=== PATIENT | female | born 1940 | race Caucasian/White ===

== ENCOUNTER → 2018-06-12 10:24 | Outpatient (CLI) | payer MEDICARE, SELFPAY | PROVIDERS: Family Provider Physician Assistant; PCP Physician Assistant; Visit Provider Obstetrics & Gynecology | DX: Z12.31 Encounter for screening mammogram for malignant neoplasm of breast (principal); Z80.3 Family history of malignant neoplasm of breast; E28.39 Other primary ovarian failure | CPT/HCPCS: 77063; 77067; 77080 ==

== ENCOUNTER → 2018-08-27 12:01 | Outpatient (CLI) | payer MEDICARE, SELFPAY ==
[2018-08-27 13:04] LABS: Vitamin B12 272 pg/mL (211-911)
[2018-08-27 13:10] LABS: BUN 13 mg/dL (7-18); Creatinine, Serum 0.76 mg/dL (0.55-1.02); EST Glomerular Filtration Rate 78 mL/min (>60); Est Glom Filt Rate - Afr Amer 95 mL/min (>60); Thyroid Stim Hormone (TSH) 1.09 uIU/mL (0.358-3.74)
== END ==
PROVIDERS: Family Provider Physician Assistant; PCP Physician Assistant; Referring Provider Psychiatry & Neurology Neurology; Visit Provider Psychiatry & Neurology Neurology
DX: R41.3 Other amnesia (principal)
CPT/HCPCS: 36415; 82565; 82607; 82746; 84443; 84520

== ENCOUNTER → 2018-08-28 16:35 | Outpatient (CLI) | payer MEDICARE, SELFPAY ==
--- NOTE | 2018-08-28 16:59 | MRI_ITS ---
STUDY: MRI BRAIN WITHOUT CONTRAST REASON FOR EXAM: Female, 77 years old. Memory loss, dementia. TECHNIQUE: Standardized multiplanar fat and water weighted pulse sequences were obtained. COMPARISON: None. FINDINGS: There is no intracranial mass, hemorrhage, or acute ischemia. A small chronic left occipital infarct is noted. There is mild cerebral atrophy with widening of the extra-axial spaces and ventricular dilatation. There are a limited number of small white matter hyperintensities, distributed throughout the deep white matter tracts of the cerebral hemispheres, consistent with mild chronic white matter ischemic changes. Normal bilateral basal ganglia. Normal thalami. There is no extra-axial fluid accumulation. Normal flow voids within the major intracranial circulation suggesting patency by spin echo criteria. Normal sella turcica, pituitary gland, infundibular stalk, optic chiasm and hypothalamus. Normal tectal plate and pineal gland. Normal midbrain, jennifer and medulla. Normal cerebellum. Normal basal cisterns. Normal bilateral temporal bones. Normal bilateral internal auditory canals. No demonstrated orbital abnormality, within the constraints of a routine brain study. Normal visualized paranasal sinuses. Normal calvarium and skull base. Normal visualized soft tissue structures. Normal visualized upper cervical spine. MRI/Brain without Contrast IMPRESSION: 1. No acute process. 2. Chronic left occipital infarct. 3. Mild microvascular ischemic changes. Atrophy. Electronically Signed: Manisha Escobar MD at 19:17 EDT Tel , Service support ,
== END ==
PROVIDERS: Family Provider Physician Assistant; PCP Physician Assistant; Referring Provider Psychiatry & Neurology Neurology; Visit Provider Psychiatry & Neurology Neurology
DX: H53.40 Unspecified visual field defects (principal); R41.3 Other amnesia
CPT/HCPCS: 70551

== ENCOUNTER → 2018-10-03 12:02 | Outpatient (CLI) | payer MEDICARE, SELFPAY ==
--- NOTE | 2018-10-03 12:09 | CDU_ITS ---
Reason For Study: Cerebral infarction Rt. Velocities/BP Lt. Velocities/BP Prox CCA 107/17 cm/sec. Prox CCA 84.4/19.9 cm/sec. Mid CCA 80.3/14.1 cm/sec. Mid CCA 85/16.4 cm/sec. Dist CCA 80.3/21.7 cm/sec. Dist CCA 71.5/17 cm/sec. Prox ICA 93.2/21.7 cm/sec. Prox ICA 82.7/18.8 cm/sec. Mid ICA 89.1/21.1 cm/sec. Mid ICA 70.4/20.5 cm/sec. Dist ICA 79.7/19.9 cm/sec. Dist ICA 82.1/25.8 cm/sec. Rt. ICA/CCA = 1.16. Lt. ICA/CCA = 0.98. Prox ECA 79.2/4.69 cm/sec. Prox ECA 78/5.28 cm/sec. Rt. Vert. 37.4/5.71 cm/sec. Lt. Vert. 47.9/9.43 cm/sec. Right Extracranial There is intimal thickening but no significant atherosclerotic plaque noted in the right common carotid artery. There is heterogeneous, irregular atherosclerotic plaque noted in the right internal carotid artery. There is heterogeneous, smooth atherosclerotic plaque noted in the right external carotid artery. Antegrade flow is noted in the right vertebral artery. Left Extracranial There is heterogeneous, smooth atherosclerotic plaque noted in the left common carotid artery. There is heterogeneous, irregular atherosclerotic plaque noted in the left internal carotid artery. There is intimal thickening but no significant atherosclerotic plaque noted in the left external carotid artery. Antegrade flow is noted in the left vertebral artery. Procedure Carotid Duplex [id number]. Exam performed in department. Interpretation Summary Mild (<50%) stenosis right extracranial internal carotid. Mild (<50%) stenosis left extracranial internal carotid. Flow within the vertebral arteries is antegrade bilaterally. Ordering Physician: Varun Wang Referring Physician: Lamont Viera Performed By: Ara RDCS, Becky SOLARES and Student
--- NOTE | 2018-10-03 12:10 | ECHOD_ITS ---
Reason For Study: CEREBRAL INFARCTION Procedure This was a 2D Doppler, Color Flow transthoracic echocardiogram. Exam performed in department. Left Ventricle Normal LV size. Left ventricular systolic function is normal. The estimated ejection fraction is 60 %. Stage 1 diastolic dysfunction. No regional wall motion abnormalities noted. Right Ventricle Normal RV size. Normal systolic function. Atria Normal left atrium. Normal right atrium. Bubble contrast study negative for right to left interatrial shunt. Mitral Valve Normal mitral valve. Tricuspid Valve Normal tricuspid valve. Mild (1+) tricuspid valve insufficiency. Pulmonary artery systolic pressure is 25 mmHg. Aortic Valve Trisinus/trileaflet aortic valve. Mild focal aortic valve calcification. Pulmonic Valve The pulmonic valve is not well visualized. Great Vessels Calcified aortic root. The pulmonary artery is normal size. Normal inferior vena cava. Pericardium/Pleural No pericardial effusion. Medication 22 gauge I.V. with prn adaptor inserted into right arm. Performed a rapid injection of agitated mix of 9 cc saline and 1cc air to assess for atrial septal defect. MMode/2D Measurements & Calculations LVIDd: 4.6 cm IVSd: 0.73 cm LVOT diam: 2.0 cm LVIDs: 3.1 cm LVPWd: 1.00 cm RVDd: 2.5 cm FS: 33.1 % LVOT area: 3.1 cm2 Ao root diam: 2.6 cm LAV(MOD-bp): 37.2 ml LA A4 area: 12.3 cm2 LAV(MOD-bp) Indexed: 23.9 ml/m2 LAV(MOD-sp2): 32.0 ml LAV(MOD-sp4): 32.7 ml LA dimension(2D): 3.2 cm RA A4 area: 9.2 cm2 Time Measurements MV dec time: 0.27 sec Doppler Measurements & Calculations MV E max josé miguel: 84.8 cm/sec Lat Peak E' José Miguel: 5.5 cm/sec Med Peak E' José Miguel: 5.4 cm/sec MV A max josé miguel: 99.9 cm/sec E/E' lat: 15.5 E/E' med: 15.6 MV E/A: 0.85 Ao V2 max: 132.5 cm/sec LV V1 max: 94.0 cm/sec PA V2 max: 95.0 cm/sec Ao max P.0 mmHg LV V1 max P.5 mmHg JAY(V,D): 2.2 cm2 TR max josé miguel: 228.7 cm/sec TR max P.1 mmHg Interpretation Summary Normal LV size. Left ventricular systolic function is normal. The estimated ejection fraction is 60 %. Stage 1 diastolic dysfunction. Mild (1+) tricuspid valve insufficiency. Ordering Physician: Varun Wang Referring Physician: Viera, Lamont Performed By: Shea Corbin RDCS, RVT
--- OUTSIDE RECORDS SUMMARY | 2018-11-28 10:54 | XMS RPT_ITS ---
:1940 Author Organization OHIP Care Team Providers Name Role Phone Radha Chiu Attending Unavailable Primay Care Physicia, Lala Referring Unavailable Primay Care Physicia, No Primary Care Unavailable Radha Chiu Attending Unavailable Radha Chiu Referring Unavailable Juan A Viera Primary Care Unavailable Varun Wang Attending Unavailable Varun Wang Referring Unavailable Juan A Viera Primary Care Unavailable Varun Wang Attending Unavailable Varun Wang Referring Unavailable Juan A Viera Primary Care Unavailable Varun Wang Attending Unavailable Varun Wang Referring Unavailable Juan A Viera Primary Care Unavailable Elia Salcido Consulting Unavailable Juan A VIERA (PA-C) Attending Unavailable Juan A VIERA (PA-C) Referring Unavailable ELROY GIBSON Referring Unavailable PROBLEMS PROBLEMS DATE TYPE CONDITION / CODE ATTENDING STATUS SOURCE 06/13/2018 Unknown Z12.31 - Encounter Ksenia Chiu for screening [facility] mammogram for [facility] malignant neoplasm Repository of breast / Z12.31(ICD-10) 06/13/2018 Unknown E28.39 - Other [employer] Active [place] primary ovarian [facility] E28.39(ICD-10) Repository 05/05/2018 Unknown Z01.419 - Encounter Ksenia Chiu for gynecological [facility] (general) (routine) Repository without abnormal findings / Z01.419(ICD-10) 04/01/2018 Active Contusion of left NA Active [facility] knee, initial [facility] [place] encounter / Repository S80.02XA(ICD-10) 04/01/2018 Active Contusion of left NA Active [facility] lower leg, initial [facility] [place] encounter / Repository S80.12XA(ICD-10) 04/01/2018 Active Contusion of left NA Active [facility] elbow, initial [facility] [place] encounter / Repository S50.02XA(ICD-10) 12/10/2017 Active Other amnesia / NA Active [facility] R41.3(ICD-10) [facility] [place] Repository PROCEDURES PROCEDURES No Procedure Records FoundRESULTS RESULTS ECHOCARDIOGRAM COMPLETE Observed: 10/06/2018 Status: F Source: [place] 7:53 AM [facility] REPOSITORY [facility] Cardiovascular Services [address] [place] [address] Echo Complete 10/03/18 1214 MR#: [id number] Acct: [id number] Name: MARLENE RUIZ Rep #: [id number] : 1940 77 From: Elia Salcido MD Attending Dr: Varun Wang MD Status: REG CLI Ordering Dr: Varun Wang MD Date: 10/03/18 Location: CVS Sex: F C Admitted: Reason For Study: CEREBRAL INFARCTION Procedure This was a 2D Doppler, Color Flow transthoracic echocardiogram. Exam performed in department. Left Ventricle Normal LV size. Left ventricular systolic function is normal. The estimated ejection fraction is 60 %. Stage 1 diastolic dysfunction. No regional wall motion abnormalities noted. Right Ventricle Normal RV size. Normal systolic function. Atria Normal left atrium. Normal right atrium. Bubble contrast study negative for right to left interatrial shunt. Mitral Valve Normal mitral valve. Tricuspid Valve Normal tricuspid valve. Mild (1+) tricuspid valve insufficiency. Pulmonary artery systolic pressure is 25 mmHg. Aortic Valve Trisinus/trileaflet aortic valve. Mild focal aortic valve calcification. Pulmonic Valve The pulmonic valve is not well visualized. Great Vessels Calcified aortic root. The pulmonary artery is normal size. Normal inferior vena cava. Pericardium/Pleural No pericardial effusion. Medication 22 gauge I.V. with prn adaptor inserted into right arm. Performed a rapid injection of agitated mix of 9 cc saline and 1cc air to assess for atrial septal defect. MMode/2D Measurements AND Calculations LVIDd: 4.6 cm IVSd: 0.73 cm LVOT diam: 2.0 cm LVIDs: 3.1 cm LVPWd: 1.00 cm RVDd: 2.5 cm FS: 33.1 % LVOT area: 3.1 cm2 Ao root diam: 2.6 cm LAV(MOD-bp): 37.2 ml LA A4 area: 12.3 cm2 LAV(MOD-bp) Indexed: 23.9 ml/m2 LAV(MOD-sp2): 32.0 ml LAV(MOD-sp4): 32.7 ml LA dimension(2D): 3.2 cm RA A4 area: 9.2 cm2 Time Measurements MV dec time: 0.27 sec Doppler Measurements AND Calculations MV E max josé miguel: 84.8 cm/sec Lat Peak E' José Miguel: 5.5 cm/sec Med Peak E' José Miguel: 5.4 cm/sec MV A max josé miguel: 99.9 cm/sec E/E' lat: 15.5 E/E' med: 15.6 MV E/A: 0.85 Ao V2 max: 132.5 cm/sec LV V1 max: 94.0 cm/sec PA V2 max: 95.0 cm/sec Ao max P.0 mmHg LV V1 max P.5 mmHg JAY(V,D): 2.2 cm2 TR max josé miguel: 228.7 cm/sec TR max P.1 mmHg Interpretation Summary Normal LV size. Left ventricular systolic function is normal. The estimated ejection fraction is 60 %. Stage 1 diastolic dysfunction. Mild (1+) tricuspid valve insufficiency. Ordering Physician: Varun Wang Referring Physician: Lamont Viera Performed By: Shea Corbin, NATALYA, RVT 10/06/18 0752 Date Elia Salcido MD CC: Juan A Viera; Varun Wang MD Date Dictated: 10/03/18 1214 Date Transcribed: 10/06/18 075 Yard Specialist: Signed CAROTID DUPLEX Observed: 10/05/2018 Status: F Source: [place] ULTRASOUND 2:13 [facility] REPOSITORY [facility] Cardiovascular Services [address] [place] [address] Carotid Duplex Ultrasound 10/03/18 1303 MR#: [id number] Acct: [id number] Name: MARLENE RUIZ Rep #: [id number] : 1940 77 From: Ryan Bueno MD Attending Dr: Varun Wang MD Status: REG CLI Ordering Dr: Varun Wang MD Date: 10/03/18 Location: CVS Sex: F C Admitted: Reason For Study: Cerebral infarction Rt. Velocities/BP Lt. Velocities/BP Prox CCA 107/17 cm/sec. Prox CCA 84.4/19.9 cm/sec. Mid CCA 80.3/14.1 cm/sec. Mid CCA 85/16.4 cm/sec. Dist CCA 80.3/21.7 cm/sec. Dist CCA 71.5/17 cm/sec. Prox ICA 93.2/21.7 cm/sec. Prox ICA 82.7/18.8 cm/sec. Mid ICA 89.1/21.1 cm/sec. Mid ICA 70.4/20.5 cm/sec. Dist ICA 79.7/19.9 cm/sec. Dist ICA 82.1/25.8 cm/sec. Rt. ICA/CCA = 1.16. Lt. ICA/CCA = 0.98. Prox ECA 79.2/4.69 cm/sec. Prox ECA 78/5.28 cm/sec. Rt. Vert. 37.4/5.71 cm/sec. Lt. Vert. 47.9/9.43 cm/sec. Right Extracranial There is intimal thickening but no significant atherosclerotic plaque noted in the right common carotid artery. There is heterogeneous, irregular atherosclerotic plaque noted in the right internal carotid artery. There is heterogeneous, smooth atherosclerotic plaque noted in the right external carotid artery. Antegrade flow is noted in the right vertebral artery. Left Extracranial There is heterogeneous, smooth atherosclerotic plaque noted in the left common carotid artery. There is heterogeneous, irregular atherosclerotic plaque noted in the left internal carotid artery. There is intimal thickening but no significant atherosclerotic plaque noted in the left external carotid artery. Antegrade flow is noted in the left vertebral artery. Procedure Carotid Duplex 36223. Exam performed in department. Interpretation Summary Mild (<50%) stenosis right extracranial internal carotid. Mild (<50%) stenosis left extracranial internal carotid. Flow within the vertebral arteries is antegrade bilaterally. Ordering Physician: Varun Wang Referring Physician: Lamont Viera Performed By: Ara NATALYA, Becky SOLARES and Student 10/05/18 1412 Date Ryan Bueno MD CC: Juan A Viera; Varun Wang MD Date Dictated: 10/03/18 1303 Date Transcribed: 10/05/18 1412 Yard Specialist: Signed BRAIN WITHOUT Observed: 08/28/2018 Status: F Source: [place] CONTRAST 5:04 PM [facility] REPOSITORY [facility] Imaging Services [address] [place] [address] Brain without Contrast MR#: [id number] Acct: [id number] Name: MARLENE RUIZ Rep #: [id number] : 1940 F 77 From: Manisha Escobar MD PCP: Juan A Viera Status: REG CLI Study: Brain without Contrast Date of Exam: 08/28/18 Exam# [id number] Ordering Dr: Varun Wang MD STUDY: MRI BRAIN WITHOUT CONTRAST REASON FOR EXAM: Female, 77 years old. Memory loss, dementia. TECHNIQUE: Standardized multiplanar fat and water weighted pulse sequences were obtained. COMPARISON: None. FINDINGS: There is no intracranial mass, hemorrhage, or acute ischemia. A small chronic left occipital infarct is noted. There is mild cerebral atrophy with widening of the extra- axial spaces and ventricular dilatation. There are a limited number of small white matter hyperintensities, distributed throughout the deep white matter tracts of the cerebral hemispheres, consistent with mild chronic white matter ischemic changes. Normal bilateral basal ganglia. Normal thalami. There is no extra-axial fluid accumulation. Normal flow voids within the major intracranial circulation suggesting patency by spin echo criteria. Normal sella turcica, pituitary gland, infundibular stalk, optic chiasm and hypothalamus. Normal tectal plate and pineal gland. Normal midbrain, jennifer and medulla. Normal cerebellum. Normal basal cisterns. Normal bilateral temporal bones. Normal bilateral internal auditory canals. No demonstrated orbital abnormality, within the constraints of a routine brain study. Normal visualized paranasal sinuses. Normal calvarium and skull base. Normal visualized soft tissue structures. Normal visualized upper cervical spine. MRI/Brain without Contrast IMPRESSION: 1. No acute process. 2. Chronic left occipital infarct. 3. Mild microvascular ischemic changes. Atrophy. Electronically Signed: Manisha Escobar MD at 19:17 EDT Tel , Service support , CC: Juan A Viera; Varun Wang MD Yard Specialist: Signed VITAMIN B12 Collected: 08/27/2018 Status: F Source: [place] 12:08 PM [facility] REPOSITORY TYPE CODE TESTS RESULT OUT OF RANGE REFERENCE UNITS LAB L503.0105 211-911 pg/mL Normal Vitamin B12 272 Performed By: #### L503.0105 #### [facility] [address] [place], [place], [address] BUN Collected: 08/27/2018 Status: F Source: [place] 12:08 PM [facility] REPOSITORY Order Comment: Is Patient Taking Vitamins or Folic Acid Supplements? N TYPE CODE TESTS RESULT OUT OF RANGE REFERENCE UNITS LAB L501.1000 7-18 mg/dL Normal BUN 13 Performed By: #### L501.1000, L501.1105, L501.9520, L506.0250 #### [facility] [address] [place], [place], [address] SERUM CREATININE AND Collected: 08/27/2018 Status: F Source: [place] GFR 12:08 PM [facility] REPOSITORY Order Comment: Is Patient Taking Vitamins or Folic Acid Supplements? N TYPE CODE TESTS RESULT OUT OF RANGE REFERENCE UNITS LAB L501.1100 0.55-1.02 mg/dL Normal 0.76 CREAT,SERUM Result Comment: The validity of the calculated GFR AND GFRAA in patients over 70 years has not been determined. Clinical correlation is essential. LAB L501.1110 >60 mL/min Normal EST GFR 78 Result Comment: Non- GFR Calc LAB L501.1115 >60 mL/min Normal EST GFR - AA 95 Result Comment: GFR Calc Performed By: #### L501.1000, L501.1105, L501.9520, L506.0250 #### [facility] [address] [place], [address] THYROID STIM HORMONE Collected: 08/27/2018 Status: F Source: [place] (TSH) 12:08 PM [facility] REPOSITORY Order Comment: Is Patient Taking Vitamins or Folic Acid Supplements? N TYPE CODE TESTS RESULT OUT OF RANGE REFERENCE UNITS LAB L501.9520 0.358-3.74 uIU/mL Normal TSH 1.09 Performed By: #### L501.1000, L501.1105, L501.9520, L506.0250 #### [facility] [address] [place], [address] FOLATES, (FOLIC ACID) Collected: 08/27/2018 Status: F Source: [place] 12:08 PM [facility] REPOSITORY Order Comment: Is Patient Taking Vitamins or Folic Acid Supplements? N TYPE CODE TESTS RESULT OUT OF RANGE REFERENCE UNITS LAB L506.0250 3.1-55.4 ng/mL Normal FOLATES 3.90 Performed By: #### L501.1000, L501.1105, L501.9520, L506.0250 #### [facility] [address] [place], [address] SCREENING MAMM (CAD), Observed: 06/12/2018 Status: F Source: [place] BILAT 10:28 AM [facility] REPOSITORY [facility] Imaging Services [address] [place] [address] SCREENING MAMM (CAD), BILAT MR#: [id number] Acct: [id number] Name: MARLENE RUIZ Rep #: [id number] : 1940 F 77 From: Cesar Díaz MD PCP: Juan A Viera Status: REG CLI Study: SCREENING MAMM (CAD), BILAT Date of Exam: 06/12/18 Exam# [id number] Ordering Dr: Radha Chiu MD MAMMOGRAPHY - BILATERAL SCREENING 3-D LUIS MIGUEL SYNTHESIS REASON FOR EXAM: Female, 77 years old. Bilateral Screening 3-D tomosynthesis PERTINENT HISTORY: Family history of breast cancer in sister and fifth dedicated.. TECHNIQUE: 2-D mammograms and 3-D Luis Miguel synthesis of the breast (s) were performed. CAD was performed. COMPARISON: March 11, 2017, January 06, 2016 FINDINGS: The breast composition is almost entirely fat. Scattered benign calcifications and normal-appearing lymph nodes are seen. No dense spiculated masses or suspicious microcalcifications are identified. No architectural distortion is identified. There is no skin thickening or retraction. There has been no significant change since the prior study. BI/SCREENING MAMM (CAD), BILAT IMPRESSION: No mammographic signs of malignancy. Routine yearly mammograms recommended. ASSESSMENT CATEGORY: BIRADS Category 2: Benign. A letter regarding these results will be sent to the patient by the facility within 30 days. FOLLOW UP RECOMMENDATION: Yearly follow up mammogram recommended. (A) Approximately 10% of breast cancers are not detected by mammography. A normal mammogram should not delay biopsy of a clinically suspicious abnormality. Electronically Signed: Cesar Díaz MD at 18:38 EDT , Service support , CC: Juan A Viera; Radha Chiu MD Yard Specialist: Signed DEXA BONE DENSITY Observed: 06/12/2018 Status: F Source: [place] STUDY 10:28 [facility] REPOSITORY [facility] Imaging Services [address] [place] [address] Dexa Bone Density Study MR#: [id number] Acct: [id number] Name: MARLENE RUIZ Rep #: [id number] : 1940 F 77 From: Clyde Mayberry MD PCP: Juan A Viera Status: REG CLI Study: Dexa Bone Density Study Date of Exam: 06/12/18 Exam# [id number] Ordering Dr: Radha Chiu MD STUDY: DUAL ENERGY X-RAY ABSORPTIOMETRY / DXA REASON FOR EXAM: Female, 77 years old. The patient is postmenopausal. Loss of height. TECHNIQUE: Bone Mineral Density (BMD) measurements of lumbar spine and bilateral hips were obtained. COMPARISON: None. FINDINGS: Lumbar Spine (L1-L4): g/cm2 (1.001) / T-score (-1.4) / Z-score (0.4) Findings are suggestive of osteopenia with a moderate fracture risk. Left Femur Total: g/cm2 (0.835) / T-score (-1.4) / Z- score (0.4) Left Femoral Neck: g/cm2 (0.784) / T-score (-1.8) / Z- score (0.1) Right Femur Total: g/cm2 (0.804) / T-score (-1.6) / Z- score (0.1) Right Femoral Neck: g/cm2 (0.746) / T-score (-2.1) / Z-score (-0.2) BD/Dexa Bone Density Study IMPRESSION: The patient is considered osteopenic as outlined below according to World Mart Organization (WHO) criteria with a moderate fracture risk. Reference Information: The T-score is the number of standard deviations above or below the standard which is normal for young adults at their peak bone mineral density. The World Health Organization (WHO) interprets the T-scores as follows: Above -1 Normal bone density Between -1 and -2.5 Osteopenia Equal to / or below -2.5 Osteoporosis As a practical clinical guideline, osteopenia may be graded as follows: Mild -1 through -1.5 Moderate -1.6 through -2.0 Severe -2.1 through -2.4 The Z-score is the number of standard deviations above or below age-matched controls. A Z-score of less than -1.5 would be considered abnormal. References: 1. NIH Osteoporosis and Related Bone Diseases http://www.osteo.org 2. International Society for Clinical Densitometry http://www.iscd.org 3. National Osteoporosis Foundation http://www.nof.org Electronically Signed: Clyde Mayberry MD at 15:54 EDT Tel [phone], Service support , CC: Juan A Viera; Radha Chiu MD Yard Specialist: Signed CNPTOUTREACH Observed: 05/27/2018 Status: COMPLETED Source: [place] 12:00 AM [facility] REPOSITORY Patient Outreach (FAMPST) MARLENE RUIZ ([id number]) 1940 F Date Time Provider Department 05/27/18 [facility] During [facility] today, we recorded the following information about you: Allergies As of Date: 05/27/2018 Noted Allergy Reaction AUGMENTIN (AMOXICILLIN-POT CLAVUL*08/16/2010 8 - GI Upset Date Reviewed: 04/01/2018 Reviewed by: Lila Russell Ma - Fully Assessed Visit Diagnosis:Medication management [Z79.899] Order(s):HGB A1C [QADBU7J] Order #: [id number] FUTURE LIPID PANEL BASIC [SQLIPB] Order #: [id number] FUTURE Prescriptions as of 05/27/2018 Sig: AMLODIPINE 5 MG TABLET Take 2 tablets by mouth once * SIMVASTATIN 40 MG TABLET Take 0.5 tablets by mouth onc* * METOPROLOL SUCCINATE ER 50 MG* Take one(1) tablet ONCE lo* * LISINOPRIL 40 MG TABLET Take one(1) tablet daily. Problem List As Of Date 05/27/2018 Noted Resolved Acute Gastritis without Mention of Hemorrhage [*INVALID FOR* More... Mixed hyperlipidemia [E78.2] INVALID FOR* Priority: A Essential hypertension, benign [I10] INVALID FOR* Priority: A More... Routine general medical examination at a [facility]*INVALID FOR*10/07/2012 Class: Chronic More... More... More... Tobacco Use Disorder [F17.200] INVALID FOR* Priority: A More... Colon polyps [K63.5] INVALID FOR* Priority: B More... Irritable bowel syndrome [K58.9] Priority: A More... 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 Observed: 05/05/2018 Status: F Source: [place] REPORT 1:58 PM [facility] REPOSITORY [facility] [address] [place] [address] OFFICE VISIT Date of Service: 05/05/18 MR#: [id number] Acct: [id number] Name: RUIZMARLENE L Rep #: [id number] : 1940 Provider: Radha Chiu MD Age/Sex: 77/F Location: [facility] [place] [place] Status: Signed Intake Vital Signs05/05/18 Height 5 ft 1 in 05/05/18 Weight: 122 lb 05/05/18 Body Mass Index (BMI) 23.0 05/05/18 Blood Pressure 127/74 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) Audience Coordinator Required: No Accompanied by: self Is patient in pain?: No Allergies amoxicillin trihydrate [From Augmentin] Adverse Reaction (Mild, Verified 05/05/18 13:15) Vomiting potassium clavulanate [From Augmentin] Adverse Reaction (Mild, Verified 05/05/18 13:15) Vomiting Medications Lisinopril [Zestril] 40 mg PO DINNER 07/26/14 [History Confirmed 05/05/18] Metoprolol(XL)Succ [Toprol Xl (Beta Demian)] 50 mg PO DAILY 07/26/14 [History Confirmed 05/05/18] Simvastatin [Zocor] 20 mg PO QHS 07/26/14 [History Confirmed 05/05/18] amlodipine 5 mg tablet 10 mg PO LUNCH tab 05/05/18 [History Confirmed 05/05/18] Is last menstrual period known: No Post menopausal: No Patient : No : No PFSH Medical History H/O abdominal hysterectomy (Acute) Hyperlipemia (Acute) Hypertension (Chronic) Surgical History H/O hemorrhoidectomy (Acute) H/O lumpectomy (Acute) History of cholecystectomy (Acute) Family History Mother Hypertension Father Hypertension Social History housing: house number of children: 1 current occupational status: retired 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 Last PAP: na History of abnormal PAP: no Last mammogram: due History of abnormal mammogram: Colon cancer screening: per pcp maximiliano Other preventative health care screenings: per pcp Female Reproductive History Menopausal Symptoms: No hot flashes, No night sweats, No weight change, No mood changes, No difficulty concentrating, No sleep problems, No change in libido ROS Const Constitutional: Denies night sweats Cardio Card: Denies chest pain Resp Resp: Denies dyspnea or cough GI GI: Reports as per HPI; denies bloating, abdominal pain, constipation, vomiting or nausea : Denies hot flashes or nipple discharge Skin Skin/Breast: Denies breast pain, breast skin changes, nipple discharge, breast lump or changing lesions Psych Psych: Denies difficulty concentrating or change in sex drive Exam Const General: cooperative, healthy appearing, comfortable, no acute distress, well developed, well groomed HENDE Head: normal to inspection, normocephalic Ears: hearing grossly normal bilaterally, external ears normal Nose: external nose normal Face and sinus: normal facial exam Neck Neck: normal visual inspection, full ROM, no lymphadenopathy Thyroid: thyroid normal Chest Chest palpation AND inspection: normal inspection of the chest Breast inspection: normal inspection of the breasts, normal inspection of the axillae Breast palpation: normal palpation of the breasts, normal palpation of the axillae, no axillary lymphadenopathy Resp Effort AND Inspection: normal respiratory effort GI Inspection: normal to inspection, non-distended Palpation: no guarding, soft, no hepatosplenomegaly General: bladder normal to palpation External Female Exam: normal external appearance, normal appearance of the urethra, no lesions Urethra: normal appearance of the urethra, normal palpation Speculum Exam - Vagina: normal appearance of the vagina, normal vaginal discharge Speculum Exam - Cervix: normal appearance of the cervix, no cervical discharge, no lesions, nontender Bimanual Exam- Vagina AND Uterus: No cervical tenderness, normal bimanual exam, uterine size normal, bladder normal to palpation, uterine mobility normal, uterine consistency normal, uterus non-tender, no cervical motion tenderness Bimanual Exam- Adnexa, other: normal adnexae, no adnexal masses, adnexae non-tender Skin General: no rashes or lesions noted Neuro General: alert, moves all extremities, no focal motor deficits Extrem General: no pedal edema, normal to inspection Psych Appearance: grossly normal Mental Status: mental status grossly normal Affect: normal affect Speech and Movement: speech and movement normal Attitude: cooperative Assessment AND Plan Problems 1. Encounter for gynecological examination without abnormal finding Z01.419 2. Encounter for screening mammogram for malignant neoplasm of breast Z12.31 3. Estrogen deficiency E28.39 Plan Cervical cancer screening: na Breast cancer screening: mamm other health maintenance examination reviewed and up to date. Encouraged maintenance of a healthy weight and active lifestyle and handout given. Calcium/vitamin D recommendations provided. Annual exam handout including recommendations for good health guidelines and basic screening information given. Problem list up to date, see problem list details for any additional plan information. Follow up in one year for annual health maintenance exam or sooner if needed. Orders Orders: Coding Level of Care Code MC Pelvic/Breast Diagnoses Encounter for gynecological examination without abnormal finding Z01.419 Gynecological examination findings: abnormal findings ABSENT Encounter for screening mammogram for malignant neoplasm of breast Z12.31 Estrogen deficiency E28.39 05/05/18 1358 <Electronically signed by Radha Chiu MD> Date Radha Chiu MD Cosigner Signature: Date (if applicable) CC: PROCEDURE Observed: 04/01/2018 Status: COMPLETED Source: [place] 5:54 PM [facility] REPOSITORY O ID: [id number] Author: Elroy Gibson (Pa) Service: (none) Author Type: Physician Food And Beverage Operations Manager Type: Procedures Filed: 04/01/2018 5:57 PM Note Text: The left Pretibial abrasions were debrieded of and loose skin. Hibicleanse was applied and the wounds were washed. Bacitracin dressing was applied. The patient tolerated the procedure well. XR ELBOW 3V AP/LAT/OTHER Observed: 04/01/2018 Status: F Source: [facility] 4:39 PM [facility] REPOSITORY * * *Final Report* * * DATE OF EXAM: Apr 01 2018 4:39PM WOX 5324 - XR ELBOW 3V AP/LAT/OTHER LT / PROCEDURE REASON: Contusion of left elbow, initial encounter * * * * Physician Interpretation * * * * HISTORY: Injury TECHNIQUE: AP lateral left tibia, AP lateral left knee, 3 views of the left elbow COMPARISON: None RESULT: Left knee: No fracture or dislocation or obvious knee joint effusion. Left elbow: No fracture or dislocation or elbow joint effusion. Left tibia: No fracture. IMPRESSION: No fracture Yard Specialist: [facility] Transcribe Date/Time: Apr 01 2018 4:42P Dictated by : TORI NEWMAN MD This examination was interpreted and the report reviewed and electronically signed by: TORI NEWMAN MD on Apr 01 2018 4:46PM EST [id number] XR KNEE 2V AP/LAT Observed: 04/01/2018 Status: F Source: [facility] 4:39 PM [facility] REPOSITORY * * *Final Report* * * DATE OF EXAM: Apr 01 2018 4:39PM WOX 5206 - XR KNEE 2V AP/LAT LT / PROCEDURE REASON: Contusion of left knee, initial encounter * * * * Physician Interpretation * * * * HISTORY: Injury TECHNIQUE: AP lateral left tibia, AP lateral left knee, 3 views of the left elbow COMPARISON: None RESULT: Left knee: No fracture or dislocation or obvious knee joint effusion. Left elbow: No fracture or dislocation or elbow joint effusion. Left tibia: No fracture. IMPRESSION: No fracture Yard Specialist: [facility] Transcribe Date/Time: Apr 01 2018 4:42P Dictated by : TORI NEWMAN MD This examination was interpreted and the report reviewed and electronically signed by: TORI NEWMAN MD on Apr 01 2018 4:46PM EST [id number] XR TIBIA FIBULA 2V Observed: 04/01/2018 Status: F Source: [place] AP/LAT LT 4:39 PM [facility] REPOSITORY * * *Final Report* * * DATE OF EXAM: Apr 01 2018 4:39PM WOX 5265 - XR TIBIA FIBULA 2V AP/LAT LT / PROCEDURE REASON: Contusion of left lower leg, initial encounter * * * * Physician Interpretation * * * * HISTORY: Injury TECHNIQUE: AP lateral left tibia, AP lateral left knee, 3 views of the left elbow COMPARISON: None RESULT: Left knee: No fracture or dislocation or obvious knee joint effusion. Left elbow: No fracture or dislocation or elbow joint effusion. Left tibia: No fracture. IMPRESSION: No fracture Yard Specialist: [facility] Transcribe Date/Time: Apr 01 2018 4:42P Dictated by : TORI NEWMAN MD This examination was interpreted and the report reviewed and electronically signed by: TORI NEWMAN MD on Apr 01 2018 4:46PM EST [id number] PROGRESS Observed: 04/01/2018 Status: COMPLETED Source: [place] 4:20 PM [facility] REPOSITORY HNO ID: [id number] Author: Sherice Portillo (Rt) Service: (none) Author Type: Bridge Opener Type: Progress Notes Filed: 04/01/2018 4:37 PM Note Text: Radiology Service Progress Note PATIENT NAME: Marlene Ruiz DATE OF SERVICE: April 01, 2018 TIME: 4:20 PM PATIENT IDENTITY VERIFICATION COMPLETED USING TWO (2) METHODS: Patient confirmed name verbally and Date of . PATIENT GENDER DATA: Female. status: : No status: NO. PATIENT RELEVANT IMPLANT DATA REVIEWED: Not Applicable RADIOLOGY DEPARTMENT: General X-ray: Exam(s) Completed: Lower Extremity X-Ray(s): Knee, AP / LAT Left and Tibia Fibula, Left: Upper Extremity X-Ray(s): Elbow, left : PERIPHERAL IV DATA: Not applicable SIGNED BY: RT Lindsey April 01, 2018 4:20 PM PROGRESS Observed: 04/01/2018 Status: COMPLETED Source: [place] 3:43 PM [facility] REPOSITORY HNO ID: [id number] Author: Elroy Gibson (Pa) Service: (none) Author Type: Physician Food And Beverage Operations Manager Type: Progress Notes Filed: 04/01/2018 5:57 PM Note Text: Subjective HPI Marlene Ruiz is a 77 year old female who presents with with left elbow, knee, lower leg contusions, and multiple abrasions to the left lower leg after falling down descending her basement stairs on 03/31/18. There was no loss of consciousness or head injury. She states that she was on the last step, and thinks that her ankle twisted causing the fall. Her last Td was in 2012. 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 - Carlock's syndrome (HCC) resolved s/p adrenalectomy 1993 - Diarrhea - Early satiety - Essential hypertension, benign - Flatulence, eructation, and gas pain - History of colon polyps - Insomnia, unspecified - Irritable bowel syndrome - Nephrolithiasis - Palpitations - Pure hypercholesterolemia - Tachycardia PAST SURGICAL HISTORY Procedure Laterality Date - APPENDECTOMY 1991 - BIOPSY BREAST ~1967, ~1968 right, benign - BIOPSY,SKIN EACH ADDITIONAL LESION moles removed from multiple sites - COLONOS W/REM POLYP SNARE 02/23/11 tubulovillous adenoma, repeat due 2013 - COLONOSCOPY 2001 - COLONOSCOPY 02/07/15 - CYSTO W LITHOTRIPSY x2 - EGD 08/06/05 - EGD W/O [facility] SPECIMEN W/BX 02/23/11 - EXCISE ADRENAL GLAND 02/21/94 left adrenal tumor: induced Cushings - LAPAROSCOPIC CHOLEYCYSTECTOMY 's Cholecystectomy, lap - PAST SURGICAL HISTORY OF 07/2006 removal of ovarian cyst - PAST SURGICAL HISTORY OF 01/2004 right hemicolectomy for large TVA - REMOVAL OF OVARY/TUBE(S) 1991 Salpingo-oophorectomy - TOTAL ABDOM HYSTERECTOMY 1991 ALLERGIES Augmentin [Amoxicillin-Pot Clavulanate] MEDICATIONS amLODIPine (NORVASC) 5 mg tablet Take 2 tablets by mouth once daily. simvastatin (ZOCOR) 40 mg tablet Take 0.5 tablets by mouth once daily. FOR CHOLESTEROL metoprolol succinate XL (TOPROL XL) 50 mg ORAL 24 hr tablet Take one(1) tablet ONCE daily. LISINOPRIL 40 MG TAB Take one(1) tablet daily. FAMILY HISTORY Problem Relation Age of Onset - Hypertension Sister - Parkinson's [OTHER] Sister - Hypertension Mother age 81, sudden - Hypertension Father - Heart Father : sudden age 75; dx'd early - Breast Cancer Paternal Grandmother - Breast Cancer Sister age 58 Social History Substance Use Topics - Smoking status: Current Every Day Smoker Packs/day: 1.00 Years: 47.00 Types: Cigarettes Last attempt to quit: 09/30/1966 - Smokeless tobacco: Never Used Comment: Started Smoking about Age 19 - Alcohol use No Review of Systems Cardiovascular: Negative for chest pain. Musculoskeletal: Positive for falls and joint pain. Negative for back pain and neck pain. Neurological: Negative for dizziness. All other systems reviewed and are negative. Objective Physical Exam Constitutional: She is oriented to person, place, and time and well-developed, well-nourished, and in no distress. HENT: Head: Normocephalic and atraumatic. Eyes: Conjunctivae are normal. Neck: Normal range of motion. Cardiovascular: Normal rate, regular rhythm, normal heart sounds and intact distal pulses. Pulmonary/Chest: Effort normal and breath sounds normal. Abdominal: Soft. Bowel sounds are normal. Musculoskeletal: She exhibits tenderness. She exhibits no deformity. Swelling of the left elbow, left knee. Mild pain in the antecubital fossa with pronation and supination. Neurological: She is alert and oriented to person, place, and time. Skin: Multiple abrasions of the left Tib/Fib. Psychiatric: Affect normal. Blood pressure 120/72, pulse 74, temperature 36.7 ?C (98 ?F), temperature source Tympanic, resp. rate 16, weight 57.2 kg (126 lb). ASSESSMENT/PLAN: 1. Contusion of left lower leg, initial encounter - ICD9: 924.10, ICD10: S80.12XA (primary diagnosis) - XR TIBIA FIBULA 2V AP/LAT LT 2. Contusion of left knee, initial encounter - ICD9: 924.11, ICD10: S80.02XA - XR KNEE LIMITED 2V AP/LAT LT 3. Abrasion of left leg, initial encounter - ICD9: 916.0, ICD10: S80.812A - CEPHALEXIN 500 MG CAPSULE. Watch for signs of infection. F/U with your PCP. In 7-10 days if needed. 4. Contusion of left elbow, initial encounter - ICD9: 923.11, ICD10: S50.02XA - XR ELBOW SPECIAL VIEWS AP/LAT/OTHER LT JOSE Chinchilla Observed: 04/01/2018 Status: COMPLETED Source: [place] 3:15 PM [facility] REPOSITORY [facility] MARLENE RUIZ ([id number]) 1940 F Date Time Provider Department 04/01/18 3:15 PM ELROY GIBSON (BOBBY) [facility] During your visit today, we recorded the following information about you: Temperature Pulse Respiration Blood pressure 98 degrees 74/minute 16/minute 120/72 Weight 57.2 kg Elroy Gibson PA-C 04/01/2018 5:57 PM Signed Subjective HPI Marlene Ruiz is a 77 year old female who presents with with left elbow, knee, lower leg contusions, and multiple abrasions to the left lower leg after falling down descending her basement stairs on 03/31/18. There was no loss of consciousness or head injury. She states that she was on the last step, and thinks that her ankle twisted causing the fall. Her last Td was in 2012. 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 - Shell's syndrome (HCC) resolved s/p adrenalectomy 1993 - Diarrhea - Early satiety - Essential hypertension, benign - Flatulence, eructation, and gas pain - History of colon polyps - Insomnia, unspecified - Irritable bowel syndrome - Nephrolithiasis - Palpitations - Pure hypercholesterolemia - Tachycardia PAST SURGICAL HISTORY Procedure Laterality Date - APPENDECTOMY 1991 - BIOPSY BREAST ~1966, ~1968 right, benign - BIOPSY,SKIN EACH ADDITIONAL LESION moles removed from multiple sites - COLONOS W/REM POLYP SNARE 02/23/11 tubulovillous adenoma, repeat due 2013 - COLONOSCOPY 2001 - COLONOSCOPY 02/07/15 - CYSTO W LITHOTRIPSY x2 - EGD 08/06/05 - EGD W/O [facility] SPECIMEN W/BX 02/23/11 - EXCISE ADRENAL GLAND 02/21/94 left adrenal tumor: induced Cushings - LAPAROSCOPIC CHOLEYCYSTECTOMY 80's Cholecystectomy, lap - PAST SURGICAL HISTORY OF 07/2006 removal of ovarian cyst - PAST SURGICAL HISTORY OF 01/2004 right hemicolectomy for large TVA - REMOVAL OF OVARY/TUBE(S) 1991 Salpingo-oophorectomy - TOTAL ABDOM HYSTERECTOMY 1991 ALLERGIES Augmentin [Amoxicillin-Pot Clavulanate] MEDICATIONS amLODIPine (NORVASC) 5 mg tablet Take 2 tablets by mouth once daily. simvastatin (ZOCOR) 40 mg tablet Take 0.5 tablets by mouth once daily. FOR CHOLESTEROL metoprolol succinate XL (TOPROL XL) 50 mg ORAL 24 hr tablet Take one(1) tablet ONCE daily. LISINOPRIL 40 MG TAB Take one(1) tablet daily. FAMILY HISTORY Problem Relation Age of Onset - Hypertension Sister - Parkinson's [OTHER] Sister - Hypertension Mother age 81, sudden - Hypertension Father - Heart Father : sudden age 75; dx'd early - Breast Cancer Paternal Grandmother - Breast Cancer Sister age 58 Social History Substance Use Topics - Smoking status: Current Every Day Smoker Packs/day: 1.00 Years: 47.00 Types: Cigarettes Last attempt to quit: 09/30/1966 - Smokeless tobacco: Never Used Comment: Started Smoking about Age 19 - Alcohol use No Review of Systems Cardiovascular: Negative for chest pain. Musculoskeletal: Positive for falls and joint pain. Negative for back pain and neck pain. Neurological: Negative for dizziness. All other systems reviewed and are negative. Objective Physical Exam Constitutional: She is oriented to person, place, and time and well-developed, well-nourished, and in no distress. HENT: Head: Normocephalic and atraumatic. Eyes: Conjunctivae are normal. Neck: Normal range of motion. Cardiovascular: Normal rate, regular rhythm, normal heart sounds and intact distal pulses. Pulmonary/Chest: Effort normal and breath sounds normal. Abdominal: Soft. Bowel sounds are normal. Musculoskeletal: She exhibits tenderness. She exhibits no deformity. Swelling of the left elbow, left knee. Mild pain in the antecubital fossa with pronation and supination. Neurological: She is alert and oriented to person, place, and time. Skin: Multiple abrasions of the left Tib/Fib. Psychiatric: Affect normal. Blood pressure 120/72, pulse 74, temperature 36.7 ?C (98 ?F), temperature source Tympanic, resp. rate 16, weight 57.2 kg (126 lb). ASSESSMENT/PLAN: 1. Contusion of left lower leg, initial encounter - ICD9: 924.10, ICD10: S80.12XA (primary diagnosis) - XR TIBIA FIBULA 2V AP/LAT LT 2. Contusion of left knee, initial encounter - ICD9: 924.11, ICD10: S80.02XA - XR KNEE LIMITED 2V AP/LAT LT 3. Abrasion of left leg, initial encounter - ICD9: 916.0, ICD10: S80.812A - CEPHALEXIN 500 MG CAPSULE. Watch for signs of infection. F/U with your PCP. In 7-10 days if needed. 4. Contusion of left elbow, initial encounter - ICD9: 923.11, ICD10: S50.02XA - XR ELBOW SPECIAL VIEWS AP/LAT/OTHER LT JOSE Chinchilla PA-C 04/01/2018 5:57 PM Signed The left Pretibial abrasions were debrieded of and loose skin. Hibicleanse was applied and the wounds were washed. Bacitracin dressing was applied. The patient tolerated the procedure well. Referring Provider: SELF [[id number]] Allergies As of Date: 04/01/2018 Noted Allergy Reaction AUGMENTIN (AMOXICILLIN-POT CLAVUL*08/16/2010 8 - GI Upset Date Reviewed: 04/01/2018 Reviewed by: Lila Russell Ma - Fully Assessed Reason for Visit: Leg Injury [1982] Cmt: left knee and leg pain x yesterday Primary Visit Diagnosis:Contusion of left lower leg, initial encounter [S80.12XA] Other Visit Diagnoses:Contusion of left knee, initial encounter [S80.02XA] Abrasion of left leg, initial encounter [S80.812A] Contusion of left elbow, initial encounter [S50.02XA] Order(s):XR KNEE LIMITED 2V AP/LAT LT [[id number]] Order #: [id number] FUTURE XR TIBIA FIBULA 2V AP/LAT LT [[id number]] Order #: [id number] FUTURE XR ELBOW SPECIAL VIEWS AP/LAT/OTHER LT [[id number]] Order #: [id number] FUTURE cephALEXin (KEFLEX) 500 mg capsuleTake 1 capsule by mouth twice daily for 7 days.Disp: 14 capsuleRfl: 0 Prescriptions as of 04/01/2018 Sig: AMLODIPINE 5 MG TABLET Take 2 tablets by mouth once * SIMVASTATIN 40 MG TABLET Take 0.5 tablets by mouth onc* * METOPROLOL SUCCINATE ER 50 MG* Take one(1) tablet ONCE lo* * LISINOPRIL 40 MG TABLET Take one(1) tablet daily. CEPHALEXIN 500 MG CAPSULE Take 1 capsule by mouth twice* Problem List As Of Date 04/01/2018 Noted Resolved Acute Gastritis without Mention of Hemorrhage [*INVALID FOR* More... Mixed hyperlipidemia [E78.2] INVALID FOR* Priority: A Essential hypertension, benign [I10] INVALID FOR* Priority: A More... Routine general medical examination at a health*INVALID FOR*10/07/2012 Class: Chronic More... More... More... Tobacco Use Disorder [F17.200] INVALID FOR* Priority: A More... Colon polyps [K63.5] INVALID FOR* Priority: B More... Irritable bowel syndrome [K58.9] Priority: A More... Shell's disease (HCC) [E24.0] INVALID FOR*12/10/2017 Priority: C More... 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] INVALID FOR* Priority: A Abn findings-GI tract [R93.3] INVALID FOR* Flatulence, eructation, and gas pain [R14.3, R1*INVALID FOR* Early satiety [R68.81] INVALID FOR* Diarrhea [R19.7] INVALID FOR* Priority: A Renal calculus [N20.0] INVALID FOR* Prescriptions ordered this encounter Disp Refills Start End CEPHALEXIN 500 MG CAPSULE 14 c* 0 04/01/2018 04/08/2018 Route: ORAL Sig: Take 1 capsule by mouth twice daily for 7 days. Encounter Status:Closed by LIANG GARCIA, ELROY on 04/01/18 CBC AND DIFFERENTIAL Collected: 12/10/2017 Status: F Source: [place] 11:32 AM [facility] REPOSITORY TYPE CODE TESTS RESULT OUT OF REFERENCE UNITS RANGE LAB WBC 3.70-11.00 k/uL WBC 7.58 LAB RBC 3.90-5.20 m/uL RBC 4.83 LAB HGB 11.5-15.5 g/dL Hemoglobin 15.0 LAB HCT 36.0-46.0 % Hematocrit 45.8 LAB MCV 80.0-100.0 fL MCV 94.8 LAB MCH 26.0-34.0 pG MCH 31.1 LAB MCHC 30.5-36.0 g/dL MCHC 32.8 LAB RDWCV 11.5-15.0 % RDW-CV 13.9 LAB PLTCT 150-400 k/uL Platelet Count 397 LAB MPV 9.0-12.7 fL MPV 10.1 LAB ANEUT % Neut% 58.2 LAB AANEUT 1.45-7.50 k/uL Abs Neut 4.39 LAB ALYMP % Lymph% 33.6 LAB AALYMP 1.00-4.00 k/uL Abs Lymph 2.55 LAB AMONO % [place]% 6.6 LAB AAMONO <0.87 k/uL Abs [place] 0.50 LAB AEOS % Eosin% 1.2 LAB AAEOS <0.46 k/uL Abs Eosin 0.09 LAB ABASO % Baso% 0.4 LAB AABASO <0.11 k/uL Abs Baso 0.03 LAB AUNRBC 0 /100 WBC NRBCs High 0.1 LAB ABNRBC <0.01 k/uL Absolute High nRBC 0.01 LAB DTYP DTYPE Auto Diff Performed By: #### CBCDIF, CMP, B12, TSH #### [facility] [address] [place], [place] [address] COMP METABOLIC PANEL Collected: 12/10/2017 Status: F Source: [place] 11:32 AM [facility] REPOSITORY TYPE CODE TESTS RESULT OUT OF REFERENCE UNITS RANGE LAB TP 6.3-8.0 g/dL Protein, Total 7.2 LAB ALB 3.9-4.9 g/dL Albumin 4.7 LAB CA 8.5-10.2 mg/dL Calcium, Total 9.9 LAB TBIL 0.2-1.3 mg/dL Bilirubin, Total 0.5 LAB ALKP 32-117 U/L Alkaline Phosphatase 101 LAB AST 13-35 U/L AST 19 LAB GLU 74-99 mg/dL Glucose 89 Result Comment: The [place] Diabetes Association (ADA) provides guidance for cutoff values for fasting glucose and random glucose. The ADA defines fasting as no caloric intake for at least 8 hours. Fas ting plasma glucose results between 100 to 125 mg/dL indicate increased risk for diabetes (prediabetes). Fasting plasma glucose results greater than or equal to 126 mg/dL meet the criteria for diagnosis of diabetes. In the absence of unequivocal hyperglycemia, results should be confirmed by repeat testing. In a patient with classic symptoms of hyperglycemia or hyperglycemic crisis, random plasma glucose results greater than or equal to 200 mg/dL meet the criteria for diagnosis of diabetes. Reference: Standards of Medical Care in Diabetes 2016, [place] Diabetes Association. Diabetes Care. 2016.39(Suppl 1). LAB BUN 7-21 mg/dL BUN 11 LAB CRET 0.58-0.96 mg/dL Creatinine 0.69 LAB NA 136-144 mmol/L Sodium 143 LAB K 3.7-5.1 mmol/L Potassium Low 3.6 LAB CL 97-105 mmol/L Chloride 101 LAB CO2 22-30 mmol/L CO2 28 LAB AGAP 9-18 mmol/L Anion Gap 14 LAB ALT 7-38 U/L ALT 13 LAB GFRAA eGFR- Amer. >60 LAB GFRNAA . eGFR-All Other Races >60 Result Comment: eGFR (Estimated GFR) Units of measure: mL/min/1.73 meters squared eGFR is derived from the reexpressed MDRD Study equation using the following parameters: serum creatinine, age, gender and race. The creatinine assay has been calibrated to be traceable to IDMS. An eGFR <60 mL/min/1.73m2 for >3 months is consistent with chronic kidney disease. Refer to KDOQI guidelines for clinical interpretation. In patients with unstable renal function, e.g. those with acute kidney injury, the eGFR may not accurately reflect actual GFR. Performed By: #### CBCDIF, CMP, B12, TSH #### [facility] [address] [place] [address] VITAMIN B12 Collected: 12/10/2017 Status: F Source: [place] 11:32 AM [facility] REPOSITORY TYPE CODE TESTS RESULT OUT OF REFERENCE UNITS RANGE LAB B12 232-1245 pg/mL Vitamin B12 285 Performed By: #### CBCDIF, CMP, B12, TSH #### [facility] [address] [place] [address] TSH Collected: 12/10/2017 Status: F Source: [place] 11:32 AM [facility] REPOSITORY TYPE CODE TESTS RESULT OUT OF RANGE REFERENCE UNITS LAB TSH 0.400-5.500 uU/mL TSH 1.350 Performed By: #### CBCDIF, CMP, B12, TSH #### [facility] [address] [place] [address] RBC FOLATE Collected: 12/10/2017 Status: F Source: [place] 11:32 AM [facility] [place] REPOSITORY TYPE CODE TESTS RESULT OUT OF REFERENCE UNITS RANGE LAB RFOLT 499-1504 ng/mL RBC Folate 674 Result Comment: (NOTE) Testing Performed: [facility], [address], [place] [address] LAB RCHCT 34.0-46.0 % RBC Folate, HCT 44.7 Performed By: #### CBCDIF, CMP, B12, TSH #### [facility] [address] [place], [place] [address] PROGRESS Observed: 12/10/2017 Status: COMPLETED Source: [place] 10:57 AM [facility] REPOSITORY HNO ID: [id number] Author: Juan A Miguel (PaKathyC) Maximiliano Service: (none) Author Type: Physician Food And Beverage Operations Manager Type: Progress Notes Filed: 12/10/2017 1:43 PM Note Text: 77 year old female with c/o son is concerned about memory because she repeats details or stories at times. Patient is not concerned. She manages her own finances and investments. Takes care of her own needs in terms of driving and house maintenance. Patient has never been late for an appointment in my experience. She identifies benign forgetfulness that she associates with all people her age. She occasionally loses words and names but is able to recover them. If reminded she remembers that she has related this story once before. Shell's disease listed in problem list: Was identified after right adrenalectomy. Left adrenal is functioning well. She has not been on medication for years and has no current symptoms. HISTORIES FAMILY HISTORY Problem Relation Age of Onset - Hypertension Sister - Parkinson's [OTHER] Sister - Hypertension Mother age 81, sudden - Hypertension Father - Heart Father : sudden age 75; dx'd early - Breast Cancer Paternal Grandmother - Breast Cancer Sister age 58 PAST MEDICAL HISTORY Diagnosis Date - Chronic hypokalemia - Shell's syndrome (HCC) resolved s/p adrenalectomy 1993 - Diarrhea - Early satiety - Essential hypertension, benign - Flatulence, eructation, and gas pain - History of colon polyps - Insomnia, unspecified - Irritable bowel syndrome - Nephrolithiasis - Palpitations - Pure hypercholesterolemia - Tachycardia PAST SURGICAL HISTORY Procedure Laterality Date - APPENDECTOMY 1991 - BIOPSY BREAST ~1966, ~1968 right, benign - BIOPSY,SKIN EACH ADDITIONAL LESION moles removed from multiple sites - COLONOS W/REM POLYP SNARE 02/23/11 tubulovillous adenoma, repeat due 2013 - COLONOSCOPY 2001 - COLONOSCOPY 02/07/15 - CYSTO W LITHOTRIPSY x2 - EGD 08/06/05 - EGD W/O [facility] SPECIMEN W/BX 02/23/11 - EXCISE ADRENAL GLAND 02/21/94 left adrenal tumor: induced Cushings - LAPAROSCOPIC CHOLEYCYSTECTOMY 80's Cholecystectomy, lap - PAST SURGICAL HISTORY OF 07/2006 removal of ovarian cyst - PAST SURGICAL HISTORY OF 01/2004 right hemicolectomy for large TVA - REMOVAL OF OVARY/TUBE(S) 1991 Salpingo-oophorectomy - TOTAL ABDOM HYSTERECTOMY 1991 Social History Marital status: Spouse name: Years of education: 12 Number of children: 1 Occupational History Occupation Employer Comment retired Retired [employer]* Social History Main Topics Smoking status: Current Every Day Smoker Packs/day: 1.00 Years: 47.00 Types: Cigarettes Last attempt to quit: 09/30/1966 Smokeless status: Never Used Comment: Started Smoking about Age 19 Alcohol use: No Drug use: No Sexual activity: No Comment: Total Abdominal Hysterectomy 1991 Other Topics Concern No BLOOD TRANSFUSIONS No CAFFEINE Yes Comment:pepsi 2-3/d OCCUPATIONAL EXPOSURE No HOBBY HAZARD No SLEEP CONCERN No STRESS CONCERN Yes WEIGHT CONCERN No DIET No BACK CARE No EXERCISE Yes BIKE HELMET No SEAT BELT Yes SELF EXAMS Yes Social History Narrative 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 Son lives locally. ACTIVE PROBLEM LIST Acute Gastritis without Mention of Hemorrhage Mixed Hyperlipidemia Essential hypertension, benign Tobacco Use Disorder Colon Polyps Irritable Bowel Syndrome Shell's Disease (Hcc) Chronic Hypokalemia Nonspecific (Abnormal) Findings On Radiological and Other Examination of Gastrointestinal Tract Flatulence, Eructation, and Gas Pain Early Satiety Diarrhea Renal Calculus Current Outpatient Prescriptions: amLODIPine (NORVASC) 5 mg tablet Take 2 tablets by mouth once daily. Disp: Rfl: 0 simvastatin (ZOCOR) 40 mg tablet Take 0.5 tablets by mouth once daily. FOR CHOLESTEROL Disp: 90 tablet Rfl: 3 metoprolol succinate XL (TOPROL XL) 50 mg ORAL 24 hr tablet Take one(1) tablet ONCE daily. Disp: 180 Tab Rfl: 3 LISINOPRIL 40 MG TAB Take one(1) tablet daily. Disp: 90 Rfl: 3 No current facility-administered medications for this visit. PNEUMOVAX AGE 65 AND OVER WITH 5YR LOOKBACK(1) due on 09/11/2011 MINI-MENTAL STATE EXAMINATION (MMSE) Make the patient comfortable and establish rapport. Ask questions in the order listed. Total possible score is 30. ORIENTATION 1. What is the (year) (season) (date) (day) (month)? Max score=5 Patient's score=5 2. Where are we? (state) (county) (town or city) (hospital) (floor)? Max score=5 Patient's score=5 REGISTRATION Ask the patient if you may test his/her memory. Then say the names of 3 unrelated objects, clearly and slowly, about one second for each (eg, apple, table, daniel). After you have said all 3, ask him/her to repeat them. This first repetition determines the score(0- 3), but keep saying them until he/she can repeat all 3, up to 6 trials. Max score=3 Patient's score=3 ATTENTION AND CALCULATION Ask the patient to begin with 100 and count backwards by 7. Stop after 5 subtractions (93, 86, 79, 72, 65). Score the total number of correct answers. If the patient cannot or will not perform the serial 7s task, ask him/her to spell the word WORLD backwards. The score is the number of letters in the correct order (eg, DLROW=5; DLRW=4; DLORW, DLW=3; OW=2; DRLWO=1). Max score=5 Patient's score=5 RECALL Ask the patient to recall the 3 items repeated above (eg, apple, table, daniel). Max score=3 Patient's score=3 LANGUAGE Naming: Show the patient a wristwatch and ask him/her what it is. Repeat for pencil. Max score=2 Patient's score=2 Repetition: Ask the patient to repeat the phrase No ifs, ands, or buts: after you. Max score=1 Patient's score=1 3-Stage Command: Give the patient a piece of blank paper and ask him/her to take a piece of paper in your right hand, fold it in half, put it on the floor. Score 1 point for each part correctly executed. Max score=3 Patient's score=3 Reading: On a blank piece of paper, print the sentence CLOSE YOUR EYES in letters large enough for the patient to see clearly. Ask him/her to read it and do what it says. Score 1 point only if he/she actually closes his/her eyes. Max score=1 Patient's score=1 Writing: Give the patient a blank piece of paper and ask him/her to write a sentence. Do not dictate a sentence; it is to be written spontaneously. It must contain a subject and verb and be sensible. Correct grammar and punctuation are not necessary. Max score=1 Patient's score=1 Copying: Ask the patient to copy the figure of intersecting pentagons exactly as it is. All 10 angles must be present and 2 must intersect to form a 4-sided figure to score 1 point. Tremor and rotation are ignored. Max score=1 Patient's score=1 MAXIMUM TOTAL SCORE = 30 TOTAL SCORE = 30/30 Suggested guideline for determining the severity of cognitive impairment: Mild: MMSE>21 Moderate: MMSE 10-20 Severe: MMSE<9 Expected decline in MMSE scores in untreated mild to moderate Alzheimer's patient is 2 to 4 points per year. *Adapted from Folstein et al.1 and Jose and Folstein2. (c) 1974, 1997 [employer] Used with permission. References: 1. Folstein MF, Folstein SE, [place]. Mini- Mental State: a practical method for grading the cognitive state of patients for the clinician. J Psychiatr Res. 1975; 12:189-198. 2. JR Jose, Folhomero MF, Mini-Mental State Examination (MMSE). Psychopharm Bull. 1988;24:689-692. 3. Ebenezer JT, Rajendra FJ, Skye RD, Ravin A, Essence F. Neuropsychological function in Alzheimer's disease: pattern of impairment and rates of progression. Arch Neurol. 1988;45:263-268. 4. J Carlos JA, Ashley B, Devon S-P, Meir DIAZ. Predictors of cognitive and functional progression in patients with probable Alzheimer's disease. Neurology. 1992;42:4396-0495. EXAM: BP 138/74 Pulse 88 Temp 36.5 ?C (97.7 ?F) (Tympanic) Resp 20 Wt 57.6 kg (127 lb) BMI 24.56 kg/m2 Pleasant adult older woman in no acute distress. Alert and oriented all spheres. Normal affect and cognition. Speech normal. No deficits to learning or comprehension. Skin warm, dry, pink to lips and nailbeds. Normal turgor. Respirations regular and unlabored. HEENT WNL. TM's clear. Nose and oropharynx free from injection or lesion. No cervical lymph nodes. Thyroid non-tender, no masses Chest CTA. HRRR without murmur or gallop. Extrem: no clubbing, cyanosis, edema. Extremities are warm and pink with prompt capillary refill. ASSESSMENT/PLAN: 1. Memory loss - ICD9: 780.93, ICD10: R41.3 Admitting the patient for many years. They've never detected signs of dementia. She does have some mild forgetfulness but not in extent that I think is dysfunctional. We will proceed with lab checks which are overdue anyways. At this point I don't think she needs a scan of her brain. We discussed symptoms that would make me more concerned for Alzheimer's type dementia. Follow-up as needed. - CBC + DIFF - COMP METABOLIC PANEL - TSH BLD - VITAMIN B12 BLOOD - FOLIC ACID RBC 2. Carlock's disease resolved M Lamont Viera PA-C ALLERGIES ALLERGIES DATE TYPE / CODE NAME / CODE REACTION SEVERITY SOURCE 05/05/2018 Drug amoxicillin Vomiting DE Tullos Allergy/416 trihydrate/[id number] [facility] [id number]([facility] 707([facility] ED CT) Repository 05/05/2018 Drug potassium Vomiting DE Tullos Allergy/416 clavulanate/[id number] [facility] 778404([facility] 2809([facility] ED CT) Repository 08/31/2014 DRUG CEFPROZIL DIARRHEA [facility] INGREDI/[address] [place] [address]359(SNOM Repository ED CT) 08/16/2010 DRUG/089080 AMOXICILLIN-POT GI UPSET Med [facility] 003(SNOMED CLAVULANATE [place] [address]) Repository ENCOUNTERS ENCOUNTERS ADMIT/DISCHARGE ACCOUNT ADMITTING ENCOUNTER LOCATION SOURCE NUMBER CLASS 10/03/2018 [id number] Ambulatory [facility] ing:[facility] Repository 08/28/2018 [id number] Ambulatory [facility] ing:MRI Repository 08/27/2018 [id number] Ambulatory [facility] ing:LAB Repository 06/12/2018 [id number] Ambulatory [facility] ing:OPBD Repository 05/05/2018/05/05/20 [id number] Ambulatory BMS[facility]:[address] [address] [facility] Repository 04/01/2018/04/01/20 [id number] Ambulatory [address] Repository 04/01/2018/04/02/20 [id number] Ambulatory [address] [place] Repository 12/10/2017/12/10/19 [id number] Ambulatory [address] Repository 12/10/2017/12/10/19 [id number] Ambulatory [address] Repository PAYERS PAYERS ENCOUNTER GUARANTOR PAYER SUBSCRIBER SOURCE 10/03/2018 MARLENE L Primary Insurance:AETNA MARLENE Negron Tullos [id number] W MCRPolicy Number: CARPENTERDOB: Community OLD MEBFDCBWEffective [id number] Date:4802-75-90[address] [place], [place] [address]Gum: [phone]: [phone] 10/03/2018 Secondary NOT GIVENUNK Evon Insurance:SELF PAY Community INSURANCEPolicy Number: Hospital Effective Repository Date:2018-09-19 08/28/2018 MARLENE L Primary Insurance:AETNA MARLENE Migdalia Tullos [id number] W MCRPolicy Number: CARPENTERDOB: [facility] OLD BFDCSAMIEffective [id number] West Medical Center Date:8618-84-21[address] [place], [place] [address], [place] [address]Dcw: [phone]: [phone] 08/28/2018 Secondary NOT GIVENUNK Evon Insurance:SELF PAY Community INSURANCEPolicy Number: Hospital Effective Repository Date:2018-08-13 08/27/2018 MARLENE L Primary Insurance:AETNA MARLENE L Evon [id number] W MCRPolicy Number: ALKAENTERDOB: Community OLD Dalifective [id number] Date:5500-38-07[address] [place], [place] [address], [place] [address]Qjo: [phone]: [phone] 08/27/2018 Secondary NOT GIVENUNK Tullos Insurance:SELF PAY Community INSURANCEPolicy Number: Hospital Effective Repository Date:2018-08-27 06/12/2018 MARLENE L Primary Insurance:AETNA MARLENE L Tullos [id number] W MCRPolicy Number: CARPENTERDOB: Community OLD KRISDCKarifective [id number] West Medical Center Date:4276-12-[address] [place] [address], [place] [address]Sja: [phone]: [phone] 06/12/2018 Secondary NOT GIVENUNK Evon Insurance:SELF PAY Community INSURANCEPolicy Number: Hospital Effective Repository Date:2018-05-14 05/05/2018 MARLENE L Primary Insurance:AETNA MARLENE L Tullos [id number] [address] MCRPolicy Number: CARPENTERDOB: Community OLD Dalifective [id number] West Medical Center Date:8716-43-94[address] [place], [place] [address], [place] [address]Tjl: [phone]: () [phone] 05/05/2018 Secondary NOT GIVENUNK Evon Insurance:SELF PAY Community INSURANCEPolicy Number: Hospital Effective Repository Date:2018-05-05
== END ==
PROVIDERS: Family Provider Physician Assistant; PCP Physician Assistant; Referring Provider Psychiatry & Neurology Neurology; Visit Provider Psychiatry & Neurology Neurology
DX: Z86.73 Personal history of transient ischemic attack (TIA), and cerebral infarction without residual deficits (principal)
CPT/HCPCS: 93306; 93880; A4216

== ENCOUNTER → 2018-11-21 13:17 | Outpatient (CLI) | payer MEDICARE, SELFPAY ==
[2018-05-05 13:15] VITALS: BMI 23.0
[2018-11-21 14:33] LABS: Vitamin B12 650 pg/mL (211-911)
--- OUTSIDE RECORDS SUMMARY | 2019-01-26 03:19 | XMS RPT_ITS ---
:1940 Author Organization OHIP Care Team Providers Name Role Phone Juan A VIERA (BOBBY-C) Attending Unavailable Juan A VEIRA (BOBBY-C) Referring Unavailable ELROY GIBSON Referring Unavailable Elia Salcido Attending Unavailable Varun Wang Referring Unavailable Varun Wang Attending Unavailable Varun Wang Referring Unavailable Juan A Viera Primary Care Unavailable Radha Chiu Attending Unavailable Primay Care Physicia, No Referring Unavailable Primay Care Physicia, No Primary [...] Primary Care Unavailable Elia Salcido Consulting Unavailable PROBLEMS PROBLEMS DATE TYPE CONDITION / CODE ATTENDING STATUS SOURCE 06/13/2018 Unknown Z12.31 - Encounter Apple, Active [place] for screening [facility] mammogram for Hospital malignant neoplasm Repository of breast / Z12.31(ICD-10) 06/13/2018 Unknown 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, 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 / Hospital E28.39(ICD-10) Repository 05/05/2018 Unknown Z01.419 - Encounter Apple, Active [place] for gynecological [facility] (general) (routine) Repository without abnormal findings / Z01.419(ICD-10) 04/01/2018 Active Contusion of left NA Active [facility] knee, initial [place] encounter / Repository S80.02XA(ICD-10) 04/01/2018 Active Contusion of left NA Active [facility] lower leg, initial [place] encounter / Repository S80.12XA(ICD-10) 04/01/2018 Active Contusion of left NA Active [facility] elbow, initial [place] encounter / Repository S50.02XA(ICD-10) 12/10/2017 Active Other amnesia / NA Active [facility] R41.3(ICD-10) [place] Repository PROCEDURES PROCEDURES No Procedure Records FoundRESULTS RESULTS VITAMIN B12 Collected: 11/21/2018 Status: F Source: [place] 1:34 PM [facility] REPOSITORY TYPE CODE TESTS RESULT OUT OF RANGE REFERENCE UNITS LAB L503.0105 211-911 pg/mL Normal Vitamin B12 650 Performed By: #### L503.0105 #### [facility] [address] [place], [address] ECHOCARDIOGRAM COMPLETE Observed: 10/06/2018 Status: F Source: EVON 7:53 AM [facility] REPOSITORY [facility] Cardiovascular Services [address] [place] [address] Echo Complete 10/03/18 1214 MR#: [id number] Acct: [id number] Name: MARLENE RUIZ Rep #: [id number] : 1940 77 From: Elia Salcido MD Attending Dr: Varun Wang MD Status: REG CLI Ordering Dr: Varun Wang MD Date: 10/03/18 Location: [facility] Sex: F C Admitted: Reason For Study: [...] Physician: Lamont Viera Performed By: Shea Corbin, RDCS, RVT 10/06/18 0752 Date Elia Salcido MD CC: Juan A Viera; Varun Wang MD Date Dictated: 10/03/18 1214 Date Transcribed: 10/06/18751 Associate Artistic Director: Signed CAROTID DUPLEX Observed: 10/05/2018 Status: F Source: [place] ULTRASOUND 2:13 PM [facility] REPOSITORY [facility] Cardiovascular Services [address] [place] [address] Carotid Duplex Ultrasound 10/03/18 1303 MR#: [id number] Acct: [id number] Name: MARLENE RUIZ Rep #: [id number] : 1940 77 From: Ryan Bueno MD [...] the left vertebral artery. Procedure Carotid Duplex 28340. Exam performed in department. Interpretation Summary Mild (<50%) stenosis right extracranial internal carotid. Mild (<50%) stenosis left extracranial internal carotid. Flow within the vertebral arteries is antegrade bilaterally. Ordering Physician: Varun Wang Referring Physician: Lamont Viera Performed By: Ara NATALYA, Becky SOLARES and Student 10/05/18 1412 Date Ryan Bueno MD CC: Juan A Viera; Varun Wang MD Date Dictated: 10/03/18 1303 Date Transcribed: 10/05/181411 Associate Artistic Director: Signed BRAIN WITHOUT Observed: 08/28/2018 Status: F Source: [place] CONTRAST 5:04 PM [facility] REPOSITORY [facility] Imaging Services [address] [place] [address] Brain without Contrast MR#: [id number] Acct: [id number] Name: MARLENE RUIZ Rep #: [id number] : 1940 F 77 From: Manisha Escobar MD PCP: Juan A Viera Status: REG CLI Study: Brain without Contrast Date of Exam: 08/28/18 Exam# [id number] Ordering Dr: Varun Wang MD STUDY: MRI [...] CC: Juan A Viera; Varun Wang MD Associate Artistic Director: Signed VITAMIN B12 Collected: 08/27/2018 Status: F Source: EVON 12:08 PM [facility] REPOSITORY TYPE CODE TESTS RESULT OUT OF RANGE REFERENCE UNITS LAB L503.0105 211-911 pg/mL Normal Vitamin B12 272 Performed By: #### L503.0105 #### [facility] [address] [place], [address] BUN Collected: 08/27/2018 Status: F Source: EVON 12:08 PM [facility] REPOSITORY Order Comment: Is Patient Taking Vitamins or Folic Acid Supplements? N TYPE CODE TESTS RESULT OUT OF RANGE REFERENCE UNITS LAB L501.1000 7-18 mg/dL Normal BUN 13 Performed By: #### L501.1000, L501.1105, L501.9520, L506.0250 #### [facility] [address] [place], [address] SERUM CREATININE AND Collected: 08/27/2018 Status: F Source: EVON GFR 12:08 PM [facility] REPOSITORY Order Comment: Is Patient Taking Vitamins [...] By: #### L501.1000, L501.1105, L501.9520, L506.0250 #### [facility] [address] [place], [address] THYROID STIM HORMONE Collected: 08/27/2018 Status: F Source: EVON (TSH) 12:08 PM [facility] REPOSITORY Order Comment: Is Patient Taking Vitamins or Folic Acid Supplements? N TYPE CODE TESTS RESULT OUT OF RANGE REFERENCE UNITS LAB L501.9520 0.358-3.74 uIU/mL Normal TSH 1.09 Performed By: #### L501.1000, L501.1105, L501.9520, L506.0250 #### [facility] [address] [place], [address] FOLATES, (FOLIC ACID) Collected: 08/27/2018 Status: F Source: [place] 12:08 PM [facility] REPOSITORY Order Comment: Is Patient Taking Vitamins or Folic Acid Supplements? N TYPE CODE TESTS RESULT OUT OF RANGE REFERENCE UNITS LAB L506.0250 3.1-55.4 ng/mL Normal FOLATES 3.90 Performed By: #### L501.1000, L501.1105, L501.9520, L506.0250 #### [facility] [address] [place], [address] SCREENING MAMM (CAD), Observed: 06/12/2018 Status: F Source: [place] BIL 10:28 AM [facility] REPOSITORY [facility] Imaging Services [address] [facility] [place] [address] SCREENING MAMM (CAD), BILAT MR#: [id number] Acct: [id number] Name: MARLENE RUIZ Rep #: [id number] : 1940 F 77 From: Cesar Díaz MD PCP: Juan A Viera Status: REG CLI Study: SCREENING MAMM (CAD), BILAT Date of Exam: 06/12/18 Exam# [id number] Ordering Dr: Radha Chiu MD MAMMOGRAPHY - [...] CC: Juan A Viera; Radha Chiu MD Associate Artistic Director: Signed DEXA BONE DENSITY Observed: 06/12/2018 Status: F Source: [facility] 10:28 AM [facility] REPOSITORY [facility] Imaging Services [address] [place] [address] Dexa Bone Density Study MR#: [id number] Acct: [id number] Name: MARLENE RUIZ Rep #: [id number] : 1940 F 77 From: Clyde Mayberry MD PCP: Juan A Viera Status: REG CLI Study: Dexa Bone Density Study Date of Exam: 06/12/18 Exam# [id number] Ordering Dr: Radha Chiu MD STUDY: DUAL [...] Clyde Mayberry MD at 15:54 EDT Tel [phone], Service support , CC: Juan A Viera; Radha Chiu MD Associate Artistic Director: Signed ELAINETOUTRSHAWNCH Observed: 05/27/2018 Status: COMPLETED Source: EAR[place] 12:00 AM [facility] REPOSITORY [facility] MARLENE RUIZ ([id number]) 1940 F Date Time Provider Department 05/27/18 Juan A VIERA) REED During your visit today, we recorded the following information about you: Allergies As of Date: 05/27/2018 Noted Allergy Reaction AUGMENTIN (AMOXICILLIN-POT CLAVUL*08/16/2010 8 - GI Upset Date Reviewed: 04/01/2018 Reviewed by: Lila Russell Ma - Fully Assessed Visit Diagnosis:Medication management [Z79.899] Order(s):HGB A1C [ABVIU3D] Order #: [id number] FUTURE LIPID PANEL BASIC [SQLIPB] Order #: [id number] FUTURE Prescriptions as of 05/27/2018 Sig: AMLODIPINE [...] Encounter Status:Closed by NAPOLEON WHITLOCK on 08/15/18 [employer] OFFICE VISIT Observed: 05/05/2018 Status: F Source: [place] REPORT 1:58 PM [facility] REPOSITORY [facility] [place] 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 DatName GA/WeeksOutcome Route 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 Head: normal to inspection, normocephalic Ears: hearing [...] Orders Orders: Coding Level of Care Code Pelvic/Breast Diagnoses Encounter for gynecological examination without abnormal finding Z01.419 Gynecological examination findings: abnormal findings ABSENT Encounter for screening mammogram for malignant neoplasm of breast Z12.31 Estrogen deficiency E28.39 05/05/18 1358 <Electronically signed by Radha Chiu MD> Date Radha Chiu MD Cosigner Signature: Date (if applicable) CC: PROCEDURE Observed: 04/01/2018 Status: COMPLETED Source: EARTH 5:54 PM [facility] REPOSITORY HNO ID: [id number] Author: Elroy Gibson (Pa) Service: (none) Author Type: Physician Supervisor Buffing And Pasting Type: Procedures Filed: 04/01/2018 5:57 PM Note Text: The left Pretibial abrasions were debrieded of and loose skin. Hibicleanse was applied and the wounds were washed. Bacitracin dressing was applied. The patient tolerated the procedure well. XR ELBOW 3V AP/LAT/OTHER Observed: 04/01/2018 Status: F Source: [facility] 4:39 PM [facility] REPOSITORY * * *Final Report* * * [...] Left tibia: No fracture. IMPRESSION: No fracture Associate Artistic Director: PSCB Transcribe Date/Time: Apr 01 2018 4:42P Dictated by : TORI NEWMAN MD This examination was interpreted and the report reviewed and electronically signed by: TORI NEWMAN MD on Apr 01 2018 4:46PM EST [id number] XR KNEE 2V AP/LAT Observed: 04/01/2018 Status: F Source: [facility] 4:39 PM [facility] REPOSITORY * * *Final Report* * * [...] Left tibia: No fracture. IMPRESSION: No fracture Associate Artistic Director: PSCB Transcribe Date/Time: Apr 01 2018 4:42P Dictated by : TORI NEWMAN MD This examination was interpreted and the report reviewed and electronically signed by: TORI NEWMAN MD on Apr 01 2018 4:46PM EST [id number] XR TIBIA FIBULA 2V Observed: 04/01/2018 Status: F Source: [place] AP/LAT LT 4:39 PM [facility] REPOSITORY * * *Final Report* * * [...] Left tibia: No fracture. IMPRESSION: No fracture Associate Artistic Director: YINKA Transcribe Date/Time: Apr 01 2018 4:42P Dictated by : TORI NEWMAN MD This examination was interpreted and the report reviewed and electronically signed by: TORI NEWMAN MD on Apr 01 2018 4:46PM EST [id number] PROGRESS Observed: 04/01/2018 Status: COMPLETED Source: [place] 4:20 PM [facility] REPOSITORY O ID: [id number] Author: Sherice Portillo (Rt) Service: (none) Author Type: Easement Man Type: Progress Notes Filed: 04/01/2018 4:37 PM [...] PM PROGRESS Observed: 04/01/2018 Status: COMPLETED Source: [place] 3:43 PM [facility] REPOSITORY HNO ID: [id number] Author: Elroy Kearney) Paige Service: (none) Author Type: Physician Supervisor Buffing And Pasting Type: Progress Notes Filed: 04/01/2018 5:57 PM [...] HISTORY Diagnosis Date - Chronic hypokalemia - 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 - Oshkosh's syndrome (HCC) resolved s/p adrenalectomy 1993 - Diarrhea - Early satiety - Essential hypertension, benign - Flatulence, eructation, and gas pain - History of colon polyps - Insomnia, unspecified - Irritable bowel syndrome - Nephrolithiasis - Palpitations - Pure hypercholesterolemia - Tachycardia PAST SURGICAL HISTORY Procedure Laterality Date - APPENDECTOMY 1991 - BIOPSY BREAST ~1967, ~1969 right, benign - BIOPSY,SKIN EACH ADDITIONAL LESION moles removed from multiple sites - COLONOS W/REM POLYP SNARE 02/23/11 tubulovillous adenoma, repeat due 2013 - COLONOSCOPY 2001 - COLONOSCOPY 02/07/15 - CYSTO W LITHOTRIPSY x2 - EGD 08/06/05 - [facility]X 02/23/11 - EXCISE ADRENAL GLAND [...] - XR ELBOW SPECIAL VIEWS AP/LAT/OTHER LT Elroy Gibson PA-C CNOV Observed: 04/01/2018 Status: COMPLETED Source: [place] 3:15 PM [facility] REPOSITORY Office Visit (UCWSTR) MARLENE RUIZ ([id number]) 1940 F Date Time Provider Department 04/01/18 [...] HISTORY Diagnosis Date - Chronic hypokalemia - 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 Routine general medical examination at a [facility]*INVALID FOR*10/07/2012 Class: Chronic More... More... More... Tobacco [...] daily for 7 days. Encounter Status:Closed by PAIGE GARCIA, ELROY on 04/01/18 CBC AND DIFFERENTIAL Collected: 12/10/2017 Status: F Source: EARTH 11:32 AM [facility] REPOSITORY TYPE CODE TESTS RESULT OUT OF [...] k/uL Abs Lymph 2.55 LAB AMONO % [place]% 6.6 LAB AAMONO <0.87 k/uL Abs [place] 0.50 LAB AEOS % Eosin% 1.2 LAB AAEOS <0.46 k/uL Abs Eosin 0.09 LAB ABASO % Baso% 0.4 LAB AABASO <0.11 k/uL Abs Baso 0.03 LAB AUNRBC 0 /100 WBC NRBCs High 0.1 LAB ABNRBC <0.01 k/uL Absolute High nRBC 0.01 LAB DTYP DTYPE Auto Diff Performed By: #### CBCDIF, CMP, B12, TSH #### [facility] [address] [place] [address] COMP METABOLIC PANEL Collected: 12/10/2017 Status: F Source: EARTH 11:32 AM [facility] REPOSITORY TYPE CODE TESTS RESULT OUT OF REFERENCE UNITS RANGE LAB TP 6.3-8.0 g/dL Protein, Total 7.2 LAB ALB 3.9-4.9 g/dL Albumin 4.7 LAB CA 8.5-10.2 mg/dL Calcium, Total 9.9 LAB TBIL 0.2-1.3 mg/dL Bilirubin, Total 0.5 LAB ALKP 32-117 U/L Alkaline Phosphatase 101 LAB AST 13-35 U/L AST 19 LAB GLU 74-99 mg/dL Glucose 89 Result Comment: The [place] Diabetes Association (ADA) provides guidance for cutoff [...] Standards of Medical Care in Diabetes 2016, [place] [employer] Association. Diabetes Care. 2016.39(Suppl 1). LAB [...] By: #### CBCDIF, CMP, B12, TSH #### [facility] [address] [place], [place] [address] VITAMIN B12 Collected: 12/10/2017 Status: F Source: EAR[place] 11:32 AM [facility] REPOSITORY TYPE CODE TESTS RESULT OUT OF REFERENCE UNITS RANGE LAB B12 232-1245 pg/mL Vitamin B12 285 Performed By: #### CBCDIF, CMP, B12, TSH #### [facility] [place] [address], [place] [address] TSH Collected: 12/10/2017 Status: F Source: EARTH 11:32 AM [facility] REPOSITORY TYPE CODE TESTS RESULT OUT OF RANGE REFERENCE UNITS LAB TSH 0.400-5.500 uU/mL TSH 1.350 Performed By: #### CBCDIF, CMP, B12, TSH #### [facility] [address] [place], [place] [address] RBC FOLATE Collected: 12/10/2017 Status: F Source: E[place] 11:32 AM [facility] REPOSITORY TYPE CODE TESTS RESULT OUT OF REFERENCE UNITS RANGE LAB RFOLT 499-1504 ng/mL RBC Folate 674 Result Comment: (NOTE) Testing Performed: [facility], [address] [place] [address] [address] LAB RCHCT 34.0-46.0 % RBC Folate, HCT 44.7 Performed By: #### CBCDIF, CMP, B12, TSH #### [facility] [place] [address] [place], [place] [address] PROGRESS Observed: 12/10/2017 Status: COMPLETED Source: [place] 10:57 AM [facility] REPOSITORY HNO ID: [id number] Author: Juan A Miugel (Jose) Maximiliano Service: (none) Author Type: Physician Supervisor Buffing And Pasting Type: Progress Notes Filed: 12/10/2017 1:43 PM [...] she has related this story once before. 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 Son lives locally. ACTIVE PROBLEM LIST Acute Gastritis without Mention of Hemorrhage Mixed Hyperlipidemia Essential hypertension, benign Tobacco Use Disorder Colon Polyps Irritable Bowel Syndrome Oshkosh's Disease (Hcc) Chronic Hypokalemia Nonspecific (Abnormal) Findings [...] from Folstein et al.1 and Jose and Anyistein2. (c) 1974, 1997 [employer] Used with permission. References: 1. Folstein MF, Folstein SE, Thom LA. Mini- Mental State: a practical method for grading the cognitive state of patients for the clinician. J Psychiatr Res. 1975; 12:189-198. 2. Jose, JR, Folstein MF, Mini-Mental State Examination (MMSE). Psychopharm Bull. 1988;24:689-692. 3. Ebenezer JT, Rajendra FJ, Skye RD, Ravin A, Essence F. Neuropsychological function in Alzheimer's disease: pattern of impairment and rates of progression. Arch Neurol. 1988;45:263-268. 4. J Carlos CROCKETT, Ashley B, Devon SKathyP, Meir DIAZ. Predictors of cognitive and functional progression in patients with probable Alzheimer's disease. Neurology. 1992;42:6279-6646. EXAM: BP 138/74 Pulse 88 Temp 36.5 [...] B12 BLOOD - FOLIC ACID RBC 2. Shell's disease resolved Juan A Viera PA-C ALLERGIES ALLERGIES DATE TYPE / CODE NAME / CODE REACTION SEVERITY SOURCE 05/05/2018 Drug amoxicillin Vomiting [place] Allergy/416 trihydrate/P305478 Community 144457[facility] 05/05/2018 Drug potassium Vomiting [place] Allergy/416 clavulanate/O10578 Community 666752(SNOM 2809([facility] ED CT) Repository 08/31/2014 DRUG CEFPROZIL DIARRHEA [facility] INGREDI/419 [place] 251275(SNOM Repository ED CT) 08/16/2010 DRUG/648115 AMOXICILLIN-POT GI UPSET Med [facility] 003(SNOMED CLAVULANATE [facility] [place] CT) Repository ENCOUNTERS ENCOUNTERS ADMIT/DISCHARGE ACCOUNT ADMITTING ENCOUNTER LOCATION SOURCE NUMBER CLASS 11/21/2018 [id number] [facility] ing:LAB Repository 10/03/2018 [id number] Ambulatory BMSBuilding:W [facility] Repository 10/03/2018 [id number] [facility] ing:CVS Repository 08/28/2018 [id number] [facility] ing:MRI Repository 08/27/2018 [id number] [facility] ing:LAB Repository 06/12/2018 [id number] [facility] ing:OPBD Repository 05/05/2018/05/05/20 [id number] Ambulatory BMSBuilding:B [place] [address] Repository 04/01/2018/04/01/20 [id number] Ambulatory [address] Repository 04/01/2018/04/02/20 [id number] Ambulatory [address] Repository 12/10/2017/12/10/19 [id number] Ambulatory [address] Repository 12/10/2017/12/10/19 [id number] Ambulatory [address] Repository PAYERS PAYERS ENCOUNTER GUARANTOR PAYER SUBSCRIBER SOURCE 11/21/2018 [place]E [place] Primary Insurance:CHALINO [id number] [facility]: CARPENTERDOB: Community OLD MEBFDCBWEffective [id number] Date:5047-16-18IF BOX Repository [place], [place] [address], [place] [address]Ukk: [phone]: [phone] 11/21/2018 Secondary NOT GIVENUNK [place] Insurance:SELF PAY Community INSURANCEPolicy Number: Hospital Effective Repository Date:2018-11-21 10/03/2018 MARLENE L Primary Insurance:AETNA MARLENE L [place] [id number] [address] MCRPolicy Number: CARPENTERDOB: Community OLD MEBFDCBWEffective [id number] [facility] Date:6075-38-99DQ BOX [place]ository [place] [address] [place] [address]Luk: [phone]: [phone] 10/03/2018 Secondary NOT GIVENUNK [place] Insurance:SELF PAY Community INSURANCEPolicy Number: Hospital Effective Repository Date:2018-10-03 10/03/2018 MARLENE L Primary Insurance:AETNA MARLENE L [place] [id number] [address] MCRPolicy Number: CARPENTERDOB: Community OLD MEBFDCBWEffective [id number] Ze[facility]yrh[facility] Date:9866-14-19HL BOX [place] [address] [place] [address]Ttk: [phone]: [phone] 10/03/2018 Secondary NOT GIVENUNK [place] Insurance:SELF PAY Community INSURANCEPolicy Number: Hospital Effective Repository Date:2018-09-19 08/28/2018 MARLENE L Primary Insurance:AETNA MARLENE L [place] [id number] W MCRPolicy Number: CARPENTERDOB: Community OLD MEBFDCBWEffective [id number] [facility] Date:0233-08-52EC BOX [place]ository [place] [address] [place] [address]Rvs: [phone]: [phone] 08/28/2018 Secondary NOT GIVENUNK [place] Insurance:SELF PAY Community INSURANCEPolicy Number: Hospital Effective Repository Date:2018-08-13 08/27/2018 MARLENE L Primary Insurance:AETNA MARLENE [place] [id number] [address] MCRPolicy Number: ALKAENTERDOB: Community OLD KRISDCKarifective [id number] Zephyrhills Date:1041-02-48IN BOX Repository [place], [place] [address]200[address], [place] [address]Myq: [phone]: [phone] 08/27/2018 Secondary NOT GIVENUNK [place] Insurance:SELF PAY Community INSURANCEPolicy Number: Hospital Effective Repository Date:2018-08-27 06/12/2018 MARLENE L Primary Insurance:AETNA MARLENE [place] [id number] W MCRPolicy Number: ALKAENTERDOB: Community OLD Dalifective [id number] [facility] Date:5611-08-53DQ BOX [place]ository [place] [address], [place] [address]Ybo: [phone]: [phone] 06/12/2018 Secondary NOT GIVENUNK [place] Insurance:SELF PAY Community INSURANCEPolicy Number: Hospital Effective Repository Date:2018-05-14 05/05/2018 MARLENE L Primary Insurance:AETNA MARLENE [place] [id number] W MCRPolicy Number: COLLEENDOB: Community OLD Dalifective [id number] [facility] Date:5054-11-07AS BOX [place]ository [place] [address]329[address], [place] [address]Azh: [phone]: [phone] 05/05/2018 Secondary NOT GIVENUNK [place] Insurance:SELF PAY Community INSURANCEPolicy Number: Hospital Effective Repository Date:2018-05-05
== END ==
PROVIDERS: Family Provider Physician Assistant; PCP Physician Assistant; Referring Provider Psychiatry & Neurology Neurology; Visit Provider Psychiatry & Neurology Neurology
DX: E53.9 Vitamin B deficiency, unspecified (principal)
CPT/HCPCS: 36415; 82607

== ENCOUNTER → 2019-06-16 12:36 | Outpatient (CLI) | payer MEDICARE, SELFPAY ==
[2018-12-12 10:48] VITALS: BMI 22.4
[2019-06-10 14:44] VITALS: BMI 23.2
--- NOTE | 2019-06-16 12:39 | BI_ITS ---
MAMMOGRAPHY - BILATERAL SCREENING REASON FOR EXAM: Female, 78 years old. Routine annual screening examination. PERTINENT HISTORY: Sister with breast cancer. Grandmother with breast cancer. Remote right excisional breast biopsy. TECHNIQUE: Digital bilateral breast letitia (3D mammographic acquisition) in the CC and MLO projections. 2-D mediolateral oblique (MLO) and craniocaudad (CC) views of both breasts were obtained. CAD: Full Field Digital Mammography with Computer Added Detection was performed. COMPARISON: Comparison is made with prior study dated June 12, 2018. FINDINGS: Breast Composition: There are scattered areas of fibroglandular density. There are no dominant masses or suspicious calcifications. Stable small benign-appearing bilateral axillary lymph nodes. No other significant abnormalities are identified. There has been no significant change since the prior study. BI/SCREEN MAMM (CAD) W/LETITIA BILAT IMPRESSION: Stable bilateral screening mammogram. Yearly follow-up mammogram recommended. (A) ASSESSMENT CATEGORY: BIRADS Category 2: Benign. A letter regarding these results will be sent to the patient by the facility within 30 days. Approximately 10% of breast cancers are not detected by mammography. A normal mammogram should not delay biopsy of a clinically suspicious abnormality. [id number] Electronically Signed: Clyde Mayberry, at 14:02 EDT , Service support ,
== END ==
PROVIDERS: Family Provider Physician Assistant; PCP Physician Assistant; Referring Provider Nurse Practitioner Women's Health; Visit Provider Nurse Practitioner Women's Health
DX: Z12.31 Encounter for screening mammogram for malignant neoplasm of breast (principal)
CPT/HCPCS: 77063; 77067

== ENCOUNTER → 2019-07-03 09:28 | Outpatient (CLI) | payer MEDICARE, SELFPAY ==
[2019-06-16 13:26] VITALS: BMI 23.2
[2019-07-03 12:02] LABS: AST(SGOT) 15 U/L (15-37); Alanine Aminotransfer ALT/SGPT 16 U/L (13-56); Albumin, Serum 3.7 g/dL (3.2-5.0); Alkaline Phosphatase 89 U/L (45-117); Bilirubin, Direct 0.12 mg/dL (0.00-0.30); Cholesterol 165 mg/dL (200); Globulin 3.6 g/dL (2.2-4.2); High Density Lipoprotein 61 mg/dL; Protein, Total 7.3 g/dL (6.4-8.2); Triglycerides 92 mg/dL; Very Low Density Lipoprotein 18 mg/dL (5-40)
== END ==
PROVIDERS: Family Provider Physician Assistant; PCP Physician Assistant; Referring Provider Nurse Practitioner Family; Visit Provider Nurse Practitioner Family
DX: E78.5 Hyperlipidemia, unspecified (principal)
CPT/HCPCS: 36415; 80061; 80076

== ENCOUNTER → 2020-09-21 14:51 | Outpatient (CLI) | payer MEDICARE, SELFPAY ==
[2020-08-30 14:54] VITALS: BMI 23.4
[2020-09-21 14:25] VITALS: BMI 24.5
--- NOTE | 2020-09-21 14:58 | BI_ITS ---
MAMMOGRAPHY - BILATERAL SCREENING REASON FOR EXAM: Female, 79 years old. Routine annual screening examination. PERTINENT HISTORY: Sister with breast cancer. Grandmother with breast cancer. TECHNIQUE: Digital bilateral breast letitia (3D mammographic acquisition) in the CC and MLO projections. 2-D mediolateral oblique (MLO) and craniocaudad (CC) views of both breasts were obtained. CAD: Full Field Digital Mammography with Computer Added Detection was performed. COMPARISON: Comparison is made with prior study dated 06/16/2019 and 06/12/2018. FINDINGS: Breast Composition: There are scattered areas of fibroglandular density. There are no dominant masses or suspicious calcifications. Stable benign-appearing bilateral axillary lymph nodes. No other significant abnormalities are identified. There has been no significant change since the prior study. BI/SCREEN MAMM (CAD) W/LETITIA BILAT IMPRESSION: Stable bilateral screening mammogram. Yearly follow-up mammogram recommended. (A) ASSESSMENT CATEGORY: BIRADS Category 2: Benign. A letter regarding these results will be sent to the patient by the facility within 30 days. Approximately 10% of breast cancers are not detected by mammography. A normal mammogram should not delay biopsy of a clinically suspicious abnormality. [id number] Electronically Signed: Clyde Mayberry, at 15:52 EST , Service support ,
== END ==
PROVIDERS: PCP Physician Assistant; Referring Provider Nurse Practitioner Women's Health; Visit Provider Nurse Practitioner Women's Health
DX: Z12.31 Encounter for screening mammogram for malignant neoplasm of breast (principal); Z80.3 Family history of malignant neoplasm of breast
CPT/HCPCS: 77063; 77067

== ENCOUNTER → 2020-12-08 14:32 | Outpatient (CLI) | payer MEDICARE, SELFPAY ==
[2020-12-08 14:05] VITALS: BMI 25.8
[2020-12-08 16:13] LABS: Anion Gap 2 (5-15); BUN 10 mg/dL (7-18); BUN/Creat Ratio 12.4 RATIO (10-20); Calcium,Total 9.9 mg/dL (8.5-10.1); Chloride 110 mmol/L (98-107); Creatinine, Serum 0.81 mg/dL (0.55-1.02); EST Glomerular Filtration Rate 73 mL/min (>60); Est Glom Filt Rate - Afr Amer 88 mL/min (>60); Glucose 110 mg/dL (74-106); Potassium 3.6 mmol/L (3.5-5.1); Sodium Level 142 mmol/L (136-145)
== END ==
PROVIDERS: PCP Physician Assistant; Referring Provider Internal Medicine Cardiovascular Disease; Visit Provider Internal Medicine Cardiovascular Disease
DX: I10 Essential (primary) hypertension (principal)
CPT/HCPCS: 36415; 80048

== ENCOUNTER 2022-01-14 16:30 | Observation (INO) | payer MEDICARE, SELFPAY ==
[2022-01-14 16:32] VITALS: BP 145/56; PULSE 82; RESP 16; TEMP 36.8; O2SAT 91; BMI 22.6
--- NOTE | 2022-01-14 16:48 | EKG12_ITS ---
Test Reason : CONFUSION Blood Pressure : / mmHG Vent. Rate : 075 BPM Atrial Rate : 075 BPM P-R Int : 150 ms QRS Dur : 080 ms QT Int : 358 ms P-R-T Axes : 057 -22 046 degrees QTc Int : 399 ms Normal sinus rhythm Normal ECG Confirmed by LES DIAZ, TETE ([id number]), editor trade journal BOBBI MCGOVERN ([id number]) on 01/16/2022 9:41:22 AM Referred By: ADE Confirmed By:TETE SALDANA MD
--- NOTE | 2022-01-14 16:49 | EDS_ITS ---
HPI History of Present Illness Chief Complaint: Weakness Detail of Chief Complaint: Generalized weakness Informant: patient Narrative Narrative: Patient presents to the emergency department because of increased weakness since yesterday. Patient was being visited by her son who noted that she could not stand up off the couch to go to the bathroom and she was incontinent of urine. There was a foul odor to the urine. Patient also urinate d 3 times in short order while he was there. Patient has history of dementia and does live alone. She also is had a cough for about a week and some congestion. Patient has had the COVID vaccine but not the booster. Patient still smokes. Patient has been more confused than usual per son who gives most of the history. Patient denies any chest pain or abdominal pain. Prior similar symptoms: Yes [facility] Medical History (Updated 01/14/22 @ 18:[address] Roberto Santacruz, DO) CVA (cerebral vascular accident) Dementia Essential (primary) hypertension Hyperlipemia Non-rheumatic tricuspid valve insufficiency Home Medications aspirin 81 mg tablet,delayed release 81 mg PO DAILY #90 tab 12/12/18 [Rx Last Taken Unknown] cholecalciferol (vitamin D3) 25 mcg (1,000 unit) tablet 25 mcg PO DAILY 12/08/20 [History Last Taken Unknown] vitamin B complex 1 tab PO DAILY 12/08/20 [History Last Taken Unknown] amlodipine 10 mg tablet See Rx Instructions .ROUTE .COMPLEX #90 tablet 02/06/21 [Rx Last Taken Unknown] metoprolol succinate 50 mg tablet,extended release 24 hr 50 mg PO DAILY #90 tab 03/02/21 [Rx Last Taken Unknown] lisinopril 40 mg tablet 40 mg PO DAILY #90 tab 10/02/21 [Rx Last Taken Unknown] simvastatin 20 mg tablet 20 mg PO QHS #90 tab 01/02/22 [Rx Last Taken Unknown] clopidogrel 75 mg tablet 75 mg PO DAILY #90 tab 01/08/22 [Rx Last Taken Unknown] donepezil 10 mg PO QHS 01/14/22 [History Last Taken Unknown] Allergy/AdvReac Type Severity Reaction Status Date / Time amoxicillin trihydrate AdvReac Mild Vomiting Verified 01/14/22 16:32 [From Augmentin] potassium clavulanate AdvReac Mild Vomiting Verified 01/14/22 16:32 [From Augmentin] Family History Mother Hypertension Father Hypertension Surgical History H/O hemorrhoidectomy H/O total hysterectomy History of lumpectomy Hx of cholecystectomy Social History housing: house number of children: 1 current occupational status: retired 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 pets and animals: Yes history of recent travel: No Smoking Status: Current every day smoker tobacco type: cigarettes alcohol intake: never substance use type: does not use caffeine: Yes what type of physical activity do you participate in: none seatbelt use: always do you feel safe at home: Yes additional social history: ROS ROS ED Constitutional Constitutional ED: Reports systems reviewed and no addt'l complaints, except as documented; Denies body ache(s), change in weight or chills Eyes Eyes: Denies acute decrease in peripheral vision, change in vision, double vision or loss of vision ENT ENT ED: Reports none; Denies ear pain, lip swelling, loss taste/smell, neck pain, otalgia or sore throat Cardiovascular Cardiovascular: Reports none; Denies abdominal pain, chest pain with activity, leg edema, lightheadedness, palpitations, rapid heart rate or syncope Respiratory/Chest Respiratory/Chest: Reports none; Denies change in mental status, dry cough, dyspnea, hemoptysis, shortness of breath at rest or shortness of breath with exertion Gastrointestinal Gastrointestinal: Reports none; Denies abdominal pain, change in stool character, diarrhea, hematemesis, hematochezia, melena, rectal bleeding or vomiting Genitourinary Genitourinary ED: Reports none and urinary frequency; Denies abdominal discomfort, anuria, dysuria, genital pain or polyuria Musculoskeletal Musculoskeletal: Reports none; Denies arthralgias, back pain, difficulty walking, extremity pain, muscle weakness or myalgias Integumentary Reports none; Denies abscess or rash Neurologic Neurologic: Reports none and other Details: Generalized weakness ; Denies abnormal gait, confusion, focal weakness, frequent falls, headache(s), loss of vision, numbness, paresthesias, radicular pain, vertigo or weakness Psychiatric Psychiatric: Reports systems reviewed and no addt'l complaints, except as documented and none; Denies behavioral changes, confusion, difficulty concentrating, hallucinations, suicidal ideation, tactile hallucinations or visual hallucinations Endocrine Endocrinology: Denies none, cold intolerance, excessive sweating, fatigue or heat intolerance Hematologic/Lymphatic Hematologic/Lymphatic: Reports none; Denies anemia, easy bleeding or easy bruising Allergic/Immunologic Allergic/Immunologic ED: Denies as per HPI, none, lip swelling, mouth swelling, throat swelling, tongue swelling or hives EXAM Physical Exam Const Vital Signs: 01/14/22 16:32 01/14/22 16:45 01/14/22 18:22 Temperature 98.3 F 97.9 F Temperature Source Temporal Temporal Pulse Rate 82 75 Respiratory Rate 16 18 Respiratory Effort Normal Respiratory Pattern Normal Blood Pressure 145/56 H 128/75 H Blood Pressure Mean 85 92 Pulse Ox 91 96 Oxygen Delivery Method Room Air Nasal Cannula Oxygen Flow Rate (L/min) 2 Positive well nourished and well developed General Appearance ED: well developed and NAD HEENT Reports TM's clear and moist mucous membranes normocephalic and atraumatic; Negative for trauma or tenderness Tympanic Membrane ED: Yes TM's clear Eyes PERRL and EOMs intact bilaterally General Eye ED: Negative for pale conjunctiva or scleral icterus Neck no lymphadenopathy, supple and no JVD General: Negative for tenderness Chest Wall inspection of chest normal and palpation of chest normal Chest: Negative for tenderness Resp normal respiratory effort and clear to auscultation bilaterally Effort and Inspection: Negative for respiratory distress or pain with movement Auscultation: Negative for rhonchi, wheezes or diminished lung sounds Cardio regular rate, regular rhythm, S1 normal heart sound, S2 normal heart sound and no murmurs Peripheral Pulses: pulses 2+ throughout GI normal to inspection, nondistended, normoactive bowel sounds, soft to palpation, non-tender, non-distended and no masses Back/Spine no CVA tenderness and no thoracic nor lumbar tenderness Extremity normal to inspection General Extremety ED: Negative for edema General Extremity: Negative for edema Neuro oriented x3, CN's II-XII intact bilaterally, no sensory deficits noted and gait normal Neuro Narrative: No focal neurologic deficits on exam. She does have a slightly droopy left upper eyelid. Sensorium / Orientation: awake, alert, oriented to person, oriented to place and oriented to time Motor Exam: strength 5/5 throughout and strength abnormal Psych mental status grossly normal Psych Narrative: Patient alert to person only. Skin no rashes or lesions noted and no wounds MDM MDM MDM Narrative Medical decision making narrative: IV line established on arrival. Lab work unremarkable. Patient was positive for COVID-19. Chest x-ray was unremarkable. Urinalysis unremarkable. Case will be discussed with hospitalist evaluate patient for admission. Lab Data Attestation: I reviewed the patient's lab results. Labs: Laboratory Results - last 24 hr 01/14/22 01/14/22 01/14/22 17:15 17:15 17:15 WBC 8.5 RBC 4.11 L Hgb 13.9 Hct 40.0 MCV 97.3 MCH 33.8 H MCHC 34.8 RDW Std Deviation 53.3 H RDW Coeff of Garett 14.8 H Plt Count 299 MPV 10.5 Immature Gran % (Auto) 0.400 Neut % (Auto) 72.0 H Lymph % (Auto) 10.6 L Cameron % (Auto) 16.8 H Eos % (Auto) 0.0 Baso % (Auto) 0.2 Absolute Neuts (auto) 6.1 Absolute Lymphs (auto) 0.90 Nucleated RBC % 0 Sodium 141 Potassium 3.3 L Chloride 109 H Carbon Dioxide 25.0 Anion Gap 7 BUN 18 Creatinine 1.06 H Estim Creat Clear Calc 30.91 Est GFR (MDRD) Af Amer 64 Est GFR (MDRD) Non-Af 53 L BUN/Creatinine Ratio 17.0 Glucose 99 Lactic Acid 1.7 Calcium 9.5 Troponin I High Sens 45 Urine Color Urine Clarity Urine pH Ur Specific [place] Urine Protein Urine Glucose (UA) Urine Ketones Urine Occult Blood Urine Nitrite Urine Bilirubin Urine Urobilinogen Ur Leukocyte Esterase Urine RBC Urine WBC Ur Squamous Epith Cells Urine Bacteria Hyaline Casts Urine Mucus 01/14/22 18:15 WBC RBC Hgb Hct MCV MCH MCHC RDW Std Deviation RDW Coeff of Garett Plt Count MPV Immature Gran % (Auto) Neut % (Auto) Lymph % (Auto) Cameron % (Auto) Eos % (Auto) Baso % (Auto) Absolute Neuts (auto) Absolute Lymphs (auto) Nucleated RBC % Sodium Potassium Chloride Carbon Dioxide Anion Gap BUN Creatinine Estim Creat Clear Calc Est GFR (MDRD) Af Amer Est GFR (MDRD) Non-Af BUN/Creatinine Ratio Glucose Lactic Acid Calcium Troponin I High Sens Urine Color Yellow Urine Clarity Sl. Cloudy Urine pH 5.0 Ur Specific [place] 1.025 Urine Protein 30 H Urine Glucose (UA) Normal Urine Ketones 50 H Urine Occult Blood 10 H Urine Nitrite Negative Urine Bilirubin Negative Urine Urobilinogen Normal Ur Leukocyte Esterase Negative Urine RBC 0 SEEN Urine WBC 0 SEEN Ur Squamous Epith Cells 0-5 SEEN Urine Bacteria RARE Hyaline Casts 0-5 SEEN Urine Mucus 0 SEEN Radiography Chest X-Ray - ED: 1 View Diagnostic Testing: Clinical Impression(s) from Imaging Studies Chest X-Ray 01/14/22 17:35 IMPRESSION: No acute cardiopulmonary process. Electronically Signed: Delroy Duggan MD at 18:19 EDT , 1 view chest x-ray obtained interpreted by myself no acute disease process. Radiology in agreement. EKG Initial EKG: Attestation: I personally reviewed and interpreted this EKG as follows: Comments: Sinus rhythm with a rate of 75 bpm with no acute ST segment changes Discharge Plan Triage Chief Complaint: Weakness ED Provider: Roberto Santacruz Dx/Rx/DC Orders Clinical Impression: Weakness, COVID-19, Adult failure to thrive Prescriptions: No Action aspirin [Adult Low Dose Aspirin] 81 mg tablet,delayed release (DR/EC) 81 mg PO DAILY Qty: 90 RF: 6 vitamin B complex [B Complex-Vitamin B12] Tablet 1 tab PO DAILY RF: 0 cholecalciferol (vitamin D3) 25 mcg (1,000 unit) tablet 25 mcg PO DAILY RF: 0 donepezil 10 mg tablet 10 mg PO QHS RF: 0 amlodipine 10 mg tablet See Rx Instructions .ROUTE .COMPLEX Qty: 90 RF: 3 metoprolol succinate 50 mg tablet extended release 24 hr 50 mg PO DAILY Qty: 90 RF: 4 lisinopril 40 mg tablet 40 mg PO DAILY Qty: 90 RF: 3 simvastatin 20 mg tablet 20 mg PO QHS Qty: 90 RF: 3 clopidogrel [Plavix] 75 mg tablet 75 mg PO DAILY Qty: 90 RF: 3 Primary Care Provider: Juan A Viera Referrals: Viera,M Lamont PA, PA [Primary Care Provider] - Disposition Disposition: Acute Care Hospital [facility]
[2022-01-14 17:29] LABS: Absolute Neutrophil Count 6.1 X10^3/uL (2.0-7.7); Basophil# 0.02 X10^3/uL; Basophil% 0.2 % (0-1); Hemoglobin 13.9 g/dL (12.0-15.0); Lymphocyte % 10.6 % (19-41); Mean Corp Hgb Conc 34.8 g/dL (32-36); Mean Corpuscular Hgb 33.8 pg (27.0-32.0); Mean Corpuscular Volume 97.3 fL (81-99); Mean Platelet Vol. 10.5 fl (6.2-12.0); Monocyte# 1.42 X10^3/uL; Monocyte% 16.8 % (0-10); NRBC Flagged by Analyzer 0 % (0-5); Neutrophil # 6.09 X10^3/uL (2.7-7.7); Platelet Count 299 K/mm3 (150-450); RBC Distribution Width CV 14.8 % (11.6-14.6); RBC Distribution Width SD 53.3 fl (35.1-43.9); Red Blood Count 4.11 M/mm3 (4.2-5.4); White Blood Count 8.5 K/mm3 (4.4-11.0)
[2022-01-14] MEDS: 0.9% Normal Saline 1,000 ML 1000 ML IV (17:32)
--- NOTE | 2022-01-14 17:35 | RAD_ITS ---
STUDY: X-RAY CHEST REASON FOR EXAM: Female, 81 years old. cough TECHNIQUE: 1 view COMPARISON: None. FINDINGS: Cardiomediastinal silhouette is unremarkable. Costophrenic angles are sharp. Lungs are clear. The trachea is midline. There is no pneumothorax. Surgical clips are seen in the left upper abdomen. The bones are grossly intact. RAD/Chest 1 View (Portable) IMPRESSION: No acute cardiopulmonary process. Electronically Signed: Delroy Duggan MD at 18:19 EDT ,
--- NOTE | 2022-01-14 17:41 | ED.RN ---
pt took xannax out fo her pers form home. family reporrted she took two of another med as well. found to be percocet. just a few minutes prior to going home.
[2022-01-14 17:46] LABS: Anion Gap 7 (5-15); BUN 18 mg/dL (7-18); Calcium,Total 9.5 mg/dL (8.5-10.1); Chloride 109 mmol/L (98-107); Creatinine, Serum 1.06 mg/dL (0.55-1.02); EST Glomerular Filtration Rate 53 mL/min (>60); Est Glom Filt Rate - Afr Amer 64 mL/min (>60); Estimated Creatinine Clearance 30.91 ml/min; Glucose 99 mg/dL (74-106); Potassium 3.3 mmol/L (3.5-5.1); Sodium Level 141 mmol/L (136-145); Troponin-I HS 45 pg/mL (3.0-54.0)
[2022-01-14 17:58] LABS: Lactic Acid 1.7 mmol/L (0.4-1.9)
[2022-01-14 18:19] LABS: Mucous, Urine 0 SEEN /hpf (<or=2+); Red Blood Cells-Urine 0 SEEN /hpf (0-5); White Blood Cells 0 SEEN /hpf (0-5)
[2022-01-14 18:22] VITALS: BP 128/75; PULSE 75; RESP 18; TEMP 36.6; O2SAT 96
[2022-01-14 18:30] LABS: Color, Urine Yellow (Yellow); Glucose, Dipstick Normal (Normal); Ketone-Dipstick 50 mg/dl (Negative); Leukocyte Esterase-Dipstick Negative /ul (Negative); Nitrite-Dipstick Negative (Negative); Occult Blood-Urine 10 /ul (Negative); Protein-Dipstick 30 mg/dl (Negative); Specific Gravity, Urine 1.025 (1.002-1.030); Urine Bilirubin Dipstick Negative (Negative); Urine Clarity Sl. Cloudy (Clear); Urine Urobilinogen Normal (Normal)
[2022-01-14 18:40] LABS: Bacteria RARE /hpf (None Seen); Squamous Epithelial Cells - UA 0-5 SEEN /hpf (5-10)
[2022-01-14 18:42] LABS: Hyaline Cast 0-5 SEEN /lpf (0-5)
--- NOTE | 2022-01-14 18:46 | PCM.HP.STD ---
HPI - General General Date of Admission: 01/14/22 Date of Service: 01/14/22 Chief Complaint: Generalized weakness, shortness of breath HPI Narrative GISELLA MACIAS, is a 81 F who presented to the emergency department was [facility] on 01/14/2022 with a chief complaint of generalized weakness and shortness of breath. She has had a cough for at least a week. Associated symptoms include decreased oral intake, generalized weakness with no focal deficits, shortness of breath, and cough. Patient denies any headaches, nasal congestion or drainage, nausea, vomiting, diarrhea, constipation, dysgeusia, or anosmia. She has been vaccinated for Covid but not boosted and was given the [employer] vaccine. She is a smoker and still smokes approximately half a pack of cigarettes a day but at her heaviest it was a 1 pack a day smoker and has been doing so since she was about 17 years old. She has some mild dementia but currently lives alone. Her son feels that she is slightly more confused than her baseline however upon my conversation with her he feels that she is about baseline at the time of my conversation with her. Evidently today she was so weak while he was trying to get her out of the couch he could hardly get her up. In the emergency department her temperature was 97.9, pulse was 75, blood pressure was 128/75, respiratory rate was 16-18 however she desatted to 91% on room air and was placed on 2 L and improved saturation 96%. Her CBC was overall unremarkable. Her BMP showed mild hypokalemia with a potassium of 3.3, mildly elevated chloride at 109, a serum creatinine of 1.06 which is slightly elevated from her baseline, and a normal lactic acid. High-sensitivity troponin was obtained despite her being chest pain-free and was found to be 45 which is in normal range. A UA was performed and had some ketones with an elevated serum specific gravity at 1.025 indicating some mild dehydration but was otherwise unremarkable. Her chest x-ray showed no acute cardiopulmonary process. An EKG was performed and was sinus rhythm with a rate of [address]-T wave changes consistent with acute ischemia. Given the fact that she was having marked debility, was Covid positive, and has some mild hypoxia request for admission was made. In the emergency department she received IV fluids and was placed on supplemental oxygen. [facility] Medical History (Updated 01/14/22 @ 19:[address] Michell Perez DO) CVA (cerebral vascular accident) Dementia Essential (primary) hypertension History of palpitations Hyperlipemia Non-compliant behavior Non-rheumatic tricuspid valve insufficiency Home Medications aspirin 81 mg tablet,delayed release 81 mg PO DAILY #90 tab 12/12/18 [Rx Last Taken Unknown] cholecalciferol (vitamin D3) 25 mcg (1,000 unit) tablet 25 mcg PO DAILY 12/08/20 [History Last Taken Unknown] vitamin B complex 1 tab PO DAILY 12/08/20 [History Last Taken Unknown] amlodipine 10 mg tablet See Rx Instructions .ROUTE .COMPLEX #90 tablet 02/06/21 [Rx Last Taken Unknown] metoprolol succinate 50 mg tablet,extended release 24 hr 50 mg PO DAILY #90 tab 03/02/21 [Rx Last Taken Unknown] lisinopril 40 mg tablet 40 mg PO DAILY #90 tab 10/02/21 [Rx Last Taken Unknown] simvastatin 20 mg tablet 20 mg PO QHS #90 tab 01/02/22 [Rx Last Taken Unknown] clopidogrel 75 mg tablet 75 mg PO DAILY #90 tab 01/08/22 [Rx Last Taken Unknown] donepezil 10 mg PO QHS 01/14/22 [History Last Taken Unknown] Allergy/AdvReac Type Severity Reaction Status Date / Time amoxicillin trihydrate AdvReac Mild Vomiting Verified 01/14/22 16:32 [From Augmentin] potassium clavulanate AdvReac Mild Vomiting Verified 01/14/22 16:32 [From Augmentin] Family History Mother Hypertension Father Hypertension Surgical History H/O hemorrhoidectomy H/O total hysterectomy History of lumpectomy Hx of cholecystectomy Social History housing: house number of children: 1 current occupational status: retired 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 pets and animals: Yes history of recent travel: No Smoking Status: Current every day smoker tobacco type: cigarettes alcohol intake: never substance use type: does not use caffeine: Yes what type of physical activity do you participate in: none seatbelt use: always do you feel safe at home: Yes additional social history: ROS Constitutional Constitutional: Reports anorexia, fatigue, malaise and weakness; Denies change in weight, chills, fever(s), night sweats or other Eyes Eyes: Denies blurry vision, change in eye color, change in vision, discharge from eye(s), double vision, erythema, eye pain, loss of vision or other ENT HEENT: Denies abnormal hearing, dysphagia, ear pain, epistaxis, headache(s), hearing loss, nasal congestion, nasal discharge, post nasal drip, sinus pressure, sore throat or other Cardiovascular Cardiovascular: Reports dyspnea on exertion; Denies chest pain, claudication, edema, lightheadedness, orthopnea, palpitations, paroxysmal nocturnal dyspnea, rapid heart rate, syncope or other Respiratory/Chest Respiratory/Chest: Reports cough, shortness of breath at rest and shortness of breath with exertion; Denies dyspnea, excessive phlegm production, hemoptysis, productive cough, wheezing or other Gastrointestinal Gastrointestinal: Denies abdominal pain, coffee ground emesis, constipation, diarrhea, dyspepsia, hematemesis, hematochezia, loose stools, melena, nausea, vomiting or other Genitourinary Genitourinary: Denies burning urination, difficulty urinating, dysuria, hematuria, nocturia, urinary frequency, urinary hesitancy, urinary incontinence, urinary urgency or other Musculoskeletal Musculoskeletal: Reports back pain and joint pain; Denies arthralgias, joint stiffness, joint swelling, myalgias, neck pain or other Neurologic Neurologic: Denies abnormal gait, abnormal speech, confusion, disequilibrium, dizziness, focal weakness, headache(s), numbness, paresthesias, seizure-like activity, seizures, syncope, tingling, tremor(s) or other Psychiatric Psychiatric: Reports other Details: Patient has dementia at baseline ; Denies anxiety, depression, homicidal ideation or suicidal ideation Endocrine Endocrinology: Denies change in body appearance, cold intolerance, excessive sweating, heat intolerance, polydipsia, polyuria or other Hematologic/Lymphatic Hematologic/Lymphatic: Denies anemia, easy bleeding, easy bruising, lymphadenopathy or other Allergic/Immunologic Allergic/Immunologic: Denies rhinitis, hives, eczemia, asthma or other Vital Signs Vital Signs Vital Signs: 01/14/22 16:32 01/14/22 16:45 01/14/22 18:22 Temperature 98.3 F 97.9 F Temperature Source Temporal Temporal Pulse Rate 82 75 Respiratory Rate 16 18 Respiratory Effort Normal Respiratory Pattern Normal Blood Pressure 145/56 H 128/75 H Blood Pressure Mean 85 92 Pulse Ox 91 96 Oxygen Delivery Method Room Air Nasal Cannula Oxygen Flow Rate (L/min) 2 Weight Weight: 52.617 kg Body Mass Index (BMI) 22.6 Physical Exam Const alert, no apparent distress and average body habitus Constitutional Narrative: Thin older white female sitting up in bed with her son at the bedside, is oriented to self, place but tells me it is December 2013 and is unable to come up with the present [facility], appears nontoxic and is very pleasant General Appearance: cooperative HEENT normocephalic and head/scalp atraumatic; Negative for hearing grossly normal bilaterally HEENT Narrative: Mucous membranes are slightly dry, dentition is poor, Mallampati is 1-2, mild hearing loss Eyes PERRL, EOMs intact bilaterally and conjunctivae normal Eyes Narrative: No scleral icterus Neck no lymphadenopathy, supple and no JVD Neck Narrative: Trachea midline, no thyroid enlargement Resp normal respiratory effort, no retractions and no use of accessory muscles Resp Narrative: Few scattered wheezes most notable in the right upper lobe but no signs of respiratory distress Auscultation: wheezes; Negative for crackles, rales or rhonchi Cardio regular rate, regular rhythm, S1 normal heart sound, S2 normal heart sound, no murmurs, no rub, no gallops, no clicks and no JVD GI normal to inspection, nondistended, normoactive bowel sounds, soft to palpation, non-tender and non-distended; Negative for hepatosplenomegaly Extremity no clubbing, cyanosis or edema Extremity Narrative: Evidence of arthritis Peripheral Pulses: Yes pulses 2+ throughout Skin no rashes or lesions noted, no wounds, no jaundice, no petechiae and no mottling Skin Narrative: Slight tenting of skin Neuro CN's II-XII intact bilaterally, moves all extremities and no focal motor deficits Neuro Narrative: Generalized weakness-proximal greater than distal Sensorium / Orientation: awake, alert, oriented to person and oriented to place Speech: speech normal Psych affect normal Psych Narrative: Appropriately interactive however lets her son do a lot of talking for her Results Lab / Micro Data Attestation: I reviewed the patient's lab results. Result Diagrams: 01/14/22 17:15 01/14/22 17:15 Labs: Laboratory Results - last 24 hr 01/14/22 17:15: WBC 8.5, RBC 4.11 L, Hgb 13.9, Hct 40.0, MCV 97.3, MCH 33.8 H, MCHC 34.8, RDW Std Deviation 53.3 H, RDW Coeff of Garett 14.8 H, Plt Count 299, MPV 10.5, Immature Gran % (Auto) 0.400, Neut % (Auto) 72.0 H, Lymph % (Auto) 10.6 L, [place] % (Auto) 16.8 H, Eos % (Auto) 0.0, Baso % (Auto) 0.2, Absolute Neuts (auto) 6.1, Absolute Lymphs (auto) 0.90, Nucleated RBC % 0 01/14/22 17:15: Sodium 141, Potassium 3.3 L, Chloride 109 H, Carbon Dioxide 25.0, Anion Gap 7, BUN 18, Creatinine 1.06 H, Estim Creat Clear Calc 30.91, Est GFR (MDRD) Af Amer 64, Est GFR (MDRD) Non-Af 53 L, BUN/Creatinine Ratio 17.0, Glucose 99, Calcium 9.5, Troponin I High Sens 45 01/14/22 17:15: Lactic Acid 1.7 01/14/22 18:15: Urine Color Yellow, Urine Clarity Sl. Cloudy, Urine pH 5.0, Ur Specific [place] 1.025, Urine Protein 30 H, Urine Glucose (UA) Normal, Urine Ketones 50 H, Urine Occult Blood 10 H, Urine Nitrite Negative, Urine Bilirubin Negative, Urine Urobilinogen Normal, Ur Leukocyte Esterase Negative, Urine RBC 0 SEEN, Urine WBC 0 SEEN, Ur Squamous Epith Cells 0-5 SEEN, Urine Bacteria RARE, Hyaline Casts 0-5 SEEN, Urine Mucus 0 SEEN Micro: Microbiology 01/14/22 17:10 Nasal Secretion SARS-CoV-2 Antigen (Rapid) - Final SARS-CoV-2 (COVID 19) Radiology Impression Chest X-Ray 01/14/22 17:35 IMPRESSION: No acute cardiopulmonary process. Electronically Signed: Delroy Duggan MD at 18:19 EDT , Assessment & Plan Assessment/Plan (1) Weakness: (2) COVID-19: (3) Adult failure to thrive: (4) Acute respiratory failure with hypoxia: PLAN: Acute hypoxic respiratory failure secondary to COVID-19 -Symptoms started approximately 7 days ago -We will need quarantine until 01/27/2022 -Positive rapid in the emergency department -Start Decadron day 1 of 10 -Start remdesivir day 1 of 5 -Serial labs to monitor liver and renal function -Incentive spirometry as patient is able -Could consider adding Acapella however not added at this time given dementia and patient I suspect will have difficulty following instructions pertaining to this -As needed aerosols -Maintain euvolemia as able -Check D-dimer and CRP -If D-dimer is elevated will obtain CTA of the chest Weakness/failure to thrive -Likely related to acute COVID-19 -UA is unimpressive -Blood cultures were obtained in the emergency department however I doubt she has bacteremia given clinical presentation -PT/OT consultation -Patient lives alone at baseline -Suspect patient will need placement at discharge Mild dehydration -Patient was treated with IV fluids in the emergency department -We will hold off with any further fluids at this time -Repeat BMP in a.m. to reevaluate kidney function and electrolytes -No function is slightly up from baseline which is about 0.8-0.9 -Currently 1.06 which does not meet criteria for ARIK Hypokalemia -P.o. potassium 40 mEq x 1 dose -Repeat BMP in a.m. Hypertension -Continue home metoprolol -Continue home senna neck and continue home pain Hyperlipidemia -Continue home atorvastatin Moderate malnutrition -P.o. intake has been poor -Unable to establish weight loss secondary to dementia -Consult dietitian -Ensure supplements CAD -Continue home Plavix -Continue home aspirin Dementia -Suspect vascular although may be Alzheimer's type -Continue home Aricept Suspect COPD -Patient has a marked history of tobacco abuse and has been smoking since she was 17 years old -As needed aerosols ordered -Could consider as needed or scheduled DuoNebs -Recommend tobacco cessation -Denies need for any nicotine replacement at this time DVT prophylaxis -Lovenox 30 mg daily CODE STATUS -Discussed in the emergency department with patient and son at the bedside--> full code/DNR CCA/[employer]ELOPMENT discussed and family and patient would currently like to discuss before making a decision--> stated they would let us know later today Charges/Coding Visit Charges Inpatient E&M: 56418 Init Hosp L3
[2022-01-14 19:00] VITALS: BP 143/56; PULSE 72; RESP 20; TEMP 36.4; O2SAT 98
[2022-01-14 21:08] VITALS: BMI 23.5
[2022-01-14 21:40] VITALS: BP 103/55; PULSE 71; RESP 18; TEMP 37.3; O2SAT 96
[2022-01-14] MEDS: Potassium Chloride Oral Tablet 20 MEQ 40 MEQ PO (22:00)
[2022-01-14] MEDS: Donepezil HCl 10 MG Tablet PO (22:00)
[2022-01-14] MEDS: Atorvastatin Calcium 10 MG Tablet PO (22:00)
[2022-01-14] MEDS: dexAMETHasone 4 MG Tablet 6 MG PO (22:00)
[2022-01-15] VITALS (11 sets, daily range): BP systolic 124–143; BP diastolic 41–60; PULSE 70–76; RESP 16–18; TEMP 36.5–36.9; O2SAT 94–98
[2022-01-15 07:13] LABS: AST(SGOT) 47 U/L (15-37); Alanine Aminotransfer ALT/SGPT 22 U/L (13-56); Albumin, Serum 3.1 g/dL (3.2-5.0); Alkaline Phosphatase 77 U/L (45-117); Anion Gap 4 (5-15); BUN 17 mg/dL (7-18); BUN/Creat Ratio 22.7 RATIO (10-20); Calcium,Total 8.4 mg/dL (8.5-10.1); Chloride 114 mmol/L (98-107); Creatinine, Serum 0.75 mg/dL (0.55-1.02); EST Glomerular Filtration Rate 79 mL/min (>60); Est Glom Filt Rate - Afr Amer 96 mL/min (>60); Estimated Creatinine Clearance 32.77 ml/min; Globulin 3.2 g/dL (2.2-4.2); Glucose 130 mg/dL (74-106); Magnesium 2.1 mg/dL (1.6-2.6); Phosphorus 3.3 mg/dL (2.5-4.9); Potassium 4.5 mmol/L (3.5-5.1); Protein, Total 6.3 g/dL (6.4-8.2); Sodium Level 141 mmol/L (136-145); Thyroid Stim Hormone (TSH) 0.11 uIU/mL (0.358-3.74)
[2022-01-15] MEDS: Vitamin B Comp W-C Capsule 1 CAP PO (10:01)
[2022-01-15] MEDS: dexAMETHasone 4 MG Tablet 6 MG PO (10:01)
[2022-01-15] MEDS: Aspirin E.C. 81 MG Tablet PO (10:01)
[2022-01-15] MEDS: Clopidogrel Bisulfate 75 MG Tablet PO (10:02)
[2022-01-15] MEDS: amLODIPine 10 MG Tablet PO (10:02)
[2022-01-15] MEDS: Cholecalciferol (VIT D3) 25 MCG TABLET (1,000 UNITS) PO (10:02)
[2022-01-15] MEDS: Metoprolol(XL)Succ 50 MG Tablet PO (10:02)
[2022-01-15] MEDS: Lisinopril 40 MG Tablet PO (10:02)
--- NOTE | 2022-01-15 11:42 | PN.HOSP_ITS ---
Subjective Subjective Breathing well. Does not want to go to a SNF out of [facility]. Objective Data Objective Data Vital Signs: Vital Signs Temp Pulse Resp BP Pulse Ox 36.5 C L 70 18 143/48 H 94 01/15/22 10:00 01/15/22 10:02 01/15/22 10:00 01/15/22 10:02 01/15/22 10:00 Oxygen Flow Rate (L/min) 1 Oxygen Delivery Method Nasal Cannula Weight: 54.6 kg Body Mass Index (BMI) 23.5 Intake & Output: Intake and Output for Last 24 Hours 01/13/22 01/14/22 01/15/22 22:59 23:59 23:59 Intake Total Balance Medical Nutrition Assessment Dietitian: Malnutrition Criteria Met Start: 01/15/22 10:26 Freq: Status: Active Protocol: Document 01/15/22 10:26 CARL (Rec: 01/15/22 10:26 CARL [id number]) Nutrition Malnutrition Evidence of Malnutrition Exists Yes Evidenced By Suboptimal Energy Intake ( Severe),Weight Loss (Severe) Clinical Problem Acute Disease or Injury Related Malnutrition Etiology related to covid and inability to consume adequate nutrition to meet est nutritional needs Signs/Symptoms as evidenced by <50% po intake and 1.9 kg wt loss in past week Status Active Problem Recommendation Dietitian Recommendations/Changes Will continue liberal Regular diet w/ ensure enlive 4x/day w / medpass d/t s/s of malnutrition Lab / Micro Data Result Diagrams: 01/14/22 17:15 01/15/22 06:10 Labs: Laboratory Results - last 24 hr 01/14/22 17:15: WBC 8.5, RBC 4.11 L, Hgb 13.9, Hct 40.0, MCV 97.3, MCH 33.8 H, MCHC 34.8, RDW Std Deviation 53.3 H, RDW Coeff of Garett 14.8 H, Plt Count 299, MPV 10.5, Immature Gran % (Auto) 0.400, Neut % (Auto) 72.0 H, Lymph % (Auto) 10.6 L, [place] % (Auto) 16.8 H, Eos % (Auto) 0.0, Baso % (Auto) 0.2, Absolute Neuts (auto) 6.1, Absolute Lymphs (auto) 0.90, Nucleated RBC % 0 01/14/22 17:15: Sodium 141, Potassium 3.3 L, Chloride 109 H, Carbon Dioxide 25.0, Anion Gap 7, BUN 18, Creatinine 1.06 H, Estim Creat Clear Calc 30.91, Est GFR (MDRD) Af Amer 64, Est GFR (MDRD) Non-Af 53 L, BUN/Creatinine Ratio 17.0, Glucose 99, Calcium 9.5, Troponin I High Sens 45 01/14/22 17:15: Lactic Acid 1.7 01/14/22 17:15: C-React Prot Ext Range 14.20 H 01/14/22 18:15: Urine Color Yellow, Urine Clarity Sl. Cloudy, Urine pH 5.0, Ur Specific [place] 1.025, Urine Protein 30 H, Urine Glucose (UA) Normal, Urine Ketones 50 H, Urine Occult Blood 10 H, Urine Nitrite Negative, Urine Bilirubin Negative, Urine Urobilinogen Normal, Ur Leukocyte Esterase Negative, Urine RBC 0 SEEN, Urine WBC 0 SEEN, Ur Squamous Epith Cells 0-5 SEEN, Urine Bacteria RARE, Hyaline Casts 0-5 SEEN, Urine Mucus 0 SEEN 01/15/22 06:10: WBC Cancelled, Corrected WBC Cancelled, RBC Cancelled, Hgb Cancelled, Hct Cancelled, MCV Cancelled, MCH Cancelled, MCHC Cancelled, RDW Std Deviation Cancelled, RDW Coeff of Garett Cancelled, Plt Count Cancelled, MPV Cancelled, Diff Path Review Cancelled 01/15/22 06:10: Sodium 141, Potassium 4.5, Chloride 114 H, Carbon Dioxide 23.0, Anion Gap 4 L, BUN 17, Creatinine 0.75, Estim Creat Clear Calc 32.77, Est GFR (MDRD) Af Amer 96, Est GFR (MDRD) Non-Af 79, BUN/Creatinine Ratio 22.7 H, Glucose 130 H, Calcium 8.4 L, Phosphorus 3.3, Magnesium 2.1, Total Bilirubin 0.50, AST 47 H, ALT 22, Alkaline Phosphatase 77, Total Protein 6.3 L, Albumin 3.1 L, Globulin 3.2, Albumin/Globulin Ratio 1.0, TSH 0.11 L Micro: Microbiology 01/14/22 17:10 Nasal Secretion SARS-CoV-2 Antigen (Rapid) - Final SARS-CoV-2 (COVID 19) Radiography Diagnostic Testing: Radiology Impression Chest X-Ray 01/14/22 17:35 IMPRESSION: No acute cardiopulmonary process. Electronically Signed: Delroy Duggan MD at 18:19 EDT , Physical Exam Const alert and no apparent distress Resp normal respiratory effort, no retractions, no use of accessory muscles and clear to auscultation bilaterally Cardio regular rate, regular rhythm, S1 normal heart sound and S2 normal heart sound GI normal to inspection, nondistended, normoactive bowel sounds, soft to palpation, non-tender, non-distended and hepatosplenomegaly Extremity normal to inspection Assessment & Plan Assessment/Plan (1) Acute respiratory failure with hypoxia: (2) COVID-19: (3) Adult failure to thrive: PLAN: 1. Acute hypoxic respiratory failure 2/2 COVID 19 wean oxygen as tolerated 2. COVID 19 onset 01/08/2022, quarantine through the , unless symptoms worsen on dexamethasone through 01/23 and remdesivir through 01/18 3. Failure to thrive pt open to SNF if in [facility] case mgmt 4. VTE prophylaxis: add enoxaparin Charges/Coding Visit Charges Inpatient E&M: 56966 Subs Hosp L2
[2022-01-15 12:07] LABS: Hematocrit 38.3 % (37-47); Hemoglobin 12.9 g/dL (12.0-15.0); Mean Corp Hgb Conc 33.7 g/dL (32-36); Mean Corpuscular Hgb 32.9 pg (27.0-32.0); Mean Corpuscular Volume 97.7 fL (81-99); Mean Platelet Vol. 10.2 fl (6.2-12.0); Platelet Count 250 K/mm3 (150-450); RBC Distribution Width CV 14.5 % (11.6-14.6); RBC Distribution Width SD 51.8 fl (35.1-43.9); Red Blood Count 3.92 M/mm3 (4.2-5.4); White Blood Count 4.4 K/mm3 (4.4-11.0)
[2022-01-15] MEDS: Enoxaparin 40 MG/0.4 ML Syringe SC (12:37)
[2022-01-15] MEDS: 0.9% Saline Lock 10 ML Syringe IV ×2 (12:38→21:16)
[2022-01-15 13:22] LABS: D-Dimer Quantitative (DVT/PE) 0.46 FEU/ug/m (0.27-0.49)
--- NOTE | 2022-01-15 15:09 | CASEMGMT ---
ROGE SOTELO called sonBinh, for initial transition planning/care coordination assessment as patient has dementia. ROGE SOTELO introduced self and role at [facility]. Son willing to participate in assessment and is able to answer all questions appropriately. Care providers, pharmacy, and demographics verified. Patient wishes to discharge home, denies need for home health at this time. Son states he has no further needs or concerns at this time. CM to follow for discharge planning needs that may arise. 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 Patient is independent for self care. Able to ambulate stairs. Family assists with household and meal prep. Patient able to reheat meals. Transportation: son, sister DME/HHC: No DME in the home. No previous HHC or SNF. Will monitor for DME needs and HHC at discharge. Disposition Plan: Son wishes for patient to discharge home with family support and follow-up plans in place. Will monitor for DME and HHC. Bebe LIM, RN, CM
[2022-01-15] MEDS: Donepezil HCl 10 MG Tablet PO (21:13)
[2022-01-15] MEDS: [UNRECOGNIZED DRUG - REMARK] 125 MG IV (21:16)
[2022-01-15] MEDS: Atorvastatin Calcium 10 MG Tablet PO (21:16)
[2022-01-16 03:45] VITALS: BP 118/50; PULSE 64; RESP 18; TEMP 36.7; O2SAT 95
[2022-01-16 07:00] LABS: Absolute Neutrophil Count 7.4 X10^3/uL (2.0-7.7); Hematocrit 36.7 % (37-47); Hemoglobin 12.2 g/dL (12.0-15.0); Lymphocyte % 18.6 % (19-41); Mean Corp Hgb Conc 33.2 g/dL (32-36); Mean Corpuscular Hgb 31.9 pg (27.0-32.0); Mean Corpuscular Volume 96.1 fL (81-99); Monocyte# 0.91 X10^3/uL; Monocyte% 8.9 % (0-10); NRBC Flagged by Analyzer 0.2 % (0-5); Neutrophil # 7.37 X10^3/uL (2.7-7.7); Platelet Count 292 K/mm3 (150-450); RBC Distribution Width CV 14.1 % (11.6-14.6); RBC Distribution Width SD 49.4 fl (35.1-43.9); Red Blood Count 3.82 M/mm3 (4.2-5.4); White Blood Count 10.2 K/mm3 (4.4-11.0)
[2022-01-16 07:25] LABS: AST(SGOT) 41 U/L (15-37); Alanine Aminotransfer ALT/SGPT 22 U/L (13-56); Alkaline Phosphatase 70 U/L (45-117); Anion Gap 3 (5-15); BUN 22 mg/dL (7-18); BUN/Creat Ratio 23.1 RATIO (10-20); Chloride 113 mmol/L (98-107); Creatinine, Serum 0.95 mg/dL (0.55-1.02); EST Glomerular Filtration Rate 60 mL/min (>60); Est Glom Filt Rate - Afr Amer 73 mL/min (>60); Estimated Creatinine Clearance 34.49 ml/min; Glucose 123 mg/dL (74-106); Potassium 3.9 mmol/L (3.5-5.1); Sodium Level 144 mmol/L (136-145)
[2022-01-16 08:37] VITALS: BP 140/66; PULSE 92; RESP 18; TEMP 36.4; O2SAT 94
[2022-01-16] MEDS: dexAMETHasone 4 MG Tablet 6 MG PO (09:27)
[2022-01-16] MEDS: amLODIPine 10 MG Tablet PO (09:27)
[2022-01-16] MEDS: Lisinopril 40 MG Tablet PO (09:27)
[2022-01-16 09:28] VITALS: BP 140/66; PULSE 92
[2022-01-16] MEDS: Aspirin E.C. 81 MG Tablet PO (09:28)
[2022-01-16] MEDS: Enoxaparin 40 MG/0.4 ML Syringe SC (09:28)
[2022-01-16] MEDS: Cholecalciferol (VIT D3) 25 MCG TABLET (1,000 UNITS) PO (09:28)
[2022-01-16] MEDS: Vitamin B Comp W-C Capsule 1 CAP PO (09:28)
[2022-01-16] MEDS: Clopidogrel Bisulfate 75 MG Tablet PO (09:28)
[2022-01-16] MEDS: Metoprolol(XL)Succ 50 MG Tablet PO (09:28)
[2022-01-16 10:30] VITALS: O2SAT 92
--- NOTE | 2022-01-16 10:56 | PCM.DC ---
Discharge Instructions Diet Discharge Diet: No restrictions Dressing / Incision Call your doctor if you observe: Fever of 101 or Higher and Shortness of breath Follow Up Care Test Results: Test results from this visit will be discussed in further detail at your follow-up appointment, if applicable. Discharge Plan Admission Admit Date/Time: 01/14/22 18:21 Primary Reason for Your Visit: COVID 19. Attending Provider: Cristopher Fernando Primary Care Provider: Juan A Viera Instructions Additional Instructions / Restrictions: Self isolate for at least 10 days since symptoms began 01/08- AND at least one day (24 hours) have passed since resolution of fever without the use of fever-reducing agents AND improvement of symptoms (e.g., cough, shortness of breath) When around people in the same room, wear a face mask. Individuals also in the room should wear a mask. If possible, use a different bathroom and bedroom. Perform adequate hand hygiene. Avoid sharing dishes, glasses, etc. Discharge Orders/Prescriptions Prescriptions: New dexamethasone 4 mg Tablet 6 mg PO DAILY Qty: 7 RF: 0 Continued vitamin B complex [B Complex-Vitamin B12] Tablet 1 tab PO DAILY RF: 0 cholecalciferol (vitamin D3) 25 mcg (1,000 unit) tablet 25 mcg PO DAILY RF: 0 donepezil 10 mg tablet 10 mg PO QHS RF: 0 metoprolol succinate 50 mg tablet extended release 24 hr 50 mg PO DAILY RF: 0 clopidogrel [Plavix] 75 mg tablet 75 mg PO DAILY RF: 0 aspirin [Adult Low Dose Aspirin] 81 mg tablet,delayed release (DR/EC) 81 mg PO DAILY RF: 0 amlodipine [Norvasc] 10 mg tablet 10 mg PO DAILY RF: 0 simvastatin 20 mg tablet 20 mg PO QHS RF: 0 lisinopril 40 mg tablet 40 mg PO DAILY RF: 0 Referrals / Follow Up: Juan A Viera PA [Primary Care Provider] - Within 2 Weeks Disposition Disposition (needs filled in before D/C Order can be placed): Home, Self Care
--- NOTE | 2022-01-16 11:00 | DS.PCM_ITS ---
Providers Date of Admission: 01/14/22 Primary Care Physician: BOBYB Emmanuel Reason For Visit: COVID 19 INFECTION WITH SEVERE DEBILITY Diagnosis Discharge Diagnosis (1) Acute respiratory failure with hypoxia: Status: Acute Code(s): J96.01 - Acute respiratory failure with hypoxia (2) COVID-19: Status: Acute Code(s): U07.1 - COVID-19 (3) Adult failure to thrive: Status: Acute Code(s): R62.7 - Adult failure to thrive Medications at Discharge Home Medications cholecalciferol (vitamin D3) 25 mcg (1,000 unit) tablet 25 mcg PO DAILY 12/08/20 vitamin B complex 1 tab PO DAILY 12/08/20 amlodipine [Norvasc] 10 mg PO DAILY 01/14/22 aspirin [Adult Low Dose Aspirin] 81 mg PO DAILY 01/14/22 clopidogrel [Plavix] 75 mg PO DAILY 01/14/22 donepezil 10 mg PO QHS 01/14/22 lisinopril 40 mg PO DAILY 01/14/22 metoprolol succinate 50 mg PO DAILY 01/14/22 simvastatin 20 mg PO QHS 01/14/22 dexamethasone 6 mg PO DAILY #7 tab 01/16/22 Hospital Course Operations None Procedures None Summary of Care Provided Minutes Spent on Discharge: 32 Hospital Course: 81-year-old female presents with weakness and shortness of breath. Patient had COVID-19 and did require oxygen. Patient was started on dexamethasone as well as remdesivir. Onset of Covid was the seventh. Patient will be discharged with dexamethasone. Patient on need to quarantine through the . Plan was for patient to go to a longterm facility but patient elected to go home. She want to ponder further whether she would require home health services. Physical Exam Const alert and no apparent distress Resp normal respiratory effort, no retractions, no use of accessory muscles and clear to auscultation bilaterally Cardio regular rate, regular rhythm, S1 normal heart sound and S2 normal heart sound GI normal to inspection, nondistended, normoactive bowel sounds, soft to palpation and non-tender Extremity normal to inspection and full ROM Medical Records Data Medical Nutrition Assessment Dietitian: Malnutrition Criteria Met Start: 01/15/22 10:26 Freq: Status: Active Protocol: Document 01/15/22 10:26 CARL (Rec: 01/15/22 10:26 [facility] [id number]) Nutrition Malnutrition Evidence of Malnutrition Exists Yes Evidenced By Suboptimal Energy Intake ( Severe),Weight Loss (Severe) Clinical Problem Acute Disease or Injury Related Malnutrition Etiology related to covid and inability to consume adequate nutrition to meet est nutritional needs Signs/Symptoms as evidenced by <50% po intake and 1.9 kg wt loss in past week Status Active Problem Recommendation Dietitian Recommendations/Changes Will continue liberal Regular diet w/ ensure enlive 4x/day w / medpass d/t s/s of malnutrition Weight / BMI Weight Weight: 54.6 kg Body Mass Index (BMI) 23.5 ABG / Lab / Microbiology Data Result Diagrams: 01/16/22 06:50 01/16/22 06:50 Laboratory: Laboratory Results - last 24 hr 01/15/22 10:55: WBC 4.4, RBC 3.92 L, Hgb 12.9, Hct 38.3, MCV 97.7, MCH 32.9 H, MCHC 33.7, RDW Std Deviation 51.8 H, RDW Coeff of Garett 14.5, Plt Count 250, MPV 10.2 01/15/22 12:30: D-Dimer Quant (PE/DVT) 0.46 01/16/22 06:50: WBC 10.2, RBC 3.82 L, Hgb 12.2, Hct 36.7 L, MCV 96.1, MCH 31.9, MCHC 33.2, RDW Std Deviation 49.4 H, RDW Coeff of Garett 14.1, Plt Count 292, MPV 10.0, Immature Gran % (Auto) 0.500, Neut % (Auto) 72.0 H, Lymph % (Auto) 18.6 L, [place] % (Auto) 8.9, Eos % (Auto) 0.0, Baso % (Auto) 0.0, Absolute Neuts (auto) 7.4, Absolute Lymphs (auto) 1.90, Nucleated RBC % 0.2 01/16/22 06:50: Sodium 144, Potassium 3.9, Chloride 113 H, Carbon Dioxide 28.0, Anion Gap 3 L, BUN 22 H, Creatinine 0.95, Estim Creat Clear Calc 34.49, Est GFR (MDRD) Af Amer 73, Est GFR (MDRD) Non-Af 60, BUN/Creatinine Ratio 23.1 H, Glucose 123 H, Calcium 9.0, Total Bilirubin 0.30, AST 41 H, ALT 22, Alkaline Phosphatase 70, Total Protein 6.0 L, Albumin 3.0 L, Globulin 3.0, Albumin/Globulin Ratio 1.0 Microbiology: Microbiology 01/14/22 17:10 Nasal Secretion SARS-CoV-2 Antigen (Rapid) - Final SARS-CoV-2 (COVID 19) 01/14/22 18:15 Urine, Clean Catch Urine Culture - Final Mixed Gram Pos & Gram Neg Org D/C Instructions Discharge Diet: No restrictions Call your doctor if you observe: Fever of 101 or Higher and Shortness of breath Meaningful Use Info Meaningful Use Diagnoses (Choose all that apply): None applicable Discharge Plan Admission Admit Date/Time: 01/14/22 18:21 Primary Reason for Your Visit: COVID 19. Attending Provider: Cristopher Fernando Primary Care Provider: Juan A Viera Instructions Additional Instructions / Restrictions: Self isolate for at least 10 days since symptoms began 01/08- AND at least one day (24 hours) have passed since resolution of fever without the use of fever-reducing agents AND improvement of symptoms (e.g., cough, shortness of breath) When around people in the same room, wear a face mask. Individuals also in the room should wear a mask. If possible, use a different bathroom and bedroom. Perform adequate hand hygiene. Avoid sharing dishes, glasses, etc. Discharge Orders/Prescriptions Prescriptions: New dexamethasone 4 mg Tablet 6 mg PO DAILY Qty: 7 RF: 0 Continued vitamin B complex [B Complex-Vitamin B12] Tablet 1 tab PO DAILY RF: 0 cholecalciferol (vitamin D3) 25 mcg (1,000 unit) tablet 25 mcg PO DAILY RF: 0 donepezil 10 mg tablet 10 mg PO QHS RF: 0 metoprolol succinate 50 mg tablet extended release 24 hr 50 mg PO DAILY RF: 0 clopidogrel [Plavix] 75 mg tablet 75 mg PO DAILY RF: 0 aspirin [Adult Low Dose Aspirin] 81 mg tablet,delayed release (DR/EC) 81 mg PO DAILY RF: 0 amlodipine [Norvasc] 10 mg tablet 10 mg PO DAILY RF: 0 simvastatin 20 mg tablet 20 mg PO QHS RF: 0 lisinopril 40 mg tablet 40 mg PO DAILY RF: 0 Referrals / Follow Up: Juan A Viera, PA [Primary Care Provider] - Within 2 Weeks Disposition Disposition (needs filled in before D/C Order can be placed): Home, Self Care Charges/Coding Visit Charges Inpatient E&M: 33687 Disch Hosp
--- NOTE | 2022-01-16 11:30 | CASEMGMT ---
Addendum entered by Dee Lopez 01/16/22 15:00: Received notification that [facility] reached pt son and he is agreeable to SOC tomorrow now. Addendum entered by Dee Lopez 01/16/22 14:42: Received notification that [facility] cannot see pt until Saturday. [facility]HC able to start , but son requested Saturday so he can be present. Plan for SOC on Saturday. Addendum entered by Dee Lopez 01/16/22 13:56: Pt son aware that [facility] can see pt but cannot start until Saturday. Pt/son agreeable to this rather than going with second choice. Faxed [facility] for FWW. Emailed Antonina for need. Addendum entered by Dee Lopez 01/16/22 13:34: Pt son made CM aware that pt and his choice for HHC is 1. [facility] 2. [facility] 3. [facility]. TC to Pamela dc medical assistant instructor, she will work on set up. Addendum entered by Dee Lopez 01/16/22 13:18: ROGE SOTELO in to pt room with pt son and discussed dc planning. Provided list of companies who provide medic alert and described to to pt and son. Patient was provided a list of HHC providers including quality and resource use data and consistent with the patient?s preferred geographic region, medical needs, and insurance network. Pt and son to discuss then give ROGE SOTELO their preferences. Explained to pt the expectations of HHC. Pt did not qualify for home O2. Pt does not have a FWW at home. She is agreeable to obtaining one. DME company chosen was [facility]. Original Note: ROGE SOTELO met with pt son in waiting room. Discussed dc planning. Pt son states he and patient would be agreeable to HHC. He is going to go home and then will be back at the hospital. ROGE SOTELO to prepare list and will meet both of them in the room to discuss. He is also requesting info on medic alert.
[2022-01-16 11:57] VITALS: O2SAT 89; O2SAT 92
--- NOTE | 2022-01-16 14:22 | CASEMGMT ---
Addendum entered by Pamela Renteria 01/16/22 14:36: Evon [facility] reached out to the patients son and he is requesting to start services on Saturday. [facility]on [facility] will see patient on Saturday. Original Note: Discharge Slate [employer]er [facility] could not start until Saturday01/20/2022. Evon [facility] can start . I let DEEPAK Price know and patient will be seen by [facility]. Pamela Renteria Discharge [facility]
[2022-01-16 15:34] VITALS: BP 115/58; PULSE 98; RESP 18; TEMP 36.6; O2SAT 92
== END 2022-01-16 16:38 | disposition home health service (06) | DRG 177 ==
LOC: ED 18:44 → MS3 19:04
PROVIDERS: Admitting Provider Internal Medicine; Emergency Provider Emergency Medicine; PCP Physician Assistant
DX: U07.1 COVID-19 (principal); E43 Unspecified severe protein-calorie malnutrition; G30.9 Alzheimer's disease, unspecified; F02.80 Dementia in other diseases classified elsewhere, unspecified severity, without behavioral disturbance, psychotic disturbance, mood disturbance, and anxiety; J44.9 Chronic obstructive pulmonary disease, unspecified; J96.01 Acute respiratory failure with hypoxia; E87.6 Hypokalemia; I10 Essential (primary) hypertension; I25.10 Atherosclerotic heart disease of native coronary artery without angina pectoris; E78.5 Hyperlipidemia, unspecified; F17.210 Nicotine dependence, cigarettes, uncomplicated; Z79.82 Long term (current) use of aspirin; R62.7 Adult failure to thrive; Z86.73 Personal history of transient ischemic attack (TIA), and cerebral infarction without residual deficits; Z66 Do not resuscitate; Z79.899 Other long term (current) drug therapy; E86.0 Dehydration
CPT/HCPCS: 36415; 71045; 80048; 80053; 81001; 83605; 83735; 84100; 84443; 84484; 85025; 85027; 85379; 86140; 87040; 87086; 87088; 87811; 93005; 94762; 96360; 96361; 96372; 97162; 97166; 97802; 99218; 99251; 99285; J7030; J7050; A4216; G0378; G0463; J0248

== ENCOUNTER 2023-05-03 14:45 | Observation (INO) | payer MEDICARE, SELFPAY ==
[2023-05-03] VITALS (8 sets, daily range): BP systolic 125–149; BP diastolic 59–68; PULSE 104–129; RESP 16–26; TEMP 36.5–37.1; O2SAT 91–99; BMI 26.4; BMI 23.5
--- NOTE | 2023-05-03 15:07 | RAD_ITS ---
INDICATION: Trauma EXAMINATION/TECHNIQUE: X-RAY - LEFT XR Knee 3 Views COMPARISON: None. FINDINGS: No acute fracture or malalignment. Moderate, lateral compartment predominant, tricompartmental joint space narrowing and osteophytosis. No joint effusion. The soft tissues are unremarkable. RAD/Knee 3 Views IMPRESSION: Moderate, lateral compartment predominant, tricompartmental degenerative arthrosis of the knee. Electronically Signed: Ambrosio Bailey MD at 16:43 EDT ,
--- NOTE | 2023-05-03 15:07 | RAD_ITS ---
INDICATION: Trauma EXAMINATION/TECHNIQUE: X-RAY - RIGHT XR Hip Unilateral with Pelvis when performed; 2-3 Views COMPARISON: None. FINDINGS: No acute fracture or malalignment. No blastic or lytic lesions. Moderate degenerative changes of the bilateral hips. The soft tissues are unremarkable. RAD/HIP, UNI W/ Pelvis 2-3 Views IMPRESSION: No acute radiographic abnormalities. Moderate degenerative changes of the bilateral hips. Electronically Signed: Ambrosio Bailey MD at 16:44 EDT ,
--- NOTE | 2023-05-03 15:07 | RAD_ITS ---
INDICATION: TRAUMA EXAMINATION/TECHNIQUE: X-RAY - RIGHT XR Knee 3 Views COMPARISON: None. FINDINGS: No acute fracture or malalignment. Moderate, lateral compartment predominant, tricompartmental joint space narrowing and osteophytosis. No joint effusion. The soft tissues are unremarkable. RAD/Knee 3 Views IMPRESSION: Moderate, lateral compartment predominant, tricompartmental degenerative arthrosis of the knee. Electronically Signed: Ambrosio Bailey MD at 16:43 EDT ,
--- NOTE | 2023-05-03 15:07 | CT_ITS ---
EXAMINATION : Head CT w/out contrast HISTORY : Trauma COMPARISON : None. TECHNIQUE : Multiple contiguous axial images were obtained from the skull base to the vertex without intravenous contrast. A radiation dose optimization technique was used for this scan. FINDINGS : There is no evidence for acute intracranial hemorrhage, mass effect, or midline shift. There is no extra-axial fluid collection. There are periventricular white matter changes consistent with chronic microvascular ischemic disease. There is sulcal widening and ventricular enlargement consistent with cerebral atrophy. There is normal serra-white differentiation, without CT evidence of acute ischemia or infarct. The skull base and calvarium are unremarkable. The orbits are unremarkable. The paranasal sinuses are clear. The mastoid air cells are well-aerated. The soft tissues are unremarkable. CT/Brain/Head without Contrast IMPRESSION: No acute intracranial abnormality. Chronic involutional and ischemic changes of the brain. Electronically Signed: Ambrosio Bailey MD at 16:11 EDT ,
--- NOTE | 2023-05-03 15:08 | EKG12_ITS ---
Test Reason : WEAKNESS Blood Pressure : / mmHG Vent. Rate : 121 BPM Atrial Rate : 122 BPM P-R Int : 146 ms QRS Dur : 078 ms QT Int : 298 ms P-R-T Axes : 072 -29 083 degrees QTc Int : 423 ms Sinus tachycardia Otherwise normal ECG Confirmed by LES DIAZ, TETE ([id number]), news copy editor BOBBI MCGOVERN ([id number]) on 05/06/2023 12:47:20 PM Referred By: MARVIN Confirmed By:TETE SALDANA MD
--- NOTE | 2023-05-03 15:10 | EDS_ITS ---
HPI History of Present Illness Chief Complaint: Weakness Informant: patient, family and friend Narrative Narrative: Patient comes in with general weakness. History is from patient to actually does not like to share a lot but gets better during the interview. I also get history from her sister and her neighbor who both know her well. Evidently this patient has been very weak for the last 2 weeks. She fell about 1 to 2 weeks ago. Patient denies injury but on exam she does have some bruising. Others are saying that she is really not eating other than a bite now and then. She is not drinking fluids. She likes drinking pops and they have even brought those over to the house and they are not being drank. They brought her in today because she is just too weak to get up and move. Patient was initially refusing and then did agree to come in. She tried to get up and walk with the ambulance but was too weak to do so. Patient is actually denying any specific complaints. She is a chronic smoker. She reportedly is taking her medications as prescribed. She has a history of high blood pressure denies heart disease. Family does state that she has some mild dementia but she still lives independently and generally does quite well. [facility] Medical History CVA (cerebral vascular accident) Dementia Essential (primary) hypertension History of palpitations Hyperlipemia Non-compliant behavior Non-rheumatic tricuspid valve insufficiency Home Medications cholecalciferol (vitamin D3) 25 mcg (1,000 unit) tablet 25 mcg PO DAILY supplement 12/08/20 [History Last Taken 01/14/22 09:00] vitamin B complex (B Complex-Vitamin B12 tablet) 1 tab PO DAILY supplement 12/08/20 [History Last Taken 01/14/22 09:00] dexamethasone 4 mg tablet 6 mg (1.5 x 4 mg) PO DAILY #7 tabs 01/16/22 [Rx Last Taken Unknown] metoprolol succinate 50 mg tablet,extended release 24 hr 50 mg PO DAILY blood pressure #90 tabs 05/28/22 [Rx Last Taken Unknown] lisinopril 40 mg tablet 40 mg PO DAILY blood pressure #90 tabs 11/02/22 [Rx Last Taken Unknown] simvastatin 20 mg tablet See Rx Instructions .Route .COMPLEX #90 TABLETS 12/28/22 [Rx Last Taken Unknown] clopidogrel 75 mg tablet (Plavix) 75 mg PO DAILY blood thinner #90 tabs 01/01/23 [Rx Last Taken Unknown] amlodipine 10 mg tablet See Rx Instructions .Route .COMPLEX #90 TABLETS 01/28/23 [Rx Last Taken Unknown] Allergy/AdvReac Type Severity Reaction Status Date / Time amoxicillin trihydrate AdvReac Mild Vomiting Verified 05/03/23 19:33 [From Augmentin] potassium clavulanate AdvReac Mild Vomiting Verified 05/03/23 19:33 [From Augmentin] Family History Mother Hypertension Father Hypertension Surgical History H/O hemorrhoidectomy H/O total hysterectomy History of lumpectomy Hx of cholecystectomy Social History housing: house number of children: 1 current occupational status: retired 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 Some specific details below. Constitutional: No recent fevers or chills. No rigors. Patient has not generally felt ill. But she does have generalized weakness EYE: No discharge, visual complaints ENT: No difficulty swallowing. No swelling. No sinus pressure or pain. No nasal discharge. No change in hearing. No ear pain. She denies hitting her head when she fell. CV: No chest pain, pressure or aching. No palpitations or irregular beats. Patient has not been presyncopal or syncopal. She has fallen but has not had syncope. Respiratory: No trouble breathing beyond a baseline. No cough other than her chronic smoker's cough. She denies any change.. No wheezing. No sputum production. No pain with breathing. GI: No abdominal pain. No nausea vomiting diarrhea. No blood in stool. Her appetite has been down. She states her normal weight is 125-130. We are pending a weight here. Family thinks she is lost weight but is not sure. : No frequency dysuria or hematuria. We did get her to admit that she is probably not urinating as much as normal. Musculoskeletal: No recent injury with her recent fall/trauma. No pains. No swelling. Skin: No rash. Nondiaphoretic. She does have some bruising. Neuro: No weakness or numbness. No difficulty with speaking. No difficulty understanding speech. No visual loss. Please see history of present illness also. Endocrine: No polyuria or polydipsia. EXAM Physical Exam Narrative Exam Narrative: CONSTITUTIONAL: Patient is nontoxic in appearance. The patient looks comfortable. Work of breathing looks normal. HEENT: No notable trauma or bruising or tenderness. Mucous membranes do look rather dry. No sinus tenderness. EYES: No conjunctival injection. No proptosis. No icterus. No pallor. NECK: No meningismus. No JVD. CARDIOVASCULAR: Tachycardia rate. Regular rhythm. No notable murmur. No JVD. On the monitor, patient is in a sinus rhythm but tachycardic at about 125-130. No ectopy is noted. RESPIRATORY: No respiratory distress. Breathing is unlabored. No wheezes. No rhonchi. No rales. No pain with a deep breath. Her saturations vary anywhere from about 89 to 92% on room air. But she denies dyspnea and she looks comfortable. GASTROINTESTINAL: Not distended. Bowel sounds are normal. No tenderness. No guarding. No rebound. No palpable mass. No bruit. GENITOURINARY: No tenderness over the bladder. No CVA tenderness. MUSCULOSKELETAL: There is slight bruising on both knees anteriorly and left lateral hip area but these areas are not tender. No peripheral edema. No cord. No tenderness along the deep venous system. No asymmetry. NEUROLOGICAL: Patient is alert and oriented. No focal deficit noted. NIH stroke scale is 0. SKIN: No noted rashes. No diaphoresis. No vesicles noted. No notable pallor. She does have what appears to be some either dried dirt or stool on her legs PSYCHIATRIC: Patient is calm. Mood is appropriate. Const Vital Signs: 05/03/23 14:47 05/03/23 16:54 05/03/23 18:23 Temperature 97.7 F L Temperature Source Temporal Pulse Rate 129 H 110 H Respiratory Rate 16 19 H 20 H Blood Pressure 149/68 H Blood Pressure Mean 95 Pulse Ox 96 91 94 Oxygen Delivery Method Room Air Room Air MDM MDM MDM Narrative Medical decision making narrative: Patient white count shows slight elevation at 16.1. But she has no fever. We are looking for source of infection but she has no symptoms that match this. Hemoglobin and platelets are normal. Patient lites show some mild bump for creatinine of 1.23. This is above her baseline. Patient's liver function test showed no marked abnormalities. Patient's urinalysis shows no sign of infection. My independent interpretation of three-view x-rays of bilateral knees, 4 view x- ray of her right hip, chest x-ray show no acute fracture. There are arthritic changes. Final reading is similar. CT scan of her head is showing no acute process. We tried to walk the patient she cannot even get up out of bed even with help. She is profoundly weak. Her heart rate had come down from about 130 down to about 10 8-1 10. With exertion it goes back up. But she denies pain or dyspnea and she is not hypoxic here. But the patient is not remotely safe to go home. She is an extremely high risk of falls. She has already fallen at home. She is unstable. She is on Plavix. I discussed the case with the hospitalist and she will be admitted Lab Data Attestation: I reviewed the patient's lab results. Labs: Laboratory Results - last 24 hr 05/03/23 05/03/23 15:20 16:57 WBC 16.1 H RBC 3.93 L Hgb 12.8 Hct 37.7 MCV 95.9 MCH 32.6 H MCHC 34.0 RDW Std Deviation 50.6 H RDW Coeff of Garett 14.5 Plt Count 443 MPV 9.1 Immature Gran % (Auto) 0.400 Neut % (Auto) 81.3 H Lymph % (Auto) 7.9 L [place] % (Auto) 10.2 H Eos % (Auto) 0.0 Baso % (Auto) 0.2 Absolute Neuts (auto) 13.1 H Absolute Lymphs (auto) 1.27 Nucleated RBC % 0 Differential Comment SEE COMMENT Diff Path Review May foll Platelet Estimate SLT INC RBC Morphology N CHROM Anisocytosis RARE Macrocytosis 1+ Sodium 139 Potassium 4.0 Chloride 109 H Carbon Dioxide 24.0 Anion Gap 6 BUN 15 Creatinine 1.23 H Est GFR (MDRD) Af Amer 54 L Est GFR (MDRD) Non-Af 45 L BUN/Creatinine Ratio 12.2 Glucose 134 H Calcium 10.1 Total Bilirubin 0.90 AST 14 L ALT 12 L Alkaline Phosphatase 108 Total Protein 7.4 Albumin 3.3 Globulin 4.1 Albumin/Globulin Ratio 0.8 L Urine Color Yellow Urine Clarity Clear Urine pH 5.0 Ur Specific [place] 1.025 Urine Protein Negative Urine Glucose (UA) Normal Urine Ketones 5 H Urine Occult Blood Negative Urine Nitrite Negative Urine Bilirubin Negative Urine Urobilinogen Normal Ur Leukocyte Esterase Negative Urine RBC 0 SEEN Urine WBC 0 SEEN Ur Squamous Epith Cells 10-25 SEEN Urine Bacteria 0 SEEN Urine Mucus 0 SEEN Radiography Diagnostic Testing: Clinical Impression(s) from Imaging Studies Brain CT 05/03/23 15:07 IMPRESSION: No acute intracranial abnormality. Chronic involutional and ischemic changes of the brain. Electronically Signed: Ambrosio Bailey MD at 16:11 EDT , Hip/Pelvis X-Ray 05/03/23 15:07 IMPRESSION: No acute radiographic abnormalities. Moderate degenerative changes of the bilateral hips. Electronically Signed: Ambrosio Bailey MD at 16:44 EDT , Knee X-Ray 05/03/23 15:07 IMPRESSION: Moderate, lateral compartment predominant, tricompartmental degenerative arthrosis of the knee. Electronically Signed: Ambrosio Bailey MD at 16:43 EDT , Knee X-Ray 05/03/23 15:07 IMPRESSION: Moderate, lateral compartment predominant, tricompartmental degenerative arthrosis of the knee. Electronically Signed: Ambrosio Bailey MD at 16:43 EDT , Chest X-Ray 05/03/23 15:52 IMPRESSION: No acute radiographic abnormalities. Electronically Signed: Ambrosio Bailey MD at 16:42 EDT , EKG Initial EKG: Comments: My independent interpretation the patient's EKG done for tachycardia shows sinus rhythm but tachycardic rate at 121. There is no ventricular ectopy. No acute ST elevation or depression. [place] interval, QRS duration and QTc do look normal. Management Discussion w/another healthcare provider: Hospitalist Discharge Plan Triage Chief Complaint: Weakness ED Provider: Max Dailey Dx/Rx/DC Orders Clinical Impression: Creatinine elevation, Fall at home, Generalized weakness, Coagulopathy, Multiple contusions, Dehydration Primary Care Provider: Juan A Viera Disposition Disposition: Acute Care Hospital [facility]
[2023-05-03] MEDS: 0.9% Normal Saline 1,000 ML 1000 ML IV (15:27)
[2023-05-03 15:40] LABS: Absolute Lymphocyte Count 1.27 X10^3/uL (0.83-4.51); Absolute Neutrophil Count 13.1 X10^3/uL (2.0-7.7); Basophil# 0.04 X10^3/uL; Basophil% 0.2 % (0-1); Hematocrit 37.7 % (37-47); Hemoglobin 12.8 g/dL (12.0-15.0); Lymphocyte # 1.27 X10^3/ul (0.83-4.51); Lymphocyte % 7.9 % (19-41); Mean Corpuscular Hgb 32.6 pg (27.0-32.0); Mean Corpuscular Volume 95.9 fL (81-99); Mean Platelet Vol. 9.1 fl (6.2-12.0); Monocyte# 1.64 X10^3/uL; Monocyte% 10.2 % (0-10); NRBC Flagged by Analyzer 0 % (0-5); Neutrophil # 13.12 X10^3/uL (2.7-7.7); Neutrophil % 81.3 % (47-70); POSITIVE DIFFERENTIAL YES; Platelet Count 443 K/mm3 (150-450); RBC Distribution Width CV 14.5 % (11.6-14.6); RBC Distribution Width SD 50.6 fl (35.1-43.9); Red Blood Count 3.93 M/mm3 (4.2-5.4); White Blood Count 16.1 K/mm3 (4.4-11.0)
[2023-05-03 15:52] LABS: Differential Indicated SCAN CRITERIA MET
--- NOTE | 2023-05-03 15:52 | RAD_ITS ---
INDICATION: Trauma EXAMINATION/TECHNIQUE: X-RAY - XR Chest 1 View COMPARISON: 01/14/2022. FINDINGS: Chronic lung changes. No definite acute lung findings. Tortuous and calcified thoracic aorta. The heart is not enlarged. No pleural effusion or pneumothorax. Degenerative changes of the thoracic spine. RAD/Chest 1 View (Portable) IMPRESSION: No acute radiographic abnormalities. Electronically Signed: Ambrosio Bailey MD at 16:42 EDT ,
[2023-05-03 15:55] LABS: ALB/GLOB Ratio 0.8 RATIO (0.9-2.4); AST(SGOT) 14 U/L (15-37); Alanine Aminotransfer ALT/SGPT 12 U/L (13-56); Albumin, Serum 3.3 g/dL (3.2-5.0); Alkaline Phosphatase 108 U/L (45-117); Anion Gap 6 (5-15); BUN 15 mg/dL (7-18); BUN/Creat Ratio 12.2 RATIO (10-20); Calcium,Total 10.1 mg/dL (8.5-10.1); Chloride 109 mmol/L (98-107); Creatinine, Serum 1.23 mg/dL (0.55-1.02); EST Glomerular Filtration Rate 45 mL/min (>60); Est Glom Filt Rate - Afr Amer 54 mL/min (>60); Globulin 4.1 g/dL (2.2-4.2); Glucose 134 mg/dL (74-106); Protein, Total 7.4 g/dL (6.4-8.2); Sodium Level 139 mmol/L (136-145)
[2023-05-03 16:21] LABS: Anisocytosis RARE; Macrocytosis 1+; Platelet Estimate SLT INC (ADEQ); Red Cell Morphology N CHROM NORMAL (NORM C&C)
[2023-05-03 17:06] LABS: Bacteria 0 SEEN /hpf (None Seen); Mucous, Urine 0 SEEN /hpf (<or=2+); Red Blood Cells-Urine 0 SEEN /hpf (0-5); White Blood Cells 0 SEEN /hpf (0-5)
[2023-05-03 17:12] LABS: Color, Urine Yellow (Yellow); Glucose, Dipstick Normal (Normal); Ketone-Dipstick 5 mg/dl (Negative); Leukocyte Esterase-Dipstick Negative /ul (Negative); Nitrite-Dipstick Negative (Negative); Occult Blood-Urine Negative /ul (Negative); Protein-Dipstick Negative (Negative); Specific Gravity, Urine 1.025 (1.002-1.030); Urine Bilirubin Dipstick Negative (Negative); Urine Clarity Clear (Clear); Urine Urobilinogen Normal (Normal)
[2023-05-03 17:39] LABS: Squamous Epithelial Cells - UA 10-25 SEEN /hpf (5-10)
--- NOTE | 2023-05-03 18:57 | PCM.HP.STD ---
HPI - General General Date of Admission: 05/03/23 Date of Service: 05/03/23 Chief Complaint: Falls, not eating/drinking, severe weakness. HPI Narrative The patient is an 82 y/o F w/ PMHx: CKD stage II, Tobacco use, Dementia unclear type and unclear behavioral disturbance history, HTN, HLD, Hx CVA, Valvular Heart Disease who presents to the [facility] ED on 05/03/23 with history of generalized weakness worsening over the last 2 weeks with a fall approximately 1 to 2 weeks prior although she is not very forthcoming with information but her sister and neighbor are concerned about her with no specific injury but notable very staged bruises and unclear ability for appropriate oral intake and liquid intake prompting them to bring her in today although she initially refused secondary to concerns for her ability to appropriately care for herself. It is unclear if patient is taking her hypertensive medications correctly. Patient current primary complaint is discomfort to the right knee as well as the upper right posterior calf region worse with attempts to utilize including even taking off her shoe in the examination room noting it to be more dull aching 2-3 out of 10 in severity but with attempted use or movement 5 out of 10 in severity coupled with sharp. Work-up in the ED included T97.9, heart rate initially 129 with most recent repeat 110, respiratory rate 16, oxygenation ranging 91 to 96% on room air, most recently 94% on room air, CBC with WBC 16.1, hemoglobin 12.8, platelet 443 with left shift, CMP with chloride 109, BUN/creatinine 15/1.23, glucose 134, hepatic profile unremarkable, urinalysis unremarkable in addition to being a poor sample with squamous epithelial cells 10-25 of note, CT of the brain with no acute intracranial abnormality with chronic involutional and ischemic changes plain film of the right hip and pelvis with no acute radiographic abnormalities with moderate degenerative changes of bilateral hips, left knee with moderate lateral compartment predominant tricompartmental degenerative arthrosis of the knee, right knee with moderate lateral compartment predominant tricompartmental degenerative arthrosis of the knee, chest x-ray with no acute cardiopulmonary findings, EKG SR without acute evidence of ischemia. In the ED patient administered 1 L normal saline. [facility] Medical History CVA (cerebral vascular accident) Dementia Essential (primary) hypertension History of palpitations Hyperlipemia Non-compliant behavior Non-rheumatic tricuspid valve insufficiency Home Medications cholecalciferol (vitamin D3) 25 mcg (1,000 unit) tablet 25 mcg PO DAILY supplement 12/08/20 [History Last Taken 01/14/22 09:00] vitamin B complex (B Complex-Vitamin B12 tablet) 1 tab PO DAILY supplement 12/08/20 [History Last Taken 01/14/22 09:00] dexamethasone 4 mg tablet 6 mg (1.5 x 4 mg) PO DAILY #7 tabs 01/16/22 [Rx Last Taken Unknown] metoprolol succinate 50 mg tablet,extended release 24 hr 50 mg PO DAILY blood pressure #90 tabs 05/28/22 [Rx Last Taken Unknown] lisinopril 40 mg tablet 40 mg PO DAILY blood pressure #90 tabs 11/02/22 [Rx Last Taken Unknown] simvastatin 20 mg tablet See Rx Instructions .Route .COMPLEX #90 TABLETS 12/28/22 [Rx Last Taken Unknown] clopidogrel 75 mg tablet (Plavix) 75 mg PO DAILY blood thinner #90 tabs 01/01/23 [Rx Last Taken Unknown] amlodipine 10 mg tablet See Rx Instructions .Route .COMPLEX #90 TABLETS 01/28/23 [Rx Last Taken Unknown] Allergy/AdvReac Type Severity Reaction Status Date / Time amoxicillin trihydrate AdvReac Mild Vomiting Verified 01/14/22 16:32 [From Augmentin] potassium clavulanate AdvReac Mild Vomiting Verified 01/14/22 16:32 [From Augmentin] Family History Mother Hypertension Father Hypertension Surgical History H/O hemorrhoidectomy H/O total hysterectomy History of lumpectomy Hx of cholecystectomy Social History housing: house number of children: 1 current occupational status: retired 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 HEENT: Eyes: No visual loss, blurred vision, double vision or yellow sclerae. Ears, Nose, Throat: No hearing loss, sneezing, congestion, runny nose or sore throat. SKIN: + Very staged ecchymoses to the extremities. CARDIOVASCULAR: No chest pain, chest pressure or chest discomfort, palpitations, edema, orthopnea, syncopal events. RESPIRATORY: No shortness of breath, cough or sputum, wheezing, hemoptysis. GASTROINTESTINAL: + anorexia, No nausea, vomiting or diarrhea, abdominal pain, melena, BRBPR. GENITOURINARY: No dysuria, frequency, urgency or retention. NEUROLOGICAL:+ Frequent falls, underlying dementia, No headache, dizziness, syncope, paralysis, ataxia, numbness or tingling in the extremities, focal weakness, change in bowel or bladder control, seizure. MUSCULOSKELETAL:+ muscle, back pain, joint pain or stiffness. HEMATOLOGIC: + Easy bleeding or bruising. LYMPHATICS: No enlarged nodes. No history of splenectomy. PSYCHIATRIC: No history of depression or anxiety. ENDOCRINOLOGIC: No reports of sweating, cold or heat intolerance. No polyuria or polydipsia. ALLERGIES: No history of asthma, hives, eczema or rhinitis. Vital Signs Vital Signs Vital Signs: 05/03/23 14:47 05/03/23 16:54 05/03/23 18:23 Temperature 97.7 F L Temperature Source Temporal Pulse Rate 129 H 110 H Respiratory Rate 16 19 H 20 H Blood Pressure 149/68 H Blood Pressure Mean 95 Pulse Ox 96 91 94 Oxygen Delivery Method Room Air Room Air Weight Weight: 135 lb Body Mass Index (BMI) 26.4 Physical Exam Narrative Physical Examination: General: Awake, alert, oriented to self, place and some recent events but does become very tangential and does have underlying known dementia with memory impairment, remains cooperative currently, laying in the ED bed, reporting discomfort primarily to the right knee and posterior upper calf region, mildly unkempt in appearance. Skin: Normal color except for very staged ecchymoses to the extremities, decreased turgor, no icterus, no cyanosis. HEENT: AT/NC, EOMI, PERRLA, dry MM, no carotid bruits or JVD noted. Lungs: Diminished, greater bases, appropriate effort, no rales, ronchi or wheezing. Heart: Improving, mildly tachycardic with regular rhythm; no gallop, rub audible. Abdomen: Soft, NTTP, ND, hyperactive BS, no HSM. Extremities: No cyanosis, clubbing, or edema, discomfort with movement of the right knee but no specific discomfort on palpation, when she was removed patient's socks were coated in dark material suspected to be feces. Neurological: Patient awake, alert, oriented as noted, cognitive function decreased baseline with underlying dementia and cognitive impairment associated with family and neighbor currently noting she is her baseline intact; pupils equally reactive to light and accommodation, cranial nerves grossly normal, moving all 4 extremities except right lower extremity limitation given discomfort with movement, strength accordingly severely globally decreased. Psychiatric: Affect appears fatigued, mildly flat, no acute evidence of depressive or anxiety feelings. Results Lab / Micro Data 05/03/23 15:20 05/03/23 15:20 Labs: Laboratory Results - last 24 hr 05/03/23 15:20: WBC 16.1 H, RBC 3.93 L, Hgb 12.8, Hct 37.7, MCV 95.9, MCH 32.6 H, MCHC 34.0, RDW Std Deviation 50.6 H, RDW Coeff of Garett 14.5, Plt Count 443, MPV 9.1, Immature Gran % (Auto) 0.400, Neut % (Auto) 81.3 H, Lymph % (Auto) 7.9 L, [place] % (Auto) 10.2 H, Eos % (Auto) 0.0, Baso % (Auto) 0.2, Absolute Neuts (auto) 13.1 H, Absolute Lymphs (auto) 1.27, Nucleated RBC % 0, Differential Comment SEE COMMENT, Diff Path Review May nohemi, Platelet Estimate SLT INC, RBC Morphology N CHROM, Anisocytosis RARE, Macrocytosis 1+, Sodium 139, Potassium 4.0, Chloride 109 H, Carbon Dioxide 24.0, Anion Gap 6, BUN 15, Creatinine 1.23 H, Est GFR (MDRD) Af Amer 54 L, Est GFR (MDRD) Non-Af 45 L, BUN/Creatinine Ratio 12.2, Glucose 134 H, Calcium 10.1, Total Bilirubin 0.90, AST 14 L, ALT 12 L, Alkaline Phosphatase 108, Total Protein 7.4, Albumin 3.3, Globulin 4.1, Albumin/Globulin Ratio 0.8 L 05/03/23 16:57: Urine Color Yellow, Urine Clarity Clear, Urine pH 5.0, Ur Specific [place] 1.025, Urine Protein Negative, Urine Glucose (UA) Normal, Urine Ketones 5 H, Urine Occult Blood Negative, Urine Nitrite Negative, Urine Bilirubin Negative, Urine Urobilinogen Normal, Ur Leukocyte Esterase Negative, Urine RBC 0 SEEN, Urine WBC 0 SEEN, Ur Squamous Epith Cells 10-25 SEEN, Urine Bacteria 0 SEEN, Urine Mucus 0 SEEN Radiology Impression Brain CT 05/03/23 15:07 IMPRESSION: No acute intracranial abnormality. Chronic involutional and ischemic changes of the brain. Electronically Signed: Ambrosio Bailey MD at 16:11 EDT Reading Location ID and State: [facility] / [place] Tel , Service support , Hip/Pelvis X-Ray 05/03/23 15:07 IMPRESSION: No acute radiographic abnormalities. Moderate degenerative changes of the bilateral hips. Electronically Signed: Ambrosio Bailey MD at 16:44 EDT Reading Location ID and State: [facility] / [place] Tel , Service support , Knee X-Ray 05/03/23 15:07 IMPRESSION: Moderate, lateral compartment predominant, tricompartmental degenerative arthrosis of the knee. Electronically Signed: Ambrosio Bailey MD at 16:43 EDT Reading Location ID and State: [facility] / [place] Tel , Service support , Knee X-Ray 05/03/23 15:07 IMPRESSION: Moderate, lateral compartment predominant, tricompartmental degenerative arthrosis of the knee. Electronically Signed: Ambrosio Bailey MD at 16:43 EDT Reading Location ID and State: [facility] / [place] Tel , Service support , Chest X-Ray 05/03/23 15:52 IMPRESSION: No acute radiographic abnormalities. Electronically Signed: Ambrosio Bailey MD at 16:42 EDT , Assessment & Plan Assessment/Plan (1) Adult failure to thrive: PLAN: Plan The patient is an 82 y/o F w/ PMHx: CKD stage II, Tobacco use, Dementia unclear type and unclear behavioral disturbance history, HTN, HLD, Hx CVA, Valvular Heart Disease who presents to the [facility] ED on 05/03/23 with history of generalized weakness worsening over the last 2 weeks with a fall approximately 1 to 2 weeks prior although she is not very forthcoming with information but her sister and neighbor are concerned about her with no specific injury but notable very staged bruises and unclear ability for appropriate oral intake and liquid intake prompting them to bring her in today although she initially refused secondary to concerns for her ability to appropriately care for herself. It is unclear if patient is taking her hypertensive medications correctly. #1. Adult failure to thrive with mechanical fall, intractable R knee pain, unsafe to live alone complicated by underlying dementia as noted: We will admit to medical surgical floor with as noted at least initially telemetry monitoring, maintain on fall precautions, already appropriately hydrated in the ED but will continue judicious IV maintenance fluids with repeat BMP in a.m. to assure renal function improving as noted mild insufficiency, will repeat CBC and BMP in a.m. suspect mild renal insufficiency as noted as well as leukocytosis likely reactive/concentrated, will request TCK given falls and possible downtime, will request PT/OT/case management consultation for discharge planning with need for likely assisted living versus skilled facility placement as patient is unsafe to life alone with evidence notable dehydration, evidence of likely frequent falls as patient has very staged bruises all over her body, if persistent R knee pain and debility may need to obtain further imaging, but will start with ice, topical pain regimen scheduled and PRN low dose breakthrough regimen with therapy assessments. #2. Mild Acute Renal Insufficiency on Chronic Kidney Disease Stage II: Admission BUN/Cr 18/11.23, baseline renal function 0.7-0.9, repeat BMP in AM. #3. Tachycardia, sinus: Likely rebound and dehydration related as suspect patient's not been taking some of her medications or taking them incorrectly, will dose with metoprolol now and continue to monitor with MedSurg telemetry status; however, if improves will de-escalate off cardiac monitoring. #4. Hypertension: Continue home regimen including amlodipine, lisinopril, metoprolol with hold parameters as needed, PRN hydralazine. #5. Hyperlipidemia: We will continue patient home statin therapy. #6. Dementia unclear type and unclear behavioral disturbance history: Not on any chronic regimen per most recent list, complicates presentation as patient is unsafe to return to her home and unable to safely care for herself with recent fall additionally and poor oral intake, PT/OT/case management consulted for discharge planning #7. Tobacco Abuse: Encouraged cessation, inpatient consultation per RT, NR if desired but upon admission declined and notably did not smell like tobacco smoke likely secondary to inability to get to her cigarettes. #8. Valvular heart disease: Most recent echocardiogram noted 10/03/2018 with normal LV size, normal LV systolic function, EF 60%, stage I diastolic dysfunction with mild tricuspid valve insufficiency. #9. History CVA: We will continue patient home Plavix, statin, hypertensive regimen as noted. #10. DVT prophylaxis: Lovenox. #11. CODE status: Patient DOTTIE is her sister who is present and her son and living will is currently in place. Discussed CODE status at length including difference between FULL code, DNR-CCA and DNR-CC status. Following discussions about the differences in these status, requested DNR-CCA, no intubation status. Advanced Care Planning Face to Face Time: 16 minutes. Admission Evaluation Time spent evaluating chart, patient history, patient evaluation, care planning and discussion with specialists: 55 minutes. Charges/Coding Visit Charges Inpatient E&M: 10197 Init Hosp L2 Procedures Hospitalists Procedures: 29968 Advncd Care Plan 30 Min
[2023-05-03 20:29] LABS: CPK Total, Creatine Kinase 125 U/L (26-192); Magnesium 1.8 mg/dL (1.6-2.6); Phosphorus 2.2 mg/dL (2.5-4.9)
[2023-05-03] MEDS: Arthritis Pain Compound 60 CLICK TUBE TOPICAL (21:16)
[2023-05-03] MEDS: Metoprolol(XL)Succ 50 MG Tablet PO (21:16)
[2023-05-03] MEDS: Atorvastatin Calcium 20 MG Tablet PO (21:17)
[2023-05-03] MEDS: 0.9% Normal Saline 1,000 ML 100 ML IV (21:18)
[2023-05-03] MEDS: Acetaminophen 500 MG Tablet 1000 MG PO (21:23)
[2023-05-04] VITALS (7 sets, daily range): BP systolic 116–127; BP diastolic 47–52; PULSE 54–84; RESP 16; TEMP 36.7–36.9; O2SAT 94–98; BMI 23.4
[2023-05-04] MEDS: Menthol/Lanolin/Calamine/Znox 113 GM Tube 1 APPLIC TOPICAL ×2 (06:03→22:54)
[2023-05-04 06:40] LABS: Absolute Lymphocyte Count 2.02 X10^3/uL (0.83-4.51); Absolute Neutrophil Count 7.3 X10^3/uL (2.0-7.7); Basophil# 0.03 X10^3/uL; Basophil% 0.3 % (0-1); Eosinophil# 0.02 X10^3/uL; Eosinophils% 0.2 % (0-5); Hematocrit 35.7 % (37-47); Hemoglobin 11.4 g/dL (12.0-15.0); Lymphocyte # 2.02 X10^3/ul (0.83-4.51); Lymphocyte % 19.1 % (19-41); Mean Corp Hgb Conc 31.9 g/dL (32-36); Mean Corpuscular Hgb 32.6 pg (27.0-32.0); Monocyte# 1.18 X10^3/uL; Monocyte% 11.1 % (0-10); NRBC Flagged by Analyzer 0 % (0-5); Neutrophil % 68.8 % (47-70); POSITIVE COUNT YES; Platelet Count 294 K/mm3 (150-450); RBC Distribution Width CV 14.9 % (11.6-14.6); RBC Distribution Width SD 54.7 fl (35.1-43.9); White Blood Count 10.6 K/mm3 (4.4-11.0)
[2023-05-04 06:58] LABS: Differential Indicated SCAN CRITERIA MET
[2023-05-04 07:35] LABS: ALB/GLOB Ratio 0.8 RATIO (0.9-2.4); AST(SGOT) 14 U/L (15-37); Alanine Aminotransfer ALT/SGPT 10 U/L (13-56); Albumin, Serum 2.8 g/dL (3.2-5.0); Alkaline Phosphatase 89 U/L (45-117); Anion Gap 4 (5-15); BUN 11 mg/dL (7-18); BUN/Creat Ratio 14.1 RATIO (10-20); Chloride 115 mmol/L (98-107); Creatinine, Serum 0.78 mg/dL (0.55-1.02); EST Glomerular Filtration Rate 75 mL/min (>60); Est Glom Filt Rate - Afr Amer 91 mL/min (>60); Estimated Creatinine Clearance 38.39 ml/min; Globulin 3.5 g/dL (2.2-4.2); Glucose 109 mg/dL (74-106); Potassium 3.2 mmol/L (3.5-5.1); Protein, Total 6.3 g/dL (6.4-8.2); Sodium Level 142 mmol/L (136-145)
--- NOTE | 2023-05-04 08:03 | PCM.PN.HOSP ---
Reason for Visit Reason for Visit: Diagnoses Adult failure to thrive (05/03/23) Subjective Subjective Feels well. Objective Data Objective Data Vital Signs: Vital Signs Temp Pulse Resp BP Pulse Ox O2 Del Method 36.8 C 84 16 121/52 H 96 Room Air 05/04/23 07:44 05/04/23 07:44 05/04/23 07:44 05/04/23 07:44 05/04/23 07:44 05/04/23 07:44 Oxygen Delivery Method Room Air Weight: 54.2 kg Body Mass Index (BMI) 23.4 Intake & Output: Intake and Output for Last 24 Hours 05/02/23 05/03/23 05/04/23 23:59 23:59 23:59 Intake Total 1500 / 1500 926.67 / 926.67 Output Total 150 / 150 Balance 1500 / 1500 776.67 / 776.67 Lab / Micro Data 05/04/23 06:25 05/04/23 06:25 Labs: Laboratory Results - last 24 hr 05/03/23 15:20: WBC 16.1 H, RBC 3.93 L, Hgb 12.8, Hct 37.7, MCV 95.9, MCH 32.6 H, MCHC 34.0, RDW Std Deviation 50.6 H, RDW Coeff of Garett 14.5, Plt Count 443, MPV 9.1, Immature Gran % (Auto) 0.400, Neut % (Auto) 81.3 H, Lymph % (Auto) 7.9 L, [place] % (Auto) 10.2 H, Eos % (Auto) 0.0, Baso % (Auto) 0.2, Absolute Neuts (auto) 13.1 H, Absolute Lymphs (auto) 1.27, Nucleated RBC % 0, Differential Comment SEE COMMENT, Diff Path Review May foll, Platelet Estimate SLT INC, RBC Morphology N CHROM, Anisocytosis RARE, Macrocytosis 1+, Sodium 139, Potassium 4.0, Chloride 109 H, Carbon Dioxide 24.0, Anion Gap 6, BUN 15, Creatinine 1.23 H, Est GFR (MDRD) Af Amer 54 L, Est GFR (MDRD) Non-Af 45 L, BUN/Creatinine Ratio 12.2, Glucose 134 H, Calcium 10.1, Total Bilirubin 0.90, AST 14 L, ALT 12 L, Alkaline Phosphatase 108, Total Protein 7.4, Albumin 3.3, Globulin 4.1, Albumin/Globulin Ratio 0.8 L 05/03/23 16:57: Urine Color Yellow, Urine Clarity Clear, Urine pH 5.0, Ur Specific [place] 1.025, Urine Protein Negative, Urine Glucose (UA) Normal, Urine Ketones 5 H, Urine Occult Blood Negative, Urine Nitrite Negative, Urine Bilirubin Negative, Urine Urobilinogen Normal, Ur Leukocyte Esterase Negative, Urine RBC 0 SEEN, Urine WBC 0 SEEN, Ur Squamous Epith Cells 10-25 SEEN, Urine Bacteria 0 SEEN, Urine Mucus 0 SEEN 05/03/23 19:04: Phosphorus 2.2 L, Magnesium 1.8, Total Creatine Kinase 125 05/04/23 06:25: WBC 10.6, RBC 3.50 L, Hgb 11.4 L, Hct 35.7 L, MCV 102.0 H D, MCH 32.6 H, MCHC 31.9 L D, RDW Std Deviation 54.7 H, RDW Coeff of Garett 14.9 H, Plt Count 294, MPV 10.0, Immature Gran % (Auto) 0.500, Neut % (Auto) 68.8, Lymph % (Auto) 19.1, [place] % (Auto) 11.1 H, Eos % (Auto) 0.2, Baso % (Auto) 0.3, Absolute Neuts (auto) 7.3, Absolute Lymphs (auto) 2.02, Nucleated RBC % 0, Sodium 142, Potassium 3.2 L, Chloride 115 H, Carbon Dioxide 23.0, Anion Gap 4 L, BUN 11, Creatinine 0.78, Estim Creat Clear Calc 38.39, Est GFR (MDRD) Af Amer 91, Est GFR (MDRD) Non-Af 75, BUN/Creatinine Ratio 14.1, Glucose 109 H, Calcium 9.0, Total Bilirubin 0.70, AST 14 L, ALT 10 L, Alkaline Phosphatase 89, Total Protein 6.3 L, Albumin 2.8 L, Globulin 3.5, Albumin/Globulin Ratio 0.8 L Radiography Diagnostic Testing: Radiology Impression Brain CT 05/03/23 15:07 IMPRESSION: No acute intracranial abnormality. Chronic involutional and ischemic changes of the brain. Electronically Signed: Ambrosio Bailey MD at 16:11 EDT , Hip/Pelvis X-Ray 05/03/23 15:07 IMPRESSION: No acute radiographic abnormalities. Moderate degenerative changes of the bilateral hips. Electronically Signed: Ambrosio Bailey MD at 16:44 EDT Reading Location ID and State: [facility] / [place] Tel , Service support , Knee X-Ray 05/03/23 15:07 IMPRESSION: Moderate, lateral compartment predominant, tricompartmental degenerative arthrosis of the knee. Electronically Signed: Ambrosio Bailey MD at 16:43 EDT Reading Location ID and State: [facility] / [place] Tel , Service support , Knee X-Ray 05/03/23 15:07 IMPRESSION: Moderate, lateral compartment predominant, tricompartmental degenerative arthrosis of the knee. Electronically Signed: Ambrosio Bailey MD at 16:43 EDT Reading Location ID and State: [facility] / [place] Tel , Service support , Chest X-Ray 05/03/23 15:52 IMPRESSION: No acute radiographic abnormalities. Electronically Signed: Ambrosio Bailey MD at 16:42 EDT Reading Location ID and State: [facility] / [place] Tel , Service support , Physical Exam Const alert and no apparent distress HEENT head/scalp atraumatic and moist oral mucous membranes Resp normal respiratory effort, no retractions, no use of accessory muscles and clear to auscultation bilaterally Cardio regular rate, regular rhythm, S1 normal heart sound and S2 normal heart sound GI normal to inspection, nondistended, normoactive bowel sounds, soft to palpation and non-tender Assessment & Plan Assessment/Plan (1) Adult failure to thrive: PLAN: Fall, decreased intake PT OT CM for placement Anticipate pt will require SNF Additionally, patient has dementia w unclear type and unclear behavioral disturbance history: Not on any chronic regimen per most recent list, complicates presentation as patient is unsafe to return to her home and unable to safely care for herself with recent fall additionally and poor oral intake, PT/OT/case management consulted for discharge planning (2) Renal insufficiency: PLAN: Resolved w IVF (3) Tachycardia: PLAN: sinus resolved PLAN: Plan Chronic conditions: Hypertension: Continue amlodipine, lisinopril, metoprolol with hold parameters as needed, PRN hydralazine. Hyperlipidemia: continue statin Tobacco Abuse: Valvular heart disease: Most recent echocardiogram noted 10/03/2018 with normal LV size, normal LV systolic function, EF 60%, stage I diastolic dysfunction with mild tricuspid valve insufficiency. History CVA: continue Plavix, statin, hypertensive regimen DVT prophylaxis: Lovenox. CODE status: DNR-CCA, no intubation Charges/Coding Visit Charges Inpatient E&M: 42449 Subs Hosp L2
[2023-05-04] MEDS: traMADol 50 MG Tablet PO ×2 (08:54→14:48)
[2023-05-04 09:32] LABS: Differential Comment SCANNED
[2023-05-04] MEDS: Arthritis Pain Compound 60 CLICK TUBE TOPICAL ×2 (09:50→22:57)
[2023-05-04] MEDS: Enoxaparin 30 MG/0.3 ML Syringe SC (09:50)
[2023-05-04] MEDS: Lisinopril 40 MG Tablet PO (09:51)
[2023-05-04] MEDS: Metoprolol(XL)Succ 50 MG Tablet PO (09:51)
[2023-05-04] MEDS: amLODIPine 10 MG Tablet PO (09:51)
[2023-05-04] MEDS: Clopidogrel Bisulfate 75 MG Tablet PO (10:00)
--- NOTE | 2023-05-04 10:54 | PCM.PN.HOSP ---
Reason for Visit Reason for Visit: Diagnoses Adult failure to thrive (05/03/23) Subjective Subjective Denies complaints. Objective Data Objective Data Vital Signs: Vital Signs Temp Pulse Resp BP Pulse Ox O2 Del Method 36.8 C 84 16 121/52 H 96 Room Air 05/04/23 07:44 05/04/23 09:51 05/04/23 07:44 05/04/23 07:44 05/04/23 07:44 05/04/23 07:44 Oxygen Delivery Method Room Air Weight: 54.2 kg Body Mass Index (BMI) 23.4 Intake & Output: Intake and Output for Last 24 Hours 05/02/23 05/03/23 05/04/23 23:59 23:59 23:59 Intake Total 1500 / 1500 926.67 / 926.67 Output Total 150 / 150 Balance 1500 / 1500 776.67 / 776.67 Lab / Micro Data 05/04/23 06:25 05/04/23 06:25 Labs: Laboratory Results - last 24 hr 05/03/23 15:20: WBC 16.1 H, RBC 3.93 L, Hgb 12.8, Hct 37.7, MCV 95.9, MCH 32.6 H, MCHC 34.0, RDW Std Deviation 50.6 H, RDW Coeff of Garett 14.5, Plt Count 443, MPV 9.1, Immature Gran % (Auto) 0.400, Neut % (Auto) 81.3 H, Lymph % (Auto) 7.9 L, [place] % (Auto) 10.2 H, Eos % (Auto) 0.0, Baso % (Auto) 0.2, Absolute Neuts (auto) 13.1 H, Absolute Lymphs (auto) 1.27, Nucleated RBC % 0, Differential Comment SEE COMMENT, Diff Path Review May foll, Platelet Estimate SLT INC, RBC Morphology N CHROM, Anisocytosis RARE, Macrocytosis 1+, Sodium 139, Potassium 4.0, Chloride 109 H, Carbon Dioxide 24.0, Anion Gap 6, BUN 15, Creatinine 1.23 H, Est GFR (MDRD) Af Amer 54 L, Est GFR (MDRD) Non-Af 45 L, BUN/Creatinine Ratio 12.2, Glucose 134 H, Calcium 10.1, Total Bilirubin 0.90, AST 14 L, ALT 12 L, Alkaline Phosphatase 108, Total Protein 7.4, Albumin 3.3, Globulin 4.1, Albumin/Globulin Ratio 0.8 L 05/03/23 16:57: Urine Color Yellow, Urine Clarity Clear, Urine pH 5.0, Ur Specific [place] 1.025, Urine Protein Negative, Urine Glucose (UA) Normal, Urine Ketones 5 H, Urine Occult Blood Negative, Urine Nitrite Negative, Urine Bilirubin Negative, Urine Urobilinogen Normal, Ur Leukocyte Esterase Negative, Urine RBC 0 SEEN, Urine WBC 0 SEEN, Ur Squamous Epith Cells 10-25 SEEN, Urine Bacteria 0 SEEN, Urine Mucus 0 SEEN 05/03/23 19:04: Phosphorus 2.2 L, Magnesium 1.8, Total Creatine Kinase 125 05/04/23 06:25: WBC 10.6, RBC 3.50 L, Hgb 11.4 L, Hct 35.7 L, MCV 102.0 H D, MCH 32.6 H, MCHC 31.9 L D, RDW Std Deviation 54.7 H, RDW Coeff of Garett 14.9 H, Plt Count 294, MPV 10.0, Immature Gran % (Auto) 0.500, Neut % (Auto) 68.8, Lymph % (Auto) 19.1, [place] % (Auto) 11.1 H, Eos % (Auto) 0.2, Baso % (Auto) 0.3, Absolute Neuts (auto) 7.3, Absolute Lymphs (auto) 2.02, Nucleated RBC % 0, Differential Comment SCANNED, Sodium 142, Potassium 3.2 L, Chloride 115 H, Carbon Dioxide 23.0, Anion Gap 4 L, BUN 11, Creatinine 0.78, Estim Creat Clear Calc 38.39, Est GFR (MDRD) Af Amer 91, Est GFR (MDRD) Non-Af 75, BUN/Creatinine Ratio 14.1, Glucose 109 H, Calcium 9.0, Total Bilirubin 0.70, AST 14 L, ALT 10 L, Alkaline Phosphatase 89, Total Protein 6.3 L, Albumin 2.8 L, Globulin 3.5, Albumin/Globulin Ratio 0.8 L Micro: Microbiology 05/03/23 16:57 Urine Catheter - Catheter Urine Culture - Preliminary Culture exhibits no growth. Radiography Diagnostic Testing: Radiology Impression Brain CT 05/03/23 15:07 IMPRESSION: No acute intracranial abnormality. Chronic involutional and ischemic changes of the brain. Electronically Signed: Ambrosio Bailey MD at 16:11 EDT , Hip/Pelvis X-Ray 05/03/23 15:07 IMPRESSION: No acute radiographic abnormalities. Moderate degenerative changes of the bilateral hips. Electronically Signed: Ambrosio Bailey MD at 16:44 EDT Reading Location ID and State: [facility] / [place] Tel , Service support , Knee X-Ray 05/03/23 15:07 IMPRESSION: Moderate, lateral compartment predominant, tricompartmental degenerative arthrosis of the knee. Electronically Signed: Ambrosio Bailey MD at 16:43 EDT Reading Location ID and State: [facility] / [place] Tel , Service support , Knee X-Ray 05/03/23 15:07 IMPRESSION: Moderate, lateral compartment predominant, tricompartmental degenerative arthrosis of the knee. Electronically Signed: Ambrosio Bailey MD at 16:43 EDT Reading Location ID and State: [facility] / [place] Tel , Service support , Chest X-Ray 05/03/23 15:52 IMPRESSION: No acute radiographic abnormalities. Electronically Signed: Ambrosio Bailey MD at 16:42 EDT Reading Location ID and State: [id number] / [place] Tel , Service support , Physical Exam Const alert and no apparent distress Constitutional Narrative: eating breakfast. Pleasantly confused. Resp normal respiratory effort, no retractions, no use of accessory muscles and clear to auscultation bilaterally Cardio regular rate, regular rhythm, S1 normal heart sound and S2 normal heart sound GI normal to inspection, nondistended, normoactive bowel sounds
--- NOTE | 2023-05-04 12:21 | CASEMGMT ---
Social Work SW introduced self and role to patient. Pt's son Binh and sister Nina present. SW completed CM assessment with their assistance. PT/OT to see patient today to determine needs. Pt likely to need a SNF due to weakness, falls and dementia. A SNF list of providers including quality and resource use data and consistent with patient?s preferred geographic region, medical needs, and insurance network were provided from the [facility] Guide. Son is HCPOA and will review list with patient. Son provided Living Will and HCPOA paperwork and SW made a copy and placed it on the chart. Pascale Hines REDIPPER, MOBILE HOME TECHNICIAN
--- NOTE | 2023-05-04 12:29 | CASEMGMT ---
SW Assessment SW face to Face with patient for initial transition planning/care coordination assessment. SW introduced self and role at [facility]. Patient lying in bed, alert and oriented. Patient willing to participate in assessment and is able to answer some questions, son and sister present to assist with answers.? Care providers, pharmacy, and demographics verified. Patient wishes to discharge home, but is likely to need placement.? SW to follow for discharge planning needs and OT/PT evals. PCP: Maximiliano Specialists: None Preferred Pharmacy[facility] Insurance: [employer] Medicare Prescription Benefit:?Yes Living Will/HPOA: Yes/yes LNOK: Son Living Arrangements: independent in home Transportation: Sister/son DME/HHC: Pt has no DME except for walker that she reportedly refuses to use. No HHC. Disposition Plan: SW to follow for OT/PT evals, likely SNF placement due to dementia and falls/weakness. Pascale Hines TECHNICAL ENGINEER, CERTIFIED SURGICAL ASSISTANT
[2023-05-04] MEDS: Ensure Plus High Protein 120 ML LIQUID PO ×2 (18:18→22:56)
[2023-05-04] MEDS: Atorvastatin Calcium 20 MG Tablet PO (22:57)
[2023-05-05] VITALS (7 sets, daily range): BP systolic 108–116; BP diastolic 49–79; PULSE 72–85; RESP 16–18; TEMP 36.4–37; O2SAT 93–97
--- NOTE | 2023-05-05 07:42 | PN.HOSP_ITS ---
Reason for Visit Reason for Visit: Diagnoses Disorder of kidney and ureter, unspecified (05/03/23) Tachycardia, unspecified (05/03/23) Adult failure to thrive (05/03/23) Subjective Subjective Denies complaints. Objective Data Objective Data Vital Signs: Vital Signs Temp Pulse Resp BP Pulse Ox O2 Del Method 36.7 C 81 16 114/79 97 Room Air 05/05/23 02:28 05/05/23 02:29 05/05/23 02:28 05/05/23 02:28 05/05/23 02:28 05/05/23 02:28 Oxygen Delivery Method Room Air Weight: 54.2 kg Body Mass Index (BMI) 23.4 Intake & Output: Intake and Output for Last 24 Hours 05/03/23 05/04/23 05/05/23 23:59 23:59 23:59 Intake Total 1500 / 1500 926.67 / 1126.67 300 / 300 Output Total 150 / 150 Balance 1500 / 1500 776.67 / 976.67 300 / 300 Medical Nutrition Assessment Dietitian: Malnutrition Criteria Met Start: 05/04/23 15:40 Freq: Status: Active Protocol: Document 05/04/23 15:40 JULIET (Rec: 05/04/23 15:40 [facility] [id number]) Nutrition Malnutrition Evidence of Malnutrition Exists Yes Malnutrition (severe): Chronic Clinical Problem Chronic Disease or Condition Related Malnutrition Etiology related to physiological changes limiting oral intakes Signs/Symptoms as evidenced by reported oral intakes less than 75% of estimated nutrient needs for greater than one month and moderate to severe muscle wasting per NFPA findings. Status Active Problem Recommendation Dietitian Recommendations/Changes Will change ONS w/ medpass to Ensure Plus HP 120mL 4x/day w/ medpass. Will also trial Magic Cup w/ lunch and dinner to help increase oral intakes. Continue with Regular diet for liberalization. Will continue to monitor oral intakes and modify interventions as needed. Lab / Micro Data 05/04/23 06:25 05/04/23 06:25 Labs: Laboratory Results - last 24 hr 05/04/23 06:25: Plt Count 294, Differential Comment SCANNED Micro: Microbiology 05/03/23 16:57 Urine Catheter - Catheter Urine Culture - Preliminary Culture exhibits no growth. Physical Exam Const alert and no apparent distress HEENT head/scalp atraumatic Resp normal respiratory effort, no retractions, no use of accessory muscles and clear to auscultation bilaterally Cardio regular rate, regular rhythm, S1 normal heart sound and S2 normal heart sound GI normal to inspection, nondistended, normoactive bowel sounds Assessment & Plan Assessment/Plan (1) Adult failure to thrive: PLAN: Fall, decreased intake PT OT CM for placement Anticipate pt will require SNF Additionally, patient has dementia w unclear type and unclear behavioral disturbance history: Not on any chronic regimen per most recent list, complicates presentation as patient is unsafe to return to her home and unable to safely care for herself with recent fall additionally and poor oral intake, PT/OT/case management consulted for discharge planning At home, pt's sister was already helping w >50% of ADLs and pt was 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 She walked 15' feet w PT. (2) Renal insufficiency: PLAN: Resolved w IVF (3) Tachycardia: PLAN: sinus resolved PLAN: Plan Chronic conditions: * Hypertension: Continue amlodipine, lisinopril, metoprolol with hold parameters as needed, PRN hydralazine. * Hyperlipidemia: continue statin * Tobacco Abuse: * Valvular heart disease: Most recent echocardiogram noted 10/03/2018 with normal LV size, normal LV systolic function, EF 60%, stage I diastolic dysfunction with mild tricuspid valve insufficiency. * History CVA: continue Plavix, statin, hypertensive regimen * Dementia: unclear type. Pt reported to PT that she lives with her dog (the dog 3 years ago). DVT prophylaxis: Lovenox. CODE status: DNR-CCA, no intubation Disposition: pt medically stable for discharge. Awaiting on selection of facility and insurance approval for discharge. Charges/Coding Visit Charges Inpatient E&M: 40262 Subs Hosp L2
[2023-05-05] MEDS: Menthol/Lanolin/Calamine/Znox 113 GM Tube 1 APPLIC TOPICAL ×2 (11:27→21:37)
[2023-05-05] MEDS: Arthritis Pain Compound 60 CLICK TUBE TOPICAL ×2 (11:27→21:38)
[2023-05-05] MEDS: Enoxaparin 30 MG/0.3 ML Syringe SC (11:28)
[2023-05-05] MEDS: Metoprolol(XL)Succ 50 MG Tablet PO (11:29)
[2023-05-05] MEDS: amLODIPine 10 MG Tablet PO (11:29)
[2023-05-05] MEDS: Clopidogrel Bisulfate 75 MG Tablet PO (11:29)
[2023-05-05] MEDS: Lisinopril 40 MG Tablet PO (11:30)
[2023-05-05] MEDS: Ensure Plus High Protein 120 ML LIQUID PO ×3 (11:36→21:38)
[2023-05-05] MEDS: Atorvastatin Calcium 20 MG Tablet PO (21:37)
[2023-05-06 03:30] VITALS: BP 124/49; PULSE 85; RESP 16; TEMP 36.9; O2SAT 92
[2023-05-06 03:47] VITALS: BMI 24.0
[2023-05-06] MEDS: Menthol/Lanolin/Calamine/Znox 113 GM Tube 1 APPLIC TOPICAL ×2 (08:39→21:38)
[2023-05-06] MEDS: Enoxaparin 30 MG/0.3 ML Syringe SC (08:39)
[2023-05-06] MEDS: Ensure Plus High Protein 120 ML LIQUID PO ×2 (08:39→21:38)
[2023-05-06] MEDS: Arthritis Pain Compound 60 CLICK TUBE TOPICAL ×2 (08:39→21:38)
[2023-05-06 08:40] VITALS: PULSE 91
[2023-05-06] MEDS: Metoprolol(XL)Succ 50 MG Tablet PO (08:40)
[2023-05-06] MEDS: Clopidogrel Bisulfate 75 MG Tablet PO (08:41)
[2023-05-06] MEDS: Lisinopril 40 MG Tablet PO (08:41)
[2023-05-06] MEDS: amLODIPine 10 MG Tablet PO (08:41)
[2023-05-06 09:30] VITALS: BP 128/64; PULSE 91; RESP 16; TEMP 36.8; O2SAT 93
[2023-05-06 10:02] LABS: Pathologist Review Reviewed
--- NOTE | 2023-05-06 10:13 | CASEMGMT ---
Addendum entered by Yoli Spears 05/06/23 14:42: Social Work [facility] is able to accept pt. VM left with pt son to update. SW requested precert be started by [facility] at this time. Plan: [facility], pending precert JOSE Ibrahim Original Note: Social Work SW met with pt and her son Binh to discuss discharge plan. Per pt son, pt and family feel pt will need SNF. Preferred provider is [facility]. Referral sent to [facility] via [facility]. SW will await determination. Precert will need obtained prior to admission to SNF. Plan: [facility], pending acceptance and precert JOSE Ibrahim
--- NOTE | 2023-05-06 14:31 | PN.HOSP_ITS ---
Reason for Visit Reason for Visit: Generalized weakness/falls/decreased p.o. intake Subjective Subjective Mrs. Leung is an 82-year-old white female with a history of dementia-type unclear who presented to the emergency department [facility] wit h worsening generalized weakness that had been progressively getting worse 2 weeks prior to presentation. She had been falling at home with the last fall being approximate 1 to 2 weeks ago. Son reported she had some shoulder and knee pain since that point in time. Her oral intake has been worse. She does live alone at this time but family members are bringing her food. They are concerned about her decreased oral intake with solids and liquids and her decreasing ability to care for herself. Vital signs on presentation were unremarkable on room air. CBC showed a mild leukocytosis with a white count of 16.1 but was otherwise unremarkable. CMP was unremarkable, hepatic profile was unremarkable, urinalysis was unremarkable. Her CT of the brain showed no acute intracranial abnormalities with chronic involutional and ischemic changes. Plain imaging of her right hip and pelvis showed no acute abnormalities. Her left knee showed moderate lateral compartment predominant along with tricompartmental degenerative arthrosis and her right knee showed similar findings. Chest x-ray was unremarkable. EKG was unremarkable. She was given 1 L of IV fluids admitted to the medical floor. Patient's ongoing complaints include knee pain. Today she was able to walk well with physical therapy but did have pain with full active range of motion on exam. Tachycardia noted on presentation had resolved. Plans are for transition to halfway facility at the time of discharge and social work with with family today. Patient will need pre-CERT prior to discharge. Objective Data Objective Data Vital Signs: Vital Signs Temp Pulse Resp BP Pulse Ox O2 Del Method 98.2 F 91 16 128/64 H 93 Room Air 05/06/23 09:30 05/06/23 09:30 05/06/23 09:30 05/06/23 09:30 05/06/23 09:30 05/06/23 09:30 Oxygen Delivery Method Room Air Weight: 55.4 kg Body Mass Index (BMI) 24.0 Intake & Output: Intake and Output for Last 24 Hours 05/04/23 05/05/23 05/06/23 23:59 23:59 23:59 Intake Total 926.67 / 1126.67 300 / 420 120 / 120 Output Total 150 / 150 Balance 776.67 / 976.67 300 / 420 120 / 120 Medical Nutrition Assessment Dietitian: Malnutrition Criteria Met Start: 05/04/23 15:40 Freq: Status: Active Protocol: Document 05/04/23 15:40 YUNIOR (Rec: 05/04/23 15:40 YUNIOR [id number]) Nutrition Malnutrition Evidence of Malnutrition Exists Yes Malnutrition (severe): Chronic Clinical Problem Chronic Disease or Condition Related Malnutrition Etiology related to physiological changes limiting oral intakes Signs/Symptoms as evidenced by reported oral intakes less than 75% of estimated nutrient needs for greater than one month and moderate to severe muscle wasting per NFPA findings. Status Active Problem Recommendation Dietitian Recommendations/Changes Will change ONS w/ medpass to Ensure Plus HP 120mL 4x/day w/ medpass. Will also trial Magic Cup w/ lunch and dinner to help increase oral intakes. Continue with Regular diet for liberalization. Will continue to monitor oral intakes and modify interventions as needed. Lab / Micro Data 05/04/23 06:25 05/04/23 06:25 Labs: Laboratory Results - last 24 hr 05/03/23 15:20: Diff Path Review Reviewed Micro: Microbiology 05/03/23 16:57 Urine Catheter - Catheter Urine Culture - Final Culture exhibits no growth. Physical Exam Const alert, no apparent distress and average body habitus Constitutional Narrative: Elderly white female, sitting up in a chair at the bedside, son at bedside, patient is oriented to self and time but not place, appears comfortable and nontoxic HEENT head/scalp atraumatic and moist oral mucous membranes HEENT Narrative: Mallampati 2, no thrush Head and Scalp: normocephalic Resp normal respiratory effort, no retractions, no use of accessory muscles and clear to auscultation bilaterally Auscultation: Negative for rales, rhonchi or wheezes Cardio regular rate, regular rhythm, S1 normal heart sound, S2 normal heart sound, no murmurs, no rub, no gallops and no clicks GI normal to inspection, nondistended, normoactive bowel sounds, soft to palpation and non-tender Extremity no clubbing, cyanosis or edema Extremity Narrative: Right knee with slight effusion, decreased active range of motion full extension but full passive range of motion, no ecchymosis Neuro moves all extremities and no focal motor deficits Speech: speech normal Psych Psych Narrative: Affect is somewhat flat but eye contact is good and mood seems stable Assessment & Plan Assessment/Plan (1) Tachycardia: (2) Generalized weakness: (3) Fall at home: (4) Right knee pain: PLAN: Plan Generalized weakness/fall -Imaging reveals no fractures -PT and OT are following the patient and feel that she will need further care -SNF at discharge pending acceptance and precertification -Appreciate case management/social work assistance Tachycardia -Resolved Right knee pain -Imaging unremarkable -Patient was able to bear weight and ambulate with walker during physical therapy so I am not sure that we need much further work-up at this time however we will continue to monitor and consider CT if anything changes to help identify occult fracture if present Poor p.o. intake -Son reports that her oral intake has been poor at home and is asking if there is anything we can do to help stimulate -We will start Remeron 15 mg nightly -Son is aware that this may take some time to stimulate her appetite if it does indeed help Hypertension -Continue amlodipine -Continue lisinopril -Continue metoprolol -As needed hydralazine Hyperlipidemia -Continue home statin Valvular heart disease -Most recent echo from 10/03/2018 showed normal LV size, normal LV function at EF of 50% and stage I diastolic dysfunction with mild tricuspid valve insufficiency History of stroke -Continue Plavix -Continue PT/OT Dementia -Type unclear however I do suspect vascular -Patient living independently -Per son patient is currently at baseline mental status which is alert and oriented to place and self but not time Tobacco abuse -Continue as needed nicotine patch -Recommend cessation DVT prophylaxis -Continue Lovenox CODE STATUS -DNR CCA with no intubation Charges/Coding Visit Charges Inpatient E&M: 40105 Subs Hosp L2
--- NOTE | 2023-05-06 14:32 | CHAPLAIN ---
Type of Pastoral Visit _x__ Initial Visit ___ Follow-up Visit ___ On-call Visit ___ General Patient Visit ___ Spiritual Assessment ___ Family Conference ___ Bereavement ___ Rapid Response ___ Code Blue ___ Other (describe below) Pastoral Care Referral From _x__ Patient ___ Family ___ Nurse ___ Physician ___ Cable Rigger ___ Lane Attendant ___ Other (describe below) Sacrament/Intervention ___ Active listening ___ Anointing ___ Voodoo ___ Bereavement ___ Communion ___ Sara exploration ___ ___ Life review ___ Prayer ___ Reconciliation ___ Sacrament of Sick _x__ Supportive presence ___ Wedding ___ Other (describe below) Pastoral Comments offer of presence and support; offer to review how patient is handling situation; pt repeats that she is fine and thank you for coming; pt offered assistance for her meal tray but she states she doesn't want to eat; no further issues
[2023-05-06 16:08] VITALS: BP 110/58; PULSE 82; RESP 16; TEMP 36.8; O2SAT 92
[2023-05-06 20:08] VITALS: BP 120/51; PULSE 79; RESP 18; TEMP 36.8; O2SAT 92
[2023-05-06] MEDS: Atorvastatin Calcium 20 MG Tablet PO (21:38)
[2023-05-06] MEDS: Mirtazapine 15 MG Tablet PO (21:38)
[2023-05-07] VITALS (7 sets, daily range): BP systolic 118–145; BP diastolic 45–65; PULSE 80–97; RESP 16–22; TEMP 36.7–37.2; O2SAT 92–100; BMI 24.2
[2023-05-07 07:01] LABS: Absolute Lymphocyte Count 1.73 X10^3/uL (0.83-4.51); Absolute Neutrophil Count 5.5 X10^3/uL (2.0-7.7); Basophil# 0.02 X10^3/uL; Basophil% 0.2 % (0-1); Eosinophil# 0.09 X10^3/uL; Eosinophils% 1.1 % (0-5); Hematocrit 32.7 % (37-47); Hemoglobin 10.2 g/dL (12.0-15.0); Lymphocyte # 1.73 X10^3/ul (0.83-4.51); Mean Corp Hgb Conc 31.2 g/dL (32-36); Mean Corpuscular Hgb 31.1 pg (27.0-32.0); Mean Corpuscular Volume 99.7 fL (81-99); Mean Platelet Vol. 9.4 fl (6.2-12.0); Monocyte% 10.9 % (0-10); NRBC Flagged by Analyzer 0 % (0-5); Neutrophil # 5.48 X10^3/uL (2.7-7.7); Neutrophil % 66.4 % (47-70); Platelet Count 335 K/mm3 (150-450); RBC Distribution Width CV 14.8 % (11.6-14.6); RBC Distribution Width SD 53.1 fl (35.1-43.9); Red Blood Count 3.28 M/mm3 (4.2-5.4); White Blood Count 8.3 K/mm3 (4.4-11.0)
[2023-05-07 07:25] LABS: Anion Gap 2 (5-15); BUN 12 mg/dL (7-18); Calcium,Total 9.1 mg/dL (8.5-10.1); Chloride 112 mmol/L (98-107); Creatinine, Serum 0.75 mg/dL (0.55-1.02); EST Glomerular Filtration Rate 79 mL/min (>60); Est Glom Filt Rate - Afr Amer 96 mL/min (>60); Glucose 106 mg/dL (74-106); Magnesium 1.9 mg/dL (1.6-2.6); Potassium 3.1 mmol/L (3.5-5.1); Sodium Level 143 mmol/L (136-145)
[2023-05-07] MEDS: Enoxaparin 30 MG/0.3 ML Syringe SC (08:46)
[2023-05-07] MEDS: Menthol/Lanolin/Calamine/Znox 113 GM Tube 1 APPLIC TOPICAL ×2 (08:47→21:22)
[2023-05-07] MEDS: Arthritis Pain Compound 60 CLICK TUBE TOPICAL ×2 (08:47→21:22)
[2023-05-07] MEDS: Lisinopril 40 MG Tablet PO (08:47)
[2023-05-07] MEDS: Ensure Plus High Protein 120 ML LIQUID PO ×4 (08:48→21:22)
[2023-05-07] MEDS: Clopidogrel Bisulfate 75 MG Tablet PO (08:48)
[2023-05-07] MEDS: amLODIPine 10 MG Tablet PO (08:48)
[2023-05-07] MEDS: Metoprolol(XL)Succ 50 MG Tablet PO (08:48)
[2023-05-07] MEDS: Potassium Chloride 10mEq/100mL 10 MEQ/100 ML IV.SOLN. 100 MEQ IV BOLUS ×4 (10:35→13:59)
--- NOTE | 2023-05-07 14:36 | PN.HOSP_ITS ---
Reason for Visit Reason for Visit: Falls/Weakness/decreased p.o. intake Subjective Subjective No issues overnight. Patient states she slept well. Was taking her pills this morning and nursing noted some coughing so speech therapy was consulted. Consult is currently pending and patient is asking for her root beer. Awaiting pre-CERT. States knee is feeling better today. Objective Data Objective Data Vital Signs: Vital Signs Temp Pulse Resp BP Pulse Ox O2 Del Method 98.1 F 80 18 145/65 H 95 Room Air 05/07/23 09:15 05/07/23 09:15 05/07/23 09:15 05/07/23 09:15 05/07/23 09:15 05/07/23 09:15 Oxygen Delivery Method Room Air Weight: 55.9 kg Body Mass Index (BMI) 24.2 Intake & Output: Intake and Output for Last 24 Hours 05/05/23 05/06/23 05/07/23 23:59 23:59 23:59 Intake Total 300 / 420 520 / 640 520 / 520 Balance 300 / 420 520 / 640 520 / 520 Medical Nutrition Assessment Dietitian: Malnutrition Criteria Met Start: 05/04/23 15:40 Freq: Status: Active Protocol: Document 05/04/23 15:40 YUNIOR (Rec: 05/04/23 15:40 YUNIOR [id number]) Nutrition Malnutrition Evidence of Malnutrition Exists Yes Malnutrition (severe): Chronic Clinical Problem Chronic Disease or Condition Related Malnutrition Etiology related to physiological changes limiting oral intakes Signs/Symptoms as evidenced by reported oral intakes less than 75% of estimated nutrient needs for greater than one month and moderate to severe muscle wasting per NFPA findings. Status Active Problem Recommendation Dietitian Recommendations/Changes Will change ONS w/ medpass to Ensure Plus HP 120mL 4x/day w/ medpass. Will also trial Magic Cup w/ lunch and dinner to help increase oral intakes. Continue with Regular diet for liberalization. Will continue to monitor oral intakes and modify interventions as needed. Lab / Micro Data 05/07/23 06:45 05/07/23 06:45 Labs: Laboratory Results - last 24 hr 05/07/23 06:45: WBC 8.3, RBC 3.28 L, Hgb 10.2 L, Hct 32.7 L, MCV 99.7 H, MCH 31.1, MCHC 31.2 L, RDW Std Deviation 53.1 H, RDW Coeff of Garett 14.8 H, Plt Count 335, MPV 9.4, Immature Gran % (Auto) 0.400, Neut % (Auto) 66.4, Lymph % (Auto) 21.0, [place] % (Auto) 10.9 H, Eos % (Auto) 1.1, Baso % (Auto) 0.2, Absolute Neuts (auto) 5.5, Absolute Lymphs (auto) 1.73, Nucleated RBC % 0, Sodium 143, Potassium 3.1 L, Chloride 112 H, Carbon Dioxide 29.0, Anion Gap 2 L, BUN 12, Creatinine 0.75, Estim Creat Clear Calc 39.60, Est GFR (MDRD) Af Amer 96, Est GFR (MDRD) Non-Af 79, BUN/Creatinine Ratio 16.0, Glucose 106, Calcium 9.1, Magnesium 1.9 Micro: Microbiology 05/03/23 16:57 Urine Catheter - Catheter Urine Culture - Final Culture exhibits no growth. Physical Exam Const alert, no apparent distress and average body habitus Constitutional Narrative: Elderly white female, sitting up in a chair at the bedside, patient is oriented to self and time but not place, appears comfortable and nontoxic HEENT head/scalp atraumatic and moist oral mucous membranes Resp normal respiratory effort, no retractions, no use of accessory muscles and clear to auscultation bilaterally Resp Narrative: Diminished but clear Auscultation: Negative for rales, rhonchi or wheezes Cardio regular rate, regular rhythm, S1 normal heart sound, S2 normal heart sound, no murmurs, no rub, no gallops and no clicks GI normal to inspection, nondistended, normoactive bowel sounds, soft to palpation and non-tender Extremity no clubbing, cyanosis or edema Extremity Narrative: Right knee effusion improved with less pain during active range of motion Neuro moves all extremities and no focal motor deficits Speech: speech normal Psych affect normal Psych Narrative: Pleasant Assessment & Plan Assessment/Plan (1) Tachycardia: (2) Generalized weakness: (3) Fall at home: (4) Right knee pain: (5) Hypokalemia: (6) Severe malnutrition: PLAN: Plan Generalized weakness/fall -Imaging reveals no fractures -PT and OT are following the patient and feel that she will need further care -Patient has been accepted at skilled facility and currently waiting for pre- CERT -Appreciate case management/social work assistance Hypokalemia -P.o. potassium replacement -Recheck in a.m. Right knee pain -Imaging unremarkable -Improved today so I think we can forego any further imaging -Also did well with therapy yesterday Severe malnutrition -Son reports that her oral intake has been poor at home and is asking if there is anything we can do to help stimulate -Continue Remeron -Was concern for aspiration so speech therapy was consulted and continued a regular diet with thin liquids with some strategies for swallowing -Son is aware that this may take some time to stimulate her appetite if it does indeed help Hypertension -Continue amlodipine -Continue lisinopril -Continue metoprolol -As needed hydralazine Hyperlipidemia -Continue home statin Valvular heart disease -Most recent echo from 10/03/2018 showed normal LV size, normal LV function at EF of 50% and stage I diastolic dysfunction with mild tricuspid valve insufficiency History of stroke -Continue Plavix -Continue PT/OT Dementia -Type unclear however I do suspect vascular -Patient living independently -Per son patient is currently at baseline mental status which is alert and oriented to place and self but not time Tobacco abuse -Continue as needed nicotine patch -Recommend cessation DVT prophylaxis -Continue Lovenox CODE STATUS -DNR CCA with no intubation Charges/Coding Visit Charges Inpatient E&M: 39827 Subs Hosp L2
[2023-05-07] MEDS: Atorvastatin Calcium 20 MG Tablet PO (21:23)
[2023-05-07] MEDS: Mirtazapine 15 MG Tablet PO (21:23)
[2023-05-08] VITALS (7 sets, daily range): BP systolic 105–130; BP diastolic 41–77; PULSE 74–104; RESP 18; TEMP 36.4–36.6; O2SAT 94–97; BMI 24.4
[2023-05-08 07:29] LABS: Anion Gap 2 (5-15); BUN 17 mg/dL (7-18); BUN/Creat Ratio 23.3 RATIO (10-20); Calcium,Total 9.3 mg/dL (8.5-10.1); Chloride 114 mmol/L (98-107); Creatinine, Serum 0.73 mg/dL (0.55-1.02); EST Glomerular Filtration Rate 82 mL/min (>60); Est Glom Filt Rate - Afr Amer 99 mL/min (>60); Glucose 106 mg/dL (74-106); Potassium 3.9 mmol/L (3.5-5.1); Sodium Level 144 mmol/L (136-145)
[2023-05-08] MEDS: Lisinopril 40 MG Tablet PO (09:02)
[2023-05-08] MEDS: Clopidogrel Bisulfate 75 MG Tablet PO (09:02)
[2023-05-08] MEDS: Enoxaparin 40 MG/0.4 ML Syringe SC (09:03)
[2023-05-08] MEDS: amLODIPine 10 MG Tablet PO (09:03)
[2023-05-08] MEDS: Ensure Plus High Protein 120 ML LIQUID PO ×2 (09:03→14:05)
[2023-05-08] MEDS: Metoprolol(XL)Succ 50 MG Tablet PO (09:03)
[2023-05-08] MEDS: Arthritis Pain Compound 60 CLICK TUBE TOPICAL (09:04)
[2023-05-08] MEDS: Menthol/Lanolin/Calamine/Znox 113 GM Tube 1 APPLIC TOPICAL (09:04)
--- NOTE | 2023-05-08 12:40 | CASEMGMT ---
Addendum entered by Yoli Spears 05/08/23 15:10: [id number] Exemption form completed in [facility] for SNF admission. Gracie VANCEW Addendum entered by Yoli Spears 05/08/23 13:14: Social Work Per physician, denial overturned. [facility] updated that denial was overturned and pt is medically ready for discharge. SW will await return call from [facility] to verify acceptance. DANISHA met with pt and pt son and update on status of admission to [facility]. JOSE Ibrahim Original Note: Social Work [facility] reports Insurance plans to deny admission for skilled stay. Peer to Peer can be requested. DANISHA spoke with Dr. Perez who agrees to completing peer to peer. DANISHA arranged for peer to peer with pt insurance who will reach out to Dr. Perez. JOSE Ibrahim
[2023-05-08] MEDS: Acetaminophen 325 MG Tablet 650 MG PO (14:04)
--- NOTE | 2023-05-08 14:51 | PCM.TXEXTCAR ---
Diet Diet Order/Speech Therapy: 05/03/23 20:42 Diet: Regular - General Food consistency:: Regular Liquid Consistency:: Regular/Thin Type of Dietary Supplement:: Magic Cup Dessert Is pt able to select menu?: No Diet Comments: orange Magic Cup w/ lunch and dinner. Routine Orders/Code Status O2 Frequency: PRN Keep PO Greater than or Equal to (%): 88 Code Status: DNRCC-A (No intubation) Therapies Weight Bearing: Full weight bearing Physical Therapy: Eval and Treat Occupational Therapy: Eval and Treat Speech Therapy: Eval and Treat Problem/Diagnosis (1) Tachycardia: Status: Acute Code(s): R00.0 - Tachycardia, unspecified (2) Generalized weakness: Status: Acute Code(s): R53.1 - Weakness (3) Fall at home: Status: Acute Code(s): W19.XXXA - Unspecified fall, initial encounter; Y92.009 - Unspecified place in unspecified non-institutional (private) residence as the place of occurrence of the external cause (4) Right knee pain: Status: Acute Code(s): M25.561 - Pain in right knee (5) Hypokalemia: Status: Acute Code(s): E87.6 - Hypokalemia (6) Severe malnutrition: Status: Acute Code(s): E43 - Unspecified severe protein-calorie malnutrition Plan G Allergies/Procedures Done in Hospital Allergies amoxicillin trihydrate [From Augmentin] Adverse Reaction (Mild, Verified 05/03/23 19:33) Vomiting potassium clavulanate [From Augmentin] Adverse Reaction (Mild, Verified 05/03/23 19:33) Vomiting Procedures: - (CT brain/hip and pelvic x-ray/knee x-ray/chest x-ray) Type of Care/Length of Stay Estimated LOS: Convalescent Care Less Than 30 days Type of Care Needed: Skilled Rehab Potential: Good Prognosis: Fair Additional Orders/Day of Discharge Day of Discharge: 05/08/23 Dietary and Speech Recommendations Dietitian Recommendations/Changes: Will continue Ensure Plus HP 120mL 4x/day w/ medpass. Continue Magic Cup w/ lunch and dinner to help increase oral intakes. Continue with Regular diet for liberalization. Rec consider appetite stimulant to help encourage increased po intake. Discharge Plan Admission Admit Date/Time: 05/03/23 18:59 Attending Provider: Michell Perez Primary Care Provider: Juan A Viera Consulting Providers: Malena Mora; Cristopher Fernando Discharge Orders/Prescriptions Prescriptions: No Action vitamin B complex [B Complex-Vitamin B12] Tablet 1 tab PO DAILY cholecalciferol (vitamin D3) 25 mcg (1,000 unit) tablet 25 mcg PO DAILY dexamethasone 4 mg Tablet 6 mg PO DAILY Qty: 7 0RF metoprolol succinate 50 mg tablet extended release 24 hr 50 mg PO DAILY Qty: 90 3RF lisinopril 40 mg tablet 40 mg PO DAILY Qty: 90 3RF simvastatin 20 mg tablet See Rx Instructions .ROUTE .COMPLEX Qty: 90 3RF Dose Instruction: TAKE 1 TABLET AT BEDTIME Rx Instructions: TAKE 1 TABLET AT BEDTIME clopidogrel [Plavix] 75 mg tablet 75 mg PO DAILY Qty: 90 3RF amlodipine 10 mg tablet See Rx Instructions .ROUTE .COMPLEX Qty: 90 4RF Dose Instruction: TAKE 1 TABLET EVERY DAY Rx Instructions: TAKE 1 TABLET EVERY DAY Referrals / Follow Up: Juan A Viera, PA [Primary Care Provider] -
--- NOTE | 2023-05-08 14:53 | DS.PCM_ITS ---
Providers Date of Admission: 05/03/23 Date of Discharge: 05/08/23 Primary Care Physician: BOBBY Emmanuel Reason For Visit: ADULT FTT / FALLS / RENAL INSUFFICIENCY Diagnosis Discharge Diagnosis (1) Tachycardia: Status: Acute Code(s): R00.0 - Tachycardia, unspecified (2) Generalized weakness: Status: Acute Code(s): R53.1 - Weakness (3) Fall at home: Status: Acute Code(s): W19.XXXA - Unspecified fall, initial encounter; Y92.009 - Unspecified place in unspecified non-institutional (private) residence as the place of occurrence of the external cause (4) Right knee pain: Status: Acute Code(s): M25.561 - Pain in right knee (5) Hypokalemia: Status: Acute Code(s): E87.6 - Hypokalemia (6) Severe malnutrition: Status: Acute Code(s): E43 - Unspecified severe protein-calorie malnutrition Plan G Medications at Discharge Home Medications cholecalciferol (vitamin D3) 25 mcg (1,000 unit) tablet 25 mcg PO DAILY supplement 12/08/20 vitamin B complex (B Complex-Vitamin B12 tablet) 1 tab PO DAILY supplement 02/22 dexamethasone 4 mg tablet 6 mg (1.5 x 4 mg) PO DAILY #7 tabs 01/16/22 metoprolol succinate 50 mg tablet,extended release 24 hr 50 mg PO DAILY blood pressure #90 tabs 05/28/22 lisinopril 40 mg tablet 40 mg PO DAILY blood pressure #90 tabs 11/02/22 simvastatin 20 mg tablet See Rx Instructions .Route .COMPLEX #90 TABLETS 12/28/22 clopidogrel 75 mg tablet (Plavix) 75 mg PO DAILY blood thinner #90 tabs 01/01/23 amlodipine 10 mg tablet See Rx Instructions .Route .COMPLEX #90 TABLETS 01/28/23 food supplemt, lactose-reduced 0.08 gram-1.5 kcal/mL oral liquid (Ensure Plus High Protein) 120 ml PO 4X/DAY #0 mL 05/08/23 guaifenesin 100 mg/5 mL oral liquid 50 mg (2.5 mL) PO Q4H PRN PRN COUGH #1,000 mL 05/08/23 mirtazapine 15 mg tablet 15 mg PO QHS #0 tabs 05/08/23 Hospital Course Summary of Care Provided Hospital Course: Mrs. Ruiz is an 82-year-old white female with a history of dementia-type unclear who presented to the emergency department [facility] with worsening generalized weakness that had been progressively getting worse 2 weeks prior to presentation. She had been falling at home with the last fall being approximate 1 to 2 weeks ago. Son reported she had some shoulder and knee pain since that point in time. Her oral intake had been worse. She had been live alone at the time of presentation but family members are bringing her food and helping her as much as possible. They were concerned about her decreased oral intake with solids and liquids and her decreased ability to care for herself. Vital signs on presentation were unremarkable on room air. CBC showed a mild leukocytosis with a white count of 16.1 but was otherwise unremarkable. CMP was unremarkable, hepatic profile was unremarkable, urinalysis was unremarkable. Her CT of the brain showed no acute intracranial abnormalities with chronic involutional and ischemic changes. Plain imaging of her right hip and pelvis showed no acute abnormalities. Her left knee showed moderate lateral compartment predominant along with tricompartmental degenerative arthrosis and her right knee showed similar findings. Chest x-ray was unremarkable. EKG was unremarkable. She was given 1 L of IV fluids as there was some concern for mild dehydration and she was admitted to the medical floor. She was stable throughout her hospital course. She was evaluated by physical, occupational, and speech therapy. Ongoing therapy services was recommended and she was cleared for a regular thin liquid diet with compensatory strategies and supervision by speech therapy. She had some mild hypokalemia which was replaced during her hospital course. Therapy services recommended ongoing therapy to improve her functional status. Family did indicate that her p.o. intake had been poor at home so we did initiate Remeron 15 mg nightly to help with appetite and hopefully help with sleep some. Nursing facility was picked out and we received pre-CERT from her insurance company on 05/08/2023. Overall plans for family are transition to ECF at some point however we did feel strongly that she would benefit from short-term rehab stay as her functional status had declined quite considerably and she was only able to walk 2 to 3 feet due to weakness at the time of discharge. Discharge diagnoses: Generalized weakness Fall Tachycardia-resolved Right knee pain-improving Poor p.o. intake Severe malnutrition Hypertension Hyperlipidemia Valvular heart disease History of stroke Dementia Tobacco abuse Physical Exam Const alert, no apparent distress and average body habitus Constitutional Narrative: Elderly white female, sitting up in bed, patient is oriented to self and time but not place, appears comfortable and nontoxic, states she is feeling fairly well General Appearance: cooperative, comfortable, well kempt and well developed Orientation / Consciousness: awake and oriented to person HEENT normocephalic, head/scalp atraumatic and moist oral mucous membranes Resp normal respiratory effort, no retractions, no use of accessory muscles and clear to auscultation bilaterally Resp Narrative: Few scattered wheezes that clear with cough Auscultation: wheezes; Negative for rales or rhonchi Cardio regular rate, regular rhythm, S1 normal heart sound, S2 normal heart sound, no murmurs, no rub, no gallops and no clicks GI normal to inspection, nondistended, normoactive bowel sounds, soft to palpation and non-tender Extremity no clubbing, cyanosis or edema Extremity Narrative: Mild right knee effusion Skin No no rashes or lesions noted, no wounds, skin turgor normal and no jaundice Skin Narrative: Scattered ecchymotic lesions Neuro CN's II-XII intact bilaterally, moves all extremities and no focal motor deficits Speech: speech normal Psych affect normal Psych Narrative: Pleasant, mild confusion Medical Records Data Medical Nutrition Assessment Dietitian: Malnutrition Criteria Met Start: 05/04/23 15:40 Freq: Status: Active Protocol: Document 05/04/23 15:40 [facility] (Rec: 05/04/23 15:40 [facility] [id number]) Nutrition Malnutrition Evidence of Malnutrition Exists Yes Malnutrition (severe): Chronic Clinical Problem Chronic Disease or Condition Related Malnutrition Etiology related to physiological changes limiting oral intakes Signs/Symptoms as evidenced by reported oral intakes less than 75% of estimated nutrient needs for greater than one month and moderate to severe muscle wasting per NFPA findings. Status Active Problem Recommendation Dietitian Recommendations/Changes Will change ONS w/ medpass to Ensure Plus HP 120mL 4x/day w/ medpass. Will also trial Magic Cup w/ lunch and dinner to help increase oral intakes. Continue with Regular diet for liberalization. Will continue to monitor oral intakes and modify interventions as needed. Weight / BMI Weight Weight: 56.416 kg Body Mass Index (BMI) 24.4 ABG / Lab / Microbiology Data 05/07/23 06:45 05/08/23 06:48 Laboratory: Laboratory Results - last 24 hr 05/08/23 06:48: Sodium 144, Potassium 3.9, Chloride 114 H, Carbon Dioxide 28.0, Anion Gap 2 L, BUN 17, Creatinine 0.73, Estim Creat Clear Calc 39.60, Est GFR (MDRD) Af Amer 99, Est GFR (MDRD) Non-Af 82, BUN/Creatinine Ratio 23.3 H, G lucose 106, Calcium 9.3 Microbiology: Microbiology 05/03/23 16:57 Urine Catheter - Catheter Urine Culture - Final Culture exhibits no growth. Meaningful Use Info Meaningful Use Diagnoses (Choose all that apply): None applicable Discharge Plan Admission Admit Date/Time: 05/03/23 18:59 Primary Reason for Your Visit: Generalized weakness/falls/decreased p.o. intake Attending Provider: Michell Perez Primary Care Provider: Juan A Viera Consulting Providers: Malena Mora; Cristopher Fernando Discharge Orders/Prescriptions Prescriptions: New guaifenesin 100 mg/5 mL Liquid 50 mg PO Q4H PRN PRN (Reason: COUGH) Qty: 1000 0RF mirtazapine 15 mg Tablet 15 mg PO QHS Qty: 0 0RF Ensure Plus High Protein 0.08 gram-1.5 kcal/mL Liquid 120 ml PO 4X/DAY Qty: 0 0RF Continued vitamin B complex [B Complex-Vitamin B12] Tablet 1 tab PO DAILY cholecalciferol (vitamin D3) 25 mcg (1,000 unit) tablet 25 mcg PO DAILY dexamethasone 4 mg Tablet 6 mg PO DAILY Qty: 7 0RF metoprolol succinate 50 mg tablet extended release 24 hr 50 mg PO DAILY Qty: 90 3RF lisinopril 40 mg tablet 40 mg PO DAILY Qty: 90 3RF simvastatin 20 mg tablet See Rx Instructions .ROUTE .COMPLEX Qty: 90 3RF Dose Instruction: TAKE 1 TABLET AT BEDTIME Rx Instructions: TAKE 1 TABLET AT BEDTIME clopidogrel [Plavix] 75 mg tablet 75 mg PO DAILY Qty: 90 3RF amlodipine 10 mg tablet See Rx Instructions .ROUTE .COMPLEX Qty: 90 4RF Dose Instruction: TAKE 1 TABLET EVERY DAY Rx Instructions: TAKE 1 TABLET EVERY DAY Referrals / Follow Up: Juan A Viera PA [Primary Care Provider] - Within 1 Month Disposition Disposition (needs filled in before D/C Order can be placed): Care Home Facility Charges/Coding Visit Charges Inpatient E&M: 08619 SNF Disch
--- NOTE | 2023-05-08 15:22 | PHA.DC.MR.R ---
Pharmacy [place] Med Reconciliation Pharmacy Service has performed discharge medication reconciliation for this patient. The patient's discharge medication list was reviewed for discrepancies and discrepancies were resolved. Medications at Discharge Home Medications cholecalciferol (vitamin D3) 25 mcg (1,000 unit) tablet 25 mcg PO DAILY supplement 12/08/20 vitamin B complex (B Complex-Vitamin B12 tablet) 1 tab PO DAILY supplement 12/08/20 dexamethasone 4 mg tablet 6 mg (1.5 x 4 mg) PO DAILY #7 tabs 01/16/22 metoprolol succinate 50 mg tablet,extended release 24 hr 50 mg PO DAILY blood pressure #90 tabs 05/28/22 lisinopril 40 mg tablet 40 mg PO DAILY blood pressure #90 tabs 11/02/22 simvastatin 20 mg tablet See Rx Instructions .Route .COMPLEX #90 TABLETS 12/28/22 clopidogrel 75 mg tablet (Plavix) 75 mg PO DAILY blood thinner #90 tabs 01/01/23 amlodipine 10 mg tablet See Rx Instructions .Route .COMPLEX #90 TABLETS 01/28/23 food supplemt, lactose-reduced 0.08 gram-1.5 kcal/mL oral liquid (Ensure Plus High Protein) 120 ml PO 4X/DAY #0 mL 05/08/23 guaifenesin 100 mg/5 mL oral liquid 50 mg (2.5 mL) PO Q4H PRN PRN COUGH #1,000 mL 05/08/23 mirtazapine 15 mg tablet 15 mg PO QHS #0 tabs 05/08/23
--- NOTE | 2023-05-08 16:28 | CASEMGMT ---
Discharge Planning Discharge orders, signed med list, covid results and transport time sent to [facility] [place] via [facility]. Patient, her son, and nursing notified. Physicians will transport to [facility] [place] via cot at 6:30p. Dejah Cruz, Discharge Planning Asst.
== END 2023-05-08 19:50 | DRG 640 ==
LOC: ED 16:16 → MS3 19:39
PROVIDERS: Admitting Provider Family Medicine; Emergency Provider Emergency Medicine; PCP Physician Assistant; Visit Provider Internal Medicine
DX: R62.7 Adult failure to thrive (principal); E43 Unspecified severe protein-calorie malnutrition; F03.918 Unspecified dementia, unspecified severity, with other behavioral disturbance; D68.9 Coagulation defect, unspecified; E86.0 Dehydration; N18.2 Chronic kidney disease, stage 2 (mild); E78.5 Hyperlipidemia, unspecified; M17.0 Bilateral primary osteoarthritis of knee; I12.9 Hypertensive chronic kidney disease with stage 1 through stage 4 chronic kidney disease, or unspecified chronic kidney disease; E87.6 Hypokalemia; W19.XXXA Unspecified fall, initial encounter; Z86.73 Personal history of transient ischemic attack (TIA), and cerebral infarction without residual deficits; F17.210 Nicotine dependence, cigarettes, uncomplicated; Z66 Do not resuscitate; Z79.52 Long term (current) use of systemic steroids; Z79.02 Long term (current) use of antithrombotics/antiplatelets; Z68.26 Body mass index [BMI] 26.0-26.9, adult; R00.0 Tachycardia, unspecified; Z79.899 Other long term (current) drug therapy; T14.8XXA Other injury of unspecified body region, initial encounter; R53.1 Weakness; Y92.009 Unspecified place in unspecified non-institutional (private) residence as the place of occurrence of the external cause; M25.561 Pain in right knee
CPT/HCPCS: 36415; 70450; 71045; 73502; 73562; 80048; 80053; 81001; 82550; 83735; 84100; 85025; 87086; 87426; 92526; 92610; 93005; 94668; 96361; 96365; 96366; 96372; 97110; 97162; 97166; 97530; 97535; 97802; 99221; 99252; 99285; 99406; A4216; G0378; G0463

== ENCOUNTER → 2023-06-25 | Outpatient (REF) | payer MEDICARE, SELFPAY ==
[2023-06-26 09:07] LABS: Bacteria 0 SEEN /hpf (None Seen); Mucous, Urine 0 SEEN /hpf (<or=2+); Red Blood Cells-Urine 0 SEEN /hpf (0-5); White Blood Cells 0 SEEN /hpf (0-5)
[2023-06-26 09:26] LABS: Color, Urine Yellow (Yellow); Glucose, Dipstick Normal (Normal); Ketone-Dipstick Negative (Negative); Leukocyte Esterase-Dipstick Negative /ul (Negative); Nitrite-Dipstick Negative (Negative); Occult Blood-Urine Negative /ul (Negative); Protein-Dipstick Negative (Negative); Specific Gravity, Urine 1.015 (1.002-1.030); Urine Bilirubin Dipstick Negative (Negative); Urine Clarity Clear (Clear); Urine Urobilinogen Normal (Normal)
[2023-06-26 09:38] LABS: Calcium Oxalate Crystals Ur 2+ /hpf (<or=2+); Squamous Epithelial Cells - UA 0-5 SEEN /hpf (5-10)
== END ==
LOC: OLS.BROOKB 09:30
PROVIDERS: PCP Physician Assistant
DX: R41.82 Altered mental status, unspecified (principal)
CPT/HCPCS: 81001; 87086; 87088

== ENCOUNTER → 2023-06-27 | Outpatient (REF) | payer MEDICARE, SELFPAY ==
[2023-06-27 09:33] LABS: Hematocrit 34.9 % (37-47); Hemoglobin 10.7 g/dL (12.0-15.0); Mean Corp Hgb Conc 30.7 g/dL (32-36); Mean Corpuscular Hgb 30.9 pg (27.0-32.0); Mean Corpuscular Volume 100.9 fL (81-99); Mean Platelet Vol. 10.3 fl (6.2-12.0); Platelet Count 348 K/mm3 (150-450); RBC Distribution Width CV 15.9 % (11.6-14.6); RBC Distribution Width SD 58.9 fl (35.1-43.9); Red Blood Count 3.46 M/mm3 (4.2-5.4); White Blood Count 9.7 K/mm3 (4.4-11.0)
[2023-06-27 09:52] LABS: ALB/GLOB Ratio 0.7 RATIO (0.9-2.4); AST(SGOT) 10 U/L (15-37); Alanine Aminotransfer ALT/SGPT 9 U/L (13-56); Albumin, Serum 2.5 g/dL (3.2-5.0); Alkaline Phosphatase 84 U/L (45-117); Anion Gap 3 (5-15); BUN 9 mg/dL (7-18); BUN/Creat Ratio 14.8 RATIO (10-20); Calcium,Total 9.2 mg/dL (8.5-10.1); Chloride 109 mmol/L (98-107); Creatinine, Serum 0.61 mg/dL (0.55-1.02); EST Glomerular Filtration Rate 101 mL/min (>60); Est Glom Filt Rate - Afr Amer 122 mL/min (>60); Globulin 3.7 g/dL (2.2-4.2); Glucose 97 mg/dL (74-106); Potassium 4.2 mmol/L (3.5-5.1); Protein, Total 6.2 g/dL (6.4-8.2); Sodium Level 139 mmol/L (136-145)
== END ==
LOC: OLS.BROOKB 05:00
PROVIDERS: PCP Physician Assistant; Visit Provider Physician Assistant
DX: I10 Essential (primary) hypertension (principal); E78.5 Hyperlipidemia, unspecified
CPT/HCPCS: 36415; 80053; 85027

== ENCOUNTER → 2023-07-03 | Outpatient (REF) | payer MEDICARE, SELFPAY ==
[2023-07-03 07:36] LABS: Hematocrit 31.4 % (37-47); Hemoglobin 9.7 g/dL (12.0-15.0); Mean Corp Hgb Conc 30.9 g/dL (32-36); Mean Corpuscular Hgb 30.8 pg (27.0-32.0); Mean Corpuscular Volume 99.7 fL (81-99); Mean Platelet Vol. 9.7 fl (6.2-12.0); Platelet Count 465 K/mm3 (150-450); RBC Distribution Width CV 15.9 % (11.6-14.6); RBC Distribution Width SD 57.5 fl (35.1-43.9); Red Blood Count 3.15 M/mm3 (4.2-5.4)
[2023-07-03 08:10] LABS: Ferritin 355 ng/mL (8-252); Iron Binding Capacity,Total 173 ug/dL (250-450); Prealbumin 8.9 mg/dL (20.0-40.0)
[2023-07-03 09:02] LABS: Vitamin B12 787 pg/mL (211-911)
== END ==
LOC: OLS.BROOKB 05:00
PROVIDERS: PCP Physician Assistant
DX: E43 Unspecified severe protein-calorie malnutrition (principal); E78.5 Hyperlipidemia, unspecified; N17.9 Acute kidney failure, unspecified; I12.9 Hypertensive chronic kidney disease with stage 1 through stage 4 chronic kidney disease, or unspecified chronic kidney disease; N18.2 Chronic kidney disease, stage 2 (mild); Z79.899 Other long term (current) drug therapy; R62.7 Adult failure to thrive
CPT/HCPCS: 36415; 82607; 82728; 82746; 83550; 84134; 85027

== ENCOUNTER 2023-11-16 17:09 | Emergency (ER) | payer MEDICARE, SELFPAY ==
[2023-11-16 17:10] VITALS: BP 134/88; PULSE 79; RESP 18; TEMP 36.2; O2SAT 93; BMI 25.4
[2023-11-16 17:20] VITALS: O2SAT 87
--- NOTE | 2023-11-16 17:33 | EKG12_ITS ---
Test Reason : COVID Blood Pressure : / mmHG Vent. Rate : 081 BPM Atrial Rate : 081 BPM P-R Int : 132 ms QRS Dur : 078 ms QT Int : 342 ms P-R-T Axes : 018 -03 058 degrees QTc Int : 397 ms Poor data quality, interpretation may be adversely affected Sinus rhythm with occasional Premature ventricular complexes Otherwise normal ECG Confirmed by TETE SALDANA MD ([id number]), newspaper or periodical editor JEMAL CORREA ([id number]) on 11/18/2023 6:09:54 AM Referred By: Confirmed By:TETE SALDANA MD
--- NOTE | 2023-11-16 17:34 | EX.ED.DYSGE1 ---
HPI History of Present Illness Chief Complaint: General Illness Informant: patient, EMS and SNF Associated Symptoms Associated Symptoms ED: cough Narrative Narrative: Patient sent from a long term apparently due to testing positive for COVID-19 today and having nausea, vomiting, diarrhea. Patient denies feeling dyspneic. She denies any pain in her abdomen or chest right now. She does not recall how long ago her symptoms started. She cannot recall if she has had COVID vaccinations at all. [facility] Medical History Coagulopathy CVA (cerebral vascular accident) Dementia Essential (primary) hypertension History of palpitations Hyperlipemia Non-compliant behavior Non-rheumatic tricuspid valve insufficiency Home Medications cholecalciferol (vitamin D3) 25 mcg (1,000 unit) tablet 25 mcg PO DAILY supplement 12/08/20 [History Last Taken 01/14/22 09:00] vitamin B complex (B Complex-Vitamin B12 tablet) 1 tab PO DAILY supplement 12/08/20 [History Last Taken 01/14/22 09:00] dexamethasone 4 mg tablet 6 mg (1.5 x 4 mg) PO DAILY #7 tabs 01/16/22 [Rx Last Taken Unknown] lisinopril 40 mg tablet 40 mg PO DAILY blood pressure #90 tabs 11/02/22 [Rx Last Taken Unknown] simvastatin 20 mg tablet See Rx Instructions .Route .COMPLEX #90 TABLETS 12/28/22 [Rx Last Taken Unknown] clopidogrel 75 mg tablet (Plavix) 75 mg PO DAILY blood thinner #90 tabs 01/01/23 [Rx Last Taken Unknown] amlodipine 10 mg tablet See Rx Instructions .Route .COMPLEX #90 TABLETS 01/28/23 [Rx Last Taken Unknown] food supplemt, lactose-reduced 0.08 gram-1.5 kcal/mL oral liquid (Ensure Plus High Protein) 120 ml PO 4X/DAY #0 mL 05/08/23 [Rx Last Taken Unknown] guaifenesin 100 mg/5 mL oral liquid 50 mg (2.5 mL) PO Q4H PRN PRN COUGH #1,000 mL 05/08/23 [Rx Last Taken Unknown] mirtazapine 15 mg tablet 15 mg PO QHS #0 tabs 05/08/23 [Rx Last Taken Unknown] metoprolol succinate 50 mg tablet,extended release 24 hr 50 mg PO DAILY blood pressure #90 tabs 05/22/23 [Rx Last Taken Unknown] miscellaneous medical supply #1 ea 11/16/23 [Rx Last Taken Unknown] nirmatrelvir 300 mg (150 mg x2)-ritonavir 100 mg tablet,dose pack (Paxlovid) See Rx Instructions PO .COMPLEX #30 tabs 11/16/23 [Rx Last Taken Unknown] ondansetron 4 mg disintegrating tablet 8 mg (2 x 4 mg) PO Q8H PRN PRN Nausea #20 tabs 11/16/23 [Rx Last Taken Unknown] Allergy/AdvReac Type Severity Reaction Status Date / Time amoxicillin trihydrate AdvReac Mild Vomiting Verified 11/16/23 17:20 [From Augmentin] potassium clavulanate AdvReac Mild Vomiting Verified 11/16/23 17:20 [From Augmentin] Family History Mother Hypertension Father Hypertension Surgical History H/O hemorrhoidectomy H/O total hysterectomy History of lumpectomy Hx of cholecystectomy Social History (Updated 11/16/23 @ 17:[address] 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 [employer] pets and animals: Yes history of recent travel: No Smoking Status: Current every day smoker tobacco type: cigarettes alcohol intake: never substance use type: does not use caffeine: Yes what type of physical activity do you participate in: none seatbelt use: always do you feel safe at home: Yes additional social history: ROS ROS ED Review of Systems ROS Unobtainable: due to mental status and other Details: Answers I do not know to most questions, except as below Constitutional Constitutional ED: Reports fatigue Cardiovascular Cardiovascular: Denies chest pain Respiratory/Chest Respiratory/Chest: Reports cough; Denies dyspnea Gastrointestinal Gastrointestinal: Reports diarrhea, nausea and vomiting; Denies abdominal pain EXAM Physical Exam Const Vital Signs: 11/16/23 17:10 11/16/23 17:20 11/16/23 17:59 Temperature 97.2 F L Temperature Source Temporal Pulse Rate 79 Respiratory Rate 18 Blood Pressure 134/88 H Blood Pressure Mean 103 Pulse Ox 93 87 Oxygen Delivery Method Room Air Nasal Cannula Nasal Cannula Oxygen Flow Rate (L/min) 1 1 Positive well nourished and well developed Constitutional Narrative: Malaised-appearing, no distress General Appearance ED: well developed and NAD HEENT Reports moist mucous membranes normocephalic and atraumatic Eyes PERRL and EOMs intact bilaterally Neck full ROM and supple Resp normal respiratory effort and clear to auscultation bilaterally Cardio regular rate, regular rhythm and no murmurs Rate: Negative for tachycardic GI non-tender and non-distended Auscultation: normoactive bowel sounds Palpation: soft Back/Spine no CVA tenderness General Back: other FROM Extremity normal to inspection and no calf tenderness General Extremety ED: Negative for edema, pulses abnormal or tenderness General Extremity: Negative for edema or pulses abnormal Neuro CN's II-XII intact bilaterally and no sensory deficits noted Neuro Narrative: Alert and oriented to person and general place hospital Sensorium / Orientation: awake and alert Motor Exam: general weakness Skin no rashes or lesions noted and no wounds MDM MDM MDM Narrative Medical decision making narrative: Nursing states on room air she dipped her pulse oximetry down to 87%, so she was placed on a 1 L nasal cannula which kept her up into the 90s. She was not dyspneic prior to getting the oxygen. Her lungs are clear clinically rest of her vital signs are normal. She appears malaised but otherwise in no distress. She was given IV fluids while we ran some labs and obtained a chest x-ray and EKG. She is also empirically given Decadron 6 mg IV. Labs are noted. She was hydrated and given Zofran. No vomiting tolerating oral fluid challenge. She is not dyspneic or having any pleuritic discomfort. I do not think she needs to be evaluated for pulmonary embolus at this time given all of this. I think it would be reasonable to send her back to the long term on small amount of oxygen, dexamethasone for 6 more days, and Paxlovid assuming she has been symptomatic for less than 5 days. Lab Data Attestation: I reviewed the patient's lab results. Labs: Laboratory Results - last 24 hr 11/16/23 17:50 WBC 8.7 RBC 3.56 L Hgb 10.3 L Hct 33.1 L MCV 93.0 MCH 28.9 MCHC 31.1 L RDW Std Deviation 60.3 H RDW Coeff of Garett 17.6 H Plt Count 270 MPV 9.3 Immature Gran % (Auto) 0.300 Neut % (Auto) 65.9 Lymph % (Auto) 15.7 L [place] % (Auto) 16.1 H Eos % (Auto) 1.5 Baso % (Auto) 0.5 Absolute Neuts (auto) 5.7 Absolute Lymphs (auto) 1.36 Nucleated RBC % 0 Sodium 141 Potassium 4.2 Chloride 108 H Carbon Dioxide 28.0 Anion Gap 5 BUN 16 Creatinine 0.83 Estim Creat Clear Calc 42.11 Est GFR (MDRD) Af Amer 85 Est GFR (MDRD) Non-Af 70 BUN/Creatinine Ratio 19.3 Glucose 104 Calcium 9.3 Total Bilirubin 0.30 AST 23 ALT 16 Alkaline Phosphatase 94 Troponin I High Sens 30 Total Protein 6.8 Albumin 3.1 L Globulin 3.7 Albumin/Globulin Ratio 0.8 L Radiography Diagnostic Testing: Clinical Impression(s) from Imaging Studies Chest X-Ray 11/16/23 18:01 IMPRESSION: Poor inspiration with some bibasilar atelectasis. Electronically Signed: Leonel Crawford MD at 18:28 EST , Rhythm Strip Rhythm Strip: Sinus Rhythm Rate: 78 Ectopy: None EKG Initial EKG: Attestation: I personally reviewed and interpreted this EKG as follows: Interpretation: Sinus Rhythm and No Acute Injury Pattern Discharge Plan Triage Chief Complaint: General Illness ED Provider: Ranulfo Lazaro Dx/Rx/DC Orders Clinical Impression: Nausea vomiting and diarrhea, COVID-19, Hypoxemia Instructions: Coronavirus Disease 2019 (COVID-19): Caring for Yourself or Others Prescriptions: New Paxlovid 300 mg (150 mg x 2)-100 mg tablets,dose pack See Rx Instructions .ROUTE .COMPLEX Qty: 30 0RF Rx Instructions: take TWO 150 mg tablets of nirmatrelvir with ONE 100 mg tablet of ritonavir twice daily for 5 days ondansetron [ondansetron] 4 mg tablet,disintegrating 8 mg PO Q8H PRN PRN (Reason: Nausea) Qty: 20 0RF (DME) miscellaneous medical supply Misc See Rx Instructions .Route Qty: 1 0RF Rx Instructions: As directed Continued vitamin B complex [B Complex-Vitamin B12] Tablet 1 tab PO DAILY cholecalciferol (vitamin D3) 25 mcg (1,000 unit) tablet 25 mcg PO DAILY dexamethasone 4 mg Tablet 6 mg PO DAILY Qty: 7 0RF guaifenesin 100 mg/5 mL Liquid 50 mg PO Q4H PRN PRN (Reason: COUGH) Qty: 1000 0RF mirtazapine 15 mg Tablet 15 mg PO QHS Qty: 0 0RF Ensure Plus High Protein 0.08 gram-1.5 kcal/mL Liquid 120 ml PO 4X/DAY Qty: 0 0RF lisinopril 40 mg tablet 40 mg PO DAILY Qty: 90 3RF clopidogrel [Plavix] 75 mg tablet 75 mg PO DAILY Qty: 90 3RF amlodipine 10 mg tablet See Rx Instructions .ROUTE .COMPLEX Qty: 90 4RF Dose Instruction: TAKE 1 TABLET EVERY DAY Rx Instructions: TAKE 1 TABLET EVERY DAY metoprolol succinate 50 mg tablet extended release 24 hr 50 mg PO DAILY Qty: 90 3RF Held simvastatin 20 mg tablet See Rx Instructions .ROUTE .COMPLEX Qty: 90 3RF Hold Instructions: Resume on 11/25/23. assuming Paxlovid started on 11/17/23 Dose Instruction: TAKE 1 TABLET AT BEDTIME Rx Instructions: TAKE 1 TABLET AT BEDTIME Primary Care Provider: Juan A Viera Referrals: Juan A Viera, PA [Primary Care Provider] - As soon as possible (for reevaluation) Disposition Disposition: [facility]
--- OUTSIDE RECORDS SUMMARY | 2023-11-16 17:41 | XMS RPT_ITS | CCD ---
Author Name Unknown Address [address] [place] [address] Organization [facility] Care Team Providers Care Federal Judge Name Role Phone Zaida Harrison Unavailable Unavailable Zaida Harrison Unavailable Unavailable Juan A Viera PA-C Primary Care Provider [phone] Juan A Viera PA-C Primary Care Provider [phone] Juan A Viera PA-C Primary Care Provider [phone] Juan A VIERA Attending Unavailable VIERAJuan A Primary Care Unavailable VIERAJuan A Referring Unavailable VIERAJuan A Primary Care Unavailable VIERAJuan A Attending Unavailable VIERA M LAMONT Primary Care Unavailable VIERA, M LAMONT Primary Care Unavailable VIERA M LAMONT Referring Unavailable VIERA, M LAMONT Primary Care Unavailable VIERAJuan A Attending Unavailable VIERAJuan A Referring Unavailable VIERAJuan A Primary Care Unavailable VIERA M LAMONT Referring Unavailable VIERA M LAMONT Primary Care Unavailable Allergies Allergy Classification Reported Allergen(s) Allergy Type Date of Onset Reaction(s) Facility (2 sources) NKDA drug allergy 05-14-2012 [facility] Work Phone: (2 sources) NKA drug allergy 05-14-2012 [facility] Work Phone: (20 sources) Amoxicillin / Clavulanate; Translations: [AMOXICILLIN-POT CLAVULANATE] Drug Allergy 08-16-2010 GI Upset [facility] Work Phone: (20 sources) cefprozil; Translations: [CEFPROZIL] Drug Allergy 08-31-2014 Diarrhea [facility] Medications Completed/Discontinued Medications Medication Drug Class(es) Dates Sig (Normalized) Sig (Original) amLODIPine 5 mg oral tablet (20 sources) Dihydropyridine Calcium [facility] Start: 06-11-2023 End: 06-25-2023 take 1 tablet by mouth once amLODIPine (NORVASC) 5 mg tablet Take 1 tablet by mouth once daily. Per Dr. Salcido 90 tablet 3 06/25/2023 Active Problems Active Problems Problem Classification Problem Date Documented Da te Episodic/Chronic Adjustment disorders (2 sources) Adjustment disorder with depressed mood; Translations: [Adjustment disorder with depressed mood] Onset: 07-16-2023 07-17-2023 Chronic Delirium, dementia, and amnestic and other cognitive disorders (20 sources) Dementia; Translations: [Unspecified dementia without behavioral disturbance] Onset: 12-28-2020 Chronic Disorders of lipid metabolism (20 sources) Hyperlipidemia; Translations: [Mixed hyperlipidemia] Onset: 09-11-2006 02-13-2011 Chronic Essential hypertension (20 sources) Hypertensive disorder; Translations: [Benign essential hypertension] Onset: 09-11-2006 02-13-2011 Chronic Nutritional deficiencies (3 sources) Malnutrition (calorie); Translations: [Moderate protein-calorie malnutrition] Onset: 07-16-2023 07-17-2023 Chronic Occlusion or stenosis of precerebral arteries (20 sources) Bilateral stenosis of carotid arteries; Translations: [Occlusion and stenosis of bilateral carotid arteries] Onset: 10-07-2018 10-07-2018 Chronic Osteoporosis (1 source) Localized osteoporosis [[place]]; Translations: [Localized osteoporosis without current pathological fracture] Onset: 10-15-2023 Chronic Other bone disease and musculoskeletal deformities (20 sources) Senile osteopenia; Translations: [Other specified disorders of bone density and structure, unspecified site] Onset: 06-19-2018 06-19-2018 Episodic Other gastrointestinal disorders (20 sources) Irritable bowel syndrome; Translations: [Irritable bowel syndrome without diarrhea] 10-30-2021 Chronic Other gastrointestinal disorders (1 source) Mixed irritable bowel syndrome; Translations: [Irritable bowel syndrome with both constipation and diarrhea] Onset: 10-30-2021 Chronic Other gastrointestinal disorders (1 source) Functional diarrhea; Translations: [Functional diarrhea] Episodic Other injuries and conditions due to external causes (1 source) At risk for injury due to fall; Translations: [History of falling] 07-17-2023 Episodic Other nutritional; endocrine; and metabolic disorders (1 source) Decrease in appetite; Translations: [Anorexia] Episodic Other skin disorders (1 source) Hypertrophy of toenail; Translations: [Onychogryphosis] Episodic Other skin disorders (1 source) Ingrowing toenail; Translations: [Ingrowing nail] Episodic Regional enteritis and ulcerative colitis (2 sources) Pseudopolyposis of colon; Translations: [Inflammatory polyps of colon with other complication] Onset: 12-28-2020 Chronic Residual codes; unclassified (1 source) Tobacco user; Translations: [Tobacco use] Episodic Substance-related disorders (20 sources) Tobacco user; Translations: [Nicotine dependence, unspecified, uncomplicated] Onset: 12-08-2009 07-13-2010 Chronic Thyroid disorders (11 sources) Thyroid nodule; Translations: [Nontoxic single thyroid nodule] Onset: 07-17-2023 07-17-2023 Chronic Viral infection (1 source) Disease caused by 2019-nCoV; Translations: [COVID-19] Episodic Past or Other Problems Problem Classification Problem Date Documented Da te Episodic/Chronic Administrative/social admission (20 sources) Patient encounter status; Translations: [Other specified counseling] Onset: 2 Episodic Calculus of urinary tract (20 sources) Kidney stone; Translations: [Calculus of kidney] Onset: 2 10-07-2012 Episodic Cardiac dysrhythmias (4 sources) Tachycardia; Translations: [Palpitations] Onset: 1 02-13-2011 Episodic Diabetes mellitus without complication (3 sources) Prediabetes; Translations: [Prediabetes] Onset: 3 Episodic Fluid and electrolyte disorders (20 sources) Chronic hypokalemia; Translations: [Hypokalemia] Onset: 0 07-05-2011 Episodic Gastritis and duodenitis (7 sources) Acute gastritis; Translations: [Acute gastritis without bleeding] Onset: 6 06-26-2021 Episodic Immunizations and screening for infectious disease (3 sources) Encounter for immunization; Translations: [Other specified vaccinations against streptococcus pneumoniae [pneumococcus]] Onset: 3 Episodic Malaise and fatigue (2 sources) Asthenia; Translations: [Weakness] Onset: 3 07-17-2023 Episodic Nonspecific chest pain (2 sources) Chest pain; Translations: [Chest pain, unspecified] Onset: 1 02-13-2011 Episodic Other aftercare (2 sources) Other longwall foreman (current) drug therapy; Translations: [Other usp (current) drug therapy] Onset: 2 09-27-2015 Episodic Other and unspecified benign neoplasm (20 sources) Polyp of colon; Translations: [Polyp of colon] Onset: 0 12-28-2020 Episodic Other bone disease and musculoskeletal deformities (1 source) Other specified disorders of bone density and structure, unspecified site; Translations: [Osteopenia, senile] Onset: 8 Episodic Other circulatory disease (20 sources) History of cerebrovascular accident; Translations: [Personal history of transient ischemic attack (TIA), and cerebral infarction without residual deficits] Onset: 8 12-27-2020 Episodic Other circulatory disease (1 source) Personal history of transient ischemic attack (TIA), and cerebral infarction without residual deficits; Translations: [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] Onset: 1 Episodic Other gastrointestinal disorders (20 sources) Flatulence, eructation and gas pain; Translations: [Flatulence] Onset: 1 02-23-2011 Episodic Other gastrointestinal disorders (20 sources) Diarrhea; Translations: [Diarrhea, unspecified] Onset: 1 10-07-2012 Episodic Other gastrointestinal disorders (14 sources) History of gastritis; Translations: [Personal history of other diseases of the digestive system] Onset: 6 01-10-2023 Episodic Other gastrointestinal disorders (1 source) Personal history of other diseases of the digestive system; Translations: [Hx of acute gastritis] Onset: 3 Episodic Other gastrointestinal disorders (1 source) Functional diarrhea; Translations: [Functional diarrhea] Onset: 2 Episodic Other injuries and conditions due to external causes (1 source) History of falling; Translations: [At high risk for injury related to fall] Onset: 3 Episodic Residual codes; unclassified (20 sources) Early satiety; Translations: [Early satiety] Onset: 1 02-23-2011 Episodic Unclassified (20 sources) Electrocardiogram abnormal; Translations: [Imaging of gastrointestinal tract abnormal] Onset: 1 02-13-2011 Episodic Unclassified (2 sources) Long-term drug therapy; Translations: [Long-term (current) use of other medications] Onset: 2 11-28-2011 Results Test Name Value Interpretation Reference Range Facil ity Vital Signs Date Time Vital Sign Value Performing Clinician Arianna santillan 07-16-2023 16:03-0400 Body weight 50.44 kg NA Viera PA-C Work Phone: [facility] 07-16-2023 16:03-0400 Diastolic blood pressure 54 mm[Hg] NA Viera PA-C Work Phone: [facility] 07-16-2023 16:03-0400 Heart rate 90 /min NA Viera PA-C Work Phone: [facility] 07-16-2023 16:03-0400 Respiratory rate 14 /min NA Viera PA-C Work Phone: [facility] 07-16-2023 16:03-0400 SaO2% (BldA) [Mass fraction] 95 % NA Viera PA-C Work Phone: [facility] 07-16-2023 16:03-0400 Systolic blood pressure 98 mm[Hg] NA Viera PA-C Work Phone: [facility] 01-10-2023 14:20-0500 Body weight 56.7 kg NA Viera PA-C Work Phone: [facility] 01-10-2023 14:20-0500 Diastolic blood pressure 60 mm[Hg] NA Viera PA-C Work Phone: [facility] 01-10-2023 14:20-0500 Heart rate 87 /min NA Viera PA-C Work Phone: [facility] 01-10-2023 14:20-0500 Respiratory rate 14 /min NA Viera PA-C Work Phone: [facility] 01-10-2023 14:20-0500 SaO2% (BldA) [Mass fraction] 97 % NA Viera PA-C Work Phone: [facility] 01-10-2023 14:20-0500 Systolic blood pressure 112 mm[Hg] NA Viera PA-C Work Phone: [facility] 06-29-2022 13:37-0400 Body weight 53.07 kg NA Viera PA-C Work Phone: [facility] 06-29-2022 13:37-0400 Diastolic blood pressure 62 mm[Hg] NA Viera PA-C Work Phone: [facility] 06-29-2022 13:37-0400 Heart rate 72 /min NA Viera PA-C Work Phone: [facility] 06-29-2022 13:37-0400 Respiratory rate 16 /min NA Viera PA-C Work Phone: [facility] 06-29-2022 13:37-0400 SaO2% (BldA) [Mass fraction] 96 % NA Viera PA-C Work Phone: [facility] 06-29-2022 13:37-0400 Systolic blood pressure 114 mm[Hg] NA Viera PA-C Work Phone: [facility] 01-26-2022 10:41-0400 Body weight 52.07 kg Yessenia Haagen CYBER CRIME INVESTIGATOR.FLIGHT ATTENDANT/INFLIGHT SUPERVISOR Work Phone: [facility] 01-26-2022 10:41-0400 Diastolic blood pressure 62 mm[Hg] Yessenia Haagen CYBER CRIME INVESTIGATOR.FLIGHT ATTENDANT/INFLIGHT SUPERVISOR Work Phone: [facility] 01-26-2022 10:41-0400 Heart rate 124 /min Yessenia Haagen CYBER CRIME INVESTIGATOR.FLIGHT ATTENDANT/INFLIGHT SUPERVISOR Work Phone: [facility] 01-26-2022 10:41-0400 Respiratory rate 18 /min Yessenia Haagen CYBER CRIME INVESTIGATOR.FLIGHT ATTENDANT/INFLIGHT SUPERVISOR Work Phone: [facility] 01-26-2022 10:41-0400 SaO2% (BldA) [Mass fraction] 96 % Yessenia Coreas CYBER CRIME INVESTIGATOR.FLIGHT ATTENDANT/INFLIGHT SUPERVISOR Work Phone: [facility] 01-26-2022 10:41-0400 Systolic blood pressure 110 mm[Hg] Yessenia Coreas CYBER CRIME INVESTIGATOR.FLIGHT ATTENDANT/INFLIGHT SUPERVISOR Work Phone: [facility] 10-03-2017 15:21-0500 BMI (Body Mass Index) 24.37 kg/m2 [facility] Work Phone: 10-03-2017 15:21-0500 BP Diastolic 60 mm[Hg] [facility] Work Phone: 10-03-2017 15:21-0500 BP Systolic 120 mm[Hg] [facility] Work Phone: 10-03-2017 15:21-0500 Height 154.94 cm Zaidatamiko [facility] Work Phone: 10-03-2017 15:21-0500 Pulse (Heart Rate) 96 /min Zaidatam[facility] Work Phone: 10-03-2017 15:21-0500 Respiratory Rate 20 /min Zaidatamiko [facility] Work Phone: 10-03-2017 15:21-0500 Weight 58.51 kg Zaida [facility] Work Phone: 10-02-2016 13:04-0500 BSA (Body Surface Area) 1.58 m2 [facility] Work Phone: Encounters Encounter Date Encounter Type Care Provider Facility Start: 10-15-2023 End: 10-16-2023 ambulatory Juan A VIERA Facility:[facility] Start: 10-15-2023 End: 10-16-2023 ambulatory Juan A VIERA Facility:[facility] Start: 08-07-2023 Telephone encounter Juan A Viera PA-C Work Phone: [facility] [place] Procedures Date Procedure Procedure Detail Performing Clinician Start: 08-05-2023 Dxa bone density charla dy 1/> sites axial skel Juan A Viera PA-C Work Phone: Start: 07-18-2023 soft tissue head & neck real time imge docm Juan A Lamont Viera PA-C Work Phone: Start: 07-16-2023 INFLUENZA VACCINE, P RSV FREE, AGE 65+ YR, HIGH DOSE, QUADRIVALENT (FLUZONE HIGH-DOSE) Juan A Lamont Viera PA-C Work Phone: Start: 01-10-2023 Storie[employer] COVI D-19 BIVALENT BOOSTER VACCINE, AGE 12+ YR Juan A Lamont Viera PA-C Work Phone: Start: 10-03-2017 End: 10-03-2017 RELL Salcido MD Start: 10-03-2017 End: 10-03-2017 Follow Up Appt 1 year Elia Salcido MD Start: 01-21-2017 End: 10-03-2017 *Hepatic Function Panel Juan A Castro Start: 01-21-2017 End: 10-03-2017 Lipid Octavio panel - Serum or Plasma Elia Salcido MD Start: 10-02-2016 End: 10-02-2016 RELL Salcido MD Start: 10-02-2016 End: 10-02-2016 Follow Up Appt 1 year Elia Salcido MD Start: 07-23-2016 End: 07-25-2016 *Hepatic Function Panel Juan A Castro Start: 07-23-2016 End: 07-25-2016 Lipid Octavio panel - Serum or Plasma Elia Salcido MD Start: 09-27-2015 End: 09-27-2015 RELL Salcido MD Start: 09-27-2015 End: 09-27-2015 Follow Up Appt 1 year Elia Salcido MD Start: 09-24-2014 End: 07-23-2016 *Hepatic Function Panel Juan A Castro Start: 09-24-2014 End: 07-23-2016 Follow Up Appt 1 year Elia Salcido MD Start: 09-24-2014 End: 07-23-2016 Lipid 1996 panel - Serum or Plasma Elia Salcido MD Start: 09-24-2014 End: 07-23-2016 MMM Elia Salcido MD Start: 06-04-2014 End: 07-23-2016 *Hepatic Function Panel Juan A Castro Start: 06-04-2014 End: 07-23-2016 Lipid 1996 panel - Serum or Plasma Elia Salcido MD Start: 12-21-2013 End: 12-21-2013 *BMP Elia Salcido MD Start: 12-05-2013 End: 12-21-2013 *Hepatic Function Panel Juan A Castro Start: 12-05-2013 End: 12-21-2013 Lipid 1996 panel - Serum or Plasma Elia Salcido MD Start: 06-18-2013 End: 06-18-2013 SUPERVISOR PHOSPHATIC FERTILIZER Vanessa Renteria PA-C Work Phone: Start: 06-18-2013 End: 06-18-2013 Follow Up Appt 1 year Vanessa curtis PA-C Work Phone: Start: 05-04-2013 End: 05-26-2013 *Hepatic Function Panel Juan A Castro Start: 05-04-2013 End: 05-26-2013 Lipid 1996 panel - Serum or Plasma Elia Salcido MD Start: 11-12-2012 End: 06-11-2013 24 hour holter monitor Elia Salcido MD Start: 11-05-2012 End: 12-02-2012 *Hepatic Function Panel Juan A Castro Start: 11-05-2012 End: 12-02-2012 Lipid 1996 panel - Serum or Plasma Elia Salcido MD Start: 05-28-2012 End: 05-29-2012 *Hepatic Function Panel Juan A Castro Start: 05-28-2012 End: 05-29-2012 Lipid 1996 panel - Serum or Plasma Elia Salcido MD Start: 05-14-2012 End: 05-14-2012 Follow Up Appt 1 year Elia Salcido MD Plan of Treatment Date Care Activity Detail Author Start: 06-28-2025 DIABETES SCREEN DIABETES SCREEN [facility] Start: 06-28-2025 Diabetes Screening Diabetes Screenin g [facility] Start: 11-02-2024 DIABETES SCREEN DIABETES SCREEN [facility] Start: 07-16-2024 Annual PCP Team [place] T[facility] caleb Disease Visit Annual PCP Team Chronic Disease Visit [facility] Start: 07-16-2024 BP Controlled (<130/80) BP Controlle d (<130/80) [facility] Start: 07-16-2024 Covid-19 Vaccine ( season) Covid-19 Vaccine ( season) [facility] Immunizations Immunization Date Immunization Notes Care Provider Chante smith 07-16-2023 influenza (HD-IIV4) vaccine, age 65+ yr, high dose, quadrivalent, PF (FLUZONE HIGH-DOSE) REBECCA Viera PA-C Work Phone: [facility] 01-10-2023 COVID-19 booster vaccine, age 12+ yr, bivalent (PFIZER-BIONTECH) REBECCA Viera PA-C Work Phone: [facility] 06-29-2022 pneumococcal Conjuga te, unspecified formulation REBECCA Viera PA-C Work Phone: [facility] Work Phone: 06-29-2022 pneumococcal (PCV20) vaccine, 20 valent (PREVNAR 20) REBECCA Viera PA-C Work Phone: [facility] 08-01-2021 COVID-19 vaccine, ag e 12+ yr (PFIZER-BIONTECH - [facility]) Yessenia Haagen CYBER CRIME INVESTIGATOR.FLIGHT ATTENDANT/INFLIGHT SUPERVISOR Work Phone: [facility] 06-26-2021 COVID-19 vaccine, ag e 12+ yr (PFIZER-BIONTECH - PURPLE TOP) Yessenia Haagen CYBER CRIME INVESTIGATOR.FLIGHT ATTENDANT/INFLIGHT SUPERVISOR Work Phone: [facility] 09-02-2019 influenza, high dose seasonal, preservative-free Yessenia Haagen CYBER CRIME INVESTIGATOR.FLIGHT ATTENDANT/INFLIGHT SUPERVISOR Work Phone: [facility] Work Phone: 04-10-2019 pneumococcal polysaccharide vaccine, 23 valent Yessenia Haagen CYBER CRIME INVESTIGATOR.FLIGHT ATTENDANT/INFLIGHT SUPERVISOR Work Phone: [facility] Work Phone: 08-25-2018 influenza, high dose seasonal, preservative-free Yessenia Haagen CYBER CRIME INVESTIGATOR.FLIGHT ATTENDANT/INFLIGHT SUPERVISOR Work Phone: [facility] 08-09-2017 influenza, high dose seasonal, preservative-free Yessenia Haagen CYBER CRIME INVESTIGATOR.FLIGHT ATTENDANT/INFLIGHT SUPERVISOR Work Phone: [facility] Work Phone: 10-24-2016 pneumococcal conjuga te vaccine, 13 valent Yessenia Haagen CYBER CRIME INVESTIGATOR.FLIGHT ATTENDANT/INFLIGHT SUPERVISOR Work Phone: [facility] Work Phone: 08-25-2016 influenza, high dose seasonal, preservative-free Yessenia Haagen CYBER CRIME INVESTIGATOR.FLIGHT ATTENDANT/INFLIGHT SUPERVISOR Work Phone: [facility] Work Phone: 08-04-2015 influenza, high dose seasonal, preservative-free Yessenia Haagen CYBER CRIME INVESTIGATOR.FLIGHT ATTENDANT/INFLIGHT SUPERVISOR Work Phone: [facility] Work Phone: 09-01-2014 influenza, seasonal, injectable Yessenia Haagen CYBER CRIME INVESTIGATOR.FLIGHT ATTENDANT/INFLIGHT SUPERVISOR Work Phone: [facility] 09-01-2013 tetanus and diphther ia toxoids, adsorbed, preservative free, for adult use (2 Lf of tetanus toxoid and 2 Lf of diphtheria toxoid) Yessenia Haagen CYBER CRIME INVESTIGATOR.FLIGHT ATTENDANT/INFLIGHT SUPERVISOR Work Phone: [facility] 08-29-2013 influenza virus vacc ine, unspecified formulation Yessenia Haagen CYBER CRIME INVESTIGATOR.FLIGHT ATTENDANT/INFLIGHT SUPERVISOR Work Phone: [facility] 08-02-2012 influenza virus vacc ine, unspecified formulation Yessenia Haagen CYBER CRIME INVESTIGATOR.FLIGHT ATTENDANT/INFLIGHT SUPERVISOR Work Phone: [facility] 09-07-2011 influenza virus vacc ine, unspecified formulation Yessenia Haagen CYBER CRIME INVESTIGATOR.FLIGHT ATTENDANT/INFLIGHT SUPERVISOR Work Phone: [facility] Work Phone: 11-20-2010 zoster vaccine, live Yessenia Haagen CYBER CRIME INVESTIGATOR.FLIGHT ATTENDANT/INFLIGHT SUPERVISOR Work Phone: [facility] Work Phone: 08-22-2010 influenza virus vacc ine, unspecified formulation Yessenia Haagen CYBER CRIME INVESTIGATOR.FLIGHT ATTENDANT/INFLIGHT SUPERVISOR Work Phone: [facility] 07-14-2010 pneumococcal polysaccharide vaccine, 23 valent Yessenia Haagen CYBER CRIME INVESTIGATOR.FLIGHT ATTENDANT/INFLIGHT SUPERVISOR Work Phone: [facility] 08-18-2009 influenza virus vacc ine, unspecified formulation Yessenia Haagen CYBER CRIME INVESTIGATOR.FLIGHT ATTENDANT/INFLIGHT SUPERVISOR Work Phone: [facility] 09-16-2008 influenza virus vacc ine, unspecified formulation Yessenia Haagen CYBER CRIME INVESTIGATOR.FLIGHT ATTENDANT/INFLIGHT SUPERVISOR Work Phone: [facility] Work Phone: 09-09-2007 influenza virus vacc ine, unspecified formulation Yessenia Haagen CYBER CRIME INVESTIGATOR.FLIGHT ATTENDANT/INFLIGHT SUPERVISOR Work Phone: [facility] 09-11-2006 influenza virus vacc ine, unspecified formulation Yessenia Haagen CYBER CRIME INVESTIGATOR.FLIGHT ATTENDANT/INFLIGHT SUPERVISOR Work Phone: [facility] Work Phone: 09-11-2006 pneumococcal polysaccharide vaccine, 23 valent Yessenia Haagen CYBER CRIME INVESTIGATOR.FLIGHT ATTENDANT/INFLIGHT SUPERVISOR Work Phone: [facility] Work Phone: 09-01-2003 diphtheria and tetan us toxoids, adsorbed for pediatric use Yessenia Coreas CYBER CRIME INVESTIGATOR.FLIGHT ATTENDANT/INFLIGHT SUPERVISOR Work Phone: [facility] Work Phone: Payers Date Payer Category Payer Medicare AETNA MEDICARE A ETNA MEDICARE PPO [id number] 2021-Present [phone] [address] [place] [address] PPO [id number] 2021 Medicare AETNA MEDICARE A ETNA MEDICARE PPO [id number] 2021-Present [phone] [address] [place] [address] PPO [id number] 2021 Medicare [id number] Social History Date Type Detail Facility Start: 12-31-2013 End: 06-29-2022 Tobacco smoking status NHIS Smokes tobacco daily [facility] Work Phone: End: 09-30-1966 History of tobacco use Cigarette Smoker [facility] Work Phone: Start: 12-31-2013 End: 07-16-2023 Cigarettes smoked current (pack per day) - Reported 1 [facility] Start: 12-31-2013 End: 06-29-2022 Tobacco use and exposure Smokeless tobacco non-user [facility] Work Phone: Start: 01-26-2022 End: 07-16-2023 Alcohol intake Current non-drinker of alcohol (finding) [facility] Start: 11-16-2010 End: 06-29-2022 Tobacco Comment Started Smoking about Age 19 [facility] Start: 1940 Sex Assigned At Not on file [facility] Start: 01-07-2022 End: 01-17-2022 Exposure to SARS-CoV-2 (event) Yes [facility] Start: 06-19-2022 End: 07-11-2022 Exposure to SARS-CoV-2 (event) Not sure [facility] Start: 01-10-2023 End: 07-16-2023 Tobacco use panel [facility] Adult Depression Screening Assessment 0 [facility] Clinical Notes 08-16-2010 to 10-15-2023 Telephone Encounter - Shannan Navarrete OCCA - 08/12/2023 1:39 PM EDTTelephone Encounter - Simona Piper Ma - 08/08/2023 10:01 AM EDTTelephone Encounter - Juan A Viera PA-C - 08/07/2023 8:39 PM EDT Note Date & Type Note Facility 10-15-2023 Note HNO ID: [id number] Author: Juan A Viera PA-C Service: ? Author Type: Physician Load Test Mechanic Type: Progress Notes Filed: 10/15/2023 7:20 PM Note Text: 83 year old female with c/o here for follow up Adjusting assisted living at [place] Has had a couple falls, about 2 weeks. Has a a lady friend with similar interests: talk and solve the world's problems . Likes the facility and happy to be there. Brother and sister checking on her routinely. Eating well. Likes the food Essential hypertension, benign (primary encounter diagnosis) Bilateral carotid artery stenosis Hx of ischemic left exit booth agent stroke Vascular dementia, uncomplicated (hcc) Hx of ischemic left exit booth agent stroke Mixed hyperlipidemia Followed by [facility] 01/10/2022 last visit with Vanessa Lynn PA-C: stable Prior data: 01/24/2023 [facility] carotid US: ICA bilateral stenosis 20-39%, LCCA patent without hemodynamically significant stenosis, Bilateral VA patent w/ antegrade flow 10/05/2018 [facility] carotid US: ICA bilateral stenosis < 50%, normal antegrade flow vertebrals bilaterally 08/28/2018 MRI microvascular ischemic changes, chronic left occipital infarct 08/28/2018 Echo demonstrated ejection fraction 60%, stage I diastolic dysfunction, carotids bilaterally with less than 50% stenosis. Current medications: Amlodipine 5mg daily ASA 81mg daily Lisinopril 40mg daily Metoprolol succinate ER 50mg daily Simvastatin 40mg Patient is compliant with meds No Monitors bp at home: No. If yes, readings: Denies side effects: No. Chest pain: No. Dyspnea: No. Edema: Yes, mild lower legs Palpitations: Hasn't had any lately, not for awhile Syncope: Yes. Headache: Has headaches- attributes to sinus/ weather. Dizziness: Yes. Has some issues on standing, stumbles a little. Stopped smoking, remains smoke-free but states she is going to smoke again Breathing and cough significantly improved. Observing low cholesterol high fiber diet Yes Muscle aches No Stomach complaints/ diarrhea No Last 3 Encounter BP Readings: Date: BP: 01/10/2023 112/60 06/29/2022 114/62 01/26/2022 110/62 Last 2 Encounter Wt Readings: Date: Wt: 01/10/2023 56.7 kg (125 lb) 06/29/2022 53.1 kg (117 lb) Multiple thyroid nodules 07/18/2023 US: multiple nodules: TR4 x 3 nodules, TR5 one nodule Recommended FNA: POA/ family declines treatment Component Latest Ref Rng AND Units 11/02/2021 06/28/2022 Protein, Total 6.3 - 8.0 g/dL 7.0 Albumin 3.9 - 4.9 g/dL 4.4 Calcium 8.5 - 10.2 mg/dL 10.5 (H) 9.9 Bilirubin, Total 0.2 - 1.3 mg/dL 0.5 Alkaline Phosphatase 34 - 123 U/L 102 AST 13 - 35 U/L 21 Glucose 74 - 99 mg/dL 113 (H) 91 BUN 7 - 21 mg/dL 12 14 Creatinine 0.58 - 0.96 mg/dL 0.93 0.75 Sodium 136 - 144 mmol/L 143 142 Potassium 3.7 - 5.1 mmol/L 3.7 4.8 Chloride 97 - 105 mmol/L 106 (H) 108 (H) CO2 22 - 30 mmol/L 27 24 Anion Gap 9 - 18 mmol/L 10 10 ALT 7 - 38 U/L 9 eGFR- >60 eGFR-All Other Races . 58 eGFR >=60 mL/min/1.73mA? 81 Cholesterol, Total <200 mg/dL 168 Triglyceride <150 mg/dL 80 HDL Cholesterol >39 mg/dL 55 LDL Cholesterol <100 mg/dL 97 Non HDL Cholesterol <130 mg/dL 113 Fasting Time hrs 12 VLDL Cholesterol <30 mg/dL 16 TC:HDL Ratio <5.10 3.05 LDL:HDL Ratio <2.54 1.76 Osteopenia, senile Due for screening Hx of acute gastritis Irritable bowel syndrome with both constipation and diarrhea Current medication: No medications currently. Post-prandial diarrhea since zonia-colectomy 2003 Current symptoms: denies issues wit heartburn, acid reflux. Having a lot of loose-mushy stools with incontinence. . Last Mg level if on PPI chronically: n/a. Heartburn is controlled: Yes. Dysphagia: No. Bloody or black stools: No. Bowel changes: Yes. As above. Last EGD and/or colonoscopy: 02/07/2015 colonoscopy diagnostic: Impression: - The entire examined colon is normal. - No specimens collected. - 10 year surveillance 02/23/2011 EGD/ colonoscopy FINAL DIAGNOSIS: 1. Duodenum, biopsy (A) - No significant pathologic change. 2. Colon, random biopsy (B) - No significant pathologic change. - No evidence of lymphocytic or collagenous colitis. 3. Descending colon polyp, biopsy (C) - Tubulovillous adenoma. 4. Sigmoid colon polyp, biopsy (D) - Tubular adenoma. JRG/dc/02/26/2011 08/06/[address] Huizar: Antral erythema, bx: duodenal mucosa intact, bile noted 01/03/2004 partial right hemicolectomy, Dr. Perez, bx:inflamed tubovillous adenoma 01/01/[address] Rad Perez: bx inflamed tubulovillous adenoma in her cecum, ascending colon area, 2.5 to 3 cm too complicated to snare. Follows with Dr. Jd Perez Thyroid nodule Incidentally detected thyroid nodule on carotid US measuring 1.80 cm in maximum diameter; dedicated thyroid ultrasound is recommended. Has not complete ordered thyroid US yet Hemoglobin A1C (%) Date Value 06/28/2022 5.5 11/02/2021 5.5 04/22/ (more content not included)... [facility] 08-12-2023 Miscellaneous Notes TC to patient' son who states he is agreeable to waiting until October to discuss. If any major weight loss occurs, son will call to reschedule for sooner appointment. Nothing further at this time. DAVID Jalloh Left message for patient to return call. Simona Piper Ma This can wait until October. If there is a concern with eating or weight loss I could see her sooner. Thanks, Dennys Viera PA-C Phoned patient and spoke to Binh her son who is POA, he said patient has dementia and lives at [facility], she is not going to remember anything Dennys tells her. Binh was asking about a telephone visit explained that insurance longer covers the phone visits. Went over results, notes from Dennys ROSALES and Binh took notes of all of this with understanding. Patient next visit is not until mid October. Son said she does not eat much and will wait to see what Dennys responds with what to do. ----- Message from Juan A Viera PA-C sent at 08/07/2023 1:36 PM EDT ----- Please advise bone density study demonstrates osteoporosis in the right femoral neck and osteopenia in the lumbar spine, hips and left femoral neck. Please send with the following information: The recommendations for management and follow up are as follows: Due to significant fracture risk I do recommend that we start medication to enhance bone density as well as weightbearing exercise is much as possible. Please schedule back in to discuss options for therapy and risks of side effects. We can do this at your next scheduled visit or sooner as desired. Calcium 1500 mg in divided doses of 500 mg 3 times a day with 800 units of vitamin D daily during summer months, 2000 units of vitamin D during winter months.. Dietary sources of calcium are best Please note: your body can only absorb 500mg of calcium at any one time. Weight bearing exercise 3-4 X per week (30-40 minutes per time). Stop smoking if you presently smoke. Avoid excessive amounts of alcohol. Avoid excessive amounts of caffeine (coffee, tea, and chocolate). Avoid excessive amounts of protein-rich or salty foods (they can deplete calcium) Prevent accidents by living safely. No loose throw rugs on the floor. Keep stairs well lit and use nite lights in halls Maintain proper posture. Your next bone density test is recommended in 2 years. Please call our office for an appointment so we may discuss treatment with you. Thanks, Dennys Viera PA-C documented in this encounter [facility] 08-05-2023 Note HNO ID: [id number] Author: Toni Mon RT(Vick) Service: ? Author Type: Technologist Type: Progress Notes Filed: 08/05/2023 12:57 PM Note Text: Radiology Service Progress Note PATIENT NAME: Marlene Ruiz DATE OF SERVICE: August 05, 2023 TIME: 12:56 PM PATIENT IDENTITY VERIFICATION COMPLETED USING TWO (2) IDENTIFIERS: Name and Date of confirmed by patient verbally. FALL SCREENING: Has the patient had 2 falls in the last year or 1 fall with injury or currently using an Ambulatory Assistive Device (Walker, Cane, Wheelchair, Crutches, etc.)? Yes, Patient High Risk for Falls What interventions were put in place to prevent falls during this visit? Increased Observations by Caregivers PATIENT GENDER DATA: Female. status: : No status: NO. PATIENT RELEVANT IMPLANT DATA REVIEWED: Not Applicable RADIOLOGY DEPARTMENT: Bone Density PERIPHERAL IV DATA: Not applicable SIGNED BY: RT Lindsey(R) August 05, 2023 12:[address] [facility] 08-05-2023 History of Present illness Narrative Radiology Service Progress Note PATIENT NAME: Marlene Ruiz DATE OF SERVICE: August 05, 2023 TIME: 12:56 PM PATIENT IDENTITY VERIFICATION COMPLETED USING TWO (2) IDENTIFIERS: Name and Date of confirmed by patient verbally. FALL SCREENING: Has the patient had 2 falls in the last year or 1 fall with injury or currently using an Ambulatory Assistive Device (Walker, Cane, Wheelchair, Crutches, etc.)? Yes, Patient High Risk for Falls What interventions were put in place to prevent falls during this visit? Increased Observations by Caregivers PATIENT GENDER DATA: Female. status: : No status: NO. PATIENT RELEVANT IMPLANT DATA REVIEWED: Not Applicable RADIOLOGY DEPARTMENT: Bone Density PERIPHERAL IV DATA: Not applicable SIGNED BY: RT Lindsey(R) August 05, 2023 12:56 PM documented in this encounter [facility] 07-25-2023 Miscellaneous Notes Completed form faxed Signed and returned to nursing desk Dennys Lees PA-C Waiting for provider to sign form Please d/c zoloft Dennys Lees PA-C Fax on PCP desk for review. Giselle Camarillo faxing over paper for clarification on how pt is to be taking Zoloft 25 mg. and then weaning off. Pt was last seen on 07-16-23 in the office. Rabia also has an order for Zoloft 50 mg. I do not see this on pts med list. Need okay to d/c this. Please watch for fax. Return fax and chart in [facility] regarding Zoloft. Manisha Centeno LPN documented in this encounter [facility] 07-23-2023 Miscellaneous Notes Noted, viet Viera PA-C Spoke with son. He and family talked it over and decided to decline going to general surgery for FNA. Decision was made based on age and dementia. Simona Piper Ma Called patients son, son stated that he would like to talk to PCP more about his mother seeing general surgery Thank you! Son notified. Please call david Binh to set up Gen Surg appt. Simona Piper Ma Thyroid US shows multiple nodules, FNA recommend Telephone on 07/22/23 CONSULT TO GENERAL SURGERY ThanksDennys PA-C documented in this encounter [facility] 07-18-2023 Note HNO ID: [id number] Author: Mallika Gerardo RDMS Service: ? Author Type: Garment Sorter Type: Progress Notes Filed: 07/18/2023 10:38 AM Note Text: Radiology Service Progress Note PATIENT NAME: Marlene Ruiz DATE OF SERVICE: July 18, 2023 TIME: 10:37 AM PATIENT IDENTITY VERIFICATION COMPLETED USING TWO (2) IDENTIFIERS: Name and Date of confirmed by patient verbally. FALL SCREENING: Has the patient had 2 falls in the last year or 1 fall with injury or currently using an Ambulatory Assistive Device (Walker, Cane, Wheelchair, Crutches, etc.)? Yes, Patient High Risk for Falls What interventions were put in place to prevent falls during this visit? Offered Assistance with Transfers/Clothing and Increased Observations by Caregivers PATIENT GENDER DATA: Female. status: : No status: NO. PATIENT RELEVANT IMPLANT DATA REVIEWED: Not Applicable RADIOLOGY DEPARTMENT: Ultrasound PERIPHERAL IV DATA: Not applicable SIGNED BY: Mallika Gerardo RDMS July 18, 2023 10:[address] [facility] 07-18-2023 History of Present illness Narrative Radiology Service Progress Note PATIENT NAME: Marlene Ruiz DATE OF SERVICE: July 18, 2023 TIME: 10:37 AM PATIENT IDENTITY VERIFICATION COMPLETED USING TWO (2) IDENTIFIERS: Name and Date of confirmed by patient verbally. FALL SCREENING: Has the patient had 2 falls in the last year or 1 fall with injury or currently using an Ambulatory Assistive Device (Walker, Cane, Wheelchair, Crutches, etc.)? Yes, Patient High Risk for Falls What interventions were put in place to prevent falls during this visit? Offered Assistance with Transfers/Clothing and Increased Observations by Caregivers PATIENT GENDER DATA: Female. status: : No status: NO. PATIENT RELEVANT IMPLANT DATA REVIEWED: Not Applicable RADIOLOGY DEPARTMENT: Ultrasound PERIPHERAL IV DATA: Not applicable SIGNED BY: Mallika Gerardo RDMS July 18, 2023 10:37 AM documented in this encounter [facility] 07-16-2023 Note HNO ID: [id number] Author: Juan A Viera PA-C Service: ? Author Type: Physician Load Test Mechanic Type: Progress Notes Filed: 07/17/2023 3:28 AM Note Text: 82 year old female with c/o here with sister Nina for follow up 05/03 to 05/08/2023 ER- [facility] admit per sister and neighbor due to multiple falls. , not eating or drinking, severe weakness, bruises. VS [id number] with 96-91-94% Hemoglobin 12.8-PLT 445 CMP WNL except BUN/creatinine 15/1.23 CT brain chronic involutional changes Chest x-ray WNL Right knee x-ray degenerative tricompartmental changes. EKG: No ischemic changes. Treated with 1 L normal saline in ER. Admitted for malnutrition, falls, noncompliant behavior Swallowing study determine regular thin liquids Patient was placed in physical therapy. Started on Remeron 15 mg at bedtime for sleep and weight gain. On discharge she was only able to walk 2 to 3 feet. Discharge labs: CBC: 8.3-10.2-three 2.5-335. Basic CHEM: NA 144-CL 114-K3.9-CO2 29.0-BUN 17-CRE 0.73-GLU 106, estimated GFR 82. BUN/creatinine ratio 23.3. Calcium 9.3 Admitted to assisted living [facility], then at [facility] Has had a couple falls. BP running 90's Likes the facility and happy to be there. Brother and sister checking on her routinely. Has been eating things that she ordinarily wouldn't, likes food served. Has been getting Ensure shakes. Mirtazapine 15mg daily for weight gain and sleep Nursing asking to wean sertraline. Was recently stated by ELAINE Coleman out patient -? Essential hypertension, benign (primary encounter diagnosis) Bilateral carotid artery stenosis Hx of ischemic left exit booth agent stroke Vascular dementia, uncomplicated (hcc) Hx of ischemic left exit booth agent stroke Followed by [facility] 01/10/2022 last visit with Vanessa Lynn PA-C: stable Prior data: 01/24/2023 [facility] carotid US: ICA bilateral stenosis 20-39%, LCCA patent without hemodynamically significant stenosis, Bilateral VA patent w/ antegrade flow 10/05/2018 [facility] carotid US: ICA bilateral stenosis < 50%, normal antegrade flow vertebrals bilaterally 08/28/2018 MRI microvascular ischemic changes, chronic left occipital infarct 08/28/2018 Echo demonstrated ejection fraction 60%, stage I diastolic dysfunction, carotids bilaterally with less than 50% stenosis. Current medications: Amlodipine 5mg daily ASA 81mg daily Lisinopril 40mg daily Metoprolol succinate ER 50mg daily Simvastatin 40mg Patient is compliant with meds No Monitors bp at home: No. If yes, readings: Denies side effects: No. Chest pain: No. Dyspnea: No. Edema: Yes. Palpitations: Hasn't had any lately Syncope: Yes. Headache: Has headaches- attributes to sinus/ weather. Dizziness: Yes. Has some issues on standing, stumbles a little. Stopped smoking Breathing and cough significantly improved. Recognizes me by name Last 3 Encounter BP Readings: Date: BP: 01/10/2023 112/60 06/29/2022 114/62 01/26/2022 110/62 Last 2 Encounter Wt Readings: Date: Wt: 01/10/2023 56.7 kg (125 lb) 06/29/2022 53.1 kg (117 lb) Mixed hyperlipidemia Current medication Simvastatin 40mg daily Taking medication consistently Yes Observing low cholesterol high fiber diet Yes Muscle aches No Stomach complaints/ diarrhea No Multiple thyroid nodules Has outstanding orders for US thyroid Osteopenia, senile Due for screening Hx of acute gastritis Irritable bowel syndrome with both constipation and diarrhea Current medication: No medications currently. Post-prandial diarrhea since zonia-colectomy 2003 Current symptoms: denies issues wit heartburn, acid reflux. Having a lot of loose-mushy stools with incontinence. . Last Mg level if on PPI chronically: n/a. Heartburn is controlled: Yes. Dysphagia: No. Bloody or black stools: No. Bowel changes: Yes. As above. Last EGD and/or colonoscopy: 02/07/2015 colonoscopy diagnostic: Impression: - The entire examined colon is normal. - No specimens collected. - 10 year surveillance 02/23/2011 EGD/ colonoscopy FINAL DIAGNOSIS: 1. Duodenum, biopsy (A) - No significant pathologic change. 2. Colon, random biopsy (B) - No significant pathologic change. - No evidence of lymphocytic or collagenous colitis. 3. Descending colon polyp, biopsy (C) - Tubulovillous adenoma. 4. Sigmoid colon polyp, biopsy (D) - Tubular adenoma. JRG/larissa/02/26/2011 08/06/[address] Huizar: Antral erythema, bx: duodenal mucosa intact, bile noted 01/03/2004 partial right hemicolectomy, Dr. Perez, bx:inflamed tubovillous adenoma 01/01/[address] Rad Perez: bx inflamed tubulovillous adenoma in her cecum, ascending colon area, 2.5 to 3 cm too complicated to snare. Follows with Dr. Jd [place] Thyroid nodule Incidentally detected thyroid nodule on carotid US measuring 1.80 cm in maximum diameter; dedicated thyroid ultrasound is recommended. Has not complete ordered thyroid US yet (more content not included)... [facility] 07-16-2023 Instructions Juan A Viera PA-C - 07/16/2023 4:45 PM EDT Fiber gummies would great and help thicken up the stool some. May cut zoloft 25mg in half and alternate every other day for a week, then 12.5mg daily x 1 week. If BP is under 100/syst, please hold BP medication. Please send me a summary of BP checks every 2 weeks documented in this encounter [facility] 07-16-2023 History of Present illness Narrative 82 year old female with c/o here with sister Nina for follow up 05/03 to 05/08/2023 ER- [facility] admit per sister and neighbor due to multiple falls. , not eating or drinking, severe weakness, bruises. VS [id number] with 96-91-94% Hemoglobin 12.8-PLT 445 CMP WNL except BUN/creatinine 15/1.23 CT brain chronic involutional changes Chest x-ray WNL Right knee x-ray degenerative tricompartmental changes. EKG: No ischemic changes. Treated with 1 L normal saline in ER. Admitted for malnutrition, falls, noncompliant behavior Swallowing study determine regular thin liquids Patient was placed in physical therapy. Started on Remeron 15 mg at bedtime for sleep and weight gain. On discharge she was only able to walk 2 to 3 feet. Discharge labs: CBC: 8.3-10.2-three 2.5-335. Basic CHEM: NA 144-CL 114-K3.9-CO2 29.0-BUN 17-CRE 0.73-GLU 106, estimated GFR 82. BUN/creatinine ratio 23.3. Calcium 9.3 Admitted to assisted living [facility], then at [facility] Has had a couple falls. BP running 90's Likes the facility and happy to be there. Brother and sister checking on her routinely. Has been eating things that she ordinarily wouldn't, likes food served. Has been getting Ensure shakes. Mirtazapine 15mg daily for weight gain and sleep Nursing asking to wean sertraline. Was recently stated by ELAINE Coleman out patient -? Essential hypertension, benign (primary encounter diagnosis) Bilateral carotid artery stenosis Hx of ischemic left exit booth agent stroke Vascular dementia, uncomplicated (hcc) Hx of ischemic left exit booth agent stroke Followed by [facility] 01/10/2022 last visit with Vanessa Lynn PA-C: stable Prior data: 01/24/2023 [facility] carotid US: ICA bilateral stenosis 20-39%, LCCA patent without hemodynamically significant stenosis, Bilateral VA patent w/ antegrade flow 10/05/2018 [facility] carotid US: ICA bilateral stenosis < 50%, normal antegrade flow vertebrals bilaterally 08/28/2018 MRI microvascular ischemic changes, chronic left occipital infarct 08/28/2018 Echo demonstrated ejection fraction 60%, stage I diastolic dysfunction, carotids bilaterally with less than 50% stenosis. Current medications: Amlodipine 5mg daily ASA 81mg daily Lisinopril 40mg daily Metoprolol succinate ER 50mg daily Simvastatin 40mg Patient is compliant with meds No Monitors bp at home: No. If yes, readings: Denies side effects: No. Chest pain: No. Dyspnea: No. Edema: Yes. Palpitations: Hasn't had any lately Syncope: Yes. Headache: Has headaches- attributes to sinus/ weather. Dizziness: Yes. Has some issues on standing, stumbles a little. Stopped smoking Breathing and cough significantly improved. Recognizes me by name Last 3 Encounter BP Readings: Date: BP: 01/10/2023 112/60 06/29/2022 114/62 01/26/2022 110/62 Last 2 Encounter Wt Readings: Date: Wt: 01/10/2023 56.7 kg (125 lb) 06/29/2022 53.1 kg (117 lb) Mixed hyperlipidemia Current medication Simvastatin 40mg daily Taking medication consistently Yes Observing low cholesterol high fiber diet Yes Muscle aches No Stomach complaints/ diarrhea No Multiple thyroid nodules Has outstanding orders for US thyroid Osteopenia, senile Due for screening Hx of acute gastritis Irritable bowel syndrome with both constipation and diarrhea Current medication: No medications currently. Post-prandial diarrhea since zonia-colectomy 2003 Current symptoms: denies issues wit heartburn, acid reflux. Having a lot of loose-mushy stools with incontinence. . Last Mg level if on PPI chronically: n/a. Heartburn is controlled: Yes. Dysphagia: No. Bloody or black stools: No. Bowel changes: Yes. As above. Last EGD and/or colonoscopy: 02/07/2015 colonoscopy diagnostic: Impression: - The entire examined colon is normal. - No specimens collected. - 10 year surveillance 02/23/2011 EGD/ colonoscopy FINAL DIAGNOSIS: 1. Duodenum, biopsy (A) - No significant pathologic change. 2. Colon, random biopsy (B) - No significant pathologic change. - No evidence of lymphocytic or collagenous colitis. 3. Descending colon polyp, biopsy (C) - Tubulovillous adenoma. 4. Sigmoid colon polyp, biopsy (D) - Tubular adenoma. JRG/larissa/02/26/2011 08/06/[address] Huizar: Antral erythema, bx: duodenal mucosa intact, bile noted 01/03/2004 partial right hemicolectomy, Dr. Perez, bx:inflamed tubovillous adenoma 01/01/[address] Rad Perez: bx inflamed tubulovillous adenoma in her cecum, ascending colon area, 2.5 to 3 cm too complicated to snare. Follows with Dr. Jd Perez Thyroid nodule Incidentally detected thyroid nodule on carotid US measuring 1.80 cm in maximum diameter; dedicated thyroid ultrasound is recommended. Has not complete ordered thyroid US yet HISTORIES FAMILY HISTORY Problem Relation Age of Onset Hypertension Sister other (Parkinson's) Sister Hypertension Mother age 81, sudden Hypertension Father Heart Father : sudden age 75; dx'd early Breast Cancer Paternal Grandmother Breast Cancer Sister age 58 PAST MEDICAL HISTORY Diagnosis Date Chronic hypokalemia Counseling for living will 01/26/2022 DPOA - Son - Binh Ruiz. 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 Diarrhea Early satiety Essential hypertension, benign Flatulence, eructation, and gas pain History of colon polyps Insomnia, unspecified Irritable bowel syndrome Nephrolithiasis Palpitations Pure hypercholesterolemia Tachycardia PAST SURGICAL HISTORY Procedure Laterality Date ADRENALECTOMY W/EXPL W/WO BX ABDL/LMBR/DRSAL SPX 02/21/94 left adrenal tumor: induced [place] APPENDECTOMY 1992 BIOPSY BREAST ~1967, ~1968 right, benign BIOPSY,SKIN EACH ADDITIONAL LESION moles removed from multiple sites COLONOSCOPY 2001 COLONOSCOPY 02/07/15 COLSC FLX W/RMVL OF TUMOR POLYP LESION SNARE TQ 02/23/11 tubulovillous adenoma, repeat due 2013 CYSTO W LITHOTRIPSY x2 EGD 08/06/05 EGD TRANSORAL BIOPSY SINGLE/MULTIPLE 02/23/11 LAPAROSCOPY SURG CHOLECYSTECTOMY 80's Cholecystectomy, lap PAST SURGICAL HISTORY OF 07/2006 removal of ovarian cyst PAST SURGICAL HISTORY OF 01/2004 right hemicolectomy for large TVA SALPINGO-OOPHORECTOMY COMPL/PRTL UNI/BI SPX 1991 Salpingo-oophorectomy TOTAL ABDOMINAL HYSTERECT W/WO RMVL TUBE OVARY 1991 Social History Tobacco Use Smoking status: Every Day Packs/day: 1.00 Years: 47.00 Additional pack years: 0.00 Total pack years: 47.00 Types: Cigarettes Last attempt to quit: 09/30/1966 Years since quittin.8 Smokeless tobacco: Never Tobacco comments: Started Smoking about Age 19 Substance Use Topics Alcohol use: No Drug use: No ACTIVE PROBLEM LIST Hx of Acute Gastritis Mixed Hyperlipidemia Essential hypertension, benign Tobacco Use Disorder Colon Polyps Irritable Bowel Syndrome Chronic Hypokalemia Nonspecific (Abnormal) Findings On Radiological and Other Examination of Gastrointestinal Tract Flatulence, Eructation, and Gas Pain Early Satiety Diarrhea Renal Calculus Osteopenia, Senile Bilateral Carotid Artery Stenosis Hx of Ischemic Left Order Selector Stroke Vascular Dementia, Uncomplicated (Hcc) Encounter for Support and Coordination of Transition of Care Counseling for Living Will Current Outpatient Medications Medication Sig Dispense Refill amLODIPine (NORVASC) 5 mg tablet Take 1 tablet by mouth once daily. Per Dr. Salcido 90 tablet 3 atorvastatin (LIPITOR) 10 mg tablet Take 1 tablet by mouth once daily. 90 tablet 3 clopidogrel (PLAVIX) 75 mg tablet Take 1 tablet by mouth once daily. 90 tablet 3 lisinopril (ZESTRIL) 40 mg tablet Take 1 tablet by mouth once daily. 90 tablet 3 metoprolol succinate ER (TOPROL XL) 50 mg 24 hr tablet Take 1 tablet by mouth once daily. Per Dr. Salcido 90 tablet 3 mirtazapine (REMERON) 15 mg tablet Take 1 tablet by mouth daily at bedtime. 90 tablet 3 Food Supplement, Lactose-Free (ENSURE) liqd Take 237 mL by mouth once daily. (Patient not taking: Reported on 07/11/2022) 237 mL 11 aspirin 81 mg chewable tablet Take 81 mg by mouth once daily. Cholecalciferol, Vitamin D3, 25 mcg (1,000 unit) cap Take 1,000 Units by mouth once daily. cyanocobalamin/thiamine (VITAMIN X32-OMHRHMH B1 ORAL) Take 1,000 mcg by mouth once daily. No current facility-administered medications for this visit. COVID-19 VACCINE(4 - Pfizer series) due on 05/12/2023 INFLUENZA(1) due on 07/05/2023 EXAM: BP 98/54 Pulse 90 Resp 14 Wt 50.4 kg (111 lb 3.2 oz) SpO2 95% BMI 21.55 kg/m Pleasant thinner adult woman in no acute distress. Alert and oriented all spheres. Recognizes me by name, doesn't remember details from admission but able to identify recent details accurately Normal affect and cognition. Speech normal. No deficits to learning or comprehension. Skin warm, dry, pink to lips and nailbeds. Normal turgor. No areas of breakdown per sister Peoa. Respirations regular and unlabored. HEENT: NCAT. No scleral icterus or conjunctival injection. TM's clear. Nose and oropharynx free from injection or lesion. Oral membranes moist and pink. No cervical lymph nodes. Thyroid non-tender, no masses, or enlargement. Carotids pulses 2+/4+ without bruits. No JVD with HOB at 30 degrees. Chest is normal shape. Lungs are clear to all andrade with good air exchange through out. HRRR without murmur or gallop. No lifts, heaves, or rubs. Abdomen: active bowel sounds throughout, soft, nontender, no masses or organomegaly. No CVAT. Extrem: no clubbing .gbabnor cyanosis. Edema: none. Extremities are warm and pink with prompt capillary refill. Able to stand and walk a few steps with 1 assist. ASSESSMENT/PLAN: 1. Essential hypertension, benign - ICD9: 401.1, ICD10: I10 (primary diagnosis) - Controlled with hypotension likely r/t significant weight loss and recovering malnutrition. - Hold BP meds if SBP less than 90/sys Cut lisinopril in half to 20mg daily Daily BP for 2 weeks and will ask for report. - Recommend regular aerobic exercise - CBC + DIFF 2. Mixed hyperlipidemia - ICD9: 272.2, ICD10: E78.2 - Control undetermined, due for labs - Continue current medications - Counseled on healthy diet and regular exercise - COMP METABOLIC PANEL - LIPID PANEL BASIC 3. Bilateral carotid artery stenosis - ICD9: 433.10, 433.30, ICD10: I65.23 No significant blockage 4. 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 Vascular dementia, uncomplicated (HCC) - ICD9: 290.40, ICD10: F01.50 Previously on donazepil without significant change and weight loss- stopped with mutual decision making 6. Thyroid nodule greater than or equal to 1.5 cm in diameter incidentally noted on imaging study - ICD9: 241.0, ICD10: E04.1 Needs to complete outstanding throid US 7. Osteopenia, senile - ICD9: 733.90, ICD10: M85.80 - Reviewed the need for Calcium and Vitamin D supplements and weight bearing exercise as tolerated - DXA-AXIAL SKELETON 8. Hx of acute gastritis - ICD9: V12.70, ICD10: Z87.19 No medications currently Denies current sx 9. Irritable bowel syndrome with both constipation and diarrhea - ICD9: 564.1, ICD10: K58.2 Chronic following hemicolectomy, primarily diarrhea. Trial fiber gummies. Consider Cholestyramine 10. Encounter for immunization - ICD9: V03.89, ICD10: Z23 - INFLUENZA VACCINE, PRSV FREE, AGE 65+ YR, HIGH DOSE, QUADRIVALENT (FLUZONE HIGH-DOSE) 11. Prediabetes - ICD9: 790.29, ICD10: R73.03 Likely non-diabetic with weight loss, will need to follow - HGB A1C 12. Malnutrition of moderate degree (HCC) - ICD9: 263.0, ICD10: E44.0 Monitor weight, diarrhea carefully Will check phosphorus to make sure not rising to quickly with refeeding per family - PREALBUMIN BLD - PHOSPHORUS INORGANIC - MAGNESIUM 13. Generalized weakness - ICD9: 780.79, ICD10: R53.1 14. At high risk for injury related to fall - ICD9: V49.89, ICD10: Z91.81 Getting PT/OT Fall risk monitoring 15. Adjustment disorder with depressed mood - ICD9: 309.0, ICD10: F43.21 Was seeing outpatient psych provider who started on sertraline. May wean off sertraline as duplication with mirtazapine and monitor progress. Recheck 3 months and as needed 50 minute visit Juan A Viera PA-C documented in this encounter [facility] 07-12-2023 Miscellaneous Notes Patient son stops in office asking for letter to present to court for jury duty that he is bringing mother to office visit on 07/16/23. See letter. documented in this encounter [facility] 07-05-2023 Miscellaneous Notes Call placed to [facility] and notified Radha that appointment is needed for medication adjustment. Radha to let son know and son to call if wants sooner appointment than 07/16/2023. Kami Kay RN Needs to be seen. Thanks, Dennys Viera PA-C Radha with [facility] calls to let provider know that patient continues with poor appetite. Patient eating between 0-25% at all meals. Patient has order for Ensure and is only taking 1-2 sips when offered and then puts it down and won't drink anymore. Radha asking if provider would consider increasing mirtazapine before next appointment. Patient has 6 month follow up appointment on 07/16/2023. Radha requests call back at [phone]. Please review and advise, Kami Kay RN documented in this encounter [facility] 06-25-2023 Miscellaneous Notes Eliza with [facility] calls to let provider know that patient has been discharged from services. Kami Kay RN documented in this encounter [facility] 06-25-2023 Miscellaneous Notes Per request from home health/ family. Sent to [facility] The following approved medication requests have been transmitted electronically. Requested Prescriptions Signed Prescriptions Disp Refills amLODIPine (NORVASC) 5 mg tablet 90 tablet 3 Sig: Take 1 tablet by mouth once daily. Per Dr. Salcido Authorizing Provider: Juan A VIERA atorvastatin (LIPITOR) 10 mg tablet 90 tablet 3 Sig: Take 1 tablet by mouth once daily. Authorizing Provider: Juan A VIERA clopidogrel (PLAVIX) 75 mg tablet 90 tablet 3 Sig: Take 1 tablet by mouth once daily. Authorizing Provider: Juan A VIERA lisinopril (ZESTRIL) 40 mg tablet 90 tablet 3 Sig: Take 1 tablet by mouth once daily. Authorizing Provider: Juan A VIERA metoprolol succinate ER (TOPROL XL) 50 mg 24 hr tablet 90 tablet 3 Sig: Take 1 tablet by mouth once daily. Per Dr. Salcido Authorizing Provider: Juan A VIERA mirtazapine (REMERON) 15 mg tablet 90 tablet 3 Sig: Take 1 tablet by mouth daily at bedtime. Authorizing Provider: Juan A VIERA PA-C documented in this encounter [facility] 06-11-2023 Miscellaneous Notes Please refer to fax sent over now first. Simona Piper Ma [facility] requests prescriptions be sent to [facility]. Simona Piper Ma documented in this encounter [facility] 05-28-2023 Miscellaneous Notes Eliza from [facility] calling and states patient has been seen today and plan of care will be: Patient to be seen by Nursing [facility] 1 time per week. PT will be evaluating patient this week sometime as well. Richa Brandon RN documented in this encounter [facility] 01-10-2023 Note HNO ID: [id number] Author: Juan A Viera PA-C Service: ? Author Type: Physician Load Test Mechanic Type: Progress Notes Filed: 01/11/2023 9:23 AM Note Text: 82 year old female with c/o 6 month follow up Essential hypertension, benign (primary encounter diagnosis) Current meds: Amlodipine 5mg daily Lisinopril 40mg daily Metoprolol succinate ER 50mg daily Patient is compliant with meds No Monitors bp at home: No. If yes, readings: Denies side effects: No. Chest pain: No. Dyspnea: No. Edema: Yes. Palpitations: Hasn't had any lately Syncope: Yes. Headache: Has headaches- attributes to sinus/ weather. Dizziness: Yes. Has some issues on standing, stumbles a little. Last 3 Encounter BP Readings: Date: BP: 06/29/2022 114/62 01/26/2022 110/62 12/29/2021 118/64 Last 2 Encounter Wt Readings: Date: Wt: 06/29/2022 53.1 kg (117 lb) 01/26/2022 52.1 kg (114 lb 12.8 oz) Mixed hyperlipidemia Current medication Simvastatin 40mg daily Taking medication consistently Yes Observing low cholesterol high fiber diet Yes Muscle aches No Stomach complaints/ diarrhea No Last 2 Lipids: Component Latest Ref Rng AND Units 04/13/2019 04/22/2019 11/02/2021 Protein, Total 6.3 - 8.0 g/dL 7.2 7.0 Albumin 3.9 - 4.9 g/dL 4.3 4.4 Calcium 8.5 - 10.2 mg/dL 9.9 10.5 (H) Bilirubin, Total 0.2 - 1.3 mg/dL 0.4 0.5 Alkaline Phosphatase 34 - 123 U/L 95 102 AST 13 - 35 U/L 15 21 Glucose 74 - 99 mg/dL 108 (H) 113 (H) BUN 7 - 21 mg/dL 10 12 Creatinine 0.58 - 0.96 mg/dL 0.65 0.93 Sodium 136 - 144 mmol/L 146 (H) 143 Potassium 3.7 - 5.1 mmol/L 3.1 (L) 3.7 Chloride 97 - 105 mmol/L 102 106 (H) CO2 22 - 30 mmol/L 31 (H) 27 Anion Gap 9 - 18 mmol/L 13 10 ALT 7 - 38 U/L 8 9 eGFR- >60 >60 eGFR-All Other Races . 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 FRAX Major 23%, hip 9.9% 06/12/18 DXA : worst score left femoral neck t-score -1.8. 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 Rad Perez all normal, no specimens: Repeat 10 years 02/23/[address] Perez: hiatal hernia. Bx duodenum negative (checked for sprue) 08/06/[address] Huizar: Antral erythema, bx: duodenal mucosa intact, bile noted Post-prandial diarrhea since zonia-colectomy 2003. Managing well, not bothered. Chronic hypokalemia: Resolved Component Latest Ref Rng AND Units 05/12/2020 11/02/2021 06/28/2022 Potassium 3.7 - 5.1 mmol/L 3.2 (L) 3.7 4.8 HISTORIES FAMILY HISTORY Problem Relation Age of Onset Hypertension Sister other (Parkinson's) Sister Hypertension Mother age 81, sudden Hypertension Father Heart Father : sudden age 75; dx'd early Breast Cancer Paternal Grandmother Breast Cancer Sister age 58 PAST MEDICAL HISTORY Diagnosis Date Chronic hypokalemia Counseling for living will 01/26/2022 DPOA - Son - Binh Ruiz. 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 Diarrhea Early satiety Essential hypertension, benign Flatulence, eructation, and gas pain History of colon polyps Insomnia, unspecified Irritable bowel syndrome Nephrolithiasis Palpitations Pure hypercholesterolemia Tachycardia PAST SURGICAL HISTORY Procedure Laterality Date ADRENALECTOMY W/EXPL W/WO BX ABDL/LMBR/DRSAL SPX 02/21/94 left adrenal tumor: induced Cushings APPENDECTOMY 1992 BIOPSY BREAST ~1967, ~1969 right, benign BIOPSY,SKIN EACH ADDITIONAL LESION moles removed from multiple sites COLONOSCOPY 2001 COLONOSCOPY 02/07/15 COLSC FLX W/RMVL OF TUMOR POLYP LESION SNARE TQ 02/23/11 tubulovillous adenoma, repeat due 2013 CYSTO W LITHOTRIPSY x2 EGD 08/06/05 EGD TRANSORAL BIOPSY SINGLE/MULTIPLE 02/23/11 LAPAROSCOPY SURG CHOLECYSTECTOMY 80's Cholecystectomy, lap PAST SURGICAL HISTORY OF 07/2006 removal of ovarian cyst PAST SURGICAL HISTORY OF 01/2004 right hemicolectomy for large TVA SALPINGO-OOPHORECTOMY COMPL/PRTL UNI/BI SPX 1991 Salpingo-oophorectomy TOTAL ABDOMINAL HYSTERECT W/WO RMVL TUBE OVARY 1991 Social History Tobacco Use Smoking status: Every Day Packs/day: 1.00 Years: 47.00 Pack years: 47.00 Types: Cigarettes Last attem (more content not included)... [facility] 01-10-2023 History of Present illness Narrative 82 year old female with c/o 6 month follow up Essential hypertension, benign (primary encounter diagnosis) Current meds: Amlodipine 5mg daily Lisinopril 40mg daily Metoprolol succinate ER 50mg daily Patient is compliant with meds No Monitors bp at home: No. If yes, readings: Denies side effects: No. Chest pain: No. Dyspnea: No. Edema: Yes. Palpitations: Hasn't had any lately Syncope: Yes. Headache: Has headaches- attributes to sinus/ weather. Dizziness: Yes. Has some issues on standing, stumbles a little. Last 3 Encounter BP Readings: Date: BP: 06/29/2022 114/62 01/26/2022 110/62 12/29/2021 118/64 Last 2 Encounter Wt Readings: Date: Wt: 06/29/2022 53.1 kg (117 lb) 01/26/2022 52.1 kg (114 lb 12.8 oz) Mixed hyperlipidemia Current medication Simvastatin 40mg daily Taking medication consistently Yes Observing low cholesterol high fiber diet Yes Muscle aches No Stomach complaints/ diarrhea No Last 2 Lipids: Component Latest Ref Rng & Units 04/13/2019 04/22/2019 11/02/2021 Protein, Total 6.3 - 8.0 g/dL 7.2 7.0 Albumin 3.9 - 4.9 g/dL 4.3 4.4 Calcium 8.5 - 10.2 mg/dL 9.9 10.5 (H) Bilirubin, Total 0.2 - 1.3 mg/dL 0.4 0.5 Alkaline Phosphatase 34 - 123 U/L 95 102 AST 13 - 35 U/L 15 21 Glucose 74 - 99 mg/dL 108 (H) 113 (H) BUN 7 - 21 mg/dL 10 12 Creatinine 0.58 - 0.96 mg/dL 0.65 0.93 Sodium 136 - 144 mmol/L 146 (H) 143 Potassium 3.7 - 5.1 mmol/L 3.1 (L) 3.7 Chloride 97 - 105 mmol/L 102 106 (H) CO2 22 - 30 mmol/L 31 (H) 27 Anion Gap 9 - 18 mmol/L 13 10 ALT 7 - 38 U/L 8 9 eGFR- >60 >60 eGFR-All Other Races . 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 FRAX Major 23%, hip 9.9% 06/12/18 DXA : worst score left femoral neck t-score -1.8. 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 Rad Perez all normal, no specimens: Repeat 10 years 02/23/[address] Perez: hiatal hernia. Bx duodenum negative (checked for sprue) 08/06/[address] Huizar: Antral erythema, bx: duodenal mucosa intact, bile noted Post-prandial diarrhea since zonia-colectomy 2003. Managing well, not bothered. Chronic hypokalemia: Resolved Component Latest Ref Rng & Units 05/12/2020 11/02/2021 06/28/2022 Potassium 3.7 - 5.1 mmol/L 3.2 (L) 3.7 4.8 HISTORIES FAMILY HISTORY Problem Relation Age of Onset Hypertension Sister other (Parkinson's) Sister Hypertension Mother age 81, sudden Hypertension Father Heart Father : sudden age 75; dx'd early Breast Cancer Paternal Grandmother Breast Cancer Sister age 58 PAST MEDICAL HISTORY Diagnosis Date Chronic hypokalemia Counseling for living will 01/26/2022 DPOA - Son - Binh Ruiz. 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 Diarrhea Early satiety Essential hypertension, benign Flatulence, eructation, and gas pain History of colon polyps Insomnia, unspecified Irritable bowel syndrome Nephrolithiasis Palpitations Pure hypercholesterolemia Tachycardia PAST SURGICAL HISTORY Procedure Laterality Date ADRENALECTOMY W/EXPL W/WO BX ABDL/LMBR/DRSAL SPX 02/21/94 left adrenal tumor: induced Cushings APPENDECTOMY 1992 BIOPSY BREAST ~1967, ~1969 right, benign BIOPSY,SKIN EACH ADDITIONAL LESION moles removed from multiple sites COLONOSCOPY 2001 COLONOSCOPY 02/07/15 COLSC FLX W/RMVL OF TUMOR POLYP LESION SNARE TQ 02/23/11 tubulovillous adenoma, repeat due 2013 CYSTO W LITHOTRIPSY x2 EGD 08/06/05 EGD TRANSORAL BIOPSY SINGLE/MULTIPLE 02/23/11 LAPAROSCOPY SURG CHOLECYSTECTOMY 80's Cholecystectomy, lap PAST SURGICAL HISTORY OF 07/2006 removal of ovarian cyst PAST SURGICAL HISTORY OF 01/2004 right hemicolectomy for large TVA SALPINGO-OOPHORECTOMY COMPL/PRTL UNI/BI SPX 1991 Salpingo-oophorectomy TOTAL ABDOMINAL HYSTERECT W/WO RMVL TUBE OVARY 1991 Social History Tobacco Use Smoking status: Every Day Packs/day: 1.00 Years: 47.00 Pack years: 47.00 Types: Cigarettes Last attempt to quit: 09/30/1966 Years since quittin.3 Smokeless tobacco: Never Tobacco comments: Started Smoking about Age 19 Substance Use Topics Alcohol use: No Drug use: No ACTIVE PROBLEM LIST Acute Gastritis Mixed Hyperlipidemia Essential hypertension, benign Tobacco Use Disorder Colon Polyps Irritable Bowel Syndrome Chronic Hypokalemia Nonspecific (Abnormal) Findings On Radiological and Other Examination of Gastrointestinal Tract Flatulence, Eructation, and Gas Pain Early Satiety Diarrhea Renal Calculus Osteopenia, Senile Bilateral Carotid Artery Stenosis Hx of Ischemic Left Order Selector Stroke Vascular Dementia, Uncomplicated (Hcc) Encounter for Support and Coordination of Transition of Care Counseling for Living Will Current Outpatient Medications Medication Sig Dispense Refill lisinopril (ZESTRIL, PRINIVIL) 40 mg tablet Take 1 tablet by mouth once daily. 90 tablet 1 Food Supplement, Lactose-Free (ENSURE) liqd Take 237 mL by mouth once daily. (Patient not taking: Reported on 07/11/2022) 237 mL 11 aspirin 81 mg chewable tablet Take 81 mg by mouth once daily. clopidogrel (PLAVIX) 75 mg tablet Take 75 mg by mouth once daily. Cholecalciferol, Vitamin D3, 25 mcg (1,000 unit) cap Take 1,000 Units by mouth once daily. cyanocobalamin/thiamine (VITAMIN I57-WQOUTPT B1 ORAL) Take 1,000 mcg by mouth once daily. amLODIPine (NORVASC) 5 mg tablet Take 2 tablets by mouth once daily. Per Dr. Salcido 0 simvastatin (ZOCOR) 40 mg tablet Take 0.5 tablets by mouth once daily. Per Dr. Salcido 90 tablet 3 metoprolol succinate ER (TOPROL XL) 50 mg 24 hr tablet Take 1 tablet by mouth once daily. Per Dr. Salcido 180 tablet 3 No current facility-administered medications for this visit. SHINGRIX VACCINE(2 of 3) due on 01/15/2011 COVID-19 VACCINE(3 - Booster for Pfizer series) due on 09/26/2021 INFLUENZA(1) due on 07/05/2022 ADVANCE DIRECTIVE DISCUSSION due on 11/04/2022 EXAM: BP 112/60 Pulse 87 Resp 14 Wt 56.7 kg (125 lb) SpO2 97% BMI 24.22 kg/m Pleasant well appearing adult woman in no acute distress. Alert and oriented all spheres. Normal affect and cognition. Speech normal. No deficits to learning or comprehension. Skin warm, dry, pink to lips and nailbeds. Normal turgor. Respirations regular and unlabored. HEENT: NCAT. No scleral icterus or conjunctival injection. TM's clear. Nose and oropharynx free from injection or lesion. Oral membranes moist and pink. No cervical lymph nodes. Thyroid non-tender, no masses, or enlargement. Carotids pulses 2+/4+ without bruits. No JVD with HOB at 30 degrees. Chest is normal shape. Lungs are clear to all andrade with good air exchange through out. HRRR without murmur or gallop. No lifts, heaves, or rubs. Extrem: no clubbing or cyanosis. Edema: none. Extremities are warm and pink with prompt capillary refill. ASSESSMENT/PLAN: 1. Essential hypertension, benign - ICD9: 401.1, ICD10: I10 (primary diagnosis) - good control - Continue current medication(s) - Recommended regular aerobic exercise. - Recommend home blood pressure monitoring, to bring results in on next visit - Goal of BP <130/80 - COMP METABOLIC PANEL - CBC 2. Mixed hyperlipidemia - ICD9: 272.2, ICD10: E78.2 - good control - Continue current medication. - COMP METABOLIC PANEL - LIPID PANEL BASIC 3. Vascular dementia, uncomplicated (HCC) - ICD9: 290.40, ICD10: F01.50 - US CAROTID ARTERIES [facility] 4. Bilateral carotid artery stenosis - ICD9: 433.10, 433.30, ICD10: I65.23 - US CAROTID ARTERIES [facility] - COMP METABOLIC PANEL - LIPID PANEL BASIC 5. 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 6. Osteopenia, senile - ICD9: 733.90, ICD10: M85.80 - Reviewed the need for Calcium and Vitamin D supplements and weight bearing exercise as tolerated 7. Functional diarrhea - ICD9: 564.5, ICD10: K59.1 resolved 8. Irritable bowel syndrome with both constipation and diarrhea - ICD9: 564.1, ICD10: K58.2 Doing well. 9. Chronic hypokalemia - ICD9: 276.8, ICD10: E87.6 resolved 10. 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 Need for COVID-19 vaccine - ICD9: V04.89, ICD10: Z23 - [employer] COVID-19 BIVALENT BOOSTER VACCINE, AGE 12+ YR 12. Prediabetes - ICD9: 790.29, ICD10: R73.03 Well controlled - HGB A1C - COMP METABOLIC PANEL documented in this encounter [facility] 11-02-2022 Miscellaneous Notes SUSI 06/29/22 Scheduled 12/31/22 Our records show we haven't filled since [address] Agosto has been filling this when checking Med [facility]conc[facility]. Patient has been identified by name and date of : Yes Last office visit in this department: 06/29/2022 RX INSTRUCTIONS: Patient aware RX will be sent to pharmacy. No need to notify patient. Patient is completely out of medication. Patient phones requesting refills as follows: Requested Prescriptions Pending Prescriptions Disp Refills lisinopril (ZESTRIL, PRINIVIL) 40 mg tablet 90 tablet 3 Sig: Take 1 tablet by mouth once daily. Please review and advise. Lila Mccain Pss documented in this encounter [facility] 07-13-2022 Miscellaneous Notes Hospice assessed pt and she is not appropriate for hospice care yet. Simona Piper Ma Phoned Simona but VM full. Unable to leave message. Yes. Thanks, Dennys Viera PA-C Simona from [facility] calls to report that she is going out to access patient this morning. Patient is wanting Dennys to continue to follow orders if patient goes with hospice. Simona asking if Dennys will continue to follow patient if patient is with hospice? Please review and advise, Oma Thornton RN documented in this encounter [facility] 07-11-2022 History of Present illness Narrative Consultation requested by Dr. Dennys Viera: for an opinion regarding hypertrophic nail. My final recommendations will be communicated back to the requesting physician by way of shared Medical record or letter to requesting physician via US mail. Initial Podiatric Office Visit: Chief Complaint: This 81 year old female who presents with chief complaint:dystrophic toenails HPI Patient presents to clinic for evaluation of her toenails. She has severe thick toenails that are difficult to cut. PAIN EVALUATION No data found in the last 1 encounters. Hemoglobin A1C (%) Date Value 06/28/2022 5.5 11/02/2021 5.5 04/22/2019 5.1 04/13/2019 5.2 06/22/2005 5.7 PCP: Juan A Viera PA-C PAST MEDICAL HISTORY Diagnosis Date Chronic hypokalemia Counseling for living will 01/26/2022 DPOA - Son - Binh Ruiz. 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 clopidogrel (PLAVIX) 75 mg tablet Take 75 mg by mouth once daily. Cholecalciferol, Vitamin D3, 25 mcg (1,000 unit) cap Take 1,000 Units by mouth once daily. cyanocobalamin/thiamine (VITAMIN S82-ZXXPMOT B1 ORAL) Take 1,000 mcg by mouth once daily. amLODIPine (NORVASC) 5 mg tablet Take 2 tablets by mouth once daily. Per Dr. Salcido simvastatin (ZOCOR) 40 mg tablet Take 0.5 tablets by mouth once daily. Per Dr. Salcido metoprolol succinate ER (TOPROL XL) 50 mg 24 hr tablet Take 1 tablet by mouth once daily. Per Dr. Salcido LISINOPRIL 40 MG TAB Take one(1) tablet daily. Food Supplement, Lactose-Free (ENSURE) liqd Take 237 mL by mouth once daily. (Patient not taking: Reported on 07/11/2022) No current facility-administered medications for this visit. ALLERGIES Allergen Reactions Augmentin [Amoxicil* GI Upset Cefzil [Cefprozil] Diarrhea PAST SURGICAL HISTORY Procedure Laterality Date ADRENALECTOMY W/EXPL W/WO BX ABDL/LMBR/DRSAL SPX 02/21/94 left adrenal tumor: induced Cushings APPENDECTOMY 1992 BIOPSY BREAST ~1967, ~1969 right, benign BIOPSY,SKIN EACH ADDITIONAL LESION moles removed from multiple sites COLONOSCOPY 2001 COLONOSCOPY 02/07/15 COLSC FLX W/RMVL OF TUMOR POLYP LESION SNARE TQ 02/23/11 tubulovillous adenoma, repeat due 2013 CYSTO W LITHOTRIPSY x2 EGD 08/06/05 EGD TRANSORAL BIOPSY SINGLE/MULTIPLE 02/23/11 LAPAROSCOPY SURG CHOLECYSTECTOMY 80's Cholecystectomy, lap PAST SURGICAL HISTORY OF 07/2006 removal of ovarian cyst PAST SURGICAL HISTORY OF 01/2004 right hemicolectomy for large TVA SALPINGO-OOPHORECTOMY COMPL/PRTL UNI/BI SPX 1991 Salpingo-oophorectomy TOTAL ABDOMINAL HYSTERECT W/WO RMVL TUBE OVARY 1991 FAMILY HISTORY Problem Relation Age of Onset Hypertension Sister other (Parkinson's) Sister Hypertension Mother age 81, sudden Hypertension Father Heart Father : sudden age 75; dx'd early Breast Cancer Paternal Grandmother Breast Cancer Sister age 58 Social History Tobacco Use Smoking status: Every Day Packs/day: 1.00 Years: 47.00 Pack years: 47.00 Types: Cigarettes Last attempt to quit: 09/30/1966 Years since quittin.8 Smokeless tobacco: Never Tobacco comments: Started Smoking about Age 19 Substance Use Topics Alcohol use: No Drug use: No REVIEW OF SYSTEMS GENERAL: Negative for Malaise, significant weight loss, fever RESPIRATORY: Negative for cough, wheezing and shortness of breath CARDIOVASCULAR: Negative for chest pain, leg swelling and palpitations GI: Negative for abdominal discomfort, blood in stools or black stools and change in bowel habits : Negative for dysuria, frequency and incontinence MUSCULOSKELETAL: Negative for joint pain or swelling, back pain, and muscle pain. SKIN: Negative for lesions, rash, and itching. HEMATOLOGY/LYMPHOLOGY Negative for prolonged bleeding, bruising easily, and swollen nodes. ENDOCRINE: Negative for cold or heat intolerance, polyuria, polydipsia and goiter. NEURO: negative Physical Exam: Constitutional: Pt is a well developed 81 year old female who is alert, oriented and cooperative Eyes: Following during examination. No redness or drainage. Respiratory: RR normal and nonlabored. Even breathing. No evidence of distress or shortness of breath. Psychology: Patient is engaged during conversation. Normal affect and mood. Does not appear depressed or anxious during encounter. Vascular: Dorsalis pedis and posterior tibial pulses faintly palpable as b/l Capillary Fill time < 5 seconds to digits 1-5 b/l Skin temperature warm to cool proximal to distal b/l Hair growth present to digits Swelling present to b/l legs. Neurological: intact light touch/epicritic sensation Vibratory sensation decreased b/l decreased protective sensation + significant neurological deficits Dermatological: Nails 1-5 b/l appear thick, dystrophic, deformed. Webspaces clean and dry 1-4 b/l. Skin appears thin, dry, pallor. Hair growth is absent. No open lesions present. No callosities present. Musculoskeletal/Orthopaedic: Patient has no pain to palpation of b/l feet Foot type is neutral structurally AJ ROM is full with knee extended and flexed 1st MPJ is full when loaded and no pain or crepitus are noted with ROM. MTJ, STJ are full and free of pain and crepitus. +5/5 muscle strength dorsiflexion, plantarflexion, inversion, eversion b/l Radiographs: n/a ASSESSMENT: (L60.2) Hypertrophic toenail (L60.0) Incurved toenail PLAN: Toenails 1-5 b/l debrided in length and thickness. Q9 modifer. We discussed the possible etiologies of discolored, dystrophic, and thickened nails including fungus, yeast, mold as well as in some instances, prior trauma, or mechanical causes such as repetitive microtrauma in shoe gear. We discussed topical medication for discolored toenails which has very low success but no major side effects. We discussed oral medication. Patient will need hepatic testing prior to use. Patient informed of risks associated with Lamisil. We discussed removal of toenails. Patient would like to proceed with debridement. Chacho Bro DPM Podiatry [address] [facility] [address] Dept: [phone] Dept AMB ROOMING INTAKE FLOWSHEET DATA Risk Screening Do you have concerns about personal safety or safety in the home?: No Patient presents with: Left Foot - New Patient, Debridement of Nail Right Foot - New Patient, Debridement of Nail Patient's sister Nina is with her today. documented in this encounter [facility] 07-04-2022 Miscellaneous Notes Nina notified. Michell Nayak Ma ----- Message from Juan A Viera PA-C sent at 07/04/2022 5:14 AM EDT ----- Please advise vit D level is low: recommend OTC 2000u Vit D3 daily. Will need to notify sister Nina as patient is forgetful. Thanks, Dennys Viera PA-C documented in this encounter [facility] 06-29-2022 History of Present illness Narrative 81 year old female with sister Nina c/o follow up HTN: Current meds: Amlodipine 5mg daily Lisinopril 40mg daily Metoprolol succinate ER 50mg daily Patient is compliant with meds No Monitors bp at home: No. If yes, readings: Denies side effects: No. Chest pain: No. Dyspnea: No. Edema: Yes. Palpitations: Yes. Syncope: Yes. Headache: Yes. Dizziness: Yes. Last 3 Encounter BP Readings: Date: BP: 06/29/2022 114/62 01/26/2022 110/62 12/29/2021 118/64 Last 2 Encounter Wt Readings: Date: Wt: 06/29/2022 53.1 kg (117 lb) 01/26/2022 52.1 kg (114 lb 12.8 oz) Hyperlipidemia: Current medication Simvastatin 40mg daily Taking medication consistently Yes Observing low cholesterol high fiber diet Yes Muscle aches No Stomach complaints/ diarrhea No Last 2 Lipid Component Latest Ref Rng & Units 04/22/2019 11/02/2021 Cholesterol, Total <200 mg/dL 183 168 Triglyceride <150 mg/dL 84 80 HDL Cholesterol >39 mg/dL 54 55 LDL Cholesterol <100 mg/dL 112 (H) 97 Non HDL Cholesterol <130 mg/dL 129 113 Fasting Time hrs 12 12 VLDL Cholesterol <30 mg/dL 17 16 TC:HDL Ratio <5.10 3.39 3.05 LDL:HDL Ratio <2.54 2.07 1.76 Hasn't done stool for hemoccult yet. HISTORIES FAMILY HISTORY Problem Relation Age of Onset Hypertension Sister other (Parkinson's) Sister Hypertension Mother age 81, sudden Hypertension Father Heart Father : sudden age 75; dx'd early Breast Cancer Paternal Grandmother Breast Cancer Sister age 58 PAST MEDICAL HISTORY Diagnosis Date Chronic hypokalemia Counseling for living will 01/26/2022 DPOA - Son - Binh Ruiz. 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 Diarrhea Early satiety Essential hypertension, benign Flatulence, eructation, and gas pain History of colon polyps Insomnia, unspecified Irritable bowel syndrome Nephrolithiasis Palpitations Pure hypercholesterolemia Tachycardia PAST SURGICAL HISTORY Procedure Laterality Date ADRENALECTOMY W/EXPL W/WO BX ABDL/LMBR/DRSAL SPX 02/21/94 left adrenal tumor: induced Cushings APPENDECTOMY 1991 BIOPSY BREAST ~1967, ~1968 right, benign BIOPSY,SKIN EACH ADDITIONAL LESION moles removed from multiple sites COLONOSCOPY 2001 COLONOSCOPY 02/07/15 COLSC FLX W/RMVL OF TUMOR POLYP LESION SNARE TQ 02/23/11 tubulovillous adenoma, repeat due 2013 CYSTO W LITHOTRIPSY x2 EGD 08/06/05 EGD TRANSORAL BIOPSY SINGLE/MULTIPLE 02/23/11 LAPAROSCOPY SURG CHOLECYSTECTOMY 80's Cholecystectomy, lap PAST SURGICAL HISTORY OF 07/2006 removal of ovarian cyst PAST SURGICAL HISTORY OF 01/2004 right hemicolectomy for large TVA SALPINGO-OOPHORECTOMY COMPL/PRTL UNI/BI SPX 1991 Salpingo-oophorectomy TOTAL ABDOMINAL HYSTERECT W/WO RMVL TUBE OVARY 1991 Social History Tobacco Use Smoking status: Every Day Packs/day: 1.00 Years: 47.00 Pack years: 47.00 Types: Cigarettes Last attempt to quit: 09/30/1966 Years since quittin.7 Smokeless tobacco: Never Tobacco comments: Started Smoking about Age 19 Substance Use Topics Alcohol use: No Drug use: No ACTIVE PROBLEM LIST Acute Gastritis Mixed Hyperlipidemia Essential hypertension, benign Tobacco Use Disorder Colon Polyps Irritable Bowel Syndrome Chronic Hypokalemia Nonspecific (Abnormal) Findings On Radiological and Other Examination of Gastrointestinal Tract Flatulence, Eructation, and Gas Pain Early Satiety Diarrhea Renal Calculus Osteopenia, Senile Bilateral Carotid Artery Stenosis Hx of Ischemic Left Order Selector Stroke Vascular Dementia, Uncomplicated (Hcc) Encounter for Support and Coordination of Transition of Care Counseling for Living Will Current Outpatient Medications Medication Sig Dispense Refill aspirin 81 mg chewable tablet Take 81 mg by mouth once daily. clopidogrel (PLAVIX) 75 mg tablet Take 75 mg by mouth once daily. Cholecalciferol, Vitamin D3, 25 mcg (1,000 unit) cap Take 1,000 Units by mouth once daily. cyanocobalamin/thiamine (VITAMIN X42-[id number] B1 ORAL) Take 1,000 mcg by mouth once daily. amLODIPine (NORVASC) 5 mg tablet Take 2 tablets by mouth once daily. Per Dr. Salcido 0 simvastatin (ZOCOR) 40 mg tablet Take 0.5 tablets by mouth once daily. Per Dr. Salcido 90 tablet 3 metoprolol succinate ER (TOPROL XL) 50 mg 24 hr tablet Take 1 tablet by mouth once daily. Per Dr. Salcido 180 tablet 3 LISINOPRIL 40 MG TAB Take one(1) tablet daily. 90 3 Food Supplement, Lactose-Free (ENSURE) liqd Take 237 mL by mouth once daily. 237 mL 11 No current facility-administered medications for this visit. SHINGRIX VACCINE(2 of 3) due on 01/15/2011 COVID-19 VACCINE(3 - Booster for Pfizer series) due on 01/01/2022 EXAM: BP 114/62 Pulse 72 Resp 16 Wt 53.1 kg (117 lb) SpO2 96% BMI 22.67 kg/m Pleasant well appearing adult in no acute distress. Alert and oriented all spheres. Normal affect and cognition. Speech normal. No deficits to learning or comprehension. Skin warm, dry, pink to lips and nailbeds. Normal turgor. Respirations regular and unlabored. HEENT: NCAT. No scleral icterus or conjunctival injection. TM's clear. Nose and oropharynx free from injection or lesion. Oral membranes moist and pink. No cervical lymph nodes. Thyroid non-tender, no masses, or enlargement. Carotids pulses 2+/4+ without bruits. No JVD with HOB at 30 degrees. Chest is normal shape. Lungs are clear to all andrade with good air exchange through out. HRRR without murmur or gallop. No lifts, heaves, or rubs. Extrem: no clubbing or cyanosis. Edema: none. Extremities are warm and pink with prompt capillary refill. ASSESSMENT/PLAN: 1. Dementia without behavioral disturbance, unspecified dementia type (HCC) - ICD9: 294.20, ICD10: F03.90 (primary diagnosis) Stable. Mostly forgetful but able to manage self care in home. 2. Essential hypertension, benign - ICD9: 401.1, ICD10: I10 - good control - Recommended regular aerobic exercise. - Recommend home blood pressure monitoring, to bring results in on next visit - Goal of BP <130/80 3. Mixed hyperlipidemia - ICD9: 272.2, ICD10: E78.2 - good control - Continue current medication. - Encouraged following a low fat, low cholesterol diet. - Discussed the benefits of regular aerobic exercise F/u 6 months and as needed. Juan A Viera PA-C documented in this encounter [facility] 01-26-2022 Instructions Yessenia Coreas APRN.CNP - 01/26/2022 11:07 AM EDT 1. Continue same medication. 2. Try to drink one can of ensure daily in addition to meals. 3. If you do not continue to improve or worsening, let us know. documented in this encounter [facility] 01-26-2022 History of Present illness Narrative This is a 81 year old female who presents today with: Patient presents with: Hospital Follow Up: [facility] discharged on 01/16 HISTORY OF PRESENT ILLNESS: Marlene Ruiz is a 81 year old female. Patient presents with: Hospital Follow Up: [facility] discharged on 01/16 Pt presents today for hospital follow-up. She went to the hospital on 01/14/22 and discharge 01/16/22. Wasn't feeling well. Found to have covid and dehydration. Had ramdesivir and course of dexamethasone. Initially was going to go to a long-term home, however then decided to go home with home health services. Initially, oxygenation was high 80's low 90's. Now -- 96-97% RA. Still smokes. No intent to stop. Never formally diagnosed with COPD. Continues with congested cough. Cough is non-productive. Using incentive spirometry. No fevers/chills. No SOB. No CP/palpations. No diarrhea/constipation No dizziness/syncope. Urinating adequately. Lives alone. Two story home, but stays downstairs. Not much of an appetite. Started drinking an ensure daily. Trying ensure. Doing okay with that. Working on hydration. Family checks in on her and brings food daily. Visiting nursing is coming in weekly through mid February. OT released. PT coming in weekly. Advanced directives. Just needs to get notarized today or tomorrow. DPOA - Son - Binh Ruiz. 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 Diarrhea Early satiety Essential hypertension, benign Flatulence, eructation, and gas pain History of colon polyps Insomnia, unspecified Irritable bowel syndrome Nephrolithiasis Palpitations Pure hypercholesterolemia Tachycardia PAST SURGICAL HISTORY Procedure Laterality Date ADRENALECTOMY W/EXPL W/WO BX ABDL/LMBR/DRSAL SPX 02/21/94 left adrenal tumor: induced Cushings APPENDECTOMY 1991 BIOPSY BREAST ~1967, ~1969 right, benign BIOPSY,SKIN EACH ADDITIONAL LESION moles removed from multiple sites COLONOSCOPY 2001 COLONOSCOPY 02/07/15 COLSC FLX W/RMVL OF TUMOR POLYP LESION SNARE TQ 02/23/11 tubulovillous adenoma, repeat due 2013 CYSTO W LITHOTRIPSY x2 EGD 08/06/05 EGD TRANSORAL BIOPSY SINGLE/MULTIPLE 02/23/11 LAPAROSCOPY SURG CHOLECYSTECTOMY 80's Cholecystectomy, lap PAST SURGICAL HISTORY OF 07/2006 removal of ovarian cyst PAST SURGICAL HISTORY OF 01/2004 right hemicolectomy for large TVA SALPINGO-OOPHORECTOMY COMPL/PRTL UNI/BI SPX 1991 Salpingo-oophorectomy TOTAL ABDOMINAL HYSTERECT W/WO RMVL TUBE OVARY 1991 ALLERGIES Augmentin [Amoxicillin-Pot Clavulanate] and Cefzil [Cefprozil] MEDICATIONS Current Outpatient Medications Medication Sig donepezil (ARICEPT) 5 mg tablet Take 1 tablet by mouth daily at bedtime. aspirin 81 mg chewable tablet Take 81 mg by mouth once daily. clopidogrel (PLAVIX) 75 mg tablet Take 75 mg by mouth once daily. Cholecalciferol, Vitamin D3, (VITAMIN D) 1,000 unit cap Take 1,000 Units by mouth once daily. cyanocobalamin/thiamine (VITAMIN W51-MIESSMG B1 ORAL) Take 1,000 mcg by mouth once daily. amLODIPine (NORVASC) 5 mg tablet Take 2 tablets by mouth once daily. Per Dr. Salcido simvastatin (ZOCOR) 40 mg tablet Take 0.5 tablets by mouth once daily. Per Dr. Salcido metoprolol succinate ER (TOPROL XL) 50 mg 24 hr tablet Take 1 tablet by mouth once daily. Per Dr. Salcido LISINOPRIL 40 MG TAB Take one(1) tablet daily. No current facility-administered medications for this visit. FAMILY HISTORY Problem Relation Age of Onset Hypertension Sister other (Parkinson's) Sister Hypertension Mother age 81, sudden Hypertension Father Heart Father : sudden age 75; dx'd early Breast Cancer Paternal Grandmother Breast Cancer Sister age 58 Social History Tobacco Use Smoking status: Current Every Day Smoker Packs/day: 1.00 Years: 47.00 Pack years: 47.00 Types: Cigarettes Last attempt to quit: 09/30/1966 Years since quittin.3 Smokeless tobacco: Never Used Tobacco comment: Started Smoking about Age 19 Substance Use Topics Alcohol use: No Drug use: No EXAM: BP 110/62 Pulse (!) 124 Resp 18 Wt 52.1 kg (114 lb 12.8 oz) SpO2 96% BMI 22.24 kg/m PHYSICAL EXAM: General Appearance: Well appearing, alert, in no acute distress, well-hydrated, well nourished.. Skin: Skin color, texture, turgor normal, no suspicious rashes or lesions. Head: Normocephalic, no masses, lesions, tenderness or abnormalities. Eyes: Anicteric sclera. Pupils are equally round and reactive to light. Extraocular movements are intact. . Ears: External ears normal, canals clear, Normal TMs bilaterally. Oropharynx: Lips, mucosa, and tongue normal, teeth and gums normal, oropharynx normal. Neck: Supple, no adenopathy; thyroid symmetric, normal size, no bruits. Lungs: Lungs clear to auscultation. No wheezing, rhonchi, rales.. Heart: RRR without murmur, gallop, or rubs. No ectopy. Abdomen: Abdomen soft, non-tender. Bowel sounds normal. No masses, organomegaly. Extremities: No deformities, edema, skin discoloration, clubbing or cyanosis. Good capillary refill. . Neurologic: Gait normal. ASSESSMENT/PLAN: 1. COVID-19 - ICD9: 079.89, ICD10: U07.1 (primary diagnosis) Improved. Continue to monitor cough. 2. Counseling for living will - ICD9: V65.49, ICD10: Z71.89 DPOA - Son - Binh Ruiz. Aware to bring copy for chart. 3. Tobacco abuse - ICD9: 305.1, ICD10: Z72.0 -Declined cessation. 4. Dementia without behavioral disturbance, unspecified dementia type (HCC) - ICD9: 294.20, ICD10: F03.90 Stable. Lives alone, but has close family follow-up. Currently w/ home-health services. 5. Decreased appetite - ICD9: 783.0, ICD10: R63.0 Continue ensure daily. Discussed to use as a supplement to food, not a replacement. - ENSURE ORAL LIQUID Discussed treatment plan and patient voices understanding. Patient's questions answered appropriately. Medications and potential side effects were discussed and patient voices understanding. Return to the office as scheduled or as needed for worsening/no improvement. Yessenia Coreas APRN.FLIGHT ATTENDANT/INFLIGHT SUPERVISOR The patient indicates understanding of these issues and agrees with the plan. This note was partially generated using [employer] voice recognition system. Note was reviewed for accuracy. There may be minor misspellings or grammar miscues with [employer] voice recognition. documented in this encounter [facility] 01-23-2022 Miscellaneous Notes Omayra from OT [facility] called She had a one time only home/safety evaluation. Family stated she is continuing her normal routine now and family agrees to help out as needed around the house. They were happy with a one visit evaluation only at this time. Radha PT calling from [facility] to report plan of care for patient and PT will visit patient 2 times a week for 3 weeks. PT will work with patient on strengthening, balance, gait training, and endurance. No call back needed. 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 Zhou 07/05/2011, yearly check documented as of this encounter (statuses as of 09/07/2023) [facility] Diagnosis COVID-19- Primary Counseling for living will Other specified counseling Tobacco abuse Tobacco use disorder Dementia without behavioral disturbance, unspecified dementia type (HCC) Decreased appetite Anorexia documented in this encounter [facility] Diagnosis Dementia without behavioral disturbance, unspecified dementia type (HCC)- Primary Essential hypertension, benign Mixed hyperlipidemia Need for pneumococcal vaccine Need for prophylactic vaccination against streptococcus pneumoniae (pneumococcus) [facility] Diagnosis Hypertrophic toenail Other specified disease of nail Incurved toenail Ingrowing nail [facility] Diagnosis Essential hypertension, benign- Primary Mixed hyperlipidemia Vascular dementia, uncomplicated (HCC) Vascular dementia, uncomplicated Bilateral carotid artery stenosis Occlusion and stenosis of carotid artery without mention of cerebral infarction 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 Transient ischemic attack (TIA), and cerebral infarction without residual deficits Osteopenia, senile Disorder of bone and cartilage, unspecified Functional diarrhea Irritable bowel syndrome with both constipation and diarrhea Chronic hypokalemia Hypopotassemia 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) Need for COVID-19 vaccine Prediabetes Other abnormal glucose [facility] Diagnosis Essential hypertension, benign- Primary Mixed hyperlipidemia Bilateral carotid artery stenosis Occlusion and stenosis of carotid artery without mention of cerebral infarction 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 Transient ischemic attack (TIA), and cerebral infarction without residual deficits Vascular dementia, uncomplicated (HCC) Vascular dementia, uncomplicated Thyroid nodule greater than or equal to 1.5 cm in diameter incidentally noted on imaging study Osteopenia, senile Disorder of bone and cartilage, unspecified Hx of acute gastritis Personal history of unspecified digestive disease Irritable bowel syndrome with both constipation and diarrhea Encounter for immunization Need for other specified prophylactic vaccination against single bacterial disease Prediabetes Other abnormal glucose Malnutrition of moderate degree (HCC) Malnutrition of moderate degree Generalized weakness Other malaise and fatigue At high risk for injury related to fall Other specified conditions influencing health status Adjustment disorder with depressed mood [facility] Diagnosis Multiple thyroid nodules- Primary Nontoxic multinodular goiter [facility] Diagnosis Multiple thyroid nodules Nontoxic multinodular goiter [facility] Diagnosis Osteopenia, senile Disorder of bone and cartilage, unspecified documented in this encounter [facility] for referral (narrative)* Outpatient Procedure (Routine) - Authorized Specialty Diagnoses / Procedures Referred By Mikey t Referred To [facility] Diagnoses Vascular dementia, uncomplicated (HCC) Bilateral carotid artery stenosis Procedures US CAROTID ARTERIES RACQUEL VAS LAB DUPLEX SCAN EXTRACRANIAL ART COMPL BI STUDY Juan A Viera PA-C [address] [place] [address] [facility] [place] [address] [place] [address] Referral ID Status Reason Start Date Expiration Date Visits Requested Visits Authorized [id number] Authorized Auto-Generat ed Referral 01/10/2023 01/10/2024 1 1 [facility] Diagnostic Procedure Only (Routine) - Closed Specialty Diagnoses / Procedures Referred By Mikey camarillo Referred To Contact US IMAGING Diagnoses Multiple thyroid nodules Procedures US THYROID/PARATHYROID US SOFT TISSUE HEAD & NECK REAL TIME IMGE Juan A Rothman PA-C [address] [place] [address] [place] [address] Referral ID Status Reason Start Date Expiration Date V isits Requested Visits Authorized [id number] Closed Auto-Generate d Referral 01/25/2023 02/24/2024 1 1 [facility] Advance Directives No Advanced Directives Records FoundDocuments on File Type Date Recorded 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 Advance Directive(s) 02/07/2015 7:30 AM Documents on File Type Date Recorded 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 Advance Directive(s) 02/07/2015 7:30 AM Reason for Referral Specialty Diagnoses / Procedures Referred By Mikey camarillo Referred To Contact General Surgery Diagnoses Multiple thyroid nodules Procedures CONSULT TO GENERAL SURGERY OFFICE/OUTPATIENT [facility] 60-74 MINUTES Juan A Viera PA-C [address] [place] [address] Referral ID Status Reason Start Date Expiration Date Visits Requested Visits Authorized [id number] Pending Review PCP Requested Referral 07/22/2023 07/21/2024 1 1 Summary Purpose Family History No Family History Records Found Additional Source Comments Source Comments (unrecognize d section and content) In the event this informatio n is protected by the Federal Confidentiality of Alcohol and Drug Abuse Patient Records regulations: The Federal rules restrict any use of the information to criminally investigate or prosecute any alcohol or drug abuse patient.[facility] the event this information is protected by the Federal Confidentiality of Alcohol and Drug Abuse Patient Records regulations: The Federal rules restrict any use of the information to criminally investigate or prosecute any alcohol or drug abuse patient.[facility] the event this information is protected by the Federal Confidentiality of Alcohol and Drug Abuse Patient Records regulations: The Federal rules restrict any use of the information to criminally investigate or prosecute any alcohol or drug abuse patient.[facility] the event this information is protected by the Federal Confidentiality of Alcohol and Drug Abuse Patient Records regulations: The Federal rules restrict any use of the information to criminally investigate or prosecute any alcohol or drug abuse patient.[facility] the event this information is protected by the Federal Confidentiality of Alcohol and Drug Abuse Patient Records regulations: The Federal rules restrict any use of the information to criminally investigate or prosecute any alcohol or drug abuse patient.[facility] the event this information is protected by the Federal Confidentiality of Alcohol and Drug Abuse Patient Records regulations: The Federal rules restrict any use of the information to criminally investigate or prosecute any alcohol or drug abuse patient.[facility] the event this information is protected by the Federal Confidentiality of Alcohol and Drug Abuse Patient Records regulations: The Federal rules restrict any use of the information to criminally investigate or prosecute any alcohol or drug abuse patient.[facility] the event this information is protected by the Federal Confidentiality of Alcohol and Drug Abuse Patient Records regulations: The Federal rules restrict any use of the information to criminally investigate or prosecute any alcohol or drug abuse patient.[facility] the event this information is protected by the Federal Confidentiality of Alcohol and Drug Abuse Patient Records regulations: The Federal rules restrict any use of the information to criminally investigate or prosecute any alcohol or drug abuse patient.[facility] the event this information is protected by the Federal Confidentiality of Alcohol and Drug Abuse Patient Records regulations: The Federal rules restrict any use of the information to criminally investigate or prosecute any alcohol or drug abuse patient.[facility] the event this information is protected by the Federal Confidentiality of Alcohol and Drug Abuse Patient Records regulations: The Federal rules restrict any use of the information to criminally investigate or prosecute any alcohol or drug abuse patient.[facility] the event this information is protected by the Federal Confidentiality of Alcohol and Drug Abuse Patient Records regulations: The Federal rules restrict any use of the information to criminally investigate or prosecute any alcohol or drug abuse patient.[facility] the event this information is protected by the Federal Confidentiality of Alcohol and Drug Abuse Patient Records regulations: The Federal rules restrict any use of the information to criminally investigate or prosecute any alcohol or drug abuse patient.[facility] the event this information is protected by the Federal Confidentiality of Alcohol and Drug Abuse Patient Records regulations: The Federal rules restrict any use of the information to criminally investigate or prosecute any alcohol or drug abuse patient.[facility] the event this information is protected by the Federal Confidentiality of Alcohol and Drug Abuse Patient Records regulations: The Federal rules restrict any use of the information to criminally investigate or prosecute any alcohol or drug abuse patient.[facility] the event this information is protected by the Federal Confidentiality of Alcohol and Drug Abuse Patient Records regulations: The Federal rules restrict any use of the information to criminally investigate or prosecute any alcohol or drug abuse patient.[facility] the event this information is protected by the Federal Confidentiality of Alcohol and Drug Abuse Patient Records regulations: The Federal rules restrict any use of the information to criminally investigate or prosecute any alcohol or drug abuse patient.[facility] the event this information is protected by the Federal Confidentiality of Alcohol and Drug Abuse Patient Records regulations: The Federal rules restrict any use of the information to criminally investigate or prosecute any alcohol or drug abuse patient.[facility] the event this information is protected by the Federal Confidentiality of Alcohol and Drug Abuse Patient Records regulations: The Federal rules restrict any use of the information to criminally investigate or prosecute any alcohol or drug abuse patient.[facility] the event this information is protected by the Federal Confidentiality of Alcohol and Drug Abuse Patient Records regulations: The Federal rules restrict any use of the information to criminally investigate or prosecute any alcohol or drug abuse patient.[facility] Reason for Visit (unrecogniz ed section and content) Reason Comments PT Plan of Care FYI-No Action Needed OT Plan of Care Reason Comments 6 Month Exam Reason Comments Results Reason Comments New Patient Debridement of Nail Specialty Diagnoses / Procedures Referred By Mikey camarillo Referred To Contact Podiatry Diagnoses Hypertrophic toenail Incurved toenail Procedures CONSULT TO PODIATRY OFFICE/OUTPATIENT NEW HIGH MDM 60-74 MINUTES Juan A Viera PA-C [address] [place] [address] Referral ID Status Reason Start Date Expiration Date Visits Requested Visits Authorized [id number] Pending Review PCP Requested Referral 05/11/2022 05/11/2023 1 1 Reason Comments Patient Question Reason Onset Date Comments Refill Request 11/02/2022 Reason Comments 6 Month Exam Reason Onset Date Comments Home Health: Nursing Update 05/28/2023 Reason Onset Date Comments Refill Request 06/11/2023 Reason Comments Patient Update Reason Comments Letter Reason Comments medication clarification watch for fax Reason Comments Radiology US Specialty Diagnoses / Procedures Referred By Mikey camarillo Referred To Contact US IMAGING Diagnoses Multiple thyroid nodules Procedures US THYROID/PARATHYROID US SOFT TISSUE HEAD & NECK REAL TIME IMGE DOCM Juan A Viera PA-C [address] [place] [address] [place] [address] Referral ID Status Reason Start Date Expiration Date V isits Requested Visits Authorized [id number] Closed Auto-Generate d Referral 01/25/2023 02/24/2024 1 1 Care Teams (unrecognized sec tion and content) Federal Judge Relationship Specialty Start Date End Date Juan A Viera PA-C [address], [place] [id number] PCP - General Family Practice 09/12/17 Federal Judge Relationship Specialty Start Date End Date Juan A Viera PA-C [address] [place] [address] PCP - General Family Practice 09/12/17 Federal Judge Relationship Specialty Start Date End Date Juan A Viera PA-C [address] [place] [address] PCP - General Family Practice 09/12/17 Federal Judge Relationship Specialty Start Date End Date Juan A Viera PA-C [address] [place] [address] PCP - General Family Medicine 09/12/17 Federal Judge Relationship Specialty Start Date End Date Juan A Viera PA-C [address] [place] [address] PCP - General Family Medicine 09/12/17 Federal Judge Relationship Specialty Start Date End Date Juan A Viera PA-C [address] [place] [address] PCP - General Family Medicine 09/12/17 Federal Judge Relationship Specialty Start Date End Date Juan A Viera PA-C [address] [place] [address] PCP - General Family Medicine 09/12/17 Federal Judge Relationship Specialty Start Date End Date Juan A Viera PA-C [address] [place] [address] PCP - General Family Medicine 09/12/17 Federal Judge Relationship Specialty Start Date End Date Juan A Viera PA-C [address] [place] [address] PCP - General Family Medicine 09/12/17 Federal Judge Relationship Specialty Start Date End Date Juan A Viera PA-C [address] [facility], [place] [address] PCP - [facility] 09/12/17 Federal Judge Relationship Specialty Start Date End Date Juan A Viera PA-C [address] [facility], [place] [address] PCP - [facility] 09/12/17 Federal Judge Relationship Specialty Start Date End Date Juan A Viera PA-C [address] [facility], [place] [id number] PCP - [facility] 09/12/17 Federal Judge Relationship Specialty Start Date End Date Juan A Viera PA-C [address] [facility], [place] [address] PCP - [facility] 09/12/17 Federal Judge Relationship Specialty Start Date End Date Juan A Viera PA-C [address] [facility], [place] [id number] PCP - [facility] 09/12/17 INFORMATION SOURCE (unrecogn ized section and content) FOR RECORDS PERTAINING TO PATIENTS WHO ARE OR HAVE BEEN ENROLLED IN A CHEMICAL DEPENDENCY/SUBSTANCEABUSE PROGRAM, SOME INFORMATION MAY BE OMITTED. This clinical summary was aggregated from multiple sources. Caution should be exercised in using it in the provision of clinical care. This summary normalizes information from multiple sources, and as a consequence, information in this document may materially change the coding, format and clinical context of patient data. In addition, data may be omitted in some cases. CLINICAL DECISIONS SHOULD BE BASED ON THE PRIMARY CLINICAL RECORDS. [employer] provides no warranty or guarantee of the accuracy or completeness of information in this document.
[2023-11-16] MEDS: 0.9% Normal Saline (1000mL) 1,000 ML 999 ML IV (17:56)
[2023-11-16 17:57] LABS: Absolute Lymphocyte Count 1.36 X10^3/uL (0.83-4.51); Absolute Neutrophil Count 5.7 X10^3/uL (2.0-7.7); Basophil# 0.04 X10^3/uL; Basophil% 0.5 % (0-1); Eosinophil# 0.13 X10^3/uL; Eosinophils% 1.5 % (0-5); Hematocrit 33.1 % (37-47); Hemoglobin 10.3 g/dL (12.0-15.0); Lymphocyte # 1.36 X10^3/ul (0.83-4.51); Lymphocyte % 15.7 % (19-41); Mean Corp Hgb Conc 31.1 g/dL (32-36); Mean Corpuscular Hgb 28.9 pg (27.0-32.0); Mean Platelet Vol. 9.3 fl (6.2-12.0); Monocyte% 16.1 % (0-10); NRBC Flagged by Analyzer 0 % (0-5); Neutrophil # 5.71 X10^3/uL (2.7-7.7); Neutrophil % 65.9 % (47-70); POSITIVE COUNT YES; Platelet Count 270 K/mm3 (150-450); RBC Distribution Width CV 17.6 % (11.6-14.6); RBC Distribution Width SD 60.3 fl (35.1-43.9); Red Blood Count 3.56 M/mm3 (4.2-5.4); White Blood Count 8.7 K/mm3 (4.4-11.0)
[2023-11-16] MEDS: dexAMETHasone 10 MG/ML Vial 6 MG IV (17:57)
[2023-11-16] MEDS: Ondansetron 4 MG/2 ML Vial IV (17:57)
--- NOTE | 2023-11-16 18:01 | RAD_ITS ---
STUDY: X-RAY CHEST REASON FOR EXAM: Female, 83 years old. covid, low pulse ox TECHNIQUE: Single AP portable view of the chest. COMPARISON: 05/03/2023 FINDINGS: Poor inspiration with some bibasilar atelectasis. There is no demonstrated pleural abnormality. Normal size heart. Normal mediastinum and jose d. Normal visualized pulmonary arteries. Normal visualized aortic arch and descending thoracic aorta. Normal visualized thoracic spine. Normal visualized ribs, clavicles, and shoulders. There is no demonstrated abnormality of the visualized soft tissue structures of the upper abdomen. RAD/Chest 1 View (Portable) IMPRESSION: Poor inspiration with some bibasilar atelectasis. Electronically Signed: Leonel Crawford MD at 18:28 EST ,
[2023-11-16 18:15] LABS: ALB/GLOB Ratio 0.8 RATIO (0.9-2.4); AST(SGOT) 23 U/L (15-37); Alanine Aminotransfer ALT/SGPT 16 U/L (13-56); Albumin, Serum 3.1 g/dL (3.2-5.0); Alkaline Phosphatase 94 U/L (45-117); Anion Gap 5 (5-15); BUN 16 mg/dL (7-18); BUN/Creat Ratio 19.3 RATIO (10-20); Calcium,Total 9.3 mg/dL (8.5-10.1); Chloride 108 mmol/L (98-107); Creatinine, Serum 0.83 mg/dL (0.55-1.02); EST Glomerular Filtration Rate 70 mL/min (>60); Est Glom Filt Rate - Afr Amer 85 mL/min (>60); Estimated Creatinine Clearance 42.11 ml/min; Globulin 3.7 g/dL (2.2-4.2); Glucose 104 mg/dL (74-106); Potassium 4.2 mmol/L (3.5-5.1); Protein, Total 6.8 g/dL (6.4-8.2); Sodium Level 141 mmol/L (136-145); Troponin-I HS 30 pg/mL (3.0-54.0)
[2023-11-16 20:15] VITALS: O2SAT 82
[2023-11-16 20:27] VITALS: O2SAT 99
[2023-11-16 21:23] VITALS: BP 104/60; PULSE 80; RESP 18; O2SAT 95
== END 2023-11-16 22:21 | disposition skilled nursing facility (03) ==
PROVIDERS: Emergency Provider Emergency Medicine; PCP Physician Assistant; Visit Provider Emergency Medicine
DX: U07.1 COVID-19 (principal); R09.02 Hypoxemia; R19.7 Diarrhea, unspecified; R11.2 Nausea with vomiting, unspecified; Z86.73 Personal history of transient ischemic attack (TIA), and cerebral infarction without residual deficits; I10 Essential (primary) hypertension; E78.5 Hyperlipidemia, unspecified; Z79.899 Other long term (current) drug therapy; Z79.02 Long term (current) use of antithrombotics/antiplatelets; Z90.710 Acquired absence of both cervix and uterus; Z90.49 Acquired absence of other specified parts of digestive tract; F17.210 Nicotine dependence, cigarettes, uncomplicated
CPT/HCPCS: 71045; 80053; 84484; 85025; 93005; 99283; J7030; A4216; J2405

== ENCOUNTER 2024-01-16 08:22 | Emergency (ER) | payer MEDICARE, OTHER, SELFPAY ==
[2024-01-16 08:22] VITALS: BP 158/62; PULSE 72; RESP 16; TEMP 36.2; O2SAT 97; BMI 25.9
--- NOTE | 2024-01-16 08:38 | EDS_ITS ---
HPI HPI - Fall History of Present Illness Chief Complaint: Fall Informant: patient Occured/Mechanism Occurred: Today Mechanism/Context: Yes same level fall Pain/Injury Location: Left forearm, right thumb Pain Location: head and upper extremity (Left forearm, right thumb) Quality of Pain: Dull Worsened by: Nothing Relieved by: Nothing Narrative Narrative: Patient presents after a fall that occurred today. Patient lives at an extended care facility. Patient states she fell while walking today. Patient denies any loss of consciousness. Patient is unsure if she hit her head. Patient is on Eliquis. Patient is unsure of her last tetanus. Patient had some skin tears over her left forearm and right thumb. Patient denies any paresthesias or weakness. Patient denies any other injuries. Patient denies any neck or back pain. [facility] Medical History Coagulopathy CVA (cerebral vascular accident) Dementia Essential (primary) hypertension History of palpitations Hyperlipemia Non-compliant behavior Non-rheumatic tricuspid valve insufficiency Home Medications cholecalciferol (vitamin D3) 25 mcg (1,000 unit) tablet 25 mcg PO DAILY supplement 12/08/20 [History Last Taken 01/14/22 09:00] vitamin B complex (B Complex-Vitamin B12 tablet) 1 tab PO DAILY supplement 12/08/20 [History Last Taken 01/14/22 09:00] dexamethasone 4 mg tablet 6 mg (1.5 x 4 mg) PO DAILY #7 tabs 01/16/22 [Rx Last Taken Unknown] lisinopril 40 mg tablet 40 mg PO DAILY blood pressure #90 tabs 11/02/22 [Rx Last Taken Unknown] simvastatin 20 mg tablet See Rx Instructions .Route .COMPLEX #90 TABLETS 12/28/22 [Rx Last Taken Unknown] clopidogrel 75 mg tablet (Plavix) 75 mg PO DAILY blood thinner #90 tabs 01/01/23 [Rx Last Taken Unknown] amlodipine 10 mg tablet See Rx Instructions .Route .COMPLEX #90 TABLETS 01/28/23 [Rx Last Taken Unknown] food supplemt, lactose-reduced 0.08 gram-1.5 kcal/mL oral liquid (Ensure Plus High Protein) 120 ml PO 4X/DAY #0 mL 05/08/23 [Rx Last Taken Unknown] guaifenesin 100 mg/5 mL oral liquid 50 mg (2.5 mL) PO Q4H PRN PRN COUGH #1,000 mL 05/08/23 [Rx Last Taken Unknown] mirtazapine 15 mg tablet 15 mg PO QHS #0 tabs 05/08/23 [Rx Last Taken Unknown] metoprolol succinate 50 mg tablet,extended release 24 hr 50 mg PO DAILY blood pressure #90 tabs 05/22/23 [Rx Last Taken Unknown] dexamethasone 6 mg tablet 6 mg PO DAILY #6 tabs 11/16/23 [Rx Last Taken Unknown] miscellaneous medical supply #1 ea 11/16/23 [Rx Last Taken Unknown] nirmatrelvir 300 mg (150 mg x2)-ritonavir 100 mg tablet,dose pack (Paxlovid) See Rx Instructions PO .COMPLEX #30 tabs 11/16/23 [Rx Last Taken Unknown] ondansetron 4 mg disintegrating tablet 8 mg (2 x 4 mg) PO Q8H PRN PRN Nausea #20 tabs 11/16/23 [Rx Last Taken Unknown] Allergy/AdvReac Type Severity Reaction Status Date / Time amoxicillin trihydrate AdvReac Mild Vomiting Verified 01/16/24 08:25 [From Augmentin] potassium clavulanate AdvReac Mild Vomiting Verified 01/16/24 08:25 [From Augmentin] Family History Mother Hypertension Father Hypertension Surgical History H/O hemorrhoidectomy H/O total hysterectomy History of lumpectomy Hx of cholecystectomy Social History housing: detention number of children: 1 current occupational status: retired 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 pets and animals: Yes history of recent travel: No Smoking Status: Current every day smoker tobacco type: cigarettes alcohol intake: never substance use type: does not use caffeine: Yes what type of physical activity do you participate in: none seatbelt use: always do you feel safe at home: Yes additional social history: ROS ROS ED Constitutional Constitutional ED: Denies chills or fever(s) Eyes Eyes: Denies blurry vision or change in vision ENT ENT ED: Denies rhinorrhea or sore throat Cardiovascular Cardiovascular: Denies chest pain or palpitations Respiratory/Chest Respiratory/Chest: Denies cough or dyspnea Gastrointestinal Gastrointestinal: Denies nausea or vomiting Genitourinary Genitourinary ED: Denies dysuria or hematuria Musculoskeletal Musculoskeletal: Denies back pain or neck pain Integumentary Denies abscess or rash Neurologic Neurologic: Denies headache(s) or weakness Allergic/Immunologic Allergic/Immunologic ED: Denies mouth swelling or urticaria EXAM Physical Exam Const Vital Signs: 01/16/24 08:22 01/16/24 09:08 01/16/24 11:17 Temperature 97.2 F L Temperature Source Temporal Pulse Rate 72 71 Respiratory Rate 16 18 Respiratory Effort Normal Non-Labored Blood Pressure 158/62 H 154/63 H Blood Pressure Mean 94 93 Pulse Ox 97 96 Oxygen Delivery Method Room Air Room Air Positive well nourished and well developed General Appearance ED: well developed and NAD HEENT Reports normocephalic atraumatic Neck full ROM and supple Resp normal respiratory effort and clear to auscultation bilaterally Cardio regular rate and regular rhythm GI non-tender and non-distended Palpation: soft Neuro CN's II-XII intact bilaterally, moves all extremities, no focal motor deficits and no sensory deficits noted Jorge Coma Scale: document GCS findings Spontaneous Obeys Commands Oriented 15 Sensorium / Orientation: alert Motor Exam: strength 5/5 throughout Psych mental status grossly normal Skin Skin Narrative: There are superficial skin tears over the ulnar aspect of the left forearm and ulnar aspect of the proximal phalanx of the right thumb. There is no active bleeding noted. There is minimal gapping of the wound margins. There are no foreign bodies visualized. MDM MDM MDM Narrative Medical decision making narrative: Since the patient is on Eliquis and there is a questionable head injury, CT scan of the brain will be obtained to assess for intracranial bleeding. Radiography Diagnostic Testing: Clinical Impression(s) from Imaging Studies Brain CT 01/16/24 09:57 IMPRESSION: Chronic involutional changes of the brain. Electronically Signed: Clyde Mayberry MD at 10:34 EDT , CT scan of the brain was obtained. There is no acute intracranial abnormality. There are chronic involutional changes noted. This was interpreted by the radiologist and was also independently reviewed by myself. Treatment and Re-Evaluation Narrative: Patient and son were advised of the findings. Patient was able to ambulate here in the emergency department without difficulty. The skin tears were cleaned and closed with Steri-Strips. Patient was instructed to keep these on until they fall off. Patient was instructed to follow-up with her primary care physician in 5 to 7 days. Patient and family understood and were agreeable with the plan. All questions were answered. Discharge Plan Triage Chief Complaint: Fall ED Provider: Cristopher Her Dx/Rx/DC Orders Clinical Impression: Skin tear of right hand without complication, Skin tear of left upper extremity, Fall Instructions: ED Skin Tear (Skin Avulsion), ED Fall Prevention Prescriptions: No Action vitamin B complex [B Complex-Vitamin B12] Tablet 1 tab PO DAILY cholecalciferol (vitamin D3) 25 mcg (1,000 unit) tablet 25 mcg PO DAILY dexamethasone 4 mg Tablet 6 mg PO DAILY Qty: 7 0RF guaifenesin 100 mg/5 mL Liquid 50 mg PO Q4H PRN PRN (Reason: COUGH) Qty: 1000 0RF mirtazapine 15 mg Tablet 15 mg PO QHS Qty: 0 0RF Ensure Plus High Protein 0.08 gram-1.5 kcal/mL Liquid 120 ml PO 4X/DAY Qty: 0 0RF Paxlovid 300 mg (150 mg x 2)-100 mg tablets,dose pack See Rx Instructions .ROUTE .COMPLEX Qty: 30 0RF Rx Instructions: take TWO 150 mg tablets of nirmatrelvir with ONE 100 mg tablet of ritonavir twice daily for 5 days ondansetron [ondansetron] 4 mg tablet,disintegrating 8 mg PO Q8H PRN PRN (Reason: Nausea) Qty: 20 0RF (DME) miscellaneous medical supply Misc See Rx Instructions .Route Qty: 1 0RF Rx Instructions: As directed dexamethasone 6 mg tablet 6 mg PO DAILY Qty: 6 0RF lisinopril 40 mg tablet 40 mg PO DAILY Qty: 90 3RF simvastatin 20 mg tablet See Rx Instructions .ROUTE .COMPLEX Qty: 90 3RF Hold Instructions: Resume on 11/25/23. assuming Paxlovid started on 11/17/23 Dose Instruction: TAKE 1 TABLET AT BEDTIME Rx Instructions: TAKE 1 TABLET AT BEDTIME clopidogrel [Plavix] 75 mg tablet 75 mg PO DAILY Qty: 90 3RF amlodipine 10 mg tablet See Rx Instructions .ROUTE .COMPLEX Qty: 90 4RF Dose Instruction: TAKE 1 TABLET EVERY DAY Rx Instructions: TAKE 1 TABLET EVERY DAY metoprolol succinate 50 mg tablet extended release 24 hr 50 mg PO DAILY Qty: 90 3RF Primary Care Provider: Juan A Viera Referrals: Juan A Viera PA [Primary Care Provider] - 5-7 Days Disposition Disposition: Home, Self Care
--- NOTE | 2024-01-16 09:57 | CT_ITS ---
STUDY: CT BRAIN WITHOUT CONTRAST REASON FOR EXAM: Female, 83 years old. Head injury RADIATION DOSAGE (If Supplied By Facility): CTDIvol = ( 44.99 ) mGy, DLP = ( 796.11 ) mGycm TECHNIQUE: Transaxial CT imaging of the brain was performed without administration of intravenous contrast material. Individualized dose optimization techniques were used for this CT. COMPARISON: Comparison is made with prior study dated May 03, 2023. FINDINGS: Normal soft tissue structures. Normal calvarium. There is mild cerebral atrophy with widening of the extra-axial spaces and ventricular dilatation. There are areas of decreased attenuation within the white matter tracts of the supratentorial brain, consistent with microvascular disease changes. Normal basal ganglia and thalami. Normal brainstem. Focal encephalomalacia in the lateral inferior aspect of the left cerebellar hemisphere as well as in the left vermis. There is no intracranial hemorrhage. There are no findings of an acute ischemic infarction. Normal visualized paranasal sinuses. CT/Brain/Head without Contrast IMPRESSION: Chronic involutional changes of the brain. Electronically Signed: Clyde Mayberry MD at 10:34 EDT ,
[2024-01-16 11:17] VITALS: BP 154/63; PULSE 71; RESP 18; O2SAT 96
[2024-01-16 11:47] VITALS: BP 154/63; PULSE 71; RESP 18; TEMP 30.7; O2SAT 96
--- NOTE | 2024-01-16 11:48 | ED.RN ---
Radha nurse at [facility] called in for update
== END 2024-01-16 11:49 | disposition home or self-care (01) ==
PROVIDERS: Emergency Provider Emergency Medicine; PCP Physician Assistant; Visit Provider Emergency Medicine
DX: S61.411A Laceration without foreign body of right hand, initial encounter (principal); F03.90 Unspecified dementia, unspecified severity, without behavioral disturbance, psychotic disturbance, mood disturbance, and anxiety; W18.30XA Fall on same level, unspecified, initial encounter; S51.812A Laceration without foreign body of left forearm, initial encounter; Y93.01 Activity, walking, marching and hiking; Y92.89 Other specified places as the place of occurrence of the external cause; Z86.73 Personal history of transient ischemic attack (TIA), and cerebral infarction without residual deficits; I10 Essential (primary) hypertension; E78.5 Hyperlipidemia, unspecified; Z79.01 Long term (current) use of anticoagulants; Z79.899 Other long term (current) drug therapy; Z79.02 Long term (current) use of antithrombotics/antiplatelets; Z90.710 Acquired absence of both cervix and uterus; Z90.49 Acquired absence of other specified parts of digestive tract; F17.210 Nicotine dependence, cigarettes, uncomplicated
CPT/HCPCS: 70450; 99282

== ENCOUNTER 2024-02-19 15:10 | Emergency (ER) | payer MEDICARE, OTHER, SELFPAY ==
--- NOTE | 2024-02-19 15:00 | RAD_ITS ---
STUDY: X-RAY - LEFT ANKLE REASON FOR EXAM: Female, 83 years old. pain TECHNIQUE: 3 view(s) of the ankle. COMPARISON: None. FINDINGS: Normal visualized distal tibia. Nondisplaced obliquely oriented fracture through the distal fibular shaft with early callus deposition. Normal medial and lateral malleoli. Normal tibiotalar articulation and ankle mortise. Normal visualized talus and calcaneus. The visualized subtalar, talonavicular, calcaneocuboid and tarsal articulations are normal. Mild bimalleolar soft tissue swelling. RAD/Ankle min 3 Views IMPRESSION: Early healing fracture of the distal fibula. Electronically Signed: Robert Edmonds MD at 16:50 EDT ,
[2024-02-19 15:11] VITALS: BP 145/61; PULSE 95; RESP 16; TEMP 36.3; O2SAT 96
--- NOTE | 2024-02-19 15:56 | VDLE_ITS ---
Reason For Study: Left leg swelling RIGHT LEFT CFV is compressible, spontaneous, phasic, GSV is normal. competent and demonstrates normal CFV is compressible, spontaneous, phasic, augmentation. competent, and demonstrates normal Procedure augmentation. This is a venous duplex using B-mode, color FV is compressible, spontaneous, phasic, flow and spectral Doppler. competent and demonstrates normal Exam performed portable in ED. augmentation. A preliminary report was called and/or faxed POP V is compressible, spontaneous, phasic, to Dr. Bolivar. competent and demonstrates normal augmentation. T/P Trunk is compressible. PTV is compressible. LT PerV is compressible. VL/Venous Duplex US, Unilateral Interpretation Summary Deep veins of the left lower extremity are patent and compressible segmentally. There is no evidence of left lower extremity deep vein thrombosis. The left great saphenous vein mike ears patent and compressible segmentally. Ordering Physician: Sj Bolivar Referring Physician: Bouchra Viera Performed By: Bebe Arreaga RVT
--- NOTE | 2024-02-19 16:03 | EDS_ITS ---
HPI History of Present Illness Chief Complaint: Lower Extremity Injury Narrative Narrative: 83-year-old female presenting with left foot swelling. She has a history of fibular fracture. She is in a walking boot. She is weightbearing as tolerated but encouraged not to walk. Patient was seen by her nurse today who said that her leg was feverish and red. Patient states her leg does not hurt and her ankle does not hurt but she does have some pain in her foot where there is some swelling. She has not any systemic signs or symptoms. No fevers or chills. No new trauma. [facility] Medical History Coagulopathy CVA (cerebral vascular accident) Dementia Essential (primary) hypertension History of palpitations Hyperlipemia Non-compliant behavior Non-rheumatic tricuspid valve insufficiency Home Medications cholecalciferol (vitamin D3) 25 mcg (1,000 unit) tablet 25 mcg PO DAILY supplement 12/08/20 [History Last Taken 01/14/22 09:00] vitamin B complex (B Complex-Vitamin B12 tablet) 1 tab PO DAILY supplement 12/08/20 [History Last Taken 01/14/22 09:00] dexamethasone 4 mg tablet 6 mg (1.5 x 4 mg) PO DAILY #7 tabs 01/16/22 [Rx Last Taken Unknown] lisinopril 40 mg tablet 40 mg PO DAILY blood pressure #90 tabs 11/02/22 [Rx Last Taken Unknown] simvastatin 20 mg tablet See Rx Instructions .Route .COMPLEX #90 TABLETS 12/28/22 [Rx Last Taken Unknown] clopidogrel 75 mg tablet (Plavix) 75 mg PO DAILY blood thinner #90 tabs 01/01/23 [Rx Last Taken Unknown] amlodipine 10 mg tablet See Rx Instructions .Route .COMPLEX #90 TABLETS 01/28/23 [Rx Last Taken Unknown] food supplemt, lactose-reduced 0.08 gram-1.5 kcal/mL oral liquid (Ensure Plus High Protein) 120 ml PO 4X/DAY #0 mL 05/08/23 [Rx Last Taken Unknown] guaifenesin 100 mg/5 mL oral liquid 50 mg (2.5 mL) PO Q4H PRN PRN COUGH #1,000 mL 05/08/23 [Rx Last Taken Unknown] mirtazapine 15 mg tablet 15 mg PO QHS #0 tabs 05/08/23 [Rx Last Taken Unknown] metoprolol succinate 50 mg tablet,extended release 24 hr 50 mg PO DAILY blood pressure #90 tabs 05/22/23 [Rx Last Taken Unknown] dexamethasone 6 mg tablet 6 mg PO DAILY #6 tabs 11/16/23 [Rx Last Taken Unknown] miscellaneous medical supply #1 ea 11/16/23 [Rx Last Taken Unknown] nirmatrelvir 300 mg (150 mg x2)-ritonavir 100 mg tablet,dose pack (Paxlovid) See Rx Instructions PO .COMPLEX #30 tabs 11/16/23 [Rx Last Taken Unknown] ondansetron 4 mg disintegrating tablet 8 mg (2 x 4 mg) PO Q8H PRN PRN Nausea #20 tabs 11/16/23 [Rx Last Taken Unknown] Allergy/AdvReac Type Severity Reaction Status Date / Time amoxicillin trihydrate AdvReac Mild Vomiting Verified 02/19/24 15:11 [From Augmentin] potassium clavulanate AdvReac Mild Vomiting Verified 02/19/24 15:11 [From Augmentin] Family History Mother Hypertension Father Hypertension Surgical History H/O hemorrhoidectomy H/O total hysterectomy History of lumpectomy Hx of cholecystectomy Social History housing: halfway number of children: 1 current occupational status: retired 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 pets and animals: Yes history of recent travel: No Smoking Status: Former smoker alcohol intake: never substance use type: does not use caffeine: Yes what type of physical activity do you participate in: none seatbelt use: always do you feel safe at home: Yes additional social history: ROS ROS ED Constitutional Constitutional ED: Denies chills, fever(s) or sweats Eyes Eyes: Denies blurry vision or change in vision ENT ENT ED: Denies ear pain or sore throat Cardiovascular Cardiovascular: Denies chest pain, palpitations or racing heartbeat Respiratory/Chest Respiratory/Chest: Denies cough, dyspnea or sputum Gastrointestinal Gastrointestinal: Denies abdominal pain, constipation, diarrhea, nausea or vomiting Genitourinary Genitourinary ED: Denies dysuria, hematuria or urinary frequency Musculoskeletal Musculoskeletal: Reports other Details: Left foot pain ; Denies arthralgias, myalgias or neck pain Integumentary Reports other Details: Swelling of left foot ; Denies abscess, Abrasions or rash Neurologic Neurologic: Denies headache(s), paresthesias or weakness Psychiatric Psychiatric: Denies anxiety, depression, suicidal ideation or suicidal thoughts Endocrine Endocrinology: Denies polydipsia or polyuria EXAM Physical Exam Const Vital Signs: 02/19/24 15:11 Temperature 97.4 F L Temperature Source Temporal Pulse Rate 95 Respiratory Rate 16 Blood Pressure 145/61 H Blood Pressure Mean 89 Pulse Ox 96 Oxygen Delivery Method Room Air Positive well nourished General Appearance ED: NAD HEENT Reports moist mucous membranes normocephalic Resp normal respiratory effort Cardio regular rate and regular rhythm Extremity Extremity Narrative: There is some slight edema noted to the left foot. There is tenderness to palpation over the midfoot. Neurovascular intact with brisk cap refill to all 5 toes. There is no pain to palpation over the left ankle or the left calf. Compartments are soft. No cords palpated. Neuro oriented x3 and CN's II-XII intact bilaterally Sensorium / Orientation: alert Motor Exam: strength 5/5 throughout MDM MDM MDM Narrative Medical decision making narrative: Patient presenting with left foot pain. Differential includes DVT, dependent edema from fibular, fracture, foot fracture. X-rays of the left foot and ankle be obtained. DVT study will be obtained. X-rays of the left foot and ankle on my interpretation show no acute fracture, healing Fracture of the distal fibula which is known. DVT study was negative. Patient was placed back in her boot she can follow-up orthopedics. Impression: 1. History of fibular fracture 2. Unilateral leg swelling Radiography Diagnostic Testing: Clinical Impression(s) from Imaging Studies Ankle X-Ray 02/19/24 15:00 IMPRESSION: Early healing fracture of the distal fibula. Electronically Signed: Robert Edmonds MD at 16:50 EDT , Foot X-Ray 02/19/24 16:08 IMPRESSION: Normal x-ray examination of the foot. Electronically Signed: Robert Edmonds MD at 16:52 EDT , Discharge Plan Triage Chief Complaint: Lower Extremity Injury ED Provider: Sj Bolivar Dx/Rx/DC Orders Instructions: ED Peripheral Edema, Unilateral, ED Ankle Fracture, Distal Fibula Prescriptions: No Action vitamin B complex [B Complex-Vitamin B12] Tablet 1 tab PO DAILY cholecalciferol (vitamin D3) 25 mcg (1,000 unit) tablet 25 mcg PO DAILY dexamethasone 4 mg Tablet 6 mg PO DAILY Qty: 7 0RF guaifenesin 100 mg/5 mL Liquid 50 mg PO Q4H PRN PRN (Reason: COUGH) Qty: 1000 0RF mirtazapine 15 mg Tablet 15 mg PO QHS Qty: 0 0RF Ensure Plus High Protein 0.08 gram-1.5 kcal/mL Liquid 120 ml PO 4X/DAY Qty: 0 0RF Paxlovid 300 mg (150 mg x 2)-100 mg tablets,dose pack See Rx Instructions .ROUTE .COMPLEX Qty: 30 0RF Rx Instructions: take TWO 150 mg tablets of nirmatrelvir with ONE 100 mg tablet of ritonavir twice daily for 5 days ondansetron [ondansetron] 4 mg tablet,disintegrating 8 mg PO Q8H PRN PRN (Reason: Nausea) Qty: 20 0RF (DME) [place] [facility] [place] Instructions .Route Qty: 1 0RF Rx Instructions: As directed dexamethasone 6 mg tablet 6 mg PO DAILY Qty: 6 0RF lisinopril 40 mg tablet 40 mg PO DAILY Qty: 90 3RF simvastatin 20 mg tablet See Rx Instructions .ROUTE .COMPLEX Qty: 90 3RF Hold Instructions: Resume on 11/25/23. assuming Paxlovid started on 11/17/23 Dose Instruction: TAKE 1 TABLET AT BEDTIME Rx Instructions: TAKE 1 TABLET AT BEDTIME clopidogrel [Plavix] 75 mg tablet 75 mg PO DAILY Qty: 90 3RF amlodipine 10 mg tablet See Rx Instructions .ROUTE .COMPLEX Qty: 90 4RF Dose Instruction: TAKE 1 TABLET EVERY DAY Rx Instructions: TAKE 1 TABLET EVERY DAY metoprolol succinate 50 mg tablet extended release 24 hr 50 mg PO DAILY Qty: 90 3RF Primary Care Provider: Juan A Viera Referrals: Juan A Viera, PA [Primary Care Provider] - Disposition Disposition: Home, Self Care
--- NOTE | 2024-02-19 16:08 | RAD_ITS ---
STUDY: X-RAY - LEFT FOOT CLINICAL: Female, 83 years old. pain TECHNIQUE: 3 view(s) of the foot. COMPARISON: None. FINDINGS: Normal talus, calcaneus, and tarsal bones. Normal visualized subtalar, talonavicular, calcaneocuboid, tarsal and tarsometatarsal articulations. Normal metatarsi. Normal metatarsophalangeal joint of the great toe. Normal tibial and fibular sesamoid bones. Normal interphalangeal joint of the great toe. Normal phalanges of the great toe. Normal second through fifth metatarsophalangeal joints. Normal interphalangeal joints and phalanges of the lesser toes. The soft tissue structures are unremarkable. RAD/Foot min 3 Views IMPRESSION: Normal x-ray examination of the foot. Electronically Signed: Robert Edmonds MD at 16:52 EDT ,
[2024-02-19 16:22] VITALS: BMI 26.3
== END 2024-02-19 17:15 | disposition home or self-care (01) ==
PROVIDERS: Emergency Provider Student in an Organized Health Care Education/Training Program; PCP Physician Assistant; Visit Provider Student in an Organized Health Care Education/Training Program
DX: Z87.81 Personal history of (healed) traumatic fracture (principal); M79.672 Pain in left foot; M79.89 Other specified soft tissue disorders; Z87.891 Personal history of nicotine dependence; I10 Essential (primary) hypertension; E78.5 Hyperlipidemia, unspecified
CPT/HCPCS: 73610; 73630; 93971; 99282

== ENCOUNTER → 2024-06-11 | Outpatient (REF) | payer MEDICARE, SELFPAY ==
[2024-06-12 08:29] LABS: Bacteria 0 SEEN /hpf (None Seen); Mucous, Urine 0 SEEN /hpf (<or=2+); Red Blood Cells-Urine 0 SEEN /hpf (0-5); White Blood Cells 0 SEEN /hpf (0-5)
[2024-06-12 08:44] LABS: Color, Urine Yellow (Yellow); Glucose, Dipstick Normal (Normal); Ketone-Dipstick Negative (Negative); Leukocyte Esterase-Dipstick 25 /ul (Negative); Nitrite-Dipstick Negative (Negative); Occult Blood-Urine Negative /ul (Negative); Protein-Dipstick Negative (Negative); Specific Gravity, Urine 1.015 (1.002-1.030); Urine Bilirubin Dipstick Negative (Negative); Urine Clarity Clear (Clear); Urine Urobilinogen Normal (Normal)
[2024-06-12 09:40] LABS: Calcium Oxalate Crystals Ur 2+ /hpf (<or=2+); Squamous Epithelial Cells - UA 0-5 SEEN /hpf (5-10)
== END ==
LOC: OLS.BROOKB 21:00
PROVIDERS: PCP Physician Assistant
DX: R41.82 Altered mental status, unspecified (principal)
CPT/HCPCS: 81001; 87086; 87088

== ENCOUNTER → 2025-04-02 | Outpatient (REF) | payer MEDICARE, SELFPAY ==
[2025-04-02 07:04] LABS: Red Blood Cells-Urine 0 SEEN /hpf (0-5)
[2025-04-02 07:54] LABS: Color, Urine Yellow (Yellow); Glucose, Dipstick Normal (Normal); Ketone-Dipstick Negative (Negative); Leukocyte Esterase-Dipstick 100 /ul (Negative); Nitrite-Dipstick Negative (Negative); Occult Blood-Urine Negative /ul (Negative); Protein-Dipstick 30 mg/dl (Negative); Specific Gravity, Urine 1.025 (1.002-1.030); Urine Bilirubin Dipstick Negative (Negative); Urine Clarity Sl. Cloudy (Clear); Urine Urobilinogen Normal (Normal)
[2025-04-02 08:45] LABS: Bacteria 2+ /hpf (None Seen); Calcium Oxalate Crystals Ur 2+ /hpf (<or=2+); Mucous, Urine 1+ /hpf (<or=2+); Squamous Epithelial Cells - UA 0-5 SEEN /hpf (5-10); White Blood Cells 0-5 SEEN /hpf (0-5)
[2025-04-02 08:47] LABS: Fine Granular Cast- Urine 0-5 SEEN /lpf (0-5); Hyaline Cast 10-25 SEEN /lpf (0-5)
== END ==
LOC: OLS.BROOKB 02:00
PROVIDERS: PCP Physician Assistant; Visit Provider Registered Nurse
DX: I12.9 Hypertensive chronic kidney disease with stage 1 through stage 4 chronic kidney disease, or unspecified chronic kidney disease (principal); N18.9 Chronic kidney disease, unspecified; E78.5 Hyperlipidemia, unspecified; N17.9 Acute kidney failure, unspecified; R53.83 Other fatigue
CPT/HCPCS: 81001; 87086; 87088

== ENCOUNTER → 2025-04-08 | Outpatient (REF) | payer MEDICARE, SELFPAY ==
[2025-04-09 08:18] LABS: Mucous, Urine 0 SEEN /hpf (<or=2+); Red Blood Cells-Urine 0 SEEN /hpf (0-5)
[2025-04-09 08:50] LABS: Color, Urine Yellow (Yellow); Glucose, Dipstick Normal (Normal); Ketone-Dipstick Negative (Negative); Leukocyte Esterase-Dipstick 100 /ul (Negative); Nitrite-Dipstick Negative (Negative); Occult Blood-Urine Negative /ul (Negative); Protein-Dipstick 30 mg/dl (Negative); Urine Bilirubin Dipstick Negative (Negative); Urine Clarity Sl. Cloudy (Clear); Urine Urobilinogen Normal (Normal)
[2025-04-09 09:04] LABS: Bacteria 1+ /hpf (None Seen); Calcium Oxalate Crystals Ur 1+ /hpf (<or=2+); Squamous Epithelial Cells - UA 0-5 SEEN /hpf (5-10); White Blood Cells 0-5 SEEN /hpf (0-5)
== END ==
LOC: OLS.BROOKB 18:00
PROVIDERS: PCP Physician Assistant
DX: N39.0 Urinary tract infection, site not specified (principal)
CPT/HCPCS: 81001; 87086